=== PATIENT | male | born 1960 | race Caucasian/White ===

== ENCOUNTER 2020-03-15 17:22 | Outpatient (REF) | payer BC, SELFPAY | END 2020-03-15 17:23 | disposition home or self-care (01) | LOC: HO.LAB 17:22 | PROVIDERS: PCP Internal Medicine; Visit Provider Internal Medicine | DX: Z20.828 Contact with and (suspected) exposure to other viral communicable diseases (principal) | CPT/HCPCS: C9803; U0003 ==

== ENCOUNTER 2020-03-28 16:33 | Outpatient (REF) | payer BC, SELFPAY | END 2020-03-28 16:34 | disposition home or self-care (01) | LOC: HO.LAB 16:33 | PROVIDERS: Visit Provider Internal Medicine | DX: Z20.822 Contact with and (suspected) exposure to COVID-19 (principal) | CPT/HCPCS: 36415; C9803; U0003 ==

== ENCOUNTER → 2020-05-19 10:46 | Outpatient (BNVA) | payer BC, SELFPAY | PROVIDERS: PCP Internal Medicine; Visit Provider Internal Medicine Endocrinology, Diabetes & Metabolism | DX: E11.42 Type 2 diabetes mellitus with diabetic polyneuropathy (principal); Z79.4 Long term (current) use of insulin; E55.9 Vitamin D deficiency, unspecified; E78.5 Hyperlipidemia, unspecified; E66.01 Morbid (severe) obesity due to excess calories; I10 Essential (primary) hypertension | CPT/HCPCS: 82947 ==

== ENCOUNTER 2020-05-19 11:32 | Outpatient (REF) | payer BC, SELFPAY ==
[2020-05-19 14:29] LABS: Creatinine Urine 71.93 mg/dL; Microalbum/Creatinine Ratio Ur 31.9 ug/mg cr
[2020-05-19 14:42] LABS: Alanine Aminotransferase 24 U/L (0-40); Albumin Level 4.5 g/dL (3.5-5.0); Alkaline Phosphatase 89 U/L (39-117); Anion Gap 15 (12-20); Aspartate Amino Transferase 27 U/L (5-37); Bilirubin Total 0.8 mg/dL (0.0-1.0); Blood Urea Nitrogen 26 mg/dL (9-16); Calcium 9.4 mg/dL (8.4-10.2); Carbon Dioxide 26 mmol/L (22-29); Chloride 99 mmol/L (96-108); Cholesterol 126 mg/dL; Estimated Glomerular Filt Rate > 60; Glucose Fasting 91 mg/dL (60-99); HDL Cholesterol 32 mg/dL; LDL Cholesterol Calculated 70 mg/dl; Potassium 3.7 mmol/L (3.3-5.1); Sodium 136 mmol/L (135-145); Total Protein 7.9 g/dL (6.5-8.0); Triglycerides 124 mg/dL
[2020-05-19 14:51] LABS: Vitamin B12 400 pg/mL (200-900)
[2020-05-19 15:13] LABS: Free T4 (Free Thyroxine) 0.95 ng/dL (0.71-1.85); Thyroid Stimulating Hormone 2.92 uIU/mL (0.32-4.0)
[2020-05-20 06:12] LABS: LDL Cholesterol Direct 76 mg/dL (<100)
== END 2020-05-19 11:33 | disposition home or self-care (01) ==
LOC: HO.10HDL 11:32
PROVIDERS: Visit Provider Internal Medicine Endocrinology, Diabetes & Metabolism
DX: E11.42 Type 2 diabetes mellitus with diabetic polyneuropathy (principal); Z79.4 Long term (current) use of insulin
CPT/HCPCS: 36415; 80053; 80061; 82043; 82607; 83721; 84439; 84443

== ENCOUNTER → 2020-09-22 14:05 | Outpatient (BNVA) | payer BC, SELFPAY | PROVIDERS: PCP Hospitalist; Visit Provider Internal Medicine Endocrinology, Diabetes & Metabolism | DX: E11.42 Type 2 diabetes mellitus with diabetic polyneuropathy (principal); E55.9 Vitamin D deficiency, unspecified; E78.5 Hyperlipidemia, unspecified; E66.01 Morbid (severe) obesity due to excess calories; Z79.4 Long term (current) use of insulin; Z68.41 Body mass index [BMI] 40.0-44.9, adult | CPT/HCPCS: 82947 ==

== ENCOUNTER 2020-11-23 07:44 | Outpatient (REF) | payer BC, SELFPAY | END 2020-11-23 07:45 | disposition home or self-care (01) | LOC: HO.LAB 07:44 | PROVIDERS: Visit Provider Internal Medicine | DX: Z20.822 Contact with and (suspected) exposure to COVID-19 (principal) | CPT/HCPCS: C9803; U0003; U0005 ==

== ENCOUNTER → 2021-03-30 14:02 | Outpatient (BNVA) | payer BC, SELFPAY | PROVIDERS: Visit Provider Nurse Practitioner Gerontology | DX: E11.42 Type 2 diabetes mellitus with diabetic polyneuropathy (principal); I10 Essential (primary) hypertension; E55.9 Vitamin D deficiency, unspecified; E78.5 Hyperlipidemia, unspecified; E66.01 Morbid (severe) obesity due to excess calories; Z68.41 Body mass index [BMI] 40.0-44.9, adult; Z79.84 Long term (current) use of oral hypoglycemic drugs | CPT/HCPCS: 82947; 83036 ==

== ENCOUNTER 2021-04-05 09:28 | Outpatient (REF) | payer BC, SELFPAY ==
[2021-04-05 10:37] LABS: Alanine Aminotransferase 21 U/L (0-40); Albumin Level 4.1 g/dL (3.5-5.0); Alkaline Phosphatase 73 U/L (39-117); Anion Gap 11 (12-20); Aspartate Amino Transferase 20 U/L (5-37); Bilirubin Total 0.5 mg/dL (0.0-1.0); Blood Urea Nitrogen 18 mg/dL (9-16); Calcium 9.5 mg/dL (8.4-10.2); Carbon Dioxide 27 mmol/L (22-29); Chloride 108 mmol/L (96-108); Cholesterol 134 mg/dL; Estimated Glomerular Filt Rate > 60; Glucose Fasting 102 mg/dL (60-99); HDL Cholesterol 30 mg/dL; LDL Cholesterol Calculated 81 mg/dl; Potassium 4.4 mmol/L (3.3-5.1); Sodium 142 mmol/L (135-145); Total Protein 7.3 g/dL (6.5-8.0); Triglycerides 118 mg/dL
[2021-04-05 11:00] LABS: Vitamin D 25-OH Total 37.3 ng/mL (>30)
[2021-04-05 11:01] LABS: Creatinine Urine 145.17 mg/dL; Microalbum/Creatinine Ratio Ur 66.8 ug/mg cr
[2021-04-06 04:57] LABS: LDL Cholesterol Direct 86 mg/dL (<100)
== END 2021-04-05 09:29 | disposition home or self-care (01) ==
LOC: HO.LAB 09:28
PROVIDERS: PCP Hospitalist; Visit Provider Nurse Practitioner Gerontology
DX: E55.9 Vitamin D deficiency, unspecified (principal); E11.42 Type 2 diabetes mellitus with diabetic polyneuropathy; Z79.4 Long term (current) use of insulin
CPT/HCPCS: 36415; 80053; 80061; 82043; 82306; 83721

== ENCOUNTER 2021-07-10 11:54 | Outpatient (REF) | payer BC, SELFPAY ==
[2021-07-10 12:26] LABS: COVID-19 Test Negative (Negative)
== END 2021-07-10 11:55 | disposition home or self-care (01) ==
LOC: HO.LAB 11:54
PROVIDERS: Visit Provider Internal Medicine
DX: Z20.822 Contact with and (suspected) exposure to COVID-19 (principal)
CPT/HCPCS: 87635; C9803

== ENCOUNTER 2023-01-01 10:33 | Outpatient (AMB) | payer BC, SELFPAY ==
--- NOTE | 2023-01-01 10:39 | A.OFFPC_ITS ---
Vital Signs 01/01/23 10:40 Height 5 ft 2 in Weight 229 lb BMI 41.9 BP 120/60 Blood Pressure Location Lt brachial Position Sitting Pulse 73 Pulse Source Pulse Oximeter Temp 98.4 F Temp Source Oral Pulse Oximetry (%) 94 Oxygen Delivery Method Room Air Intake Visit Reasons: PE Intake Note: Patient is here today for his physical. Patient is concerned of heartburn feeling in his chest, states it may be hard to breathe at times. He states it happens 2-3 times a week. Accompanied by: Spouse Allergies penicillin V Allergy (Unknown, Verified 01/01/23 11:05) swelling Penicillins [PENICILLINS] Allergy (Unknown, Verified 01/01/23 11:05) RASH,SWELLING Medication List - Last Reconciled 01/01/23 by Crystal Rodgers CNP amlodipine 5 mg PO DAILY atorvastatin 20 mg PO DAILY empagliflozin 25 mg PO QAM 30 days hydrochlorothiazide 25 mg PO QAM losartan 100 mg PO DAILY metformin ER 2,000 mg (4 x 500 mg) PO BEDTIME jynzljtt-tut-laqoj-vit K-lycop 400-20-300 mcg (One-A-Day Men's Multivitamin) tabs PO naproxen 500 mg PO BID omega 8-msf-rkt-fish oil 1,200 (144-216) mg (Fish Oil) caps PO semaglutide (Ozempic) 1 mg (0.75 mL) subcut QWEEK 30 days trazodone 100 mg PO BEDTIME PRN 30 days trazodone 100 mg PO BEDTIME PRN Tobacco use date assessed: 01/01/23 Dental Screening Dental Screen Date: 01/01/23 Did you have a dental visit in the last 12 months?: Yes Did you have a dental problem in the last 6 months where you did not have access to dental care?: No Was dental information given to patient?: Patient has dentist HPI HPI Comments History of Present Illness Details 62-year-old male presents for transition of care. His former PCP was ARMANDO who is no longer with the practice. He was last evaluated his former PCP in May 2022. His last routine blood work was over a year ago. He has history of hypertension, diabetes, dyslipidemia, CASTELLON, obesity, vitamin- D deficiency, and anxiety. His last A1c in May was 6.0%. He reports heartburn 2-3 times a week with associated difficulty breathing at times. His symptoms have been ongoing for the past 2 months. His symptoms are not influence by food. He denies eating fried or greasy food. He has not taken any medications for his symptoms. [facility] Medical History Obesity due to excess calories Morbid obesity due to excess calories Dyslipidemia Vitamin D deficiency CASTELLON (nonalcoholic steatohepatitis) Hypertension, essential Diabetes type 2, controlled Surgical History Hx of keloid of skin History of ankle surgery Family History Father Hypertension Mother HX: breast cancer Diabetes Social History Household Members: Spouse and Children Housing: House Alcohol intake: current Alcohol intake frequency: a few times a month Patient Tobacco Use Status: Never used Tobacco e-Cigarette/Vaping Use: Never Used Substance Use Type: Marijuana service: Yes Current occupational status: employed and retired Current occupation: [employer] Cognitive needs: No Hearing needs: No Vision needs: No Questionnaire PHQ-9 Over the last 2 weeks, how often have you been bothered by any of the following problems? 1. Little interest or pleasure in doing things: not at all 2. Feeling down, depressed, or hopeless: several days 3. Trouble falling or staying asleep, or sleeping too much: not at all 4. Feeling tired or having little energy: several days 5. Poor appetite or overeating: not at all 6. Feeling bad about yourself - or that you are a failure or have let yourself or your family down: not at all 7. Trouble concentrating on things, such as reading the newspaper or watching television: not at all 8. Moving or speaking so slowly that other people could have noticed. Or the opposite - being so fidgety or restless that you have been moving around a lot more than usual: not at all 9. Thoughts that you would be better off or of hurting yourself in some way: not at all Total score: 2 Depression Screening Interpretation: Negative Depression Screening Done: Yes Source: Developed by Drs. Ruddy LSary Ayala Kurt Kroenke and colleagues, with an educational mariella from [employer] ([place]). Thrive Questionnaire Date Thrive assessed: 01/01/23 I am a: Patient What is your living situation today?: I have a steady place to live Within the past 12 months, did the food you bought not last and you didn't have the money to get more?: Never true Within the past 12 months, did you worry whether your food would run out before you got money to buy more?: Never true Do you have trouble paying for medicines?: No Do you have trouble getting transportation to medical appointments?: No Do you have trouble paying your heating and electricity bill?: No Do you have trouble taking care of your child, family member or friend?: No Do you have trouble with day-to-day activities such as bathing, preparing meals, shopping, managing finances, etc.?: No Are you currently unemployed and looking for a job?: No Are you interested in more education?: No AUDIT C Alcohol Use Questionnaire (AUDIT-C) 1. How often do you have a drink containing alcohol?: Never 3. How often do you have six or more drinks on one occasion?: Never Total Score: 0 CYDNEY-7 AMB Questionnaire CYDNEY-7 Date CYDNEY - 7 assessed: 01/01/23 Feeling nervous, anxious, or on edge: 1 = Several days Not being able to stop or control worryin = Not at all Worrying too much about different things: 1 = Several days Trouble relaxin = Not at all Being so restless that it is hard to sit still: 0 = Not at all Becoming easily annoyed or irritable: 0 = Not at all Feeling afraid as if something awful might happen: 0 = Not at all Total CYDNEY-7 score (0-4 normal; 5-9 mild; 10-14 moderate; 15-21 severe): 2 Source: Developed by Drs. Ruddy Yao, Tru Neely and colleagues, with an educational mariella from [employer] ([place]). Review of Systems Const Details: Const Denies chills, Denies fatigue, Denies fever(s), Denies headache(s) and Denies weakness ENT Denies dizziness and Denies headache(s) Card Denies chest pain, Denies lightheadedness, Denies dyspnea and Denies other (Palpitations) Resp Denies cough, Denies dyspnea, Denies wheezing and Denies other ( shortness of breath) GI Denies abdominal pain, Denies melena, Denies hematochezia, Denies change in bowel habits, Denies dyspepsia and Denies nausea Denies hematuria and Denies dysuria Musc Denies abnormal gait, Denies myalgias, Denies arthralgias, Denies numbness and Denies tingling Skin/Breast Denies rash, Denies unusual bruising and Denies wounds Neuro Denies abnormal gait, Denies dizziness, Denies headache(s), Denies memory loss, Denies numbness, Denies Sensory deficit (Neuro), Denies tingling and Denies weakness Psych Denies anxiety, Denies depression, Denies memory loss Endo Denies cold intolerance, Denies fatigue, Denies heat intolerance, Denies polydipsia and Denies polyuria Aller/Immun Denies wheezing Physical exam (Primary Care) Vital Signs: Last Vital Signs Temp 98.4 F 01/01/23 10:40 Pulse 73 01/01/23 10:40 BP 120/60 01/01/23 10:40 Pulse Ox 94 01/01/23 10:40 Oxygen Delivery Method Room Air 01/01/23 10:40 BMI result Body Mass Index 41.9 Tobacco/Smoking Status: Tobacco use Status Tobacco use date assessed 01/01/23 01/01/23 10:56 Patient Tobacco Use Status Never used Tobacco 01/01/23 10:42 e-Cigarette/Vaping Use Never Used 01/01/23 10:42 PHQ-9: PHQ-9 Score PHQ-9: Total score 2 01/01/23 11:01 Depression Screening Interpretation: Negative Thrive Assessment: Date of Thrive Assessment Date Thrive assessed 01/01/23 01/01/23 10:56 Const Other: General: no acute distress and well developed Nutritional Appearance: well nourished Orientation/consciousness: patient oriented x3 HENMT Head: Yes normocephalic and Yes atraumatic Eyes General: appearance normal, both eyes and all related structures Pupils: Equal, round and reactive pupils present EOM: EOMs intact bilaterally Resp Effort & Inspection: normal respiratory effort Auscultation: clear to auscultation bilaterally Cardio Rate: regular rate Rhythm: regular rhythm Heart sounds: S1 normal heart sound present, S2 normal heart sound present, no gallops, no murmurs and no rubs GI Palpation (GI): No Abdominal aortic bruit present, Soft to palpation, nontender, No hepatosplenomegaly present and No Rebound tenderness present Auscultation: normal bowel sounds General: Yes no CVA tenderness Back/Spine/Pelvis Back: no CVA tenderness Cervical Spine: cervical ROM normal and No Cervical spine tenderness Thoracic/Lumbar Spine: thoraco-lumbar ROM normal, No pain with thoraco-lumbar ROM, No thoracic spinal tenderness and No lumbar spinal tenderness Extrem General: Yes normal to inspection, No edema and No calf tenderness Skin General: warm and dry. Normal skin color. Normal skin turgor Lesions: no lesions Rashes: no rashes Trauma: no lacerations or abrasions Wounds: no wounds Nails: normal Neuro General: patient oriented x3, gait normal and no focal neuro deficit Cranial nerves: Yes Equal, round and reactive pupils present Cognition (Neuro): normal cognition Gait exam (Neuro): Normal gait present Sensory Exam: No Sensory deficit (Neuro) Psych Appearance: grossly normal Affect: normal affect Attitude: cooperative Thought process: Normal thought process present Results AMB Hemoglobin A1c AMB Hemoglobin A1c 6.5 % Last Edit by Sharita [place] CMA on 01/01/23 11:03 Results Reviewed Results Reviewed: Laboratory Last Values Hgb A1c (Clinic) 6.5 % (4.0-6.0) H 01/01/23 11:01 Assessment and Plan Assessment & Plan (1) Diabetes type 2, controlled: Code(s): E11.9 - Type 2 diabetes mellitus without complications Qualifiers: Diabetes mellitus terminal makeup operator insulin use: with terminal makeup operator use Diabetes mellitus complication status: with neurologic complications Diabetes mellitus complication detail: with polyneuropathy Qualified Code(s): E11.42 - Type 2 diabetes mellitus with diabetic polyneuropathy; Z79.4 - intermediate (current) use of insulin Plan: A1c 6.5% today, within goal of less than 7.0%. Previous A1c was 6.0% Continue with current treatment regimen ADA diet and routine exercise encouraged Will recheck A1c in 3 months Follow-up in 1 month for complete physical exam or return sooner with symptoms or concerns Verbalized understanding and agreed with treatment plan. (2) Hypertension, essential: Code(s): I10 - Essential (primary) hypertension Plan: Blood pressure is controlled, 120/60, within goal of less than 130/80 Continue with current treatment regimen Low-sodium diet encouraged Will continue to monitor. (3) Heartburn: Code(s): R12 - Heartburn Plan: Reports heartburn 2-3 times a week with associated difficulty breathing at times. His symptoms have been ongoing for the past 2 months. His symptoms are not influence by food. He denies eating fried or greasy food. He has not taken any medications for his symptoms. Omeprazole ordered. Take as prescribed Advised to keep a log of triggers of his symptoms Return with new or worsening symptoms Verbalized understanding and agreed with treatment plan. (4) Laboratory tests ordered as part of a complete physical exam (CPE): Code(s): Z00.00 - Encounter for general adult medical examination without abnormal findings Plan: Fasting labs ordered as part of a complete physical exam. Advised to fast for at least 10 hours before getting labs drawn. May drink water Verbalized understanding and agreed with treatment plan. Orders: Orders AMB Hemoglobin A1c Today Z13.9 - Encounter for screening, unspecified PSA, Ultra Sensitive Today Z00.00 - Encounter for general adult medical examination without abnormal findings Complete Blood Count Auto Diff Today Z00.00 - Encounter for general adult medical examination without abnormal findings Comprehensive [place]. Panel Fast Today Z00.00 - Encounter for general adult medical examination without abnormal findings Lipid Panel Today Z00.00 - Encounter for general adult medical examination without abnormal findings TSH reflex Free T4 Today Z00.00 - Encounter for general adult medical examination without abnormal findings UA CC w/rflx Micro + Cult Today Z00.00 - Encounter for general adult medical examination without abnormal findings Vitamin D 25-OH Total Today Z00.00 - Encounter for general adult medical examination without abnormal findings Microalbumin, Random (w Creat) Today E11.9 - Type 2 diabetes mellitus without complications Medications: New omeprazole 20 mg PO DAILY 30 days 30 caps 2RF Coding Level of Care Code Est Pt Level 4 (88003) Diagnoses Controlled type 2 diabetes mellitus with diabetic polyneuropathy, with long-term current use of insulin E11.42; Z79.4 Diabetes mellitus terminal makeup operator insulin use: with [facility] use Diabetes mellitus complication status: with neurologic complications Diabetes mellitus complication detail: with polyneuropathy Hypertension, essential I10 Heartburn R12 Laboratory tests ordered as part of a complete physical exam (CPE) Z00.00
[2023-01-01 10:40] VITALS: BP 120/60; PULSE 73; TEMP 36.9; O2SAT 94; BMI 41.9
== END 2023-01-01 11:34 | disposition home or self-care (01) ==
PROVIDERS: PCP Nurse Practitioner Family; Visit Provider Nurse Practitioner Family
DX: E11.42 Type 2 diabetes mellitus with diabetic polyneuropathy (principal); Z79.4 Long term (current) use of insulin; I10 Essential (primary) hypertension; R12 Heartburn
CPT/HCPCS: 83036; 99214

== ENCOUNTER 2023-02-05 07:52 | Outpatient (REF) | payer BC, SELFPAY ==
[2023-02-05 08:10] LABS: MANUAL DIFF FLAG NO
[2023-02-05 08:34] LABS: Basophils Percent Auto 0.4 % (0-2); Eosinophils Absolute Auto 0.1 X10*3/uL (0.0-0.4); Eosinophils Percent Auto 0.7 % (0-4); Hematocrit 42.3 % (42.0-52.0); Hemoglobin 14.6 g/dl (14.0-18.0); Imm Gran Abs Auto 0.03 X10*3/uL (0.00-0.03); Imm Gran Pct Auto 0.3 % (0.0-0.4); Lymphocytes Absolute Auto 2.2 X10*3/uL (1.2-4.9); Lymphocytes Percent Auto 22.4 % (20-40); Mean Corpuscular HGB Conc 34.5 g/dl (31.0-36.0); Mean Corpuscular Hemoglobin 30.5 pg (27.0-33.0); Mean Corpuscular Volume 88.3 fL (80.0-98.0); Mean Platelet Volume 10.9 fL (9.4-12.4); Monocytes Absolute Auto 0.7 X10*3/uL (0.1-1.2); Monocytes Percent Auto 6.6 % (2-11); Neutrophils Absolute Auto 6.8 x10*3/uL (2.0-8.3); Neutrophils Percent Auto 69.6 % (45-73); Platelet Count 181 X10*3/uL (160-400); Red Blood Count 4.79 X10*6/uL (4.60-5.80); Red Cell Distribution Width 12.9 % (11.0-16.0); White Blood Count 9.8 X10*3/uL (4.8-10.8)
[2023-02-05 08:56] LABS: Alanine Aminotransferase 31 U/L (0-40); Albumin Level 4.1 g/dL (3.5-5.0); Alkaline Phosphatase 73 U/L (39-117); Anion Gap 13 (12-20); Aspartate Amino Transferase 25 U/L (5-37); Bilirubin Total 0.5 mg/dL (0.0-1.0); Blood Urea Nitrogen 25 mg/dL (9-16); Calcium 9.6 mg/dL (8.4-10.2); Carbon Dioxide 25 mmol/L (22-29); Chloride 108 mmol/L (96-108); Cholesterol 139 mg/dL (<200); Estimated Glomerular Filt Rate > 60; Glucose Fasting 121 mg/dL (60-99); HDL Cholesterol 32 mg/dL (>40); LDL Cholesterol Calculated 61 mg/dL (<100); Potassium 3.8 mmol/L (3.3-5.1); Sodium 142 mmol/L (135-145); Total Protein 7.5 g/dL (6.5-8.0); Triglycerides 230 mg/dL (<150)
[2023-02-05 09:04] LABS: Appearance Urine Clear; Color Urine Yellow; Glucose Urine UA >=1000 mg/dL (Negative); Leukocyte Esterase Urine Negative (Negative); Nitrite Urine Negative (Negative); PH 5.5 (5.0-9.0); Specific Gravity - Urine >= 1.030 (1.005-1.025); UMIC TRIGGER UACC YES; Urine Blood Negative (Negative); Urine Ketones Negative (Negative); Urine Protein Negative (Neg-Trace)
[2023-02-05 09:14] LABS: TSH reflex Free T4 3.24 uIU/mL (0.32-4.0); Vitamin D 25-OH Total 44.9 ng/mL (>30)
[2023-02-05 09:23] LABS: Bacteria Urine None Seen (None Seen); Creatinine Urine 86.15 mg/dL; Hyaline Casts Urine 0-2 /LPF (0-2); Microalbum/Creatinine Ratio Ur 73.1 ug/mg cr (<30); RBC Urine 0-2 /HPF (0-2); Squamous Epithelial Cell Urine 0-2 /HPF (0-2); WBC Urine 0-5 /HPF (0-5)
[2023-02-10 23:48] LABS: PSA, Ultra Sensitive 0.28 ng/mL
== END 2023-02-05 07:53 | disposition home or self-care (01) ==
LOC: HO.LAB 07:52
PROVIDERS: PCP Nurse Practitioner Family; Visit Provider Nurse Practitioner Family
DX: Z00.00 Encounter for general adult medical examination without abnormal findings (principal); Z12.5 Encounter for screening for malignant neoplasm of prostate; E11.9 Type 2 diabetes mellitus without complications; E55.9 Vitamin D deficiency, unspecified
CPT/HCPCS: 36415; 80053; 80061; 81001; 81003; 82043; 82306; 82570; 84153; 84443; 85025

== ENCOUNTER 2023-02-10 08:38 | Outpatient (AMB) | payer BC, SELFPAY ==
[2023-02-10 08:47] VITALS: BP 126/74; PULSE 78; RESP 13; TEMP 36.4; O2SAT 95; BMI 42.3
--- NOTE | 2023-02-10 08:47 | MHC.PC.OV ---
Vital Signs 02/10/23 08:47 Height 5 ft 2 in Weight 231 lb 6 oz BMI 42.3 BP 126/74 Blood Pressure Location Lt brachial Position Sitting Respiration 13 Pulse 78 Pulse Source Pulse Oximeter Temp 97.6 F Temp Source Temporal Artery Scan Pulse Oximetry (%) 95 Oxygen Delivery Method Room Air Intake Visit Reasons: cpe Intake Note: Patient states that hes been experiencing random chest pain in the middle of the night. Patient states that after taking the omeprazole it will subside. Inspector Fuel Hose Required: No Accompanied by: Self / Same As Patient Allergies penicillin V Allergy (Unknown, Verified 02/10/23 08:55) swelling Penicillins [PENICILLINS] Allergy (Unknown, Verified 02/10/23 08:55) RASH,SWELLING Medication List - Last Reconciled 02/10/23 by Crystal Rodgers CNP amlodipine 5 mg PO DAILY atorvastatin 20 mg PO DAILY empagliflozin 25 mg PO QAM 30 days hydrochlorothiazide 25 mg PO QAM losartan 100 mg PO DAILY metformin ER 2,000 mg (4 x 500 mg) PO BEDTIME azdycvqa-ghx-gcich-vit K-lycop 400-20-300 mcg (One-A-Day Men's Multivitamin) tabs PO naproxen 500 mg PO BID omega 8-ojf-jzj-fish oil 1,200 (144-216) mg (Fish Oil) caps PO omeprazole 20 mg PO DAILY 30 days semaglutide (Ozempic) 1 mg (0.75 mL) subcut QWEEK 30 days trazodone 100 mg PO BEDTIME PRN 90 days Tobacco use date assessed: 01/01/23 Dental Screening Dental Screen Date: 02/10/23 Did you have a dental visit in the last 12 months?: No Did you have a dental problem in the last 6 months where you did not have access to dental care?: No Was dental information given to patient?: Patient has dentist HPI HPI Comments History of Present Illness Details 62-year-old male presents for an extended physical exam He has past medical history significant for diabetes, hypertension, dyslipidemia, obesity, difficulty sleeping, anxiety, and with the mid D deficiency He had routine labs done a few days ago; results were unremarkable except for elevated triglyceride and low HDL, 230 and 32 respectively. Recent microalbumin/creatinine ratio was elevated, 73.1. Recent urinalysis was unremarkable. He reports intermittent pain in his sternum with/without exertion. His symptoms occur 1-2 times weekly for the past 6 months, lasting approximately 10 minutes. He denies associated symptoms. He denies acute symptoms at this time. He notes he drinks 6-10 beers socially on weekends but not every weekend. He has been drinking for the past 20 years. He smokes cigar occasionally, denies smoking cigarette. He chew marijuana gummies occasionally, denies other recreational drug use [facility] Medical History Obesity due to excess calories Morbid obesity due to excess calories Dyslipidemia Vitamin D deficiency CASTELLON (nonalcoholic steatohepatitis) Hypertension, essential Diabetes type 2, controlled Surgical History Hx of keloid of skin History of ankle surgery Family History Father Hypertension Mother HX: breast cancer Diabetes Household Members: Spouse and Children Housing: House Alcohol intake: current Alcohol intake frequency: a few times a month Patient Tobacco Use Status: Never used Tobacco e-Cigarette/Vaping Use: Never Used Substance Use Type: Marijuana service: Yes Current occupational status: retired Current occupation: [employer] Cognitive needs: No Hearing needs: No Vision needs: No Questionnaire Thrive Questionnaire Date Thrive assessed: 01/01/23 AUDIT C Alcohol Use Questionnaire (AUDIT-C) 1. How often do you have a drink containing alcohol?: 2-3 times a week 2. How many drinks containing alcohol do you have on a typical day when you are drinking?: 3 or 4 3. How often do you have six or more drinks on one occasion?: Never Total Score: 4 CYDNEY-7 AMB Questionnaire CYDNEY-7 Date CYDNEY - 7 assessed: 01/01/23 Source: Developed by Drs. Ruddy Yao, Sary Blount, Tru Palma and colleagues, with an educational mariella from [employer]. Review of Systems Const Details: Denies chills, Denies fatigue, Denies fever(s), Denies headache(s) and Denies weakness HEENT Denies change in vision, Denies dizziness, Denies headache(s), Denies hearing loss, Denies nasal congestion, Denies sinus pain, Denies sinus pressure and Denies sore throat Card Denies chest pain, Denies lightheadedness, Denies dyspnea and Denies other (palpitations) Resp Denies cough, Denies dyspnea and Denies wheezing GI Denies abdominal pain, Denies melena, Denies hematochezia, Denies change in bowel habits, Denies dyspepsia and Denies nausea Denies hematuria and Denies dysuria Musc Denies abnormal gait, Denies myalgias, Denies arthralgias, Denies numbness and Denies tingling Skin/Breast Denies rash, Denies unusual bruising and Denies wounds Neuro Denies abnormal gait, Denies dizziness, Denies headache(s), Denies memory loss, Denies numbness, Denies Sensory deficit (Neuro), Denies tingling and Denies weakness Psych Denies anxiety, Denies depression and Denies memory loss Endo Denies cold intolerance, Denies fatigue, Denies heat intolerance, Denies polydipsia and Denies polyuria Sven/Lymph Denies easy bleeding and Denies easy bruising Aller/Immun Denies wheezing Physical exam (Primary Care) Vital Signs: Last Vital Signs Temp 97.6 F 02/10/23 08:47 Pulse 78 02/10/23 08:47 Resp 13 02/10/23 08:47 BP 126/74 02/10/23 08:47 Pulse Ox 95 02/10/23 08:47 Oxygen Delivery Method Room Air 02/10/23 08:47 BMI result Body Mass Index 42.3 Tobacco/Smoking Status: Tobacco use Status Tobacco use date assessed 01/01/23 01/01/23 10:56 Patient Tobacco Use Status Never used Tobacco 01/01/23 10:42 e-Cigarette/Vaping Use Never Used 01/01/23 10:42 Thrive Assessment: Date of Thrive Assessment Date Thrive assessed 01/01/23 01/01/23 10:56 Const Other: General: no acute distress, well developed, alert and awake Nutritional Appearance: well nourished Orientation/consciousness: patient oriented x3 HENMT Head: Yes normocephalic and Yes atraumatic Ears: hearing grossly normal bilaterally and TM's normal bilaterally General nose exam: Normal external nose present and Normal nares present Mouth: Normal oral and palatal mucosa present and moist mucous membranes Teeth and gingiva: dentition normal Throat: Yes oropharynx normal Eyes Pupils: Equal, round and reactive pupils present and Pupil accommodation reflex normal EOM: EOMs intact bilaterally Neck Neck: Yes normal visual inspection, Yes no lymphadenopathy and Yes trachea midline Thyroid: Thyroid normal Carotids: no bruits Lymphatic: no lymphadenopathy noted Chest Chest palpation & inspection: normal inspection of the chest Resp Effort & Inspection: normal respiratory effort Auscultation: clear to auscultation bilaterally Cardio Rate: regular rate Rhythm: regular rhythm Heart sounds: S1 normal heart sound present, S2 normal heart sound present, no gallops, no murmurs and no rubs Bruits: no abdominal aortic bruits and no carotid bruits GI Palpation (GI): No Abdominal aortic bruit present, Soft to palpation, nontender, No hepatosplenomegaly present and No Rebound tenderness present Auscultation: normal bowel sounds General: Yes no CVA tenderness Back/Spine/Pelvis Back: no CVA tenderness Cervical Spine: cervical ROM normal and No Cervical spine tenderness Thoracic/Lumbar Spine: thoraco-lumbar ROM normal, No pain with thoraco-lumbar ROM, No thoracic spinal tenderness and No lumbar spinal tenderness Skin General: warm and dry. Normal skin color. Normal skin turgor Lesions: no lesions Rashes: no rashes Trauma: no lacerations or abrasions Wounds: no wounds Nails: normal Neuro General: patient oriented x3, gait normal and CN's II-XI intact bilaterally Cranial nerves: Yes Equal, round and reactive pupils present Cognition (Neuro): normal cognition Gait exam (Neuro): Normal gait present Motor exam (neuro): 5/5 motor strength present throughout Sensory Exam: No Sensory deficit (Neuro) Deep tendon reflexes (DTR's): Right patellar reflex intensity grade: 2+ and Left patellar reflex intensity grade: 2+ Extrem General: Yes normal to inspection, No edema and No calf tenderness Psych Appearance: grossly normal Affect: normal affect Attitude: cooperative Thought process: Normal thought process present Office Procedures EKG [id number], Complete Assessment and Plan Assessment & Plan (1) Normal physical examination, routine: Code(s): Z00.00 - Encounter for general adult medical examination without abnormal findings Plan: No significant physical restrictions or limitations noted Follow-up in 2 months for diabetes, hypertension, and dyslipidemia Return sooner with symptoms or concerns Verbalized understanding and agreed with treatment plan (2) Hypertension, essential: Code(s): I10 - Essential (primary) hypertension Plan: Blood pressure is 126/74, within goal of less than 130/80 Continue with current treatment regimen Low-sodium diet encouraged Follow-up in 2 months Verbalized understanding and agreed with treatment plan (3) Diabetes type 2, controlled: Code(s): E11.9 - Type 2 diabetes mellitus without complications Qualifiers: Diabetes mellitus half-way insulin use: with supervisor production department use Diabetes mellitus complication status: with neurologic complications Diabetes mellitus complication detail: with polyneuropathy Qualified Code(s): E11.42 - Type 2 diabetes mellitus with diabetic polyneuropathy; Z79.4 - internet manager (current) use of insulin Plan: A1c was 6.5% last month Recent microalbumin/creatinine ratio 73.1 LDL is 61 Continue with current treatment regimen He notes that he does not drink adequate amount of water. Adequate hydration encouraged Will recheck microalbumin/creatinine ratio. Advised to get labs done before his next visit Follow-up in 2 months Verbalized understanding and agreed with treatment plan (4) Dyslipidemia: Code(s): E78.5 - Hyperlipidemia, unspecified Plan: Recent triglyceride is elevated, 230, HDL is low, 32, total cholesterol and LDL levels are normal Continue to take atorvastatin as prescribed Fenofibrate ordered. Take as prescribed Advised to limit foods high in saturated fat and avoid foods high in trans fat Routine exercise encouraged Will recheck lipid panel. Advised to fast for 10-12 hours, may drink water only, and get blood work done a few days before his next visit Follow-up in 2 months Verbalized understanding and agreed with treatment plan (5) Alcohol dependence: Code(s): F10.20 - Alcohol dependence, uncomplicated Plan: He notes he drinks 6-10 beers socially on weekends but not every weekend. He has been drinking for the past 20 years Instructed on the health risks and complications of excessive alcohol consumption Advised to limit or stop drinking alcohol May referred to addiction medicine if needed Verbalized understanding and agreed with the plan (6) Morbid obesity with BMI of 40.0-44.9, adult: Code(s): E66.01 - Morbid (severe) obesity due to excess calories; Z68.41 - Body mass index [BMI] 40.0-44.9, adult Plan: He currently weighs 231 lb, BMI is 42.3 He admits to making healthy dietary choices. However, has not been exercising Declines referral to information technology technician/dietitian or weight management He notes he will start expanding his activities by walking Healthy diet and routine exercise encouraged May referred to information technology technician/dietitian or weight management as needed Follow-up with symptoms or concerns Verbalized understanding and agreed with treatment plan (7) Intermittent chest pain: Code(s): R07.9 - Chest pain, unspecified Plan: Reports intermittent pain in his sternum with/without exertion. His symptoms occur 1-2 times weekly for the past 6 months, lasting approximately 10 minutes. He denies associated symptoms. No acute symptoms Normal physical exam. Heart regular rate and rhythm EKG performed in the office; revealed normal sinus rhythm, normal axis, normal interval, no hypertrophy, no S/T changes Likely musculoskeletal pain. Acid reflux is also possible Omeprazole as prescribed Tylenol/ibuprofen for pain or discomfort Warm/cold compresses encouraged Return or go to the walk-in or ED with worsening or new symptoms Verbalized understanding and agreed with treatment plan Orders: Orders Lipid Panel Today E78.5 - Hyperlipidemia, unspecified, I10 - Essential (primary) hypertension Microalbumin, Random (w Creat) Today E11.9 - Type 2 diabetes mellitus without complications Medications: New fenofibrate 54 mg PO DAILY 30 tabs 3RF 30 days Coding Level of Care Code Est Pt Prev Care 40-64y(30785) Diagnoses Normal physical examination, routine Z00.00 Hypertension, essential I10 Controlled type 2 diabetes mellitus with diabetic polyneuropathy, with long-term current use of insulin E11.42; Z79.4 Diabetes mellitus supervisor production department insulin use: with half-way use Diabetes mellitus complication status: with neurologic complications Diabetes mellitus complication detail: with polyneuropathy Dyslipidemia E78.5 Alcohol dependence F10.20 Morbid obesity with BMI of 40.0-44.9, adult E66.01; Z68.41 Intermittent chest pain R07.9 CPT Codes EKG - CPT: 43059-[id number], Complete ([id number])
== END 2023-02-10 09:39 | disposition home or self-care (01) ==
PROVIDERS: PCP Nurse Practitioner Family; Visit Provider Nurse Practitioner Family
DX: Z00.00 Encounter for general adult medical examination without abnormal findings (principal); E11.42 Type 2 diabetes mellitus with diabetic polyneuropathy; Z79.4 Long term (current) use of insulin; F10.20 Alcohol dependence, uncomplicated; E66.01 Morbid (severe) obesity due to excess calories; Z68.41 Body mass index [BMI] 40.0-44.9, adult; R07.9 Chest pain, unspecified
CPT/HCPCS: 93000; 99396

== ENCOUNTER 2023-07-16 08:46 | Outpatient (REF) | payer BC, SELFPAY ==
[2023-07-16 10:11] LABS: Appearance Urine Clear; Color Urine Yellow; Glucose Urine UA >=1000 mg/dL (Negative); Leukocyte Esterase Urine Negative (Negative); Nitrite Urine Negative (Negative); PH 5.5 (5.0-9.0); Specific Gravity - Urine >= 1.030 (1.005-1.025); UMIC TRIGGER UACC YES; Urine Blood Negative (Negative); Urine Ketones Negative (Negative); Urine Protein Negative (Neg-Trace)
[2023-07-16 10:14] LABS: Cholesterol 142 mg/dL (<200); HDL Cholesterol 31 mg/dL (>40); LDL Cholesterol Calculated 81 mg/dL (<100); Triglycerides 153 mg/dL (<150)
[2023-07-16 10:34] LABS: Bacteria Urine None Seen (None Seen); Hyaline Casts Urine 0-2 /LPF (0-2); RBC Urine 0-2 /HPF (0-2); Squamous Epithelial Cell Urine 0-2 /HPF (0-2); WBC Urine 0-5 /HPF (0-5)
[2023-07-16 10:48] LABS: Creatinine Urine 107.36 mg/dL; Microalbum/Creatinine Ratio Ur 31.6 ug/mg cr (<30)
== END 2023-07-16 08:47 | disposition home or self-care (01) ==
LOC: HO.LAB 08:46
PROVIDERS: PCP Nurse Practitioner Family; Visit Provider Nurse Practitioner Family
DX: Z00.00 Encounter for general adult medical examination without abnormal findings (principal); E78.5 Hyperlipidemia, unspecified; I10 Essential (primary) hypertension; E11.9 Type 2 diabetes mellitus without complications
CPT/HCPCS: 36415; 80061; 81001; 81003; 82043; 82570

== ENCOUNTER 2023-08-01 11:00 | Outpatient (AMB) | payer BC, SELFPAY ==
[2023-08-01 11:06] VITALS: BP 110/74; PULSE 93; RESP 13; TEMP 36.6; O2SAT 97; BMI 42.8
--- NOTE | 2023-08-01 11:06 | A.OFFPC_ITS ---
Vital Signs 08/01/23 11:06 Height 5 ft 2 in Weight 234 lb 4 oz BMI 42.8 BP 110/74 Blood Pressure Location Lt brachial Position Sitting Respiration 13 Pulse 93 Pulse Source Pulse Oximeter Temp 97.9 F Temp Source Temporal Artery Scan Pulse Oximetry (%) 97 Oxygen Delivery Method Room Air Intake Visit Reasons: DM, HTN, dyslipidemia Media Director Required: No Accompanied by: Self / Same As Patient Allergies penicillin V Allergy (Unknown, Verified 08/01/23 11:16) swelling Penicillins [PENICILLINS] Allergy (Unknown, Verified 08/01/23 11:16) RASH,SWELLING Medication List - Last Reconciled 08/01/23 by Crystal Rodgers CNP amlodipine 5 mg PO DAILY atorvastatin 20 mg PO DAILY empagliflozin 25 mg PO QAM 30 days fenofibrate 54 mg PO DAILY 30 days hydrochlorothiazide 25 mg PO QAM losartan 100 mg PO DAILY metformin ER 2,000 mg (4 x 500 mg) PO BEDTIME zolpxuls-sqx-qpvzg-vit K-lycop 400-20-300 mcg (One-A-Day Men's Multivitamin) tabs PO naproxen 500 mg PO BID omega 7-hgf-ura-fish oil 1,200 (144-216) mg (Fish Oil) caps PO semaglutide (Ozempic) 1 mg (0.75 mL) subcut QWEEK 30 days Tobacco use date assessed: 08/01/23 Dental Screening Dental Screen Date: 08/01/23 Did you have a dental visit in the last 12 months?: No Did you have a dental problem in the last 6 months where you did not have access to dental care?: No Was dental information given to patient?: Patient has dentist HPI HPI Comments History of Present Illness Details 62-year-old male presents for diabetes, hypertension, and dyslipidemia follow-up His last office visit was when he had an extended physical exam on 02/10/2023. He was advised to follow-up in 2 months. He admits to taking his medications as prescribed without adverse reactions. He has been out of Jardance about a week ago He admits to making healthy lifestyle changes, including limiting carbs/salt and playing pickle ball 2-3 times weekly. He notes that he reduced his alcohol intake to 4 beers on some weekends He offers no complaints and denies acute symptoms at this time [facility] Medical History Obesity due to excess calories Morbid obesity due to excess calories Dyslipidemia Vitamin D deficiency CASTELLON (nonalcoholic steatohepatitis) Hypertension, essential Diabetes type 2, controlled Surgical History Hx of keloid of skin History of ankle surgery Family History Father Hypertension Mother HX: breast cancer Diabetes Social History Household Members: Spouse and Children Housing: House Alcohol intake: current Alcohol intake frequency: a few times a month Patient Tobacco Use Status: Never used Tobacco e-Cigarette/Vaping Use: Never Used Substance Use Type: Marijuana service: Yes Current occupational status: retired Current occupation: [employer] Cognitive needs: No Hearing needs: No Vision needs: Yes Questionnaire Thrive Questionnaire Date Thrive assessed: 01/01/23 CYDNEY-7 AMB Questionnaire CYDNEY-7 Date CYDNEY - 7 assessed: 01/01/23 Source: Developed by Drs. Ruddy Yao, Sary Blount, Tru Palma and colleagues, with an educational mariella from [employer]. Review of Systems Const Details: Const Denies chills, Denies fatigue, Denies fever(s), Denies headache(s) and Denies weakness ENT Denies dizziness and Denies headache(s) Card Denies chest pain, Denies lightheadedness, Denies dyspnea and Denies other (Palpitations) Resp Denies cough, Denies dyspnea, Denies wheezing and Denies other ( shortness of breath) GI Denies abdominal pain, Denies melena, Denies hematochezia, Denies change in bowel habits, Denies dyspepsia and Denies nausea Denies hematuria and Denies dysuria Musc Denies abnormal gait, Denies myalgias, Denies arthralgias, Denies numbness and Denies tingling Skin/Breast Denies rash, Denies unusual bruising and Denies wounds Neuro Denies abnormal gait, Denies dizziness, Denies headache(s), Denies memory loss, Denies numbness, Denies Sensory deficit (Neuro), Denies tingling and Denies weakness Psych Denies anxiety, Denies depression, Denies memory loss Endo Denies cold intolerance, Denies fatigue, Denies heat intolerance, Denies polydipsia and Denies polyuria Aller/Immun Denies wheezing Physical exam (Primary Care) Vital Signs: Last Vital Signs Temp 97.9 F 08/01/23 11:06 Pulse 93 08/01/23 11:06 Resp 13 08/01/23 11:06 BP 110/74 08/01/23 11:06 Pulse Ox 97 08/01/23 11:06 Oxygen Delivery Method Room Air 08/01/23 11:06 BMI result Body Mass Index 42.8 Tobacco/Smoking Status: Tobacco use Status Tobacco use date assessed 01/01/23 08/01/23 11:14 Patient Tobacco Use Status Never used Tobacco 08/01/23 11:14 e-Cigarette/Vaping Use Never Used 08/01/23 11:14 Thrive Assessment: Date of Thrive Assessment Date Thrive assessed 01/01/23 08/01/23 11:14 Const Other: General: no acute distress and well developed Nutritional Appearance: well nourished Orientation/consciousness: patient oriented x3 HENMT Head: Yes normocephalic and Yes atraumatic Eyes General: appearance normal, both eyes and all related structures Pupils: Equal, round and reactive pupils present EOM: EOMs intact bilaterally Resp Effort & Inspection: normal respiratory effort Auscultation: clear to auscultation bilaterally Cardio Rate: regular rate Rhythm: regular rhythm Heart sounds: S1 normal heart sound present, S2 normal heart sound present, no gallops, aortic systolic murmurs and no rubs GI Palpation (GI): No Abdominal aortic bruit present, Soft to palpation, nontender, No hepatosplenomegaly present and No Rebound tenderness present Auscultation: normal bowel sounds General: Yes no CVA tenderness Back/Spine/Pelvis Back: no CVA tenderness Cervical Spine: cervical ROM normal and No Cervical spine tenderness Thoracic/Lumbar Spine: thoraco-lumbar ROM normal, No pain with thoraco-lumbar ROM, No thoracic spinal tenderness and No lumbar spinal tenderness Extrem General: Yes normal to inspection, No edema and No calf tenderness Skin General: warm and dry. Normal skin color. Normal skin turgor Neuro General: patient oriented x3, gait normal and no focal neuro deficit Cranial nerves: Yes Equal, round and reactive pupils present Cognition (Neuro): normal cognition Gait exam (Neuro): Normal gait present Sensory Exam: No Sensory deficit (Neuro) Psych Appearance: grossly normal Affect: normal affect Attitude: cooperative Thought process: Normal thought process present Results AMB Hemoglobin A1c AMB Hemoglobin A1c 6.7 % Last Edit by RUDY Sarkar on 08/01/23 11:3 1 Assessment and Plan Assessment & Plan (1) Hypertension, essential: Code(s): I10 - Essential (primary) hypertension Plan: Blood pressure is 110/74, within goal of less than 130/80 Continue current treatment regimen Low-sodium diet encouraged Follow-up in 3 months or return sooner with symptoms or concerns Verbalized understanding and agreed with treatment plan (2) Diabetes type 2, controlled: Code(s): E11.9 - Type 2 diabetes mellitus without complications Qualifiers: Diabetes mellitus complication detail: with polyneuropathy Diabetes mellitus complication status: with neurologic complications Diabetes mellitus intermodal customer service insulin use: with halfway use Qualified Code(s): E11.42 - Type 2 diabetes mellitus with diabetic polyneuropathy; Z79.4 - watermelon harvesting supervisor (current) use of insulin Plan: A1c today is 6.7%, within goal of less than 7.0%. Previous A1c was 6.5% on 01/01/2023 Recent microalbumin/creatinine ratio with significant improvement, 31.9 Continue current treatment regimen ADA diet, routine exercise, and adequate hydration encouraged Encouraged to get fasting lab work before his next visit Follow-up in 3 months Verbalized understanding and agreed with treatment plan (3) Dyslipidemia: Code(s): E78.5 - Hyperlipidemia, unspecified Plan: Recent triglyceride levels with significant improvement, 153; LDL is 81, within goal of less than 100; HDL is low, 31 Continue to take fenofibrate and atorvastatin prescribed Advised to limit foods high in saturated fat and avoid foods high in trans fat Routine exercise encouraged (4) Systolic murmur: Code(s): R01.1 - Cardiac murmur, unspecified Plan: Aortic systolic murmur No acute symptoms Echo ordered Referred to Cardiology Follow-up with symptoms or concerns Verbalized understanding and agreed with treatment plan Orders: Orders AMB Hemoglobin A1c Today E11.42 - Type 2 diabetes mellitus with diabetic polyneuropathy, Z79.4 - watermelon harvesting supervisor (current) use of insulin Lipid Panel 3 Months E78.5 - Hyperlipidemia, unspecified CA echo transthoracic complete Today R01.1 - Cardiac murmur, unspecified Microalbumin, Random (w Creat) 3 Months E11.42 - Type 2 diabetes mellitus with diabetic polyneuropathy, Z79.4 - watermelon harvesting supervisor (current) use of insulin Referrals Cardiology Referral R01.1 - Cardiac murmur, unspecified Medications: Refilled empagliflozin 25 mg PO QAM 30 tabs 3RF 30 days E11.42 - Type 2 diabetes mellitus with diabetic polyneuropathy, Z79.4 - watermelon harvesting supervisor (current) use of insulin Discontinued trazodone Discontinued Reason: Patient no longer taking 100 mg PO BEDTIME PRN 30 tabs 1RF for insomnia 30 days omeprazole Discontinued Reason: Patient no longer taking 20 mg PO DAILY 30 caps 2RF 30 days Coding Level of Care Code Est Pt Level 4 (32661) Complex EM visit Add On G2211 Diagnoses Hypertension, essential I10 Controlled type 2 diabetes mellitus with diabetic polyneuropathy, with long-term current use of insulin E11.42; Z79.4 Diabetes mellitus complication detail: with polyneuropathy Diabetes mellitus complication status: with neurologic complications Diabetes mellitus halfway insulin use: with halfway use Dyslipidemia E78.5 Systolic murmur R01.1
== END 2023-08-01 11:43 | disposition home or self-care (01) ==
PROVIDERS: PCP Nurse Practitioner Family; Visit Provider Nurse Practitioner Family
DX: I10 Essential (primary) hypertension (principal); E11.42 Type 2 diabetes mellitus with diabetic polyneuropathy; Z79.4 Long term (current) use of insulin; E78.5 Hyperlipidemia, unspecified; R01.1 Cardiac murmur, unspecified
CPT/HCPCS: 83036; 99214; G2211

== ENCOUNTER → 2023-10-09 08:04 | Outpatient (REF) | payer BC, SELFPAY ==
--- NOTE | 2023-10-09 08:07 | CA_ITS ---
Transthoracic Echocardiogram Patient (Last, First, Middle): Jesse Sandra R Gender: Male Date of : 1960 Age: 62 Procedure Date: 10/09/2023 Procedure Type: Transthoracic Echocardiogram Location: OP Height: 157.48 cm Weight: 102.06 kg BSA: 2.01 m2 Heart Rate: bpm BP: 132 / 84 mmHg Lining Presser: MARTY Referring MD: Crystal Rodgers CNP Symptoms: R01.1 - Cardiac murmur, unspecified Study Quality: Fair ECG Rhythm: Sinus Conclusions: - The left ventricular systolic function is normal. The calculated ejection fraction is 61% by biplane method. - There is a bicuspid aortic valve. There is moderate calcification of the aortic valve. There is mild to moderate aortic valve stenosis. Findings Left Ventricle Normal left ventricular cavity size. There is normal left ventricular wall thickness. The left ventricular systolic function is normal. The calculated ejection fraction is 61% by biplane method. There is no evidence of regional wall motion abnormalities. Evidence suggests grade I (mild) diastolic dysfunction. Right Ventricle Mildly increased right ventricular cavity size. There is normal right ventricular systolic function. Atria Both atria are normal in size. Aortic Valve There is a bicuspid aortic valve. There is moderate calcification of the aortic valve. There is mild to moderate aortic valve stenosis. The peak aortic velocity is 2.30 m/s with a calculated peak gradient of 21 mmHg. The mean gradient is 12 mmHg. The aortic valve area is 1.33 cm2. There is no aortic valve regurgitation. Mitral Valve The mitral valve appears normal. There is no mitral valve regurgitation. There is no mitral valve stenosis. Pulmonic Valve The pulmonic valve is likely normal. Tricuspid Valve Normal tricuspid valve structure. There is trace tricuspid valve regurgitation. There is no evidence of pulmonary hypertension. Great Vessels The asc aorta is normal in size. Venous The inferior vena cava is normal in size and collapses greater than 50% with inspiration. Pericardium/Pleural There is no evidence of pericardial effusion. Prior Study Comparison No prior study available for comparison. Measurements 2D Linear Measurements IVSd: 1.00 0.6-0.9/0.6-1.0 cm LVIDd: 4.45 3.9-5.3/4.2-5.9 cm LVIDd Index: 2.21 2.4-3.2/2.2-3.1 cm/m2 LVIDs: 2.65 2.0-3.6 cm LVPWd: 1.03 0.7-1.1 cm LA Diam: 3.20 2.7-3.8/3.0-4.0 cm LAIDs Index: 1.59 1.5-2.3 cm/m2 LV Mass: 191.34 67-162/88-224 g LV Mass Index: 95.19 43-95/49-115 g/m2 LVOT Diam: 1.90 3.0+(-)1.3 cm 2D Systolic Function EF 4C: 59.10 >55% EF 2C: 61.60 >55% EF BiP: 60.80 >55% Mitral Valve MV Pk E: 0.64 MV PK A: 0.75 MV Decel Time: 192.00 E/A: 0.80 E'Lateral: 7.29 E'Medial: 5.11 E/E' Med: 12.50 E/E' Lat: 8.80 PHT: 56.00 MVA PHT: 3.93 Decel [place]: 3.33 Aortic Valve AoV Pk Kyle: 2.30 AoV Mn Kyle: 1.68 AoV VTI: 0.47 AoV Pk Grad: 21.00 Aov Mn Grad: 12.00 DANIELLE Cont.VTI: 1.33 LVOT LVOT Pk Kyle: 0.99 LVOT Mn Kyle: 0.67 LVOT VTI: 0.22 LVOT Pk Grad: 4.00 LVOT Mn Grad: 2.00 LVOT Diam: 1.90 LVOT Area: 2.84 Diastolic Function MV Pk E: 0.64 MV Pk A: 0.75 E/A: 0.80 E'Medial: 5.11 E/E' Med: 12.50 E' Laterial: 7.29 E/E' Lat: 8.80 Right Ventricle TAPSE (mm): 29.00 TVS' Kyle: 14.10 Tricuspid Valve RA Press: 3.00 Great Vessels Aorta Ao Asc: 3.70 2.1-3.4 cm Updated in Other Vendor System with Status of Final Wong Hernandez MD electronically signed on 10/11/2023 9:39:47 AM with status of Final
== END ==
LOC: HO.CARD 08:04
PROVIDERS: PCP Nurse Practitioner Family; Visit Provider Nurse Practitioner Family
DX: R01.1 Cardiac murmur, unspecified (principal)
CPT/HCPCS: 93306

== ENCOUNTER → 2023-10-09 08:07 | Outpatient (BNV) | payer BC, SELFPAY | PROVIDERS: PCP Nurse Practitioner Family; Visit Provider Internal Medicine | DX: Q23.0 Congenital stenosis of aortic valve (principal); R01.1 Cardiac murmur, unspecified; R93.1 Abnormal findings on diagnostic imaging of heart and coronary circulation | CPT/HCPCS: 93303 ==

== ENCOUNTER 2023-11-03 08:25 | Outpatient (AMB) | payer BC, SELFPAY ==
[2023-11-03 08:46] VITALS: BP 128/60; PULSE 87; BMI 41.5
--- NOTE | 2023-11-03 08:46 | A.OFFVIS_ITS ---
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 Allergies penicillin V Allergy (Unknown, Verified 08/01/23 11:16) swelling Penicillins [PENICILLINS] Allergy (Unknown, Verified 08/01/23 11:16) RASH,SWELLING Medication List - Last Reconciled 11/03/23 by Wong Hernandez MD amlodipine 5 mg PO DAILY atorvastatin 20 mg PO DAILY empagliflozin 25 mg PO QAM 30 days fenofibrate 54 mg PO DAILY 30 days hydrochlorothiazide 25 mg PO QAM losartan 100 mg PO DAILY metformin ER 2,000 mg (4 x 500 mg) PO BEDTIME ianypsva-bcr-zutfq-vit K-lycop 400-20-300 mcg (One-A-Day Men's Multivitamin) tabs PO omega 7-yfp-kjr-fish oil 1,200 (144-216) mg (Fish Oil) caps PO semaglutide (Ozempic) 1 mg (0.75 mL) subcut QWEEK 30 days HPI Comments Details: Jesse is here for consultation regarding an abnormal echocardiogram. It was performed for a cardiac murmur and that shows bicuspid valve and kyhp-pl-fksoldmz stenosis. No significant regurgitation. Overall, he does not really have any known cardiac history. He has had some chest pains while playing sports but not always. Not clear if it is cardiac or otherwise. No known coronary disease. He seems to be on meds for blood pressure, diabetes and cholesterol. COUNT INCLUDES THE [facility] Medical History Obesity due to excess calories Morbid obesity due to excess calories Dyslipidemia Vitamin D deficiency CASTELLON (nonalcoholic steatohepatitis) Hypertension, essential Diabetes type 2, controlled Surgical History Hx of keloid of skin History of ankle surgery Family History Father Hypertension Mother HX: breast cancer Diabetes Social History (Updated 11/03/23 @ 08:52 by Sharon Olson) Household Members: Spouse and Children Housing: House Alcohol intake: current Alcohol intake frequency: a few times a month Patient Tobacco Use Status: Current someday Tobacco user Tobacco use type: Cigar e-Cigarette/Vaping Use: Never Used Substance Use Type: Marijuana service: Yes Current occupational status: retired 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 Cognitive needs: No Hearing needs: No Vision needs: Yes Review of Systems Const Denies weakness ENT Denies dizziness Card Denies chest pain, Denies chest pain with activity, Denies syncope, Denies rapid heart rate, Denies pedal edema, Denies edema, Denies leg edema, Denies lightheadedness, Denies palpitations, Denies dyspnea, Denies dyspnea on exertion and Denies orthopnea Resp Denies cough, Denies dyspnea and Denies dyspnea on exertion GI Denies hematochezia and Denies change in stool character Musc Denies abnormal gait, Denies muscle cramps, Denies muscle weakness, Denies numbness, Denies radiating pain into limb and Denies tingling Neuro Denies abnormal gait, Denies dizziness, Denies syncope, Denies numbness, Denies tingling and Denies weakness Endo Denies palpitations Physical Exam Vital Signs: Last Vital Signs Pulse 87 11/03/23 08:46 BP 128/60 11/03/23 08:46 BMI result Body Mass Index 41.5 Const General: comfortable and no acute distress Orientation/consciousness: patient oriented x3 HEENT Other: Unremarkable Head: Yes normal to inspection Neck Neck: Yes normal visual inspection Chest Chest palpation & inspection: normal inspection of the chest Resp Auscultation: clear to auscultation bilaterally Cardio Palpation: normal PMI Heart sounds: S1 normal heart sound present, S2 normal heart sound present, no gallops, Murmur heart sound present systolic II/ and at the right sternal border and no rubs GI Palpation (GI): Soft to palpation Back/Spine/Pelvis Other: unremarkable Skin General skin exam: no rashes or lesions noted Neuro General: patient oriented x3 Extrem General: Yes normal to inspection Psych Mental Status: mental status grossly normal Assessment & Plan Assessment & Plan (1) Bicuspid aortic valve: Code(s): Q23.1 - Congenital insufficiency of aortic valve Category: Medical (2) Non-rheumatic aortic stenosis: Code(s): I35.0 - Nonrheumatic aortic (valve) stenosis Category: Medical (3) Hypertension, essential: Code(s): I10 - Essential (primary) hypertension Category: Medical (4) Diabetes type 2, controlled: Code(s): E11.9 - Type 2 diabetes mellitus without complications Category: Medical Qualifiers: Diabetes mellitus termite helper insulin use: with alf use Diabetes mellitus complication status: with neurologic complications Diabetes mellitus complication detail: with polyneuropathy Qualified Code(s): E11.42 - Type 2 diabetes mellitus with diabetic polyneuropathy; Z79.4 - termite helper (current) use of insulin Plan EKG with underlying sinus rhythm at 65/Min; no significant ST-T changes and otherwise unremarkable. In the echocardiogram, preserved LVEF at 61%; bicuspid aortic valve; moderately calcified; fmtm-aw-ymfvhdbw stenosis but no significant regurgitation. Findings discussed with patient including with illustrations. We will also get a coronary CTA for further evaluation as he does get some chest pains. Will need to assess for aortic aneurysm as well. Nothing obvious on the echocardiogram. Otherwise, family screening also discussed. Follow-up after the above. Orders: Orders CT Cardiac Coronary Angio Today I25.10 - Atherosclerotic heart disease of [place] coronary artery without angina pectoris, I71.9 - Aortic aneurysm of unspecified site, without rupture, Q23.1 - Congenital insufficiency of aortic valve Basic Metabolic Panel Today I25.10 - Atherosclerotic heart disease of [place] coronary artery without angina pectoris Coding Level of Care Code New Pt Level 4 (66692) Diagnoses Bicuspid aortic valve Q23.1 Non-rheumatic aortic stenosis I35.0 Hypertension, essential I10 Controlled type 2 diabetes mellitus with diabetic polyneuropathy, with long-term current use of insulin E11.42; Z79.4 Diabetes mellitus alf insulin use: with termite helper use Diabetes mellitus complication status: with neurologic complications Diabetes mellitus complication detail: with polyneuropathy
== END 2023-11-03 09:29 | disposition home or self-care (01) ==
PROVIDERS: PCP Nurse Practitioner Family; Visit Provider Internal Medicine
DX: Q23.0 Congenital stenosis of aortic valve (principal); I10 Essential (primary) hypertension; E11.42 Type 2 diabetes mellitus with diabetic polyneuropathy; Z79.4 Long term (current) use of insulin
CPT/HCPCS: 99214

== ENCOUNTER → 2023-11-03 08:25 | Outpatient (BNVA) | payer BC, SELFPAY | PROVIDERS: PCP Nurse Practitioner Family; Visit Provider Internal Medicine ==

== ENCOUNTER 2024-02-11 11:21 | Outpatient (REF) | payer BC, OTHER, SELFPAY ==
[2024-02-11 12:12] LABS: Anion Gap 14 (12-20); Blood Urea Nitrogen 17 mg/dL (9-16); Calcium 9.5 mg/dL (8.4-10.2); Carbon Dioxide 27 mmol/L (22-29); Chloride 104 mmol/L (96-108); Estimated Glomerular Filt Rate > 60; Glucose Random 120 mg/dL (60-115); Potassium 3.7 mmol/L (3.3-5.1); Sodium 141 mmol/L (135-145)
== END 2024-02-11 11:22 | disposition home or self-care (01) ==
LOC: HO.LAB 11:21
PROVIDERS: PCP Nurse Practitioner Family; Visit Provider Internal Medicine
DX: I25.10 Atherosclerotic heart disease of native coronary artery without angina pectoris (principal)
CPT/HCPCS: 36415; 80048

== ENCOUNTER 2024-02-16 13:31 | Outpatient (AMB) | payer BC, OTHER, SELFPAY ==
[2024-02-16 13:34] VITALS: BP 118/76; PULSE 76; O2SAT 97; BMI 42.4
--- NOTE | 2024-02-16 13:34 | A.OFFPC_ITS ---
Vital Signs 3 02/16/24 13:34 Height 5 ft 2 in Weight 232 lb 0.2 oz BMI 42.4 BP 118/76 Blood Pressure Location Lt brachial Position Sitting Pulse 76 Pulse Source Pulse Oximeter Pulse Oximetry (%) 97 Oxygen Delivery Method Room Air Intake Visit Reasons: trixie appointment Tube Drawer Required: No Allergies penicillin V Allergy (Unknown, Verified 02/16/24 13:39) swelling Penicillins [PENICILLINS] Allergy (Unknown, Verified 02/16/24 13:39) RASH,SWELLING Medication List - Last Reconciled 02/16/24 by Betzy Walden PA-C amlodipine 5 mg PO DAILY atorvastatin 20 mg PO DAILY empagliflozin 25 mg PO QAM 30 days fenofibrate 54 mg PO DAILY 30 days hydrochlorothiazide 25 mg PO QAM losartan 100 mg PO DAILY metformin ER 2,000 mg (4 x 500 mg) PO BEDTIME lfyggvgr-dnl-bavzp-vit K-lycop 400-20-300 mcg (One-A-Day Men's Multivitamin) tabs PO omega 2-imc-jzt-fish oil 1,200 (144-216) mg (Fish Oil) caps PO semaglutide (Ozempic) 1 mg (0.75 mL) subcut QWEEK 30 days Tobacco use date assessed: 02/16/24 Dental Screening Dental Screen Date: 02/16/24 Did you have a dental visit in the last 12 months?: No Did you have a dental problem in the last 6 months where you did not have access to dental care?: No Was dental information given to patient?: Patient has dentist HPI trixie appointment 2 HPI0 Details 63-year-old male with past medical histo ry diabetes, hypertension, dyslipidemia last seen by nurse practitioner coming in for transfer of care.?In review of the notes patient follows with [facility] Cardiology last seen 11/03/2023 for abnormal echocardiogram advise CTA for further evaluation. Patient states he has mass on the left side of his scalp in the temporal region. States the mass has been growing and it will bleed when he scratches at it. He also mentions having right-sided hip pain primarily when sleeping in bed. Pain does not radiate down the leg and denies any numbness or tingling in the feet. [facility] Medical History Obesity due to excess calories Morbid obesity due to excess calories Dyslipidemia Vitamin D deficiency CASTELLON (nonalcoholic steatohepatitis) Hypertension, essential Diabetes type 2, controlled Surgical History Hx of keloid of skin History of ankle surgery Family History Father Hypertension Mother HX: breast cancer Diabetes Social History Household Members: Spouse and Children Housing: House Alcohol intake: current Alcohol intake frequency: a few times a month Patient Tobacco Use Status: Current someday Tobacco user Tobacco use type: Cigar e-Cigarette/Vaping Use: Never Used Substance Use Type: Marijuana service: Yes Current occupational status: retired Current occupation: [employer] Cognitive needs: No Hearing needs: No Vision needs: Yes Questionnaire Thrive Questionnaire Date Thrive assessed: 12/16/23 I am a: Patient What is your living situation today?: I have a steady place to live Within the past 12 months, did the food you bought not last and you didn't have the money to get more?: Never true Within the past 12 months, did you worry whether your food would run out before you got money to buy more?: Never true Do you have trouble getting transportation to medical appointments?: No Do you have trouble paying your heating and electricity bill?: No Do you have trouble taking care of your child, family member or friend?: No Do you have trouble with day-to-day activities such as bathing, preparing meals, shopping, managing finances, etc.?: No Are you currently unemployed and looking for a job?: No Are you interested in more education?: No Please select the resources that you would like help with: None Currently or been in a relationship where the following occur: No concerns reported THRIVE Score: 0 AUDIT C Alcohol Use Questionnaire (AUDIT-C) 1. How often do you have a drink containing alcohol?: 2-3 times a week 2. How many drinks containing alcohol do you have on a typical day when you are drinking?: 3 or 4 3. How often do you have six or more drinks on one occasion?: Never Total Score: 4 CYDNEY-7 AMB Questionnaire CYDNEY-7 Date CYDNEY - 7 assessed: 02/16/24 Feeling nervous, anxious, or on edge: 0 = Not at all Not being able to stop or control worryin = Not at all Worrying too much about different things: 0 = Not at all Trouble relaxin = Not at all Being so restless that it is hard to sit still: 0 = Not at all Becoming easily annoyed or irritable: 0 = Not at all Feeling afraid as if something awful might happen: 0 = Not at all Total CYDNEY-7 score (0-4 normal; 5-9 mild; 10-14 moderate; 15-21 severe): 0 Source: Developed by Drs. Ruddy Yao, Sary Blount, Tru Palma and colleagues, with an educational mariella from [employer]. CYDNEY-7 Assessment Billing CYDNEY-7 Assessment Tool: CYDNEY-7 Assessment 14643 Review of Systems Const Denies body aches, Denies chills, Denies fever(s), Denies headache(s) and Denies poor appetite Eyes Reports no additional complaints ENT Denies dysphagia, Denies dizziness, Denies headache(s) and Denies odynophagia Card Denies chest pain, Denies syncope, Denies edema, Denies irregular heart rhythm, Denies lightheadedness and Denies dyspnea Resp Denies cough and Denies dyspnea GI Denies abdominal pain, Denies constipation, Denies dysphagia, Denies diarrhea, Denies nausea, Denies odynophagia and Denies vomiting Reports no additional complaints Musc Reports no additional complaints and Denies abnormal gait Skin/Breast Reports system reviewed and no additional complaints, except as documented Neuro Denies abnormal gait, Denies dizziness, Denies syncope and Denies headache(s) Psych Reports no additional complaints Physical exam (Primary Care) Vital Signs: Last Vital Signs Pulse 76 02/16/24 13:34 BP 118/76 02/16/24 13:34 Pulse Ox 97 02/16/24 13:34 Oxygen Delivery Method Room Air 02/16/24 13:34 BMI result Body Mass Index 42.4 Tobacco/Smoking Status: Tobacco use Status Tobacco use date assessed 02/16/24 02/16/24 13:42 Patient Tobacco Use Status Current someday Tobacco 02/16/24 13:34 Tobacco use type Cigar 02/16/24 13:34 e-Cigarette/Vaping Use Never Used 02/16/24 13:34 Thrive Assessment: Date of Thrive Assessment Date Thrive assessed 12/16/23 02/16/24 13:34 Currently or been in a relationship where the following occur: No concerns reported Const General: cooperative, healthy appearing, comfortable and no acute distress Orientation/consciousness: patient oriented x3 HENMT Head: Yes normocephalic Ears: hearing grossly normal bilaterally General nose exam: Normal external nose present Eyes General: appearance normal, both eyes and all related structures Conjunctivae: conjunctivae normal Neck Neck: Yes full ROM and Yes no lymphadenopathy Resp Effort & Inspection: normal respiratory effort Auscultation: clear to auscultation bilaterally, no crackles, no rales, no rhonchi and no wheezes Cardio Rate: regular rate Rhythm: regular rhythm Skin Other: Raised, nonerythematous lesion over the left evangelical General skin exam: no rashes or lesions noted Full body images: 2 1. Scalp lesion Neuro General: patient oriented x3 Gait exam (Neuro): Normal gait present Extrem General: Yes normal to inspection, Yes full ROM and No edema Psych Affect: normal affect Attitude: cooperative Insight: Good insight present (Psych) Judgement: Good judgement present (Psych) Results AMB Hemoglobin A1c 2 AMB Hemoglobin A1c 6.9 % Last Edit by LASHAUN Gutiérrez on 02/16/24 13:46 Coding Level of Care Code Est Pt Level 4 (95281) Diagnoses Non-rheumatic aortic stenosis I35.0 Morbid obesity with BMI of 40.0-44.9, adult E66.01; Z68.41 Anxiety F41.9 Controlled type 2 diabetes mellitus with diabetic polyneuropathy, with long-term current use of insulin E11.42; Z79.4 Diabetes mellitus complication detail: with polyneuropathy Diabetes mellitus complication status: with neurologic complications Diabetes mellitus custodial insulin use: with computer terminal operator use CASTELLON (nonalcoholic steatohepatitis) K75.81 Hypertension, essential I10 Dyslipidemia E78.5 Scalp lesion L98.9 Right hip pain M25.551 Additional Codes CYDNEY-7 Assessment Billing - CYDNEY-7 Assessment Tool: CYDNEY-7 Assessment 26060 ([id number]) Assessment & Plan Assessment & Plan (1) Non-rheumatic aortic stenosis: Code(s): I35.0 - Nonrheumatic aortic (valve) stenosis Category: Medical Plan: Patient being followed by cardiology advised to undergo CTA which has not been completed at this time. (2) Morbid obesity with BMI of 40.0-44.9, adult: Code(s): E66.01 - Morbid (severe) obesity due to excess calories; Z68.41 - Body mass index [BMI] 40.0-44.9, adult Category: Medical Plan: Healthy diet and regular exercise is encouraged. (3) Anxiety: Code(s): F41.9 - Anxiety disorder, unspecified Category: Medical Plan: Patient denies any anxiety symptoms at this time declines counseling or medication. 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 Although fruits are generally healthy they should be eaten in moderation as they are still high in sugar. Hemoglobin A1c goal of less than 7%. A1c 6.9% today patient states he has been without his medications for several weeks believes this is contributed to his elevated A1c. Discussed we will not adjust the medications side but rather work on dietary and lifestyle modifications and follow up in 3 months (5) CASTELLON (nonalcoholic steatohepatitis): Code(s): K75.81 - Nonalcoholic steatohepatitis (CASTELLON) Category: Medical Plan: Healthy diet and regular exercise is encouraged. (6) Hypertension, essential: Code(s): I10 - Essential (primary) hypertension Category: Medical Plan: Continue on current blood pressure medication. Avoid salt intake and encourage healthy diet and regular exercise. (7) Dyslipidemia: Code(s): E78.5 - Hyperlipidemia, unspecified Category: Medical Plan: Avoid foods that are high in cholesterol such as red meat, fried foods, eggs and baked goods. Triglyceride goal of less than 150 and LDL goal of less than 100. Continue on atorvastatin 20 mg (8) Scalp lesion: Code(s): L98.9 - Disorder of the skin and subcutaneous tissue, unspecified Category: Medical Plan: Patient having left-sided scalp lesion in the temporal area that will occasionally bleed and has been growing. Referral placed to Dermatology for biopsy. (9) Right hip pain: Code(s): M25.551 - Pain in right hip Category: Medical Plan: Patient complaining of right-sided hip pain primarily while lying in bed declines pain medication at this time. We will order for right hip x-ray for further evaluation. Plan This note was constructed using voice recognition software. While every effort has been made to ensure accuracy and nurse care manager, still areas may have been included sometimes these areas may affect the content or meeting of the given symptoms. Total time spent caring for the patient today was 20 minutes. This includes time spent before the visit reviewing the chart, time spent during the visit, and time spent after the visit and documentation. Orders: Orders 2 AMB Hemoglobin A1c Today E11.42 - Type 2 diabetes mellitus with diabetic polyneuropathy, Z79.4 - watermelon harvesting supervisor (current) use of insulin XR hip RT min 2V Today M25.551 - Pain in right hip Referrals 2 Dermatology Referral L98.9 - Disorder of the skin and subcutaneous tissue, unspecified Medications: Refilled 2 metformin ER needs to go to next eva't 02/16/24 2,000 mg (4 x 500 mg) PO BEDTIME 120 tabs 0RF E11.42 - Type 2 diabetes mellitus with diabetic polyneuropathy, Z79.4 - watermelon harvesting supervisor (current) use of insulin fenofibrate 54 mg PO DAILY 30 days 30 tabs 0RF amlodipine 5 mg PO DAILY 90 tabs 1RF
== END 2024-02-16 14:12 | disposition home or self-care (01) ==
DX: E11.42 Type 2 diabetes mellitus with diabetic polyneuropathy (principal); E66.01 Morbid (severe) obesity due to excess calories; Z68.41 Body mass index [BMI] 40.0-44.9, adult; Z79.4 Long term (current) use of insulin; I35.0 Nonrheumatic aortic (valve) stenosis; F41.9 Anxiety disorder, unspecified; K75.81 Nonalcoholic steatohepatitis (NASH); I10 Essential (primary) hypertension; E78.5 Hyperlipidemia, unspecified; L98.9 Disorder of the skin and subcutaneous tissue, unspecified; M25.551 Pain in right hip

== ENCOUNTER → 2024-02-16 13:31 | Outpatient (BNVA) | payer BC, SELFPAY | DX: I35.0 Nonrheumatic aortic (valve) stenosis (principal); E66.01 Morbid (severe) obesity due to excess calories; Z68.41 Body mass index [BMI] 40.0-44.9, adult; F41.9 Anxiety disorder, unspecified; E11.42 Type 2 diabetes mellitus with diabetic polyneuropathy; K75.81 Nonalcoholic steatohepatitis (NASH); I10 Essential (primary) hypertension; E78.5 Hyperlipidemia, unspecified; L98.9 Disorder of the skin and subcutaneous tissue, unspecified; M25.551 Pain in right hip; Z79.4 Long term (current) use of insulin; Z79.899 Other long term (current) drug therapy | CPT/HCPCS: 83036; 96127 ==

== ENCOUNTER 2024-03-25 09:30 | Outpatient (REF) | payer BC, SELFPAY ==
--- OUTSIDE RECORDS SUMMARY | 2024-03-25 09:44 | XMS_ITS ---
Author Name [facility] [place] [facility] [facility] [place] Address [address] [place] [id number] Care Team Providers Care Lodge Attendant Name Role Phone ANIYAH JAUREGUI Primary Care Provider Unavailab mcgill Insurance Providers: All historical and current Section Date Range: From patient's date of to the date document was created. This section includes the names of all active insurance providers for the patient. Insurance Provider Type of Coverage Plan Name Start of Policy Coverage End of Policy Coverage Group Number Member ID Insurance Provider's Telephone Number Policy Hughes's Name Patient's Relationship to Policy Hughes ANTHEM BCBS [place] FEDERAL PREFERRED PROVIDER ORGANIZAT ION (PPO) BASIC FAMIL Y Mar 17, 2010 [id number] [phone] COLON,EDW IN PATIENT [place]BS [place] PREFERRED PROVIDER ORGANIZAT ION (PPO) BASIC INDIV IDUAL Nov 15, 2022 [id number] COLON,EDW IN PATIENT [place] PREFERRED PROVIDER ORGANIZAT ION (PPO) BASIC FAMIL Y May 15, 2010 [id number] COLON,EDW IN PATIENT [place] FEP BCBS PRESCRIPT ION CAREM ARK FEPRX PLAN Feb 13, 2011 [id number] COLON,EDW IN PATIENT [place] FEPRX PLAN PRESCRIPT ION BCBS FEP Mar 17, 2010 [id number] COLON,EDW IN PATIENT RAINA-F EP BCBS PRESCRIPT ION FEP CAREM ARK Nov 15, 2022 [id number] COLON,EDW IN PATIENT Selected Encounter This section includes the information on record at [place] for the Encounter. Date/Time Encounter Type Encounter Description Reason Pro vider Source August 07, 2023 12:43 PM Outpatient Encounter PRIMARY CARE/MEDICINE IHE Encounter Template Text not used by [place] Plan of Treatment: Future Appointments (+ 6 months) and Future Tests (+/- 45 days) The Plan of Treatment section includes future care activities for the patient from all [place] treatmentfacilities. This section includes future appointments and future orders which are active, pending or scheduled. Future Appointments This section includes appointments that were scheduled to occur 6 months from the date of the Encounter, up to a maximum of 20 appointments. The data comes from all [place] treatment facilities. Appointment Date/Time Appointment Type Appointme nt Facility Name Jan 28, 2024 11:30 AM AMBULATORY [place]ICINE [place] [facility] Encounter Notes: All associated encounter notes This section contains the clinical notes associated to the Encounter. Date/Time Encounter Note(s) Provider Source August 07, 2023 12:43 PM ADMINISTRATIVE NOT E: LOCAL TITLE: ADMINISTRATIVE NOTE STANDARD TITLE: ADMINISTRATIVE NOTE DATE OF NOTE: AUGUST 07, 2023@12:43 ENTRY DATE: AUGUST 07, 2023@12:43:39 AUTHOR: DULCE ZHOU EXP COSIGNER: URGENCY: STATUS: COMPLETED ADMINISTRATIVE NOTE Has ADDENDA Please request Colonoscopy/biopsy/lab results and medication list from DR CEFERINO PERLAES office /SHARLENE Posey,RN-BC REGISTERED NURSE (RN) Signed: 08/07/2023 12:44 Receipt Acknowledged By: 08/07/2023 13:55 /becky SKAGGS 08/07/2023 ADDENDUM STATUS: COMPLETED Recreational Assistant requested medical records from Non-VA provider. /becky SKAGGS Signed: 08/07/2023 13:55 DULCE ZHOU
--- OUTSIDE RECORDS SUMMARY | 2024-03-25 09:45 | XMS_ITS | Encounter Summary ---
Author Name [facility] [place] [facility] [place] [facility] [place] Address [address] [place] [id number] Care Team Providers Care Petroleum Refinery Laborer Name Role Phone JAUREGUIANIYAH Munoz Primary Care Provider Unavailab mcgill Insurance Providers: [...] BASIC FAMIL Y Mar 17, 2010 [id number] [phone] COLON,EDW IN PATIENT [place] PREFERRED PROVIDER ORGANIZAT ION (PPO) BASIC INDIV IDUAL Nov 15, 2022 [id number] COLON,EDW IN PATIENT [place] F[place] PREFERRED PROVIDER ORGANIZAT ION (PPO) BASIC FAMIL Y May 15, 2010 [id number] COLON,EDW IN PATIENT [place] FEP BCBS PRESCRIPT ION CAREM ARK FEPRX PLAN Feb 13, 2011 [id number] COLON,EDW IN PATIENT [place] FEPRX PLAN PRESCRIPT ION BCBS FEP Mar 17, 2010 [id number] COLON,EDW IN PATIENT RAINA-F EP BCBS PRESCRIPT ION FEP CAREM ARK Nov 15, 2022 [id number] COLON,EDW IN PATIENT Selected Encounter This section includes the information on record at [place] for the Encounter. Date/Time Encounter Type Encounter Description Reason Provider Source Jan 28, 2024 02:50 PM FIT SPECTACLES MULTIFOCAL OPTOMETRY ICD-10-CM Z46.0 Encounter for fit/adjst of spectacles and contact lenses MONIK RENDON IHTammy Encounter Template Text not used by [place] Assessments - Encounter Diagnoses This section includes the primary and secondary diagnoses documented for the Encounter. Date/Time Primary/Secondary Diagnosis Diagnosis Name Provider Source Jan 28, 2024 02:50 PM PRIMARY Encounter for fit/adjst of spectacles and contact lenses JAYNE HORTON [facility] Plan of Treatment: Future Appointments (+ 6 months) and Future Tests (+/- 45 days) The Plan of Treatment section includes future care activities for the patient from all [place] treatmentfacilities. This section includes future appointments and future orders which are active, pending or scheduled. Future Appointments This section includes appointments that were scheduled to occur 6 months from the date of the Encounter, up to a maximum of 20 appointments. The data comes from all [place] treatment facilities. Appointment Date/Time Appointment Type Appointme nt Facility Name Mar 29, 2024 10:30 AM AMBULATORY - MEDICINE [facility] Lab Results: +/- 30 days of the encounter This section includes the Chemistry and Hematology Lab Results on record with [place] for the patient. Radiology Reports and Pathology Reports are provided separately, in subsequent sections. Lab Results This section contains the Chemistry/Hematology Results that were resulted 30 days before or 30 daysafter the date of the Encounter. Date/Time Source Result Type Result - Unit Interpretation Reference Range Comment Feb 11, 2024 12:00 AM [facility] OCCULT BLOOD FIT X1 SCREEN (MFP ONLY) Specimen Type: FECES No comment entered. Ordering Provider: ANI YARBROUGH Report Released Date/Time: Jan 06, 2024 03:08 PM Reporting Lab: [place] [facility] [address] [facility] [address] Performing Lab: [place] [facility] [address] [facility] [address] OCCULT BLOOD (FIT)#1 OF 1 Negative NEG Encounter Notes: All associated encounter notes This section contains the clinical notes associated to the Encounter. Date/Time Encounter Note(s) Provider Source Jan 28, 2024 02:50 PM OPTOMETRY NOTE: LOCAL TITLE: OPTOMETRY NOTE STANDARD TITLE: OPTOMETRY NOTE DATE OF NOTE: JAN 28, 2024@14:50 ENTRY DATE: JAN 28, 2024@14:50:04 AUTHOR: LEONID ABRAMS EXP COSIGNER: URGENCY: STATUS: COMPLETED OPTOMETRY NOTE Has ADDENDA The quote provided below is for informational purposes only. Please verify prior to the creation of a purchase order. ROJELIO LOCKHART 0168 RX INFORMATION OD +1.00 -0.75 X110 Add:+2.25 Pzm:0.00 Dir: Prz2:0.00 Dir2: OS +1.50 -1.25 X55 Add:+2.25 Pzm:0.00 Dir: Prz2:0.00 Dir2: FITTING INFORMATION FPD: NPD: [place]:R:34 L:31 SEG HT:R:23 L:23 Tint:None Shade:None VA Billable Items FRAME: SLICK BLACK [id number] Right Lens: POLY VA PROGRESSIVE PHOTOCHROMIC BONILLA 1.586 POLY Left Lens: POLY VA PROGRESSIVE PHOTOCHROMIC BONILLA 1.586 POLY CLIN items 0004 - Progressive - Glass Plastic Poly 0005 - Transition /ruchi/ LEONID ABRAMS [employer] 9 THRU 12 TEACHER Signed: 01/28/2024 14:50 Receipt Acknowledged By: 01/29/2024 08:12 /ruchi/ Jayne Horton LPN Licensed Practical Nurse 01/29/2024 ADDENDUM STATUS: COMPLETED PDS robotics technician fit 1 PAL eyeglasses on 01/28/2024. OPT HT entered consult(s) as requested for provider signature. /becky Horton LPN Licensed Practical Nurse Signed: 01/29/2024 08:14 LEONID ABRAMS [facility]
--- OUTSIDE RECORDS SUMMARY | 2024-03-25 09:45 | XMS_ITS | Encounter Summary ---
Author Name [facility] [place] Address [address] [place] [id number] Care Team Providers Care Bone Char Operator Name Role Phone ANIYAH JAUREGUI Primary Care [...] Hughes's Name Patient's Relationship to Policy Hughes [facility] PREFERRED PROVIDER ORGANIZAT ION (PPO) BASIC FAMIL Y Mar 17, 2010 [id number] [phone] COLON,EDW IN PATIENT BCBS [place] FEP PREFERRED PROVIDER ORGANIZAT ION (PPO) BASIC INDIV IDUAL Nov 15, 2022 [id number] COLON,EDW IN PATIENT [place] FEP PREFERRED PROVIDER ORGANIZAT ION (PPO) BASIC FAMIL Y May 15, 2010 [id number] [phone] COLON,EDW IN PATIENT [place] FEP BCBS PRESCRIPT ION CAREM ARK FEPRX PLAN Feb 13, 2011 [id number] COLON,EDW IN PATIENT [place] FEPRX PLAN PRESCRIPT ION BCBS FEP Mar 17, 2010 [id number] COLON,EDW IN PATIENT RAINA-F EP BCBS PRESCRIPT ION FEP CAREGamaliel ARK Nov 15, 2022 [id number] COLON,EDW IN PATIENT Selected Encounter This section includes the information on record at [place] for the Encounter. Date/Time Encounter Type Encounter Description Reason Provider Source Apr 01, 2023 11:30 AM OFFICE O/P EST MOD 30 MIN PRIMARY CARE/MEDICINE ICD-10-CM Z00.01 Encounter for general adult medical exam w abnormal findings ZENON,APOLI VIJAYAIO [facility] Encounter Template Text not used by [place] Assessments - Encounter Diagnoses This section includes the primary and secondary diagnoses documented for the Encounter. Date/Time Primary/Secondary Diagnosis Diagnosis Name Provider Source Apr 23, 2023 02:34 PM PRIMARY Encounter for general adult medical exam w abnormal findings ANI YARBROUGH [facility] Apr 23, 2023 02:34 PM SECONDARY Encounter for immunization CHACHA VILLALBA [facility] Apr 23, 2023 02:34 PM SECONDARY Hypertension secondary to endocrine disorders ZENONANI SANDOVAL [facility] Apr 23, 2023 02:34 PM SECONDARY Other lipoprotein metabolism disorders ZENONANI SANDOVAL [facility] Apr 23, 2023 02:34 PM SECONDARY Type 2 diabetes mellitus with hyperglycemia ZENON,[facility] Immunizations: All administered on the encounter date This section contains immunizations associated to the Encounter. Immunization Series Date Issued Reaction Comments INFLUENZA, INJECTABLE, QUADR IVALENT, PRESERVATIVE FREE Apr 01, 2023 ZOSTER RECOMBINANT 2 Apr 01, 2023 Social History: Smoking Status (Most current) and Tobacco Use (All prior to encounter date) This section includes the most current, and the historical, smoking and tobacco- related health factors from the [place] facility where the Encounter took place. Current Smoking Status This section includes the most current smoking, or tobacco-related health factor, from the [place] facility where the Encounter took place. Date/Time Current Smoking Status Comment Niyah santillan Apr 01, 2023 11:30 AM [place]-TOBACCO NEVER USED [facility] Tobacco Use History This section includes a history of the smoking, or tobacco-related health factors, that were collected on or before the date of the Encounter. The data comes from the [place] facility where the Encounter took place. Date/Time Smoking Status/Tobacco Use Comment F acility Oct 09, 2021 10:30 AM VA-TOBACCO NEVER USED [facility] Sep 07, 2020 03:00 PM VA-TOBACCO NEVER USED [facility] Jun 23, 2018 02:03 PM VA-TOBACCO NEVER USED [facility] May 03, 2015 12:58 PM CURRENT SMOKER occasional cigar smoker [facility] May 03, 2015 12:58 PM QUIT TOBACCO USE > 7 YEARS AGO Pt does not smoke- last time smoked May 2014 [facility] Jan 30, 2005 09:29 AM LIFETIME NON-SMOKER [facility] Jan 16, 2004 01:51 PM LIFETIME NON-SMOKER [facility] Apr 30, 2002 01:52 PM LIFETIME NON-SMOKER [facility] Apr 30, 2002 01:52 PM LIFETIME NON-TOBACCO USER [facility] Encounter Notes: All associated encounter notes This section contains the clinical notes associated to the Encounter. Date/Time Encounter Note(s) Provider Source Apr 01, 2023 12:18 PM PREVENTIVE MEDICIN E NURSING NOTE: LOCAL TITLE: CLINICAL REMINDERS/NURSING STANDARD TITLE: PREVENTIVE MEDICINE NURSING NOTE DATE OF NOTE: APR 01, 2023@12:18 ENTRY DATE: APR 01, 2023@12:18:49 AUTHOR: LIV VILLALBA COSIGNER: URGENCY: STATUS: COMPLETED Advance Directive Screen MH AD: Patient does not have a completed advance directive on file at any facility, [place] or outside. S/he is not interested in completing one at this time. The patient received education about Advance Directives and written notification of his/her rights. Suicide Screen: C-SSRS Screening [place] Suicide Severity Rating Scale (C-SSRS) screener 1. Over the past month, have you wished you were or wished you could go to sleep and not wake up? No 2. Over the past month, have you had any actual thoughts of killing yourself? No 3. Over the past month, have you been thinking about how you might do this? Response not required due to responses to other questions. 4. Over the past month, have you had these thoughts and had some intention of acting on them? Response not required due to responses to other questions. 5. Over the past month, have you started to work out or worked out the details of how to kill yourself? Response not required due to responses to other questions. 6. If yes, at any time in the past month did you intend to carry out this plan? Response not required due to responses to other questions. 7. In your lifetime, have you ever done anything, started to do anything, or prepared to do anything to end your life (for example, collected pills, obtained a gun, gave away valuables, went to the roof but didn't jump)? No 8. If YES, was this within the past 3 months? Response not required due to responses to other questions. Toxic Exposure Screening: The [place]/caregiver was asked if they believe the experienced any toxic exposure(s), such as Airborne Hazards and Open [place], [place] War related exposures, Agent [place], Radiation, contaminated water at [place] or other such exposures, while serving in the [employer]. [place] has no concerns about toxic exposure(s) while serving in the [employer]. The /caregiver was informed that we will continue to ask this screening question every 5 years. They can contact their provider/healthcare team if they have concerns about exposures and would like to be screened sooner. Printed information was offered and provided if desired. BMI>30/>24.99 High Risk: Patient declines to discuss weight management. Patient declined weight discussion. Discussed revisiting at a future visit. Homelessness/Food Insecurity Screen: In the past 2 months, have you been living in stable housing that you own, rent, or stay in as part of a household? Yes - Living in stable housing. Are you worried or concerned that in the next 2 months you may NOT have stable housing that you own, rent, or stay in as part of a household? No - Not worried about housing near future The [place] reports the following: Within the past 12 months, you worried whether your food would run out before you got money to buy more. Never true Within the past 12 months, the food you bought just didn't last and you didn't have money to get more. Never true Depression Screening: Perform PHQ-2 A PHQ-2 screen was performed. The score was 0 which is a negative screen for depression. Over the past two weeks, how often have you been bothered by the following problems? 1. Little interest or pleasure in doing things Not at all 2. Feeling down, depressed, or hopeless Not at all PTSD Screening: PC-PTSD-5 A PTSD screening test (PC-PTSD-5) was negative (score=0). IN THE PAST MONTH, have you ever had any experience that was so frightening, horrible or traumatic. For example: A serious accident or fire a physical or sexual assault or abuse An earthquake or flood A war Seeing someone be killed or seriously injured Having a loved one through homicide or suicide 1. Have you ever experienced this kind of event? NO 2. Had nightmares about the event(s) or thought about the event(s) when you did not want to? Response not required due to responses to other questions. 3. Tried hard not to think about the event(s) or went out of your way to avoid situations that reminded you of the event(s)? Response not required due to responses to other questions. 4. Been constantly on guard, watchful, or easily startled? Response not required due to responses to other questions. 5. [place] numb or detached from people, activities, or your surroundings? Response not required due to responses to other questions. 6. [place] guilty or unable to stop blaming yourself or others for the event(s) or any problems the event(s) may have caused? Response not required due to responses to other questions. Tobacco Use Screening: The patient has never used tobacco. Influenza Immunization: The patient was given the influenza VIS which lists the benefits and side effects of the vaccine and which reviews the risks of not receiving the flu vaccine. The VIS was reviewed with the patient and they were given an opportunity to ask questions. The patient was provided education on how to decrease the risk of influenza infection including social distancing and use of good hand hygiene. The patient denied any prior severe reaction to the flu vaccine or its components. The patient gave verbal consent to receive the vaccine. Influenza, Quadrivalent preservative free (Fluzone - syringe) Administered: INFLUENZA, INJECTABLE, QUADRIVALENT, PRESERVATIVE FREE Date Administered: Apr 01, 2023 11:30 Supervisor Coin Machine: SANOFI PASTEUR Lot: [id number] Exp Date: Sep 14, 2023 [facility]: [id number] Admin Route/Site: INTRAMUSCULAR/LEFT DELTOID Dosage: 0.5mL Vaccine Information Statement(s): INFLUENZA(FLU) VACC(INACTIVATED OR RECOMBINANT)VIS Oct 20, 2020 ([place]) Order By: Policy Administered By: Liv Villalba Herpes Zoster (Shingles) Vaccine: Administered: ZOSTER RECOMBINANT Date Administered: Apr 01, 2023 11:30 Series: Series 2 Supervisor Coin Machine: [employer] Lot: [id number] Exp Date: Dec 14, 2024 [facility]: [id number] Admin Route/Site: INTRAMUSCULAR/LEFT DELTOID Dosage: 0.5mL Vaccine Information Statement(s): RECOMBINANT ZOSTER VACCINE VIS Apr 20, 2021 ([place]) Order By: Policy Administered By: Liv Villalba Vaccine Information Sheet (VIS) was given to the patient/caregiver, education regarding adverse reactions was discussed, as well as barriers to learning, if any, were acknowledged. Sexual Orientation: The patient thinks of their sexual orientation as: Straight or Heterosexual PAVE Foot Check: Patient refused limb care exam. : ref The patient was advised the [facility] mandates all patients with diabetes mellitus, end stage renal disease, peripheral vascular disease, or sensory neuropathy should have a complete foot check completed annually. This includes a visual exam of the skin, pedal pulses and a sensory exam. Patients with any abnormality noted during the foot check should be referred to a specialist. Td / Tdap Immunization: Defer due to a PRECAUTION Reason: receieved 2 vaccines this visit, will get next f2f Alcohol Use Screen (AUDIT-C): Alcohol Screen: SCREEN FOR ALCOHOL (AUDIT-C) An alcohol screening test (AUDIT-C) was negative (score=0). 1. How often did you have a drink containing alcohol in the past year? Consider a drink to be a 12 ounce can or bottle of regular beer, 8 ounces of malt liquor, a 5 ounce glass of table wine, or a 1.5 ounce shot of liquor (like scotch, gin, or vodka). Never 2. How many drinks containing alcohol did you have on a typical day when you were drinking in the past year? Response not required due to responses to other questions. 3. How often did you have six or more drinks on one occasion in the past year? Response not required due to responses to other questions. COVID-19 Immunization: Defer vaccine, reassess in 3 months Reason: will get next f2f visit MED REC WILL BE COMPLETE BY PROVIDER DURING VISIT /ruchi/ LIV VILALLBA LPN LPN Signed: 04/01/2023 12:24 LIV VILLALBA [facility] Apr 01, 2023 08:31 AM PHYSICIAN NOTE: LOCAL TITLE: MD NOTE STANDARD TITLE: PHYSICIAN NOTE DATE OF NOTE: APR 01, 2023@08:31 ENTRY DATE: APR 01, 2023@08:31:39 AUTHOR: NICHOLAS YARBROUGH EXP COSIGNER: URGENCY: STATUS: COMPLETED CC: 62 year old WHITE MALE SERVICE CONNECTED % - 20 HPI: Followed by Dr. Gamaliel Dela Cruz, [facility], started on fenofibrate Right shoulder pain not as bothersome Reports no backpain. Reports pickle ball class. Otherwise reports a benign interval history. He is retired from the [employer] service. He is taking pickleball classes as well. Patient did report an interim visit to the emergency room for chest pain during the late evening hours. Likely GERD but he does not seem to be taking any GERD medications at this time. Also likely exacerbated by weight gain. Problem list and medications reviewed. Last Labs: January 2023. Labs then demonstrate acceptable values other than for slightly elevated WBC, LDL greater than 70 (72). Active problems - Computerized Problem List is the source for the followin. Erectile dysfunction 2. Contact dermatitis due to poison cyndee 3. Nonproliferative diabetic retinopathy OU per eye exam Jan 2014; 4. Disorder of lipid and lipoprotein metabolism (SNOMED CT 22886586) 5. opiate use chronic mass SOFTWARE DESIGN ANALYST no controlled rx@03.09.13 6. Other dyspnea and respiratory abnormality 7. Positive Microalbuminuria Test Result Documented and Reviewed (DM) 8. Type II diabetes mellitus uncontrolled (SNOMED CT 642312554) Applied Computer Science Professor- Dr.Shayhira Maureen Lawton 9. Knee: arthralgia 10. Heel: arthralgia 11. Obesity 1987: SC: Rt Ankle: 2 surgergies 07-13-10: EKG:NSR 64bpm WY:178 QRS:86 QT: 392 NSTW 14. Depressive Disorder NOS * 15. Adjustment Disorder with Mixed Anxiety and Depressed Mood 16. Pain in joint involving shoulder region 17. 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 (SNOMED CT 482421735) PCP-Radha Zamora MD PHYSICAL EXAMINATION/DIRECTED EXAM: BP:128/83 (04/01/2023 12:17) Resp:22 (04/01/2023 12:17) Temp:96.9 F [36.1 C] (04/01/2023 12:17) Pulse:74 (04/01/2023 12:17) WEIGHT 04/01/2023 12:17 236(107.05)[43*] 10/09/2021 10:47 229(103.87)[42*] 06/22/2021 12:43 227(102.97)[42*] Comfortable S1S2 RRR lungs CTA Benign abdomen No edema ASSESSMENT & PLAN: 62 year old MALE SERVICE CONNECTED % - 20 [place] presents for annual [facility] follow- up. The patient is comanaged and his interim is relevant for initiation of fibric acid treatment. Comanagement - prefers to have most aspects of health maintenance, chronic condition(s) and medication management to non-VA PCP. Diabetes HEMOGLOBIN A1C TREND Collection DT Spec HGBA1c 01/22/2023 08:09 BLOOD 6.3 H 10/02/2021 07:43 BLOOD 6.3 H Collection DT Spec TSH 01/22/2023 08:09 SERUM 3.25 Hypertension at goal Hyperlipidemia - LDL rise but nearly at goal Collection DT Spec CHOL HDL CHO/HDL LDL-c TRIG 01/22/2023 08:09 SERUM 139 32 L 4.3 72 177 H 10/02/2021 07:43 SERUM 124 31 L 4.0 49 219 H 08/04/2020 08:47 SERUM 132 34 L 3.9 82 79 08/19/2018 07:50 SERUM 137 39 L 3.5 77 105 05/05/2015 07:49 SERUM 128 32 L 4.0 74 112 Chronic issues reviewed briefly; no changes to management unless specified above. RTC annually and as needed TIME ATTESTATION: Time spent directly with the patient was ( x ) 30 minutes More than 50% of the time spent with the patient included counselling regarding the admission Medical Review, History and Physical Examination, discussion of the findings, both remote and local data in the medical record, management, and patient education for the annotated medical conditions above. Discussed with patient and agrees to plan. VA and Non VA meds were reconciled. Today's documentation was made using voice recognition software. This note may contain spelling/grammatical errors secondary to this software. Patient provided copies of labs/studies and medication list. Upcoming Appointments: 01/28/2024 11:30 CWM/NO/OPTOMETRY/MERHAR Med Reconciliation: Active Outpatient Medications (including Supplies): Active Non-VA Medications Status 1) Non-VA AMLODIPINE BESYLATE 5MG TAB 5MG BY MOUTH ONCE ACTIVE DAILY 2) Non-VA ASPIRIN 81MG EC TAB 81MG BY MOUTH DAILY ACTIVE 3) Non-VA ATORVASTATIN CALCIUM 40MG TAB 20MG BY MOUTH ACTIVE ONCE DAILY 4) Non-VA EMPAGLIFLOZIN 25MG TAB 25MG BY MOUTH ONCE ACTIVE DAILY 5) Non-VA FISH OIL 1000MG (500MG DHA/EPA) CAP 2000MG BY ACTIVE MOUTH AT BEDTIME 6) Non-VA HYDROCHLOROTHIAZIDE 25MG TAB 25MG BY MOUTH ACTIVE ONCE DAILY 7) Non-VA LOSARTAN 100MG TAB 100MG BY MOUTH ONCE DAILY ACTIVE 8) Non-VA METFORMIN HCL 500MG TAB 500MG BY MOUTH ONCE ACTIVE DAILY 9) Non-VA MULTIVITAMIN/MINERALS CAP/TAB 1 TABLET BY ACTIVE MOUTH 10) Non-VA SEMAGLUTIDE 1MG/0.75ML INJ PEN 1.5ML 1MG ACTIVE SUBCUTANEOUSLY ONCE A WEEK Medication (Local) Status No local medications found. Medication (Remote) Status No remote medications found. /ruchi/ NICHOLAS YARBROUGH MD PHYSICIAN Signed: 04/20/2023 08:47 NICHOLAS YARBROUGH [facility]
--- OUTSIDE RECORDS SUMMARY | 2024-03-25 09:45 | XMS_ITS | Encounter Summary ---
Author Name [facility] [facility] [place] Address [address] [place] [address] Care Team Providers Care House Carpenter Name Role Phone ANIYAH JAUREGUI Primary Care Provider Unavailab le Insurance Providers: All historical and current Section Date Range: From patient's date of to the date document was created. This section includes the names of all active insurance providers for the patient. Insurance Provider Type of Coverage Plan Name Start of Policy Coverage End of Policy Coverage Group Number Member ID Insurance Provider's Telephone Number Policy Hughes's Name Patient's Relationship to Policy Hughes ANTH BCBS [place] FEDERAL PREFERRED PROVIDER ORGANIZAT ION (PPO) BASIC FAMIL Y Mar 17, 2010 [id number] [phone] COLON,EDW IN PATIENT BCBS [place] F[place] PREFERRED PROVIDER ORGANIZAT ION (PPO) BASIC INDIV IDUAL Nov 15, 2022 [id number] COLON,EDW IN PATIENT [place] PREFERRED PROVIDER ORGANIZAT ION (PPO) BASIC FAMIL Y May 15, 2010 [id number] COLON,EDW IN PATIENT [place] FEP BCBS PRESCRIPT ION CAREM ARK FEPRX PLAN Feb 13, 2011 [id number] COLON,EDW IN PATIENT RAINA FEPRX PLAN PRESCRIPT ION BCBS FEP Mar 17, 2010 [id number] COLON,EDW IN PATIENT RAINA-F EP BCBS PRESCRIPT ION FEP CAREM ARK Nov 15, 2022 [id number] COLON,EDW IN PATIENT Selected Encounter This section includes the information on record at [facility] for the Encounter. Date/Time Encounter Type Encounter Description Reason Provider Source Jan 28, 2024 11:30 AM COMPRE OPH EXAM EST PT 1/> OPTOMETRY ICD-10-CM E11.9 Type 2 diabetes mellitus without complications MERHAR,MONIK B IHE Encounter Template Text not used by [facility] Assessments - Encounter Diagnoses This section includes the primary and secondary diagnoses documented for the Encounter. Date/Time Primary/Secondary Diagnosis Diagnosis Name Provider Source Feb 07, 2024 06:32 AM PRIMARY Type 2 diabetes mellitus without complications MERJOSE G,MONIK B [place] [facility] Feb 07, 2024 06:32 AM SECONDARY Combined forms of age-related cataract, bilateral MERHAR,MONIK B [place] [facility] [facility] Feb 07, 2024 06:32 AM SECONDARY Hypermetropia, bilateral [facility] [place] [facility] [place] Plan of Treatment: Future Appointments (+ 6 months) and Future Tests (+/- 45 days) The Plan of Treatment section includes future care activities for the patient from all [place] treatmentfacilities. This section includes future appointments and future orders which are active, pending or scheduled. Future Appointments This section includes appointments that were scheduled to occur 6 months from the date of the Encounter, up to a maximum of 20 appointments. The data comes from all [place] treatment facilities. Appointment Date/Time Appointment Type Appointme nt Facility Name Mar 29, 2024 10:30 AM AMBULATORY - MEDICINE [facility] [place] [facility] Lab Results: +/- 30 days of the encounter This section includes the Chemistry and Hematology Lab Results on record with [place] for the patient. Radiology Reports and Pathology Reports are provided separately, in subsequent sections. Lab Results This section contains the Chemistry/Hematology Results that were resulted 30 days before or 30 daysafter the date of the Encounter. Date/Time Source Result Type Result - Unit Interpretation Reference Range Comment Feb 11, 2024 12:00 AM [facility] OCCULT BLOOD FIT X1 SCREEN (MFP ONLY) Specimen Type: FECES No comment entered. Ordering Provider: ANI YARBROUGH Report Released Date/Time: Jan 06, 2024 03:08 PM Reporting Lab: [facility] [address] [id number] Performing Lab: [facility] [address] [id number] OCCULT BLOOD (FIT)#1 OF 1 Negative NEG Encounter Notes: All associated encounter notes This section contains the clinical notes associated to the Encounter. Date/Time Encounter Note(s) Provider Source Jan 28, 2024 11:30 AM OPTOMETRY NOTE: LOCAL TITLE: OPTOMETRY NOTE STANDARD TITLE: OPTOMETRY NOTE DATE OF NOTE: JAN 28, 2024@11:30 ENTRY DATE: JAN 28, 2024@11:30:49 AUTHOR: MONIK RENDON EXP COSIGNER: URGENCY: STATUS: COMPLETED 63 WHITE MALE OR Last eye exam: 01/22/23 Reason for Visit/CC: patient here for a comprehensive eye exam. He reports vision is stable, no double vision. 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 ([facility] [id number]) Other: SYSTEMIC MEDICATIONS/OCULAR MEDICATIONS: Active and Recently Outpatient Medications (excluding Supplies): Active Outpatient Medications Status 1) SILDENAFIL CITRATE 100MG TAB TAKE ONE TABLET BY MOUTH ACTIVE ONCE DAILY NEEDED FOR ERECTILE DYSFUNCTION TAKE 1 HOUR PRIOR TO SEXUAL ACTIVITY Active Non-VA Medications Status 1) Non-VA AMLODIPINE BESYLATE 5MG TAB 5MG BY MOUTH ONCE ACTIVE DAILY 2) Non-VA ASPIRIN 81MG EC TAB 81MG BY MOUTH DAILY ACTIVE 3) Non-VA ATORVASTATIN CALCIUM 40MG TAB 20MG BY MOUTH ACTIVE ONCE DAILY 4) Non-VA EMPAGLIFLOZIN 25MG TAB 25MG BY MOUTH ONCE ACTIVE DAILY 5) Non-VA FENOFIBRATE 54MG TAB 54MG BY MOUTH ONCE DAILY ACTIVE 6) Non-VA FISH OIL 1000MG (500MG DHA/EPA) CAP 2000MG BY ACTIVE MOUTH AT BEDTIME 7) Non-VA HYDROCHLOROTHIAZIDE 25MG TAB 25MG BY MOUTH ACTIVE ONCE DAILY 8) Non-VA LOSARTAN 100MG TAB 100MG BY MOUTH ONCE DAILY ACTIVE 9) Non-VA METFORMIN HCL 500MG TAB 500MG BY MOUTH ONCE ACTIVE DAILY 10) Non-VA MULTIVITAMIN/MINERALS CAP/TAB 1 TABLET BY ACTIVE MOUTH 11) Non-VA SEMAGLUTIDE 1MG/0.75ML INJ PEN 1.5ML 1MG ACTIVE SUBCUTANEOUSLY ONCE A WEEK 12 Total Medications ALLERGIES: PENICILLIN LAST BP: 128/83 (04/01/2023 12:17) PERTINENT LABS: HEMOGLOBIN A1C; BLOOD Marry. Date: 01/22/23 08:09 Test Name Result Units Range HEMOGLOBIN A1C 6.3 H % 4.0 - 5.6 +++++++++++++++++++++++++++++ +++++++++++++++++++++++++++++ +++++++++++++++++++++ Patient history, visual acuity, entrance testing, refraction and tonometry all performed now by environmental technician and reviewed by attending provider. Dilation drops instilled by environmental technician after angle assessment and dilation warning given with verbal consent obtained. +++++++++++++++++++++++++++++ +++++++++++++++++++++++++++++ +++++++++++++++++++++ Final Rx: no change from last order (note this is different than last refraction) OD +1.00 -0.75 X 110 OS +1.50 -1.25 X 055 Add: +2.25 SLE: Lids/Lashes: clear OS, pigmented papilloma RLL centrally Conjunctiva: white and quiet OU Corneas: clear OU Iris: flat and clear OU (-)NVI OU Anterior Chamber: deep and quiet OU Angles: open OU Lens: 1+ NS OU, 1+ ACC OU DFE: note very poor dilation OU Vitreous: Syneresis OU C/D (Size and Rim Description) OD 0.30 pink & healthy OS 0.30 pink & healthy (-)NVD OU Macula OD flat and clear OS flat and clear (-)CSME OU A/V: normal caliber OU Posterior Pole: clear OU Periphery: Flat and intact (-)NVE, holes, tears, detachments 360 OU to extent seen - very limited peripheral view OU Assessment/Plan: 1. Type II diabetes without retinopathy or macular edema OU. Pt ed on findings and importance of good blood glucose control. Monitor annually 2. Combined cataracts OU, not visually significant. Monitor 2. hyperopia OU, regular astigmatism OU, presbyopia OU - order new PALs with transitions, also gave written Rx RTC 1 year or earlier PRN Patient Education: Diabetes: Patient was educated regarding diabetes and related ocular complications including retinopathy and cataract formation as well as other related systemic complications. The importance of good blood sugar control, blood sugar testing as recommended by their PCP and the importance of timely follow up were all emphasized. patient offered and declined printed medication list Medication Reconciliation: Outpatient: Has the patient been taking medications as documented in the EMLR? YES: The patient has been taking medications as documented in the EMLR. Essential Medication List for Review used to complete this medication reconciliation. INCLUDED IN THIS LIST: Alphabetical list of active outpatient prescriptions dispensed from this [facility] (local) and dispensed from another VA or DoD facility (remote) as well as inpatient orders (local, pending and active), local clinic medications, locally documented non-VA medications, and local prescriptions that have or been discontinued in the past 90 days. - All changes in medications, including all non-VA/Herbal/OTC medications were entered into CPRS. - If there were any medications the patient should no longer take, they were discontinued. - The patient/caregiver was instructed to update this list, discard old lists, and take this list to the next appointment, whether with a VA or non-VA provider. JLV Link Data on this list may not be complete. Please check JLV. Allergies/ADRs (Tool #5) FACILITY ALLERGY/ADR -------- No Remote Allergy/ADR Data available for this patient [facility] PENICILLIN Med Recon NoGlossary (Tool #1) INCLUDED IN THIS LIST: Alphabetical list of active outpatient prescriptions dispensed from this [place] (local) and dispensed from another [place] or [facility] facility (remote) as well as inpatient orders (local pending and active), local clinic medications, locally documented non-VA medications, and local prescriptions that have or been discontinued in the past 90 days. Non-VA Meds Last Documented On: Apr 01, 2023 NOTE The display of VA prescriptions dispensed from another VA or DoD facility (remote) is limited to active outpatient prescription entries matched to National Drug File at the originating site and may not include some items such as investigational drugs, compounds, etc. NOT INCLUDED IN THIS LIST: Medications self-entered by the patient into personal health records (i.e. [place] [employer]) are NOT included in this list. Non-VA medications documented outside this [place], remote inpatient orders (regardless of status) and remote clinic medications are NOT included in this list. The patient and provider must always discuss medications the patient is taking, regardless of where the medication was dispensed or obtained. Non-VA AMLODIPINE BESYLATE 5MG TAB TAKE ONE TABLET BY MOUTH ONCE DAILY Medication prescribed by Non-VA provider. Non-VA ASPIRIN 81MG EC TAB TAKE ONE TABLET BY MOUTH DAILY Patient wants to buy from Non-VA pharmacy. Non-VA ATORVASTATIN CALCIUM 40MG TAB TAKE ONE-HALF TABLET BY MOUTH ONCE DAILY Medication prescribed by Non-VA provider. Indication: FOR HIGH CHOLESTEROL Non-VA EMPAGLIFLOZIN 25MG TAB TAKE ONE TABLET BY MOUTH ONCE DAILY Medication prescribed by Non-VA provider. Non-VA FENOFIBRATE 54MG TAB TAKE ONE TABLET BY MOUTH ONCE DAILY Medication prescribed by Non-VA provider. Indication: FOR HIGH CHOLESTEROL Non-VA FISH OIL 1000MG (500MG DHA/EPA) CAP TAKE 2 CAPSULES BY MOUTH AT BEDTIME Medication prescribed by Non-VA provider. Non-VA HYDROCHLOROTHIAZIDE 25MG TAB TAKE ONE TABLET BY MOUTH ONCE DAILY Medication prescribed by Non-VA provider. Non-VA LOSARTAN 100MG TAB TAKE ONE TABLET BY MOUTH ONCE DAILY Medication prescribed by Non-VA provider. Non-VA METFORMIN HCL 500MG TAB TAKE ONE TABLET BY MOUTH ONCE DAILY Medication prescribed by Non-VA provider. Non-VA MULTIVITAMIN/MINERALS CAP/TAB CAP/TAB TAKE ONE TABLET BY MOUTH qdaily Non-VA SEMAGLUTIDE 1MG/0.75ML INJ PEN 1.5ML INJECT 1MG SUBCUTANEOUSLY ONCE A WEEK Medication prescribed by Non-VA provider. OUTPT SILDENAFIL CITRATE 100MG TAB (Status = Active) TAKE ONE TABLET BY MOUTH ONCE DAILY NEEDED FOR ERECTILE DYSFUNCTION TAKE 1 HOUR PRIOR TO SEXUAL ACTIVITY Rx# [id number] Last Released: 04/03/23 Qty/Days Supply: 09/13 Rx Expiration Date: 04/01/24 Refills Remainin Indication: FOR ERECTILE DYSFUNCTION SUPPLIES /becky RENDON OD Control Technician Signed: 01/28/2024 13:52 MONIK RENDON [facility] Jan 28, 2024 09:50 AM OPTOMETRY OFFICE SECRETARY NOTE: LOCAL TITLE: OPTOMETRY OFFICE SECRETARY NOTE STANDARD TITLE: OPTOMETRY OFFICE SECRETARY NOTE DATE OF NOTE: JAN 28, 2024@09:50 ENTRY DATE: JAN 28, 2024@09:50:27 AUTHOR: ANAI,PATSY SNADY EXP COSIGNER: URGENCY: STATUS: COMPLETED Active problems - Computerized Problem List is the source for the followin. Erectile dysfunction 2. Contact dermatitis due to poison cyndee 3. Nonproliferative diabetic retinopathy 4. Disorder of lipid and lipoprotein metabolism ([facility] CT 11941921) 5. opiate use chronic 6. Other dyspnea and respiratory abnormality 7. Positive Microalbuminuria Test Result Documented and Reviewed (DM) 8. Type II diabetes mellitus uncontrolled ([facility] 340087659) 9. Knee: arthralgia 10. Heel: arthralgia 11. Obesity 12. 1988: SC: Rt Ankle: 2 surgergies 13. 07-13-10: EKG:NSR 64bpm AR:178 QRS:86 QT: 392 NSTW 14. Depressive Disorder NOS * 15. Adjustment Disorder with Mixed Anxiety and Depressed Mood 16. Pain in joint involving shoulder region 17. 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 ([facility] CT 668356663) Active Outpatient Medications (including Supplies): Active Outpatient Medications Status 1) SILDENAFIL CITRATE 100MG TAB TAKE ONE TABLET BY MOUTH ACTIVE ONCE DAILY NEEDED FOR ERECTILE DYSFUNCTION TAKE 1 HOUR PRIOR TO SEXUAL ACTIVITY Active Non-VA Medications Status 1) Non-VA AMLODIPINE BESYLATE 5MG TAB 5MG BY MOUTH ONCE ACTIVE DAILY 2) Non-VA ASPIRIN 81MG EC TAB 81MG BY MOUTH DAILY ACTIVE 3) Non-VA ATORVASTATIN CALCIUM 40MG TAB 20MG BY MOUTH ACTIVE ONCE DAILY 4) Non-VA EMPAGLIFLOZIN 25MG TAB 25MG BY MOUTH ONCE ACTIVE DAILY 5) Non-VA FENOFIBRATE 54MG TAB 54MG BY MOUTH ONCE DAILY ACTIVE 6) Non-VA FISH OIL 1000MG (500MG DHA/EPA) CAP 2000MG BY ACTIVE MOUTH AT BEDTIME 7) Non-VA HYDROCHLOROTHIAZIDE 25MG TAB 25MG BY MOUTH ACTIVE ONCE DAILY 8) Non-VA LOSARTAN 100MG TAB 100MG BY MOUTH ONCE DAILY ACTIVE 9) Non-VA METFORMIN HCL 500MG TAB 500MG BY MOUTH ONCE ACTIVE DAILY 10) Non-VA MULTIVITAMIN/MINERALS CAP/TAB 1 TABLET BY ACTIVE MOUTH 11) Non-VA SEMAGLUTIDE 1MG/0.75ML INJ PEN 1.5ML 1MG ACTIVE SUBCUTANEOUSLY ONCE A WEEK 12 Total Medications Allergies: PENICILLIN All medications including those prescribed by outside VA's, community providers, and all OTC meds were reviewed and reconciled with patient to the best of their abilities. This 63 year old MALE is seen today for Complete eye exam Medical, eye, personal, and social history are all reviewed and is contributory or is not contributory to today's visit. Date of last eye exam:Jan 22 2023 Location: [facility] Chief Complaint:Patient here today for a complete eye exam NO vision complaints. last year seeing Diplopia but it got better not bothering him anymore. NO change in medication or allergies HISTORY AND REVIEW OF SYSTEMS: 1. Combined cataracts OU 2. Refractive Error/Presbyopia OU 3. DM2 without retinopathy 4. Intermittent vertical diplopia (-) Pain: (-) YEH: (-) Diplopia: (-) Flashes: (-) Floaters: (-) Amaurosis Fugax/Tia's: (-) Eye Injury: (-) Eye Surgery: (-) TBI FOHx: (-) Glaucoma/ARMD/Blindness: (-) Smoker/Length of Time/PPD: DIABETIC: YES Last A1C: HEMOGLOBIN A1C PANEL BLOOD (LAV-BLOOD) JORGE #[id number] Collection time: Jan 22, 2023@08:09 HEMOGLOBIN A1C 6.3 H % 4.0 - 5.6 EYE MEDICATION(S): NOne VISION AND REFRACTION: Current Rx with last BCVA: OD: +1.00 -0.75 x110 20/20 OS: +1.25 -1.25 x055 20/20 Add: +2.25 20/20 PD:65 DVA ( )sc ( XX )cc OD:20/20 OS:20/20-- NV OU:20/20 Manifest Refraction (MRx):No change OD: +1.00 -0.75 x110 20/20 OS: +1.25 -1.25 x055 20/20 Add: +2.25 20/20 PD:65 Intraocular Pressure (IOP) Method: Icare Time:11:35am OD:13 OS:12 Pupils: PERRL (-)APD EOMs: SAFE OU,(-)Pain/Diplopia CVF(facial, peripheral): FTFC OU ANTERIOR CHAMBER (AC) Penlight or slit lamp (if available) exam appears unremarkable. Pupils are dilated. Dilation and driving precautions reviewed with patient and patient expresses understanding. Medication:2.5% Phenylephrine OU Time:11:39am Visual Imaging Performed Today:None Additional Comments:PAL clear and Sun patient would like photochromic and would like a pair of sunglasses with a darker tint then he has does alot of outside work. will duplicate frames. /ruchi/ PATSY DELGADO [facility] TECHINICIAN Signed: 01/28/2024 11:41 PATSY OSPINA [place] [facility]
[2024-03-25 10:35] LABS: Prothrombin Time 11.1 SEC (10.9-12.4)
[2024-03-25 11:05] LABS: Anion Gap 12 (12-20); Blood Urea Nitrogen 24 mg/dL (9-16); Calcium 9.5 mg/dL (8.4-10.2); Carbon Dioxide 26 mmol/L (22-29); Chloride 106 mmol/L (96-108); Cholesterol 156 mg/dL (<200); Estimated Glomerular Filt Rate > 60; Glucose Random 145 mg/dL (60-115); HDL Cholesterol 34 mg/dL (>40); LDL Cholesterol Calculated 86 mg/dL (<100); Potassium 3.8 mmol/L (3.3-5.1); Sodium 140 mmol/L (135-145); Triglycerides 181 mg/dL (<150)
[2024-03-25 16:23] LABS: Hemoglobin 15.3 g/dl (14.0-18.0); Mean Corpuscular HGB Conc 35.6 g/dl (31.0-36.0); Mean Corpuscular Hemoglobin 31.4 pg (27.0-33.0); Mean Corpuscular Volume 88.3 fL (80.0-98.0); Platelet Count 210 X10*3/uL (160-400); Red Blood Count 4.87 X10*6/uL (4.60-5.80); Red Cell Distribution Width 13.1 % (11.0-16.0); White Blood Count 8.5 X10*3/uL (4.8-10.8)
== END 2024-03-25 09:31 | disposition home or self-care (01) ==
LOC: HO.LAB 09:30
DX: I25.10 Atherosclerotic heart disease of native coronary artery without angina pectoris (principal)
CPT/HCPCS: 36415; 80048; 80061; 85027; 85610

== ENCOUNTER → 2024-04-06 23:59 | Outpatient (BNV) | payer BC, SELFPAY | PROVIDERS: Visit Provider Internal Medicine Cardiovascular Disease | DX: I20.89 Other forms of angina pectoris (principal) | CPT/HCPCS: 92928; 92978; 93458; 99152 ==

== ENCOUNTER → 2024-04-21 09:36 | Outpatient (BNVA) | payer BC, OTHER, SELFPAY | PROVIDERS: Visit Provider Internal Medicine ==

== ENCOUNTER 2024-05-25 11:04 | Outpatient (AMB) | payer BC, OTHER, SELFPAY ==
--- NOTE | 2024-05-25 11:10 | MHC.PC.OV ---
Vital Signs 05/25/24 11:11 05/25/24 11:37 Height 5 ft 2 in Weight 235 lb BMI 43.0 BP 140/64 H 110/68 Blood Pressure Location Lt brachial Lt brachial Position Sitting Sitting Pulse 91 Pulse Source Pulse Oximeter Temp 97.5 F Temp Source Temporal Artery Scan Pulse Oximetry (%) 94 Oxygen Delivery Method Room Air Intake Visit Reasons: f/u DM Intake Note: Patient is here to follow up on DM. Senior Materials Scientist Required: No Steam And Power Supervisor: Not Required per policy Accompanied by: Self / Same As Patient Allergies penicillin V Allergy (Unknown, Verified 05/25/24 11:17) swelling Penicillins [PENICILLINS] Allergy (Unknown, Verified 05/25/24 11:17) RASH,SWELLING Medication List - Last Reconciled 05/25/24 by Betzy Walden PA-C amlodipine 5 mg PO DAILY aspirin (Adult Aspirin Regimen) 81 mg PO DAILY atorvastatin 80 mg PO QPM empagliflozin 25 mg PO QAM 30 days fenofibrate 54 mg PO DAILY 30 days hydrochlorothiazide 25 mg PO QAM levothyroxine 25 mcg PO DAILY losartan 25 mg PO DAILY metformin ER 2,000 mg (4 x 500 mg) PO BEDTIME metoprolol succinate ER 25 mg PO DAILY yapilvat-fdj-bmdrm-vit K-lycop 400-20-300 mcg (One-A-Day Men's Multivitamin) tabs PO nitroglycerin 0.4 mg sublingual Q5M PRN omega 9-lga-eam-fish oil 1,200 (144-216) mg (Fish Oil) caps PO semaglutide (Ozempic) 1 mg (0.75 mL) subcut QWEEK 30 days ticagrelor (Brilinta) 90 mg PO BID Tobacco use date assessed: 05/25/24 Dental Screening Dental Screen Date: 05/25/24 Did you have a dental visit in the last 12 months?: Yes Did you have a dental problem in the last 6 months where you did not have access to dental care?: No Was dental information given to patient?: Patient has dentist HPI f/u DM HPI Details 63-year-old male with past medical history diabetes, hypertension, dyslipidemia last seen 02/2024 coming in for follow up.? In review of the notes, patient was seen by Cardiology 04/21/2024 after undergoing cardiac catheterization which revealed severe mid LAD stenosis status post PCI and severe PL stenosis but small size vessel, diffuse PDA stenosis. Advised to continue on long-term aspirin and Brilinta for 1 year, increase atorvastatin to 80 mg and advised cardiac rehabilitation. Presenting with management concerns for Coronary Artery Disease treated via cardiac catheterization. Active management includes continued use of nitroglycerin for angina, with symptoms chiefly occurring during exertion and life currently symptomatically stable. Current medication regimen and dosage adjustments are being closely monitored following procedural interventions. A lapse in Ozempic therapy occurred due to payer coverage difficulties, now resumed, with ongoing diabetes mellitus management as A1c is above goal. Initiated thyroid management under [facility] supervision, with oversight on dose confirmation underway. Hyperlipidemia treats with atorvastatin dosage optimization as per recent prescription updates. [facility] Medical History (Updated 05/25/24 @ 11:27 by Betzy Wadlen PA-C) Obesity due to excess calories Dyslipidemia Vitamin D deficiency CASTELLON (nonalcoholic steatohepatitis) Hypertension, essential Diabetes type 2, controlled Surgical History History of cardiac cath Hx of keloid of skin History of ankle surgery Family History (Updated 05/25/24 @ 11:10 by LASHAUN Nevarez) Father Hypertension Mother HX: breast cancer Diabetes Social History Household Members: Spouse and Children Housing: House Alcohol intake: current Alcohol intake frequency: a few times a month Patient Tobacco Use Status: Current someday Tobacco user Tobacco use type: Cigar e-Cigarette/Vaping Use: Never Used Second Hand Smoke Exposure: Yes Substance Use Type: Marijuana service: Yes Current occupational status: retired Current occupation: [employer] Cognitive needs: No Hearing needs: No Vision needs: Yes Questionnaire PHQ-9 Over the last 2 weeks, how often have you been bothered by any of the following problems? 1. Little interest or pleasure in doing things: not at all 2. Feeling down, depressed, or hopeless: not at all 3. Trouble falling or staying asleep, or sleeping too much: not at all 4. Feeling tired or having little energy: not at all 5. Poor appetite or overeating: not at all 6. Feeling bad about yourself - or that you are a failure or have let yourself or your family down: not at all 7. Trouble concentrating on things, such as reading the newspaper or watching television: not at all 8. Moving or speaking so slowly that other people could have noticed. Or the opposite - being so fidgety or restless that you have been moving around a lot more than usual: not at all 9. Thoughts that you would be better off or of hurting yourself in some way: not at all Total score: 0 Depression Screening Interpretation: Negative Depression Screening Done: Yes Source: Developed by Drs. Ruddy Yao, Sary Blount, Tru Palma and colleagues, with an educational mariella from [employer]. Thrive Questionnaire Date Thrive assessed: 05/25/24 I am a: Patient What is your living situation today?: I have a steady place to live Within the past 12 months, did the food you bought not last and you didn't have the money to get more?: Never true Within the past 12 months, did you worry whether your food would run out before you got money to buy more?: Never true Do you have trouble getting transportation to medical appointments?: No Do you have trouble paying your heating and electricity bill?: No Do you have trouble taking care of your child, family member or friend?: No Do you have trouble with day-to-day activities such as bathing, preparing meals, shopping, managing finances, etc.?: No Are you currently unemployed and looking for a job?: No Are you interested in more education?: No Please select the resources that you would like help with: None Currently or been in a relationship where the following occur: No concerns reported THRIVE Score: 0 AUDIT C Alcohol Use Questionnaire (AUDIT-C) 1. How often do you have a drink containing alcohol?: Monthly or less 2. How many drinks containing alcohol do you have on a typical day when you are drinking?: 1 or 2 3. How often do you have six or more drinks on one occasion?: Never Total Score: 1 CYDNEY-7 AMB Questionnaire CYDNEY-7 Date CYDNEY - 7 assessed: 05/25/24 Feeling nervous, anxious, or on edge: 0 = Not at all Not being able to stop or control worryin = Not at all Worrying too much about different things: 0 = Not at all Trouble relaxin = Not at all Being so restless that it is hard to sit still: 0 = Not at all Becoming easily annoyed or irritable: 0 = Not at all Feeling afraid as if something awful might happen: 0 = Not at all Total CYDNEY-7 score (0-4 normal; 5-9 mild; 10-14 moderate; 15-21 severe): 0 Source: Developed by Drs. Ruddy Yao, Sary Blount, Tru Palma and colleagues, with an educational mariella from [employer]. Review of Systems Const Denies body aches, Denies chills, Denies fever(s), Denies headache(s) and Denies poor appetite Eyes Reports no additional complaints ENT Denies dysphagia, Denies dizziness, Denies headache(s) and Denies odynophagia Card Denies chest pain, Denies syncope, Denies edema, Denies irregular heart rhythm, Denies lightheadedness and Denies dyspnea Resp Denies cough and Denies dyspnea GI Denies abdominal pain, Denies constipation, Denies dysphagia, Denies diarrhea, Denies nausea, Denies odynophagia and Denies vomiting Reports no additional complaints Musc Reports no additional complaints and Denies abnormal gait Skin/Breast Reports system reviewed and no additional complaints, except as documented Neuro Denies abnormal gait, Denies dizziness, Denies syncope and Denies headache(s) Psych Reports no additional complaints Physical exam (Primary Care) Vital Signs: Last Vital Signs Temp 97.5 F 05/25/24 11:11 Oxygen Delivery Method Room Air 05/25/24 11:11 BMI result Body Mass Index 43.0 Tobacco/Smoking Status: Tobacco use Status Tobacco use date assessed 02/16/24 05/25/24 11:10 Patient Tobacco Use Status Current someday Tobacco 05/25/24 11:10 Tobacco use type Cigar 05/25/24 11:10 e-Cigarette/Vaping Use Never Used 05/25/24 11:10 Depression Screening Interpretation: Negative Thrive Assessment: Date of Thrive Assessment Date Thrive assessed 05/25/24 05/25/24 11:10 Currently or been in a relationship where the following occur: No concerns reported Const General: cooperative, healthy appearing, comfortable and no acute distress Orientation/consciousness: patient oriented x3 HENMT Head: Yes normocephalic Ears: hearing grossly normal bilaterally General nose exam: Normal external nose present Eyes General: appearance normal, both eyes and all related structures Conjunctivae: conjunctivae normal Neck Neck: Yes full ROM and Yes no lymphadenopathy Resp Effort & Inspection: normal respiratory effort Auscultation: clear to auscultation bilaterally, no crackles, no rales, no rhonchi and no wheezes Cardio Rate: regular rate Rhythm: regular rhythm Skin General skin exam: no rashes or lesions noted Neuro General: patient oriented x3 Gait exam (Neuro): Normal gait present Extrem General: Yes normal to inspection, Yes full ROM and No edema Psych Affect: normal affect Attitude: cooperative Insight: Good insight present (Psych) Judgement: Good judgement present (Psych) Results AMB Hemoglobin A1c AMB Hemoglobin A1c 7.5 % Last Edit by LASHAUN Nevarez on 05/25/24 11:23 Coding Level of Care Code Est Pt Level 3 (15585) Diagnoses CAD (coronary artery disease) I25.10 Morbid obesity with BMI of 40.0-44.9, adult E66.01; Z68.41 Hypertension, essential I10 Controlled type 2 diabetes mellitus with diabetic polyneuropathy, with long-term current use of insulin E11.42; Z79.4 Diabetes mellitus complication detail: with polyneuropathy Diabetes mellitus complication status: with neurologic complications Diabetes mellitus termite control servicer insulin use: with termite control servicer use Assessment & Plan Assessment & Plan (1) CAD (coronary artery disease): Code(s): I25.10 - Atherosclerotic heart disease of [place] coronary artery without angina pectoris Category: Medical Plan: The patient?s current management involves comprehensive monitoring of cardiovascular and diabetic health. Nitroglycerin is to be used as needed for angina, and hypertension is being overseen with adjusted losartan. The next steps include performing a fasting cholesterol panel and attending a scheduled beam dyer operator visit to enhance diabetes management strategies. The reinforcement of lifestyle modifications continues as a fundamental aspect of treatment, supporting the patient?s holistic health plan. (2) Morbid obesity with BMI of 40.0-44.9, adult: Code(s): E66.01 - Morbid (severe) obesity due to excess calories; Z68.41 - Body mass index [BMI] 40.0-44.9, adult Category: Medical Plan: Healthy diet and regular exercise is encouraged. (3) Hypertension, essential: Code(s): I10 - Essential (primary) hypertension Category: Medical Plan: Continue on current blood pressure medication. Avoid salt intake and encourage healthy diet and regular exercise. (4) Diabetes type 2, controlled: Code(s): E11.9 - Type 2 diabetes mellitus without complications Category: Medical Qualifiers: Diabetes mellitus complication detail: with polyneuropathy Diabetes mellitus complication status: with neurologic complications Diabetes mellitus termite control servicer insulin use: with custodial use Qualified Code(s): E11.42 - Type 2 diabetes mellitus with diabetic polyneuropathy; Z79.4 - manager intermediate (current) use of insulin Plan: Decrease the amount of carbohydrates such as pasta, bread, rice, and potatoes and limit the amount of sweets. Although fruits are generally healthy they should be eaten in moderation as they are still high in sugar. Hemoglobin A1c goal of less than 7%. A1c elevated in the clinic today. Patient states it is likely due to lapse in his Ozempic plan to restart on Ozempic and discussed dietary modification as well. Repeat A1c in 3 months Plan Patient to report the thyroid medication that was given including the dose and the indication. This note was constructed using voice recognition software. While every effort has been made to ensure accuracy and strategic planning manager, still areas may have been included sometimes these areas may affect the content or meeting of the given symptoms. Total time spent caring for the patient today was 20 minutes. This includes time spent before the visit reviewing the chart, time spent during the visit, and time spent after the visit and documentation. Patient was informed and verbally consented to the use of an ambient scribe for clinic note documentation during this visit. Orders: Orders AMB Hemoglobin A1c Today E11.42 - Type 2 diabetes mellitus with diabetic polyneuropathy, Z79.4 - manager intermediate (current) use of insulin Lipid Panel Today E78.00 - Pure hypercholesterolemia, unspecified Medications: Refilled hydrochlorothiazide 25 mg PO QAM 30 tabs 0RF amlodipine 5 mg PO DAILY 90 tabs 1RF fenofibrate 54 mg PO DAILY 30 days 30 tabs 0RF
[2024-05-25 11:11] VITALS: BP 140/64; PULSE 91; TEMP 36.4; O2SAT 94; BMI 43.0
[2024-05-25 11:37] VITALS: BP 110/68
--- OUTSIDE RECORDS SUMMARY | 2024-05-25 13:40 | XMS_ITS | Encounter Summary ---
Author Name [facility] [place] [facility] [place] Address [address] [place] [address] Care Team Providers Care Deputy Court Name Role Phone ANIYAH JAUREGUI Primary Care [...] BASIC FAMIL Y Mar 17, [phone] [id number] [phone] COLON,EDW IN PATIENT BCBS MA FEP PREFERRED PROVIDER ORGANIZAT ION (PPO) BASIC INDIV IDUAL Nov 15, 2022 [id number] COLON,EDW IN PATIENT [place] FEP PREFERRED PROVIDER ORGANIZAT ION (PPO) BASIC FAMIL Y May 15, 2010 112 [id number] COLON,EDW IN PATIENT [place] FEP BCBS PRESCRIPT ION CAREM ARK FEPRX PLAN Feb 13, 2011 [id number] COLON,EDW IN PATIENT RAINA FEPRX PLAN PRESCRIPT ION CAREGamaliel ARK FEPRX Mar 17, 2010 [id number] COLON,EDW IN PATIENT RAINA-F EP BCBS PRESCRIPT ION FEP RAFAEL ARK Nov 15, 2022 [id number] COLON,EDW IN PATIENT Selected Encounter This section includes the information on record at [place] for the Encounter. Date/Time Encounter Type Encounter Description Reason Pro vider Source Apr 29, 2024 12:25 PM Outpatient Encounter ADMIN PAT ACTIVTIES (MASNONCT) IHE Encounter Template Text not used by [place] Plan of Treatment: Future Appointments (+ 6 months) and Future Tests (+/- 45 days) The Plan of Treatment section includes future care activities for the patient from all [place] treatmentfacilities. This section includes future appointments and future orders which are active, pending or scheduled. Future Appointments This section includes appointments that were scheduled to occur 6 months from the date of the Encounter, up to a maximum of 20 appointments. The data comes from all [place] treatment facilities. Appointment Date/Time Appointment Type Appointme nt Facility Name July 26, 2024 01:30 PM AMBULATORY - MEDICINE [facility] [place] Active, Pending, and Scheduled Orders This section includes a listing of several types of active, pending, and scheduled orders, including clinic medications orders, diagnostic test orders, procedure orders and consult orders; where the start date of the order is 45 days before the date of the Encounter or 45 days after the date of theEncounter. The data comes from all [place] treatment facilities. Test Date/Time Test Type Test Details Facility Name Apr 22, 2024 10:41 AM Consult Order COMMUNITY [facility]ARE-CARDIAC REHAB [facility] [place] [facility] Encounter Notes: All associated encounter notes This section contains the clinical notes associated to the Encounter. Date/Time Encounter Note(s) Provider Source Apr 29, 2024 12:25 PM ADMINISTRATIVE NOT E: LOCAL TITLE: CCC: SCHEDULING ADMINISTRATION STANDARD TITLE: ADMINISTRATIVE NOTE DATE OF NOTE: APR 29, 2024@12:25 ENTRY DATE: APR 29, 2024@12:25:37 AUTHOR: CAMILLA MURCIA EXP COSIGNER: URGENCY: STATUS: COMPLETED CCC: SCHEDULING ADMINISTRATION Has ADDENDA Freida RN from [facility] is relaying to Pact Team. She states pt was seen today, performed 36min of exercise w/out any SOB/indigestion but after recent snowblowing and at night he has experienced these symptoms twice. She can be reached back at [phone] ext [phone]. /becky MURCIA Signed: 04/29/2024 12:26 Receipt Acknowledged By: 05/05/2024 10:42 /ruchi/ GAVINO PETERS LPN LPN 05/05/2024 09:48 /ruchi/ SHARLENE GREEN,RN-BC REGISTERED NURSE (RN) 05/04/2024 ADDENDUM STATUS: COMPLETED Called without success. Left a secure vm message requesting him to call the clinic back to discuss care. /SHARLENE Posey,RN-BC REGISTERED NURSE (RN) Signed: 05/04/2024 08:49 05/05/2024 ADDENDUM STATUS: COMPLETED Called 3x without success. Left HIPAA compliant voicemail with callback # to call back to discuss symptoms he is experiencing. /SHARLENE Posey,RN-BC REGISTERED NURSE (RN) Signed: 05/05/2024 09:55 05/05/2024 ADDENDUM STATUS: COMPLETED Patient called the clinic back and stated he feels better. Polysomnograph Tech informed if symptoms developed again he should go to the ER for eval. Patient verbalized understanding and agreed to plan. /SHARLENE Posey,RN-BC REGISTERED NURSE (RN) Signed: 05/05/2024 11:11 CAMILLA MURCIA [facility]
--- OUTSIDE RECORDS SUMMARY | 2024-05-25 13:40 | XMS_ITS | Continuity of Care Document ---
Author Name [facility] Organization [facility] Care Team Providers Care Customs Entry Writer Name Role Phone [facility] Unavailable Unavailable Problems Combined list of problems from Department of Defense and Veterans Affairs facilities. It does not include entries that were removed or entered in error. Problem Status Onset Date Problem Type Date of Resolution Comments Source 1988: [place]: Rt Ankle: 2 surgergies Active Condition [place] 07-13-10: EKG:NSR 64bpm [place]:178 QRS:86 QT: 392 NSTW Active Condition [place] Acute Anxiety disorder Active Condition [facility] Adjustment Disorder with Mixed Anxiety and Depressed Mood (ICD-9-CM 309.28) Active Condition [facility] ASTHMA Active Condition [facility] Contact dermatitis due to poison cyndee Active Condition [facility] Depressive Disorder NOS * (ICD-9-CM 311./300.4) Active Condition [facility] Disorder of lipid and lipoprotein metabolism (SNOMED CT 60730474) Active Condition [place] Erectile dysfunction Active Condition [facility] Heel: arthralgia Active Condition [place] Hypertension secondary to endocrine disorder (SNOMED CT 743180362) Active Condition Dec 21, 2018 Entered By: MIRZA VILLARREAL Comment: PCP-Radha Zamora MD [facility] Knee: arthralgia Active Condition [place] Nonproliferative diabetic retinopathy Active Condition Jan 28, 2014 Entered By: SONNY OG Comment: 2013 Entered By: SONNY OG Comment: per eye exam Jan 2014; [place] Obesity Active Condition [place] opiate use chronic Active Condition D 2012 Entered By: ROSE MARY TAMAYO Comment: mass [employer] no controlled rx@1224.13 [facility] Other dyspnea and respiratory abnormality (ICD-9-CM 786.09) Active Condition [facility] Pain in joint involving shoulder region (ICD-9-CM 719.41) Active Condition [facility] Positive Microalbuminuria Test Result Documented and Reviewed (DM) Active Condition [place] Type II diabetes mellitus uncontrolled (SNOMED CT 242941505) Active Condition Dec 21, 2018 Entered By: MIRZA VILLARREAL Comment: Endocrinologi - Dr.Shayhira Maureen Caalrera [place] Diagnosis: ICD-10-CM Z76.0 Encounter for issue of repeat prescription Active Diagnosis [facility] [place] [facility] Diagnosis: ICD-10-CM I70.90 Unspecified atherosclerosis Active Diagnosis [facility] ([id number]) Diagnosis: ICD-10-CM Z46.0 Encounter for fit/adjst of spectacles and contact lenses Active Diagnosis [facility] [place] [facility] Diagnosis: ICD-10-CM E11.9 Type 2 diabetes mellitus without complications [facility] [place] [facility] Diagnosis: ICD-10-CM Z00.01 Encounter for general adult medical exam w abnormal findings Active Diagnosis [facility] IE Medications Combined list of outpatient medications from Department of Defense and Veterans Affairs facilities.Medications provided include 1) outpatient medications from the last 15 months, and 2) patient-reported medications. Medication Details Route Status Patient Instructions Prescription Expires Prescription Number Last Dispense Date Ordering Provider Order Date Order Qty Source AMLODIPINE BESYLATE 5MG TAB TAKE ONE TABLET BY MOUTH ONCE DAILY ORAL ACTIVE Barry RICKS 2018 [facility] ASPIRIN 81MG TAB,EC TAKE ONE TABLET BY MOUTH DAILY ORAL ACTIVE RHODA GARCIA 2014 [facility] EMPAGLIFLOZ IN 25MG TAB TAKE ONE TABLET BY MOUTH ONCE DAILY ORAL ACTIVE Barry RICKS 2018 [facility] FENOFIBRATE 54MG TAB TAKE ONE TABLET BY MOUTH ONCE DAILY ORAL ACTIVE CHIKA YARBROUGH 2023 [facility] FISH OIL 1000MG (500MG DHA/EPA) CAP,ORAL TAKE 2 CAPSULES BY MOUTH AT BEDTIME ORAL ACTIVE SEBASTIAN HERNANDEZ 2010 [facility] HYDROCHLORO THIAZIDE 25MG TAB TAKE ONE TABLET BY MOUTH ONCE DAILY ORAL ACTIVE Barry RICKS 2018 [facility] LEVOTHYROXI NE NA 25MCG TAB (SYNTHROID) TAKE ONE TABLET BY MOUTH EVERY MORNING 30 MINUTES BEFORE BREAKFAS T FOR THYROID TAKE ON AN EMPTY STOMACH WITH A FULL GLASS OF WATER ORAL ACTIVE 03/30/2025 [id number] JULY,WANDY RLY P 2024 90 [facility] [place] POTASSIUM 100MG TAB TAKE ONE TABLET BY MOUTH ONCE DAILY ORAL ACTIVE Barry RICKS 2018 [facility] METFORMIN HCL 500MG TAB TAKE ONE TABLET BY MOUTH ONCE DAILY ORAL ACTIVE Barry RICKS 2018 [facility] METOPROLOL SUCCINATE 25MG TAB,SA TAKE ONE TABLET BY MOUTH ONCE DAILY ORAL ACTIVE RA GREGORY JAUREGUI 2024 [facility] MULTIVITAMI NS W/MINERALS TAB TAKE ONE TABLET BY MOUTH qd ORAL ACTIVE LAKISHA MORA 2004 [facility] SEMAGLUTIDE 1MG/0.75ML INJ,SOLN,PE N,1.5ML INJECT 1MG SUBCUTAN EOUSLY ONCE A WEEK SUBCUT ANEOUS ACTIVE Barry RICKS 2018 [facility] SILDENAFIL CITRATE 100MG TAB TAKE ONE TABLET BY MOUTH ONCE DAILY NEEDED FOR ERECTILE DYSFUNCT ION TAKE 1 HOUR PRIOR TO SEXUAL ACTIVITY ORAL 04/01/2024 [id number] CHIKA YARBROUGH O 2023 6 [facility] TICAGRELOR 90MG TAB TAKE ONE TABLET BY MOUTH TWICE DAILY ORAL ACTIVE 04/12/2025 [id number] RA GREGORY JAUREGUI 2024 180 [facility] Allergies, Adverse Reactions, Alerts Combined list of allergies from Department of Defense and Veterans Affairs facilities. It does not include entries that were removed or entered in error. Substance Category Reaction Severity Reaction type Status Date Reported Comments Source PENICILLIN Propensity to adverse reactions to drug (finding) SWELLING- THROAT active 0 [facility] Immunizations Combined list of available immunizations from the Department of Defense and Veterans Affairs facilities. Immunization Series Date Given Administered By Site Reaction Lot Number CVX Code Drug Religion Instructor Status Comments Source INFLUENZA, INJECTABLE, QUADRIVALENT, PRESERVATIVE FREE 2023 AVANI PETERS LEFT DELTO ID [id number] A 150 complet ed [place] ZOSTER RECOMBINANT 2 2023 AVANI PETERS LEFT DELTO ID [id number] 187 complet ed [place] INFLUENZA, UNSPECIFIED FORMULATION 2023 88 complet ed [facility] PNEUMOCOCCAL CONJUGATE PCV20, POLYSACCHARID E [id number] CONJUGATE, ADJUVANT, PF 2021 216 complet ed [place] ZOSTER RECOMBINANT 1 2021 187 complet ed [place] COVID-19 (Therma Flite), MRNA, LNP-S, PF, 30 MCG/0.3 ML DOSE 2 2020 208 complet ed [facility] COVID-19 (BView), VECTOR-NR, [id number], PF, 0.5 ML 1 2020 212 complet ed J[place]; [id number]; 1 [facility] INFLUENZA, UNSPECIFIED FORMULATION 2019 88 complet ed [facility] INFLUENZA, SEASONAL, INJECTABLE 2017 141 complet ed [facility] FLU,3 YRS (HISTORICAL) 2014 [address] complet ed [address] office [facility] FLU,3 YRS (HISTORICAL) 2013 88 complet ed at work [facility] FLU,3 YRS (HISTORICAL) 2012 88 complet ed Site: Right Deltoid [place] DTAP, UNSPECIFIED FORMULATION 2012 107 complet ed [place] PNEUMOCOCCAL, UNSPECIFIED FORMULATION 2012 109 complet ed [place] FLU,3 YRS (HISTORICAL) 2011 88 complet ed [facility] FLU,3 YRS (HISTORICAL) 2010 88 complet ed [facility] FLU,3 YRS (HISTORICAL) 2009 88 complet ed [facility] [place] [facility] Results Combined list of recent chemistry, hematology and other laboratory results from Department of Defense and Veterans Affairs, ranging from 15 months to all on record, depending upon the facility. Order Name Results Value Reference Range Date Interpretation Specimen Comments Source HEMOGLOB IN A1C PANEL HEMOGLOBIN A1C/HEMOGL OBIN.TOTAL IN BLOOD BY HPLC 6.9 4.0 - 5.6 03/23 H Specimen Type: BLOOD Comment: Values obtained from A1C measurement s can vary. For atypical A1C assays, a reported value of 7.0 could actually be between 6.72 and 7.28 if measured by a reference method. A reported value of 9.0 could actually be between 8.73 and 9.27. Ref: http://[email or web address] ngsp.org/[place] Pdata.asp Ordering Provider: ROBERTO YARBROUGH Report Released Date/Time: Mar 16, 2024 09:18 AM Reporting Lab: [facility] [place] [facility] [address] [facility] [address] Performing Lab: [facility]ITALRL [facility]N [place] [facility] [address] [facility] [address] [facility] TSH THYROTROPI N [UNITS/VOL UME] IN SERUM OR PLASMA 5.38 u[IU]/mL 0.35 - 5.00 03/23 H Specimen Type: SERUM No comment entered. Ordering Provider: ROBERTO YARBROUGH Report Released Date/Time: Mar 16, 2024 09:18 AM Reporting Lab: [facility]ITALRCARRAW[facility]ENTERTRN [place] [facility] [address] [facility] [address] Performing Lab: [facility]ITALR [facility]N [place] [facility] [address] [facility] [address] [facility] LIPID PANEL FASTING CHOLESTERO L [MASS/VOLU ME] IN SERUM OR PLASMA 176 mg/dL 03/23 Specimen Type: SERUM No comment entered. Ordering Provider: ROBERTO YARBROUGH Report Released Date/Time: Mar 16, 2024 09:18 AM Reporting Lab: [facility] [place] [address] [address] Performing Lab: [facility] [place] [facility] [address] [facility] [place] [address] [facility] [place] [facility] LIPID PANEL FASTING TRIGLYCERI DE [MASS/VOLU ME] IN SERUM OR PLASMA 196 mg/dL 0 - 150 03/23 H Specimen Type: SERUM No comment entered. Ordering Provider: ROBERTO YARBROUGH Report Released Date/Time: Mar 16, 2024 09:18 AM Reporting Lab: [facility] [place] [facility] [address] [facility] [address] Performing Lab: [facility]ENTER[facility]ETS [facility] [address] [facility] [address] [facility]PITALRL WSTRN [facility]ENTERUSE [facility] LIPID PANEL FASTING CHOLESTERO L IN LDL [MASS/VOLU ME] IN SERUM OR PLASMA BY CALCULAKRISTINA N 102 mg/dL 0 - 129 03/23 Specimen Type: SERUM No comment entered. Ordering Provider: ROBERTO YARBROUGH Report Released Date/Time: Mar 16, 2024 09:18 AM Reporting Lab: [facility] [place] [facility] [address] [facility] [address] Performing Lab: [facility]ENTERUSETS [facility] [address] [facility] [address] [facility]ITALRL WSTRN [facility]ENTERUSE [facility] LIPID PANEL FASTING CHOLESTERO L.TOTAL/CH OLESTEROL IN HDL [MASS RATIO] IN SERUM OR PLASMA 5.0 03/23 Specimen Type: SERUM No comment entered. Ordering Provider: ROBERTO YARBROUGH Report Released Date/Time: Mar 16, 2024 09:18 AM Reporting Lab: [facility] [place] [facility] [address] [facility] [address] Performing Lab: [facility] [address] [facility] [address] [facility]ITALRL WSTRN [facility]ENTERUSE [facility] LIPID PANEL FASTING CHOLESTERO L IN HDL [MASS/VOLU ME] IN SERUM OR PLASMA 35 mg/dL 40 - 60 03/23 L Specimen Type: SERUM No comment entered. Ordering Provider: ROBERTO YARBROUGH Report Released Date/Time: Mar 16, 2024 09:18 AM Reporting Lab: [facility] [place] [facility] [address] [facility] [address] Performing Lab: [facility] [place] [facility] [address] [facility] [address] [facility] [place] [facility] LIVER FUNCTION PROTEIN [MASS/VOLU ME] IN SERUM OR PLASMA 8.4 g/dL 6.0 - 8.3 03/23 H Specimen Type: SERUM No comment entered. Ordering Provider: ROBERTO YARBROUGH Report Released Date/Time: Mar 16, 2024 09:18 AM Reporting Lab: [facility] [place] [facility] [address] [facility] [address] Performing Lab: [facility] [place] [facility] [address] [facility] [address] [facility] [place] [facility] LIVER FUNCTION ALBUMIN [MASS/VOLU ME] IN SERUM OR PLASMA 4.5 g/dL 3.5 - 5.0 03/23 Specimen Type: SERUM No comment entered. Ordering Provider: ROBERTO YARBROUGH Report Released Date/Time: Mar 16, 2024 09:18 AM Reporting Lab: [facility] [place] [facility] [address] [facility] [address] Performing Lab: [facility] [place] [facility] [address] [facility] [address] [facility] [place] [facility] LIVER FUNCTION ALKALINE PHOSPHATAS E [ENZYMATIC ACTIVITY/V OLUME] IN SERUM OR PLASMA 76 U/L 40 - 150 03/23 Specimen Type: SERUM No comment entered. Ordering Provider: ROBERTO YARBROUGH Report Released Date/Time: Mar 16, 2024 09:18 AM Reporting Lab: [facility] [place] [facility] [address] [facility] [address] Performing Lab: [facility] [place] [facility] [address] [facility] [address] [facility] [place] [facility] LIVER FUNCTION ASPARTATE AMINOTRANS FERASE [ENZYMATIC ACTIVITY/V OLUME] IN SERUM OR PLASMA 32 U/L 5 - 34 03/23 Specimen Type: SERUM No comment entered. Ordering Provider: ROBERTO YARBROUGH Report Released Date/Time: Mar 16, 2024 09:18 AM Reporting Lab: [facility]ITALRL [facility]N [place] [facility] [address] [facility] [address] Performing Lab: [facility] HOSPITALRL WSTRN [facility]ENTERUSE[facility] [address] [facility] [address] [facility] HOSPITALRL WSTRN [facility]ITALCHUSE [facility] LIVER FUNCTION ALANINE AMINOTRANS FERASE [ENZYMATIC ACTIVITY/V OLUME] IN SERUM OR PLASMA 37 U/L 03/23 Specimen Type: SERUM No comment entered. Ordering Provider: ROBERTO YARBROUGH Report Released Date/Time: Mar 16, 2024 09:18 AM Reporting Lab: [facility] HOSPITALRCARRAWAY [facility] CENTERTRN [facility]ENTERUSECAP[facility] [address] [facility] [address] Performing Lab: [facility] HOSPITALRL TRN [facility] CENTERUSE[address] [address] [facility] HOSPITALRGADSDEN REGIONAL MEDICAL CENTERN [facility]ENTERUSE [facility] LIVER FUNCTION BILIRUBIN. TOTAL [MASS/VOLU ME] IN SERUM OR PLASMA 0.7 mg/dL 0.2 - 1.2 03/23 Specimen Type: SERUM No comment entered. Ordering Provider: ROBERTO YARBROUGH Report Released Date/Time: Mar 16, 2024 09:18 AM Reporting Lab: [facility] HOSPITALRCARRAWAY [facility] MEDICAL CENTERTRN [facility] CENTERUSE[address] [address] Performing Lab: [facility] HOSPITALRL TRN [facility]ENTERUSECAP[facility] [address] [facility] [address] [facility] HOSPITALRL TRN [facility] CENTERUSE [facility] BASIC METABOLI C PANEL (fasting ) UREA NITROGEN [MASS/VOLU ME] IN SERUM OR PLASMA 22 mg/dL 7 - 25 03/23 Specimen Type: SERUM No comment entered. Ordering Provider: ROBERTO YARBROUGH Report Released Date/Time: Mar 16, 2024 09:18 AM Reporting Lab: [facility] HOSPITALRCARRAWAY [facility] CENTERTRN [facility]ENTERUSECAP[facility] [address] [facility] [address] Performing Lab: [facility] HOSPITALRL TRN [facility] CENTERUSE[address] [address] [facility] BASIC METABOLI C PANEL (fasting ) GLUCOSE [MASS/VOLU ME] IN SERUM OR PLASMA 173 mg/dL 65 - 100 03/23 H Specimen Type: SERUM No comment entered. Ordering Provider: ROBERTO YARBROUGH Report Released Date/Time: Mar 16, 2024 09:18 AM Reporting Lab: [facility] [address] [facility] [address] Performing Lab: [facility]ERN [facility]ENTERUSECAP[facility] [address] [facility] [address] [facility] BASIC METABOLI C PANEL (fasting ) SODIUM [MOLES/VOL UME] IN SERUM OR PLASMA 139 mmol/L 135 - 145 03/23 Specimen Type: SERUM No comment entered. Ordering Provider: ROBERTO YARBROUGH Report Released Date/Time: Mar 16, 2024 09:18 AM Reporting Lab: [facility] [address] [facility] [address] Performing Lab: [facility]ERN [facility]ENTERUSECAPITAL [facility] [address] [facility] [address] [facility] BASIC METABOLI C PANEL (fasting ) POTASSIUM [MOLES/VOL UME] IN SERUM OR PLASMA 5.3 mmol/L 3.5 - 5.0 03/23 H Specimen Type: SERUM No comment entered. Ordering Provider: ROBERTO YARBROUGH Report Released Date/Time: Mar 16, 2024 09:18 AM Reporting Lab: [facility] HOSPITALRCARRAWAY [facility] CENTERTRN [facility]ENTERUSECAP[facility] [address] [facility] [address] Performing Lab: [facility] HOSPITALRCARRAWAY [facility] CENTERTRN [facility]ENTERUSECAP[facility] [address] [facility] [address] [facility]ERN [facility]ENTERUSE [facility] BASIC METABOLI C PANEL (fasting ) CHLORIDE [MOLES/VOL UME] IN SERUM OR PLASMA 102 mmol/L 100 - 110 03/23 Specimen Type: SERUM No comment entered. Ordering Provider: ROBERTO YARBROUGH Report Released Date/Time: Mar 16, 2024 09:18 AM Reporting Lab: [facility]ENIXTRN [facility] CENTERUSECAP[facility] [address] [facility] [address] Performing Lab: [facility] [place] [facility] [address] [facility] [address] [facility] [place] [facility] BASIC METABOLI C PANEL (fasting ) CARBON DIOXIDE, TOTAL [MOLES/VOL UME] IN SERUM OR PLASMA 29 meq/L 20 - 30 03/23 Specimen Type: SERUM No comment entered. Ordering Provider: ROBERTO YARBROUGH Report Released Date/Time: Mar 16, 2024 09:18 AM Reporting Lab: [facility] [place] [facility] [address] [facility] [address] Performing Lab: [facility]ENTERUSECAP[facility] [address] [facility] [address] [facility] HOSPITALRL WSTRN [facility] CENTERUSE [facility] BASIC METABOLI C PANEL (fasting ) CREATININE [MASS/VOLU ME] IN SERUM OR PLASMA 1.30 mg/dL 0.50 - 1.40 03/23 Specimen Type: SERUM No comment entered. Ordering Provider: ROBERTO YARBROUGH Report Released Date/Time: Mar 16, 2024 09:18 AM Reporting Lab: [facility] HOSPITALRL WSTRN [facility] CENTERUSE[address] [address] Performing Lab: [facility] W[facility]N [facility] CENTERUSETS [address] [address] [facility] HOSPITALRL TRN [facility] CENTERUSE [facility] BASIC METABOLI C PANEL (fasting ) GLOMERULAR FILTRATION RATE/1.73 SQ M.PREDICTE D [VOLUME RATE/AREA] IN SERUM, PLASMA OR BLOOD BY CREATININE -BASED FORMULA (CKD-EPI 2020) 62 mL/min 60 03/23 Specimen Type: SERUM No comment entered. Ordering Provider: ROBERTO YARBROUGH Report Released Date/Time: Mar 16, 2024 09:18 AM Reporting Lab: [facility] [place] [facility] [address] [facility] [address] Performing Lab: [facility] HOSPITALRL WSTRN [facility] CENTERUSETS [address] [address] [facility] HOSPITALRL WSTRN [place] [facility] MICROALB UMIN CREATINI NE RATIO PANEL MICROALBUM IN/CREATIN INE [MASS RATIO] IN URINE 60.2 mg/g 0 - 29.9 03/23 H Specimen Type: URINE No comment entered. Ordering Provider: ROBERTO YARBROUGH Report Released Date/Time: Mar 16, 2024 09:18 AM Reporting Lab: [facility] [place] [facility] [address] [facility] [address] Performing Lab: [facility] [place] [facility] [address] [facility] [address] [facility] [place] [facility] MICROALB UMIN CREATINI NE RATIO PANEL MICROALBUM IN [MASS/VOLU ME] IN URINE 6.9 mg/dL 03/23 Specimen Type: URINE No comment entered. Ordering Provider: ROBERTO YARBROUGH Report Released Date/Time: Mar 16, 2024 09:18 AM Reporting Lab: [facility] [place] [place] [address] [address] Performing Lab: [facility] [place] [facility] [address] [facility] [address] [facility] [place] [facility] MICROALB UMIN CREATINI NE RATIO PANEL CREATININE [MASS/VOLU ME] IN URINE 114.63 mg/dL 03/23 Specimen Type: URINE No comment entered. Ordering Provider: ROBERTO YARBROUGH Report Released Date/Time: Mar 16, 2024 09:18 AM Reporting Lab: [facility] [place] [address] [address] Performing Lab: [facility] [place] [facility] [address] [facility] [address] [facility] [place] [facility] CBC AND DIFF (AUTO) LEUKOCYTES [#/VOLUME] IN BLOOD BY AUTOMATED COUNT 6.73 10*3/uL 4.50 - 11.00 03/23 Specimen Type: BLOOD No comment entered. Ordering Provider: ROBERTO YARBROUGH Report Released Date/Time: Mar 16, 2024 09:18 AM Reporting Lab: [facility] [place] [address] [address] Performing Lab: [facility] [place] [facility] [address] [facility] [address] [facility] HOSPITALRGADSDEN REGIONAL MEDICAL CENTERN [facility] HOSPITALCHUSE TS [facility] CBC AND DIFF (AUTO) ERYTHROCYT ES [#/VOLUME] IN BLOOD BY AUTOMATED COUNT 5.01 10*6/uL 4.23 - 5.66 03/23 Specimen Type: BLOOD No comment entered. Ordering Provider: ROBERTO YARBROUGH Report Released Date/Time: Mar 16, 2024 09:18 AM Reporting Lab: [facility] HOSPITALRL [facility] [place] [facility] [address] [facility] [id number] Performing Lab: [facility]ILLAC HOSPITALRCARRAWAY METHOD[facility] MED[facility] CENTERTRN [facility] HOSPITALCHUSETS [facility] [address] [facility] [facility] [phone] [facility] HOSPITALCHUSE [facility] CBC AND DIFF (AUTO) HEMOGLOBIN [MASS/VOLU ME] IN BLOOD 15.6 g/dL 12.8 - 17 03/23 Specimen Type: BLOOD No comment entered. Ordering Provider: ROBERTO YARBROUGH Report Released Date/Time: Mar 16, 2024 09:18 AM Reporting Lab: [facility]ITALRC[facility]RAW[facility]TRN [place] [facility] [address] [facility] [address] Performing Lab: [facility]ITALRL TRN [facility] [address] [facility] [address] [facility]USE [facility] CBC AND DIFF (AUTO) HEMATOCRIT [VOLUME FRACTION] OF BLOOD BY AUTOMATED COUNT 44.3 39.2 - 50.4 03/23 Specimen Type: BLOOD No comment entered. Ordering Provider: ROBERTO YARBROUGH Report Released Date/Time: Mar 16, 2024 09:18 AM Reporting Lab: [facility]ITALRCARRAW[facility]ENTERTRN [place] [facility] [address] [facility] [address] Performing Lab: [facility]ITALRCARRAWAY [facility] CENTERTRN [facility]ITAL[facility] [address] [facility] [address] [facility]ENTERN [facility]ITALCHUSE [facility] CBC AND DIFF (AUTO) MCV [ENTITIC VOLUME] BY AUTOMATED COUNT 88.4 fL 82 - 99 03/23 Specimen Type: BLOOD No comment entered. Ordering Provider: ROBERTO YARBROUGH Report Released Date/Time: Mar 16, 2024 09:18 AM Reporting Lab: [facility] [place] [facility] [address] [facility] [address] Performing Lab: [facility] [place] [facility] [address] [facility] [address] [facility] [place] [facility] CBC AND DIFF (AUTO) MCHC [MASS/VOLU ME] BY AUTOMATED COUNT 35.2 g/dL 30.8 - 35.1 03/23 H Specimen Type: BLOOD No comment entered. Ordering Provider: ROBERTO YARBROUGH Report Released Date/Time: Mar 16, 2024 09:18 AM Reporting Lab: [facility] [place] [facility] [address] [facility] [address] Performing Lab: [facility] [place] [facility] [address] [facility] [address] [facility]ITALRL [facility] [place] [facility] CBC AND DIFF (AUTO) PLATELETS [#/VOLUME] IN BLOOD BY AUTOMATED COUNT 211 10*3/uL 140 - 360 03/23 Specimen Type: BLOOD No comment entered. Ordering Provider: ROBERTO YARBROUGH Report Released Date/Time: Mar 16, 2024 09:18 AM Reporting Lab: [facility] [place] [facility] [address] [facility] [address] Performing Lab: [facility] [place] [facility] [address] [facility] [address] [facility]ITALRL [facility] [place] [facility] CBC AND DIFF (AUTO) ERYTHROCYT E DISTRIBUTI ON WIDTH [RATIO] BY AUTOMATED COUNT 12.9 12.0 - 16.0 03/23 Specimen Type: BLOOD No comment entered. Ordering Provider: ROBERTO YARBROUGH Report Released Date/Time: Mar 16, 2024 09:18 AM Reporting Lab: [facility] [place] [facility] [address] [facility] [address] Performing Lab: [facility] [place] [facility] [address] [facility] [address] [facility] [place] [facility] CBC AND DIFF (AUTO) MONOCYTES [#/VOLUME] IN BLOOD BY AUTOMATED COUNT 0.64 10*3/uL 0.30 - 1.10 03/23 Specimen Type: BLOOD No comment entered. Ordering Provider: ROBERTO YARBROUGH Report Released Date/Time: Mar 16, 2024 09:18 AM Reporting Lab: [facility] [place] [facility] [address] [facility] [address] Performing Lab: [facility] [place] [facility] [address] [facility] [address] [facility] [place] [facility] CBC AND DIFF (AUTO) MCH [ENTITIC MASS] BY AUTOMATED COUNT 31.1 pg 26.2 - 32.6 03/23 Specimen Type: BLOOD No comment entered. Ordering Provider: ROBERTO YARBROUGH Report Released Date/Time: Mar 16, 2024 09:18 AM Reporting Lab: [facility] [place] [facility] [address] [facility] [address] Performing Lab: [facility] [place] [facility] [address] [facility] [address] [facility] [place] [facility] CBC AND DIFF (AUTO) NEUTROPHIL S/100 LEUKOCYTES IN BLOOD BY AUTOMATED COUNT 56.7 43.7 - 75.8 03/23 Specimen Type: BLOOD No comment entered. Ordering Provider: ROBERTO YARBROUGH Report Released Date/Time: Mar 16, 2024 09:18 AM Reporting Lab: [facility] [place] [facility] [address] [facility] [address] Performing Lab: [facility] [place] [facility] [address] [facility] [address] [facility] [place] [facility] CBC AND DIFF (AUTO) LYMPHOCYTE S/100 LEUKOCYTES IN BLOOD BY AUTOMATED COUNT 31.6 14.0 - 42.3 03/23 Specimen Type: BLOOD No comment entered. Ordering Provider: ROBERTO YARBROUGH Report Released Date/Time: Mar 16, 2024 09:18 AM Reporting Lab: [facility] [place] [facility] [address] [facility] [address] Performing Lab: [facility] [place] [facility] [address] [facility] [address] [facility] [place] [facility] CBC AND DIFF (AUTO) MONOCYTES/ 100 LEUKOCYTES IN BLOOD BY AUTOMATED COUNT 9.5 5.1 - 13.7 03/23 Specimen Type: BLOOD No comment entered. Ordering Provider: ROBERTO YARBROUGH Report Released Date/Time: Mar 16, 2024 09:18 AM Reporting Lab: [facility] [place] [address] [address] Performing Lab: [facility] [place] [facility] [address] [facility] [address] [facility] [place] [facility] CBC AND DIFF (AUTO) EOSINOPHIL S/100 LEUKOCYTES IN BLOOD BY AUTOMATED COUNT 1.5 0.4 - 6.8 03/23 Specimen Type: BLOOD No comment entered. Ordering Provider: ROBERTO YARBROUGH Report Released Date/Time: Mar 16, 2024 09:18 AM Reporting Lab: [facility] [place] [address] [address] Performing Lab: [facility] [place] [address] [address] [facility]ITAL[facility] [place] [facility] CBC AND DIFF (AUTO) BASOPHILS/ 100 LEUKOCYTES IN BLOOD BY AUTOMATED COUNT 0.4 0.1 - 2.0 03/23 Specimen Type: BLOOD No comment entered. Ordering Provider: ROBERTO YARBROUGH Report Released Date/Time: Mar 16, 2024 09:18 AM Reporting Lab: [facility] [place] [address] [address] Performing Lab: [facility] [place] [place] [address] [address] [facility]ITALRL [facility] [place] [facility] CBC AND DIFF (AUTO) NEUTROPHIL S [#/VOLUME] IN BLOOD BY AUTOMATED COUNT 3.81 10*3/uL 2.20 - 7.60 03/23 Specimen Type: BLOOD No comment entered. Ordering Provider: ROBERTO YARBROUGH Report Released Date/Time: Mar 16, 2024 09:18 AM Reporting Lab: [facility] [place] [address] [address] Performing Lab: [facility] [place] [facility] [address] [facility] [address] [facility] [place] [facility] CBC AND DIFF (AUTO) LYMPHOCYTE S [#/VOLUME] IN BLOOD BY AUTOMATED COUNT 2.13 10*3/uL 1.00 - 3.20 03/23 Specimen Type: BLOOD No comment entered. Ordering Provider: ROBERTO YARBROUGH Report Released Date/Time: Mar 16, 2024 09:18 AM Reporting Lab: [facility] [place] [facility] [address] [facility] [address] Performing Lab: [facility] [place] [place] [facility] [address] [facility] [address] [facility] [place] [facility] CBC AND DIFF (AUTO) EOSINOPHIL S [#/VOLUME] IN BLOOD BY AUTOMATED COUNT 0.10 10*3/uL 0.03 - 0.44 03/23 Specimen Type: BLOOD No comment entered. Ordering Provider: ROBERTO YARBROUGH Report Released Date/Time: Mar 16, 2024 09:18 AM Reporting Lab: [facility] [place] [facility] [address] [facility] [address] Performing Lab: [facility] [place] [place] [facility] [address] [facility] [address] [facility]ITAL[facility] [place] [facility] CBC AND DIFF (AUTO) BASOPHILS [#/VOLUME] IN BLOOD BY AUTOMATED COUNT 0.03 10*3/uL 0.01 - 0.13 03/23 Specimen Type: BLOOD No comment entered. Ordering Provider: ROBERTO YARBROUGH Report Released Date/Time: Mar 16, 2024 09:18 AM Reporting Lab: [facility] [place] [facility] [address] [facility] [address] Performing Lab: [facility] [facility] [address] [facility] [address] [facility] [place] [facility] CBC AND DIFF (AUTO) IMMATURE GRANULOCYT ES/100 LEUKOCYTES IN BLOOD BY AUTOMATED COUNT 0.3 0.0 - 0.7 03/23 Specimen Type: BLOOD No comment entered. Ordering Provider: ROBERTO YARBROUGH Report Released Date/Time: Mar 16, 2024 09:18 AM Reporting Lab: [facility] [place] [facility] [address] [facility] [address] Performing Lab: [facility] [place] [facility] [address] [facility] [address] [facility] [place] [facility] CBC AND DIFF (AUTO) IMMATURE GRANULOCYT ES [#/VOLUME] IN BLOOD 0.02 10*3/uL 0.00 - 0.06 03/23 Specimen Type: BLOOD No comment entered. Ordering Provider: ROBERTO YARBROUGH Report Released Date/Time: Mar 16, 2024 09:18 AM Reporting Lab: [facility] [place] [place] [address] [address] Performing Lab: [facility] [address] [address] [facility]ITALRL WSTRN [facility] CBC AND DIFF (AUTO) NRBC % 0.0 0.0 - 0.0 03/23 Specimen Type: BLOOD No comment entered. Ordering Provider: ROBERTO YARBROUGH Report Released Date/Time: Mar 16, 2024 09:18 AM Reporting Lab: [facility] [place] [address] [address] Performing Lab: [facility] [address] [address] [facility]ITALRL WSTRN [facility] CBC AND DIFF (AUTO) NRBC, ABS 0.00 10*3/uL 0.00 - 0.00 03/23 Specimen Type: BLOOD No comment entered. Ordering Provider: ROBERTO YARBROUGH Report Released Date/Time: Mar 16, 2024 09:18 AM Reporting Lab: [facility] [place] [address] [address] Performing Lab: [facility] [place] [address] [address] [facility]ITALRL [facility] [place] [facility] OCCULT BLOOD FIT X1 SCREEN (MFP ONLY) HEMOGLOBIN .GASTROINT ESTINAL.LO WER [PRESENCE] IN STOOL BY IMMUNOASSA Y Negative 02/10 Specimen Type: FECES No comment entered. Ordering Provider: ROBERTO YARBROUGH Report Released Date/Time: Jan 06, 2024 03:08 PM Reporting Lab: [facility] [place] [facility] [address] [facility] [address] Performing Lab: [facility] [place] [facility] [address] [facility] [address] [facility]ITAL[facility] [place] [facility] PSA PROSTATE SPECIFIC AG [MASS/VOLU ME] IN SERUM OR PLASMA 0.30 ng/mL 0.00 - 4.00 01/22 Specimen Type: SERUM No comment entered. Ordering Provider: ROBERTO YARBROUGH Report Released Date/Time: Oct 09, 2021 11:15 AM Reporting Lab: [facility] [place] [address] [address] Performing Lab: [facility] [address] [facility] [address] [facility] TRN [facility] LIPID PANEL FASTING CHOLESTERO L [MASS/VOLU ME] IN SERUM OR PLASMA 139 mg/dL 01/22 Specimen Type: SERUM No comment entered. Ordering Provider: ROBERTO YARBROUGH Report Released Date/Time: Oct 09, 2021 11:15 AM Reporting Lab: [facility]ITALRL TRN [facility]ENTERUSETS [address] [address] Performing Lab: [facility] [address] [facility] [address] [facility] TRN [facility] LIPID PANEL FASTING TRIGLYCERI DE [MASS/VOLU ME] IN SERUM OR PLASMA 177 mg/dL 0 - 150 01/22 H Specimen Type: SERUM No comment entered. Ordering Provider: ROBERTO YARBROUGH Report Released Date/Time: Oct 09, 2021 11:15 AM Reporting Lab: [facility] [place] [facility] [address] [facility] [address] Performing Lab: [facility] [address] [address] [facility] [place] [facility] LIPID PANEL FASTING CHOLESTERO L IN LDL [MASS/VOLU ME] IN SERUM OR PLASMA BY SHERIF Tomlinson 72 mg/dL 0 - 129 01/22 Specimen Type: SERUM No comment entered. Ordering Provider: ROBERTO YARBROUGH Report Released Date/Time: Oct 09, 2021 11:15 AM Reporting Lab: [facility] [place] [facility] [address] [facility] [address] Performing Lab: [facility] [place] [facility] [address] [facility] [address] [facility] [place] [facility] LIPID PANEL FASTING CHOLESTERO L.TOTAL/CH OLESTEROL IN HDL [MASS RATIO] IN SERUM OR PLASMA 4.3 01/22 Specimen Type: SERUM No comment entered. Ordering Provider: ROBERTO YARBROUGH Report Released Date/Time: Oct 09, 2021 11:15 AM Reporting Lab: [facility] [place] [facility] [address] [facility] [address] Performing Lab: [facility] [place] [facility] [address] [facility] [address] [facility] [place] [facility] LIPID PANEL FASTING CHOLESTERO L IN HDL [MASS/VOLU ME] IN SERUM OR PLASMA 32 mg/dL 40 - 60 01/22 L Specimen Type: SERUM No comment entered. Ordering Provider: ROBERTO YARBROUGH Report Released Date/Time: Oct 09, 2021 11:15 AM Reporting Lab: [facility] [place] [facility] [address] [facility] [address] Performing Lab: [facility] [place] [facility] [address] [facility] [address] [facility] [place] [facility] Vital Signs Combined list of inpatient and outpatient Vital Signs from Department of Defense and Veterans Affairs, ranging from 12 months to all on record, depending upon the facility. Vital Sign Value Date Comments Source SYSTOLIC BLOOD PRESSURE 122 03/29/19 25 10:36:03 [facility] [place] [place] [facility] DIASTOLIC BLOOD PRESSURE 78 025 10:36:03 [facility] [place] [facility] PULSE OXIMETRY 95 03/29/2024 10:36:03 [facility] [place] [facility] WEIGHT 235.4 03/29/2024 10:36:03 [facility] [place] [facility] BMI 43 kg/m2 03/29/2024 10:36:03 [facility] [place] [facility] PAIN 0 03/29/2024 10:36:03 [facility] [place] [facility] HEIGHT 62 03/29/2024 10:36:03 [facility] [place] [facility] TEMPERATURE 98.4 03/29/2024 10:36:03 [facility] [place] [facility] PULSE 73 03/29/2024 10:36:03 [facility] [place] [facility] RESPIRATION 20 03/29/2024 10:36:03 [facility] [place] [facility] Encounters Combined list of: 1) Encounters from Department of Veterans Affairs facilities going backup to the last 18 months, not all VA inpatient encounters are included; 2) Encounters from the Department of flo.do facilities going backup to 280 months. Location Location Details Encounter Type Encounter Number Reason For Visit Attending Provider ADM Date DC Date Status Disposition Source [facility] [place] [facility] EYE EXAM&TX ESTAB PT 1/>VST [id number] Diagnos is: ICD-10- CM E11.9 Type 2 diabete s mellitu s without complic ations ACE RENDON 01/22 [facility] [place] [facility] [place] [facility] FIT SPECTACLES MULTIFOCAL [id number] Diagnos is: ICD-10- CM Z46.0 Encount er for fit/adj st of spectac les and contact lenses ACE RENDON H B 01/22 [facility] [place] [facility] [place] [facility] Outpatient Encounter [id number] 01/31 [facility] [place] [facility] En[facility] [id number] 01/31 [facility] [place] En[facility] [id number] 01/31 [facility] [place] En[facility] [id number] 02/10 [facility] [place] FIT SPECTACLES MULTIFOCAL [id number] Diagnos is: ICD-10- CM Z46.0 Encount er for fit/adj st of spectac les and contact lenses HANS OSPINA 02/12 [facility] En[facility] [id number] 02/13 [facility] [place] En[facility] [id number] 02/13 [facility] [place] En[facility] [id number] 02/25 [facility] [place] En[facility] [id number] 03/17 [facility] [place] En[facility] [id number] 03/24 [facility] En[facility] [id number] 03/24 [facility] [place] OFFICE O/P EST MOD 30 MIN [id number] Diagnos is: ICD-10- CM Z00.01 Encount er for general adult medical exam w abnorma l finding s Fay YARBROUGH 04/01 [facility] [place] [facility] En[facility] [id number] 08/06 [facility] [place] En[facility] [id number] 11/02 [facility] COMPRE OPH EXAM EST PT 1/> [id number] 1. Diagnos is: ICD-10- CM E11.9 Type 2 diabete s mellitu s without complic ations ACE RENDON 01/27 [facility] FIT SPECTACLES MULTIFOCAL [id number] 1. Diagnos is: ICD-10- CM Z46.0 Encount er for fit/adj st of spectac les and contact lenses ACE RENDON 01/27 [facility] Outpatient Encounter [id number],MIRYAM LY P 03/29 [facility] [place] [facility] En[facility] [id number] 04/06 [facility] En[facility] [id number] 04/08 [facility] En[facility] [id number] 04/08 [facility] En[facility] [id number] 04/08 [facility] [place] [facility] (631[facility]) NQHP OL DIG ASSMT&MGMT 11-20 [id number] Diagnos is: ICD-10- CM I70.90 Unspeci fied atheros clerosi MATA Page 04/12 [facility] (831[facility]) [facility] PH1 ASSMT&MGMT NQHP 5-10 [id number] Diagnos is: ICD-10- CM Z76.0 [facility] er for issue of repeat prescri felice FELICIANOAYE PRICE 04/13 [facility] [place] [facility] [place] [facility] Outpatient Encounter [id number] 04/21 [facility] [place] [facility] [place] [facility] Outpatient Encounter [id number] 04/21 [facility] [place] [facility] [place] [facility] Outpatient Encounter [id number] 04/29 [facility] [place] [facility] Social History Combined list of available smoking, tobacco, and other social history from Department of Defense and Veterans Affairs facilities. Social History Type Response Date Comment Sourc e Tobacco smoking status VAIS PA-TOBACCO NEVER USED 04/01/2023 [place] History of tobacco use PA-TOBACCO NEVER USED 10/09/2021 [place] History of tobacco use PA-TOBACCO NEVER USED 09/07/2020 [place] History of tobacco use PA-TOBACCO NEVER USED 06/23/2018 [place] History of tobacco use CURRENT SMOKER 05/03/2015 occasional cigar smoker [place] History of tobacco use LIFETIME NON-SMOKER 01/30/2005 [place] History of tobacco use LIFETIME NON-SMOKER 01/16/2004 [place] History of tobacco use LIFETIME NON-SMOKER 04/30/2002 [place] Plan of Care List of future care activities from Department of Veterans Affairs facilities. Additional future care activities may be listed in the Assessment and Plan section. Date/Time Care Activity Care Activity Detail Facili ty 07/26/2024 AMBULATORY - MEDICINE AMBULATORY - MEDICI NE [facility] [place] [facility] 04/22/2024 Consult Order [facility] Cons Adjunct Trainer's Choice [facility] [place] [facility] 06/15/2024 Laboratory - Motion Picture Camera Lens Technician ry Order TSH BLOOD (SST-SERUM) SP [facility] [place] [facility] 06/15/2024 Laboratory - Motion Picture Camera Lens Technician ry Order LIVER FUNCTION BLOOD (SST-SERUM) SP [facility] [place] [facility] 06/15/2024 Laboratory - Motion Picture Camera Lens Technician ry Order PSA BLOOD (SST-SERUM) SP [facility] [place] [facility] 06/15/2024 Laboratory - Motion Picture Camera Lens Technician ry Order BASIC METABOLIC PANEL (non-fasting) BLOOD (SST-SERUM) [facility] [place] [facility]
--- OUTSIDE RECORDS SUMMARY | 2024-05-25 13:40 | XMS_ITS | Clinical Summary ---
Author Organization [employer] Address [address] [place] [address] [address] [place] [address] Care Team Providers Care Feeder Operator Name Role Phone Unavailable Primary Care Provider Unavailabl e Immunizations Name Administration Dates Next Due Influenza, seasonal, injectable, preservative fr ee 12/03/2023 Pfizer Covid-19 Vaccine 12+ 12/03/2023 Social History Tobacco Use Types Packs/Day Years Used Date Smoking Tobacco: Never Assessed Sex and Gender Information Value Date Recorded Sex Assigned at Male 01/14/2022 10:39 AM EDT Legal Sex Male 10:39 AM EDT Gender Identity Male 01/14/2022 10:39 AM EDT Sexual Orientation Straight 01/14/2022 10 :39 AM EDT Plan of Treatment Health Maintenance Due Date Last Done Comments CT Colonography 1962 Colonoscopy 1962 Colorectal Cancer Screening 1962 Depression Screening 1962 FIT DNA/Cologuard 1962 FIT 1962 FOBT 1962 HIV Screening 1962 Lipid Panel 1962 SDOH Screening 1962 Sigmoidoscopy 1962 Alcohol/Substance Use Screening 1974 Tobacco Screening 1974 Hepatitis C Screening 1980 DTaP/Tdap/Td Vaccines (2 - Tdap) 08/14/2022 08/14/2012 RSV Patients and Patients Aged 60 years or older (1 - Risk 60-74 years 1-dose series) 2022 Pneumococcal Vaccine: 50+ Years Completed 10/09/2021, 12/05/2015, 08/14/2012 Pneumococcal Vaccine: Pediatrics (0 to 5 Years) and At-Risk Patients (6 to 49) Years) Completed 10/09/2021, 12/05/2015, 08/14/2012 Zoster Vaccines Completed 04/01/2023, 10/09/2021 COVID-19 Vaccine Completed 12/03/2023, 12/2020, 05/30/2020 Influenza Vaccine Completed 12/03/2023, , 01/16/2020, Additional history exists HIB Vaccines Aged Out No longer eligi ble based on patient's age to complete this topic HPV Vaccines Aged Out No longer eligi ble based on patient's age to complete this topic Hepatitis A Vaccines Aged Out No long er eligible based on patient's age to complete this topic Hepatitis B Vaccines Aged Out No long er eligible based on patient's age to complete this topic IPV Vaccines Aged Out No longer eligi ble based on patient's age to complete this topic Meningococcal Vaccine Aged Out No deborah sonu eligible based on patient's age to complete this topic RSV under 20 months Aged Out No longe r eligible based on patient's age to complete this topic Rotavirus Vaccines Aged Out No longer eligible based on patient's age to complete this topic Insurance [facility]
--- OUTSIDE RECORDS SUMMARY | 2024-05-25 13:40 | XMS_ITS | Encounter Summary ---
Author Name [facility] [place] [facility] [place] Address [address] [place] [address] Care Team Providers Care Production Mechanic Name Role Phone ANIYAH JAUREGUI Primary Care [...] BASIC FAMIL Y Mar 17, 2010 112 [id number] [phone] COLON,EDW IN PATIENT BCBS [place] FEP PREFERRED PROVIDER ORGANIZAT ION (PPO) BASIC INDIV IDUAL Nov 15, 2022 [id number] COLON,EDW IN PATIENT BCBS OF [place] FEP PREFERRED PROVIDER ORGANIZAT ION (PPO) BASIC FAMIL Y May 15, 2010 112 [id number] COLON,EDW IN PATIENT CAREMARK FEP BCBS PRESCRIPT ION CAREM ARK FEPRX PLAN Feb 13, 2011 [id number] COLON,EDW IN PATIENT RAINA FEPRX PLAN PRESCRIPT ION CAREGamaliel ARK FEPRX Mar 17, 2010 [id number] COLON,EDW IN PATIENT RAINA-F EP BCBS PRESCRIPT ION FEP RAFAEL ARK Nov 15, 2022 [id number] COLON,EDW IN PATIENT Selected Encounter This section includes the information on record at [place] for the Encounter. Date/Time Encounter Type Encounter Description Reason Provider Source Apr 12, 2024 09:55 AM NQHP OL DIG ASSMT&MGMT 11 CLINICAL PHARMACY ICD-10-CM I70.90 Unspecified atherosclerosis TREVOR JAIMES [facility] Encounter Template Text not used by [place] Assessments - Encounter Diagnoses This section includes the primary and secondary diagnoses documented for the Encounter. Date/Time Primary/Secondary Diagnosis Diagnosis Name Provider Source Apr 27, 2024 01:26 PM PRIMARY Unspecified atherosclerosis TREVOR JAIMES [facility] ([id number]) Plan of Treatment: Future Appointments (+ 6 months) and Future Tests (+/- 45 days) The Plan of Treatment section includes future care activities for the patient from all [place] [facility]. This section includes future appointments and future orders which are active, pending or scheduled. Future Appointments This section includes appointments that were scheduled to occur 6 months from the date of the Encounter, up to a maximum of 20 appointments. The data comes from all [place] treatment facilities. Appointment Date/Time Appointment Type Appointme nt Facility Name Apr 29, 2024 09:30 AM [facility] July 26, 2024 01:30 PM AMBULATORY MEDICINE [facility] Active, Pending, and Scheduled Orders This section includes a listing of several types of active, pending, and scheduled orders, including clinic medications orders, diagnostic test orders, procedure orders and consult orders; where the start date of the order is 45 days before the date of the Encounter or 45 days after the date of theEncounter. The data comes from all [place] treatment facilities. Test Date/Time Test Type Test Details Facility Name Apr 22, 2024 10:41 AM Consult Order [facility] Cons Polisher Apprentice's Choice [facility] Lab Results: +/- 30 days of the encounter This section includes the Chemistry and Hematology Lab Results on record with [place] for the patient. Radiology Reports and Pathology Reports are provided separately, in subsequent sections. Lab Results This section contains the Chemistry/Hematology Results that were resulted 30 days before or 30 daysafter the date of the Encounter. Date/Time Source Result Type Result - Unit Interpretation Reference Range Comment Mar 23, 2024 07:31 AM [facility] HEMOGLOBIN A1C PANEL Specimen Type: BLOOD Comment: Values obtained from A1C measurements can vary. For atypical A1C assays, a reported value of 7.0 could actually be between 6.72 and 7.28 if measured by a reference method. A reported value of 9.0 could actually be between 8.73 and 9.27. Ref: http://www.ngs p.org/CAPdata. asp Ordering Provider: ANI YARBROUGH Report Released Date/Time: Mar 16, 2024 09:18 AM Reporting Lab: [address] [address] Performing Lab: [address] [address] HEMOGLOBIN A1C 6.9 H 4.0-5.6 Mar 23, 2024 07:31 AM [facility] TSH Specimen Type: SERUM No comment entered. Ordering Provider: ANI YARBROUGH Report Released Date/Time: Mar 16, 2024 09:18 AM Reporting Lab: [address] [address] Performing Lab: [address] [address] TSH 5.38 u[IU]/mL H 0.35-5.00 Mar 23, 2024 07:31 AM [facility] LIPID PANEL FASTING Specimen Type: SERUM No comment entered. Ordering Provider: ANI YARBROUGH Report Released Date/Time: Mar 16, 2024 09:18 AM Reporting Lab: [address] [address] Performing Lab: [facility] [address] [facility] [address] CHOLESTEROL 176 mg/dL TRIGLYCERIDE 196 mg/dL H 0-150 LDL calculated 102 mg/dL 0-129 CHOL/HDL 5.0 HDL CHOLESTEROL 35 mg/dL L 40-60 Mar 23, 2024 07:31 AM [facility] LIVER FUNCTION Specimen Type: SERUM No comment entered. Ordering Provider: ANI YARBROUGH Report Released Date/Time: Mar 16, 2024 09:18 AM Reporting Lab: [address] [address] Performing Lab: [address] [address] PROTEIN,TOTAL 8.4 g/dL H 6.0-8.3 ALBUMIN 4.5 g/dL 3.5-5.0 ALKALINE PHOSPHATASE 76 U/L 40-150 AST 32 U/L 5-34 ALT 37 U/L BILIRUBIN, TOTAL 0.7 mg/dL 0.2-1.2 Mar 23, 2024 07:31 AM [facility] BASIC METABOLIC PANEL (fasting) Specimen Type: SERUM No comment entered. Ordering Provider: ANI YARBROUGH Report Released Date/Time: Mar 16, 2024 09:18 AM Reporting Lab: [address] [address] Performing Lab: [address] [address] UREA NITROGEN 22 mg/dL 7-25 GLUCOSE 173 mg/dL H 65-100 SODIUM 139 mmol/L 135-145 POTASSIUM 5.3 mmol/L H 3.5-5.0 CHLORIDE 102 mmol/L 100-110 CO2 29 meq/L 20-30 CREATININE, Serum 1.30 mg/dL 0.50-1.40 eGFR(CKD-EPI 2020) 62 mL/min >60 Mar 23, 2024 07:31 AM [facility] MICROALBUMIN CREATININE RATIO PANEL Specimen Type: URINE No comment entered. Ordering Provider: ANI YARBROUGH Report Released Date/Time: Mar 16, 2024 09:18 AM Reporting Lab: [facility] [address] [facility] [address] Performing Lab: [facility] [address] [facility] [address] MICROALBUMIN/C REATININE RATIO 60.2 mg/g H 0-29.9 MICROALBUMIN,Q UANTITATIVE 6.9 mg/dL RR UNAVAIL CREATININE URINE 114.63 mg/dL Mar 23, 2024 07:31 AM [facility] CBC AND DIFF (AUTO) Specimen Type: BLOOD No comment entered. Ordering Provider: ANI YARBROUGH Report Released Date/Time: Mar 16, 2024 09:18 AM Reporting Lab: [facility] [address] [facility] [address] Performing Lab: [facility] [address] [facility] [address] WBC 6.73 10*3/uL 4.50-11.00 RBC 5.01 10*6/uL 4.23-5.66 HGB 15.6 g/dL 12.8-17 HCT 44.3 39.2-50.4 MCV 88.4 fL 82-99 MCHC 35.2 g/dL H 30.8-35.1 PLT 211 10*3/uL 140-360 RDW-CV 12.9 12.0-16.0 MONO, ABS 0.64 10*3/uL 0.30-1.10 MCH 31.1 pg 26.2-32.6 NEUT % 56.7 43.7-75.8 LYMPH % 31.6 14.0-42.3 MONO % 9.5 5.1-13.7 EOS % 1.5 0.4-6.8 BASO % 0.4 0.1-2.0 NEUT, ABS 3.81 10*3/uL 2.20-7.60 LYMPH, ABS 2.13 10*3/uL 1.00-3.20 EOS, ABS 0.10 10*3/uL 0.03-0.44 BASO, ABS 0.03 10*3/uL 0.01-0.13 IMMATURE GRAN % 0.3 0.0-0.7 IMMATURE GRAN, ABS 0.02 10*3/uL 0.00-0.06 NRBC % 0.0 0.0-0.0 NRBC, ABS 0.00 10*3/uL 0.00-0.00 Encounter Notes: All associated encounter notes This section contains the clinical notes associated to the Encounter. Date/Time Encounter Note(s) Provider Source Apr 12, 2024 09:55 AM PHARMACY CONSULT: LOCAL TITLE: CONSULT REPORT/PRIOR AUTH FACILITY PADR STANDARD TITLE: PHARMACY CONSULT DATE OF NOTE: APR 12, 2024@09:55 ENTRY DATE: APR 12, 2024@09:55:57 AUTHOR: TREVOR JAIMES EXP COSIGNER: URGENCY: STATUS: COMPLETED The medical record has been reviewed with regard to this restricted drug request. Medication requested: TICAGRELOR 90MG TAB Medication indication: ASCVD - s/p catheterization Medical history relevant to this request: Medical history relevant to this request: Exclusion Criteria If the answer to ANY item below is met, then the patient should NOT receive ticagrelor. [ ] Active pathological bleeding [ ] Clinically important anemia or thrombocytopenia [ ] History of intracranial hemorrhage (ICH) [ ] Severe hepatic impairment [ ] Increased risk for symptomatic bradycardia events (e.g., sick sinus syndrome, 2nd or 3rd degree atrioventricular block, bradycardia-related syncope not protected by a pacemaker) [ ] Concomitant simvastatin or lovastatin in doses greater than 40 mg daily [ ] Concomitant use of strong CY inhibitors (e.g., atazanavir, clarithromycin, indinavir, itraconazole, ketoconazole, nefazodone, nelfinavir, ritonavir, saquinavir, telithromycin and voriconazole) [ ] Concomitant use of strong CY inducers (e.g., rifampin, phenytoin, carbamazepine, and phenobarbital) [ ] Concomitant oral anticoagulant therapy (clopidogrel is preferred P2Y12 inhibitor for use in combination with an oral anticoagulant) [ ] Anticipated urgent coronary artery bypass graft (CABG) surgery (i.e., within 5 days) [ ] Receiving concomitant aspirin at a dose of greater than 100 mg daily Inclusion Criteria The answer to one of the following must be fulfilled in order to meet criteria. [ ] ST-elevation myocardial infarction acute coronary syndrome (STEMI-ACS) undergoing percutaneous coronary intervention (PCI) or receiving no reperfusion [ ] Non-ST elevation acute coronary syndrome (NSTE-ACS) with at least 2 of the following: ST-segment changes on electrocardiogram indicating ischemia, positive cardiac biomarkers, and/or other high risk feature2,3 [ ] Definite or probable acute stent thrombosis ([employer] Consortium definition) in patients compliant with aspirin and clopidogrel [ ] Extended duration dual antiplatelet therapy (DAPT=aspirin plus P2Y12 inhibitor) beyond 12 months following an ACS event as per Cardiology re- evaluation; reduce dose to 60 mg twice daily [ ] Reduced clopidogrel response(e.g., any documented [id number] intermediate or poor metabolizer phenotypes or high on?treatment platelet reactivity by P2Y12 reaction units [PRU] testing) and continued indication for P2Y12 inhibitor therapy [x] Confirmed coronary artery disease (CAD) and type 2 diabetes without prior myocardial infarction (MS), at particularly high ischemic risk AND low bleed risk given neutral net clinical benefit - restricted to Cardiology [ ] Non-cardioembolic acute ischemic stroke (NIH Stroke Scalescore =5) or high-risk transient ischemic attack when no other recommended antiplatelet agents are appropriate for use - restricted to Neurology [ ] Undergoing percutaneous coronary intervention (PCI) with or without ACS in patients with clopidogrel or true aspirin allergy Coronary angiography with [facility] for chest pain, abnormal coronary CTA and abnormal echo on 04/06/24 at [facility]. was discharged on aspirin 81mg daily and ticagrelor 90mg BID. Of note, also has hx of diabetes. Request approved. Meets continuity of care and dual indication. The request is approved x 12 mo - No formulary-preferred alternative - Continuity of care Time spent: 15 min /ruchi/ Trevor Jaimes, Tom Clinical Platinumsmith Signed: 04/12/2024 10:19 TREVOR JAIMES [facility] ([id number])
== END 2024-05-25 11:53 | disposition home or self-care (01) ==
LOC: HO.HMCH 11:05
DX: I25.10 Atherosclerotic heart disease of native coronary artery without angina pectoris (principal); E66.01 Morbid (severe) obesity due to excess calories; Z68.41 Body mass index [BMI] 40.0-44.9, adult; E11.42 Type 2 diabetes mellitus with diabetic polyneuropathy; Z79.4 Long term (current) use of insulin; I10 Essential (primary) hypertension

== ENCOUNTER → 2024-05-25 11:04 | Outpatient (BNVA) | payer BC, OTHER, SELFPAY | DX: I25.10 Atherosclerotic heart disease of native coronary artery without angina pectoris (principal); E66.01 Morbid (severe) obesity due to excess calories; Z68.41 Body mass index [BMI] 40.0-44.9, adult; I10 Essential (primary) hypertension; E11.42 Type 2 diabetes mellitus with diabetic polyneuropathy; Z79.4 Long term (current) use of insulin | CPT/HCPCS: 83036; 96127 ==

== ENCOUNTER → 2024-05-31 10:01 | Outpatient (REF) | payer BC, OTHER, SELFPAY ==
--- NOTE | ~2024-05-31 | NM_ITS ---
EXERCISE MYOCARDIAL PERFUSION STUDY INDICATION: Chest pain to evaluate for myocardial ischemia TECHNIQUE: The patient was brought in for an exercise perfusion study on May 31, 2024. Patient performed exercise as per Willie protocol and was injected 33 mCi of sestamibi once target heart rate was achieved. Images were obtained using the SPECT gamma camera interlaced with the gating device. Images were obtained in supine position. Resting perfusion study was performed on June 01, 2024. Patient was administered 33 mCi of sestamibi intravenously at rest. Images were then obtained in supine position. Images obtained without without CT attenuation. Total DLP 159 mGy-cm. Images were processed with the software and compared side to side in short axis, horizontal long axis and vertical long axis views. FINDINGS: Raw images were reviewed The stress perfusion study showed nonattenuated images show moderately to severely reduced uptake in the basal inferior, mid inferior as well as moderately reduced uptake in the inferolateral wall of the LV myocardium. Remainder of the LV myocardium is normally perfused. Attenuated corrected images. The overall corrected. The gated study shows normal LV systolic function with calculated LVEF of 64%. LV cavity is normal in size. The gated study shows normal systolic wall thickening and contraction of segments. Resting study shows nonattenuated images show improved uptake in the basal inferior pulmonary inferior and inferolateral wall of the myocardium. Gating at rest reveals normal systolic wall motion with ejection fraction at greater than 60%. The findings are consistent with moderate size mild to moderate ischemia of the basal and mid inferior and inferolateral wall of the LV myocardium in RCA/circumflex distribution. NM/NM cardiolite stress test IMPRESSION: 1. Myocardial perfusion imaging study shows moderate size mild to moderate ischemia of the inferior and inferolateral wall. 2. Gated LVEF is 64%. 3. Transient ischemic dilatation not present. EKG revealed borderline ischemia. Electronically signed by: Mike Shields MD 06/01/2024 06:10 PM EDT
--- NOTE | 2024-05-31 10:07 | CA_ITS ---
Acquisition Time: 2024-05-31 10:11:36 Total Exercise Time: 00:05:15 Test Indications: CHEST PAIN Medications: AMLODIPINE ASA HCTZ ATROVASTATIN Protocol: BONG Max HR: 142 BPM 89% of Pred: 159 BPM Max BP: 170/68 mmHG Max Work Load: 7.0 METS Exercise stress test with exercise 5 mins 15 secs of Bong Protocol, achieving 88% MPHR, with reports of 9/10 mid chest pressure and SOB, with isolated PVC, atrial runs- 3 beats, with normotensive response to exercise. With borderline changes in leads II, aVF, V5 and V6; nonspecific ST- T waves at baseline. In recovery, chest pressure improved and breathing returned to baseline. Nuclear images pending. Test reviewed with Dr. Terry. Referred By: Dennis Veliz Electronically Signed By: Dennis Veliz
--- OUTSIDE RECORDS SUMMARY | 2024-05-31 11:09 | XMS_ITS | Encounter Summary ---
Author Name [facility] [place] [facility] [place] Organization [facility] [place] Address [address] [place] [address] Care Team Providers Care Security Police Officer Name Role Phone ANIYAH JAUREGUI Primary Care [...] BASIC FAMIL Y Mar 17, 2010 112 [id number] [phone] COLON,EDW IN PATIENT BCBS [place] FEP PREFERRED PROVIDER ORGANIZAT ION (PPO) PSHB BASIC SELF Mar 17, 2024 [id number] COLON,EDW IN PATIENT BCBS OF [place] FEP PREFERRED PROVIDER ORGANIZAT ION (PPO) BASIC FAMIL Y May 15, 2010 112 [id number] [id number] COLON,EDW IN PATIENT [place] FEP BCBS PRESCRIPT ION CAREM ARK FEPRX PLAN Feb 13, 2011 [id number] COLON,EDW IN PATIENT RAINA FEPRX PLAN PRESCRIPT ION CAREGamaliel ARK FEPRX Mar 17, 2010 [id number] COLON,EDW IN PATIENT RAINA-F EP BCBS PRESCRIPT ION FEP RAFAEL ARK Nov 15, 2022 [id number] COLON,EDW IN PATIENT Selected Encounter This section includes the information on record at [place] for the Encounter. Date/Time Encounter Type Encounter Description Reason Provider Source Apr 12, 2024 09:55 AM NQHP OL DIG ASSMT&MGMT 11 CLINICAL PHARMACY ICD-10-CM I70.90 Unspecified atherosclerosis TREVOR JAIMES [facility] Encounter Template Text not used by [place] Assessments - Encounter Diagnoses This section includes the primary and secondary diagnoses documented for the Encounter. Date/Time Primary/Secondary Diagnosis Diagnosis Name Provider Source Apr 27, 2024 01:26 PM PRIMARY Unspecified atherosclerosis TREVOR JAIMES [facility] ([id number]) Plan of Treatment: Future Appointments (+ 6 months) and Future Tests (+/- 45 days) The Plan of Treatment section includes future care activities for the patient [facility] [place] [facility] This section includes future appointments and [...] 29, 2024 09:30 AM [facility] July 26, 2024 01:30 PM AMBULATORY MEDICINE [facility] Active, Pending, and Scheduled Orders This section includes a listing of several types of active, pending, and scheduled orders, including clinic medications orders, diagnostic test orders, procedure orders and consult orders; where the start date of the order is 45 days before the date of the Encounter or 45 days after the date of theEncounter. The data comes from all [place] treatment facilities. Test Date/Time Test Type Test Details Facility Name Apr 22, 2024 10:41 AM Consult Order [facility] Cons Accounts Receivable Bookkeeper's Choice [facility] Lab Results: +/- 30 days of the encounter This section includes the Chemistry and Hematology Lab Results on record with [place] for the patient. Radiology Reports and Pathology Reports are provided separately, in subsequent sections. Lab Results This section contains the Chemistry/Hematology Results that were resulted 30 days before or 30 daysafter the date of the Encounter. Date/Time Source Result Type Result - Unit Interpretation Reference Range Comment Mar 23, 2024 07:31 AM [facility] HEMOGLOBIN A1C PANEL Specimen Type: BLOOD [...] Mar 16, 2024 09:18 AM Reporting Lab: [address] [address] Performing Lab: [address] [address] HEMOGLOBIN A1C 6.9 H 4.0-5.6 Mar 23, 2024 07:31 AM [facility] TSH Specimen Type: SERUM No comment entered. Ordering Provider: ANI YARBROUGH Report Released Date/Time: Mar 16, 2024 09:18 AM Reporting Lab: [address] [address] Performing Lab: [address] [address] TSH 5.38 u[IU]/mL H 0.35-5.00 Mar 23, 2024 07:31 AM [facility] LIPID PANEL FASTING Specimen Type: SERUM No comment entered. Ordering Provider: ANI YARBROUGH Report Released Date/Time: Mar 16, 2024 09:18 AM Reporting Lab: [address] [address] Performing Lab: [facility] [address] [facility] [address] CHOLESTEROL 176 mg/dL TRIGLYCERIDE 196 mg/dL H 0-150 LDL calculated 102 mg/dL 0-129 CHOL/HDL 5.0 HDL CHOLESTEROL 35 mg/dL L 40-60 Mar 23, 2024 07:31 AM [facility] LIVER FUNCTION Specimen Type: SERUM No comment entered. Ordering Provider: ANI YARBROUGH Report Released Date/Time: Mar 16, 2024 09:18 AM Reporting Lab: [address] [address] Performing Lab: [address] [address] PROTEIN,TOTAL 8.4 g/dL H 6.0-8.3 ALBUMIN 4.5 g/dL 3.5-5.0 ALKALINE PHOSPHATASE 76 U/L 40-150 AST 32 U/L 5-34 ALT 37 U/L BILIRUBIN, TOTAL 0.7 mg/dL 0.2-1.2 Mar 23, 2024 07:31 AM [facility] BASIC METABOLIC PANEL (fasting) Specimen Type: SERUM No comment entered. Ordering Provider: ANI YARBROUGH Report Released Date/Time: Mar 16, 2024 09:18 AM Reporting Lab: [address] [address] Performing Lab: [address] [address] UREA NITROGEN 22 mg/dL 7-25 GLUCOSE 173 mg/dL H 65-100 SODIUM 139 mmol/L 135-145 POTASSIUM 5.3 mmol/L H 3.5-5.0 CHLORIDE 102 mmol/L 100-110 CO2 29 meq/L 20-30 CREATININE, Serum 1.30 mg/dL 0.50-1.40 eGFR(CKD-EPI 2020) 62 mL/min >60 Mar 23, 2024 07:31 AM [facility] MICROALBUMIN CREATININE RATIO PANEL Specimen Type: URINE No comment entered. Ordering Provider: ANI YARBROUGH Report Released Date/Time: Mar 16, 2024 09:18 AM Reporting Lab: [facility] [address] [facility] [address] Performing Lab: [facility] [address] [facility] [address] MICROALBUMIN/C REATININE RATIO 60.2 mg/g H 0-29.9 MICROALBUMIN,Q UANTITATIVE 6.9 mg/dL RR UNAVAIL CREATININE URINE 114.63 mg/dL Mar 23, 2024 07:31 AM [facility] CBC AND DIFF (AUTO) Specimen Type: BLOOD No comment entered. Ordering Provider: ANI YARBROUGH Report Released Date/Time: Mar 16, 2024 09:18 AM Reporting Lab: [facility] [address] [facility] [address] Performing Lab: [facility] [address] [facility] [address] WBC 6.73 10*3/uL 4.50-11.00 RBC 5.01 10*6/uL [...] [ ] Reduced clopidogrel response(e.g., any documented [id number] intermediate or poor metabolizer phenotypes or high on?treatment platelet reactivity by P2Y12 reaction units [PRU] testing) and continued indication for P2Y12 inhibitor therapy [x] Confirmed coronary artery disease (CAD) and type 2 diabetes without prior myocardial infarction (PR), at particularly high ischemic risk AND low [...] or true aspirin allergy Coronary angiography with [facility] for chest pain, abnormal coronary CTA and abnormal echo on 04/06/24 at [facility]. [place] was discharged on aspirin 81mg daily and ticagrelor 90mg BID. Of note, [place] also has hx of diabetes. Request approved. Meets continuity of care and dual indication. The request is approved x 12 mo - No formulary-preferred alternative - Continuity of care Time spent: 15 min /ruchi/ Trevor Jaimes, Tom Clinical Multiple Pressure Riveter Operator Signed: 04/12/2024 10:19 TREVOR JAIMES [facility] ([id number])
--- OUTSIDE RECORDS SUMMARY | 2024-05-31 11:09 | XMS_ITS | Encounter Summary ---
Author Name [facility] [facility] [place] [facility] [place] Address [address] [place] [address] Care Team Providers Care Life Skills Trainer Name Role Phone ANIYAH JAUREGUI Primary Care Provider Unavail le Insurance Providers: All historical and current [...] Hughes's Name Patient's Relationship to Policy Hughes LYNNE [employer] [place] FEDERAL PREFERRED PROVIDER ORGANIZAT ION (PPO) BASIC FAMIL Y Mar 17, 2010 [id number] [phone] COLON,EDW IN PATIENT [place]BS [place] PREFERRED PROVIDER ORGANIZAT ION (PPO) PSHB BASIC SELF Mar 17, 2024 [id number] COLON,EDW IN PATIENT [place] PREFERRED PROVIDER ORGANIZAT ION (PPO) BASIC FAMIL Y May 15, 2010 [id number] COLON,EDW IN PATIENT CAR[place] FEP BCBS PRESCRIPT ION CAREM ARK FEPRX PLAN Feb 13, 2011 [id number] COLON,EDW IN PATIENT RAINA FEPRX PLAN PRESCRIPT ION RAFAEL ARK FEPRX Mar 17, 2010 [id number] COLON,EDW IN PATIENT RAINA-F EP BCBS PRESCRIPT ION FEP RAFAEL ARK Nov 15, 2022 [id number] COLON,EDW IN PATIENT Selected Encounter This section includes the information on record at [place] for the Encounter. Date/Time Encounter Type Encounter Description Reason Provider Source Jan 28, 2024 11:30 AM COMPRE OPH EXAM EST PT 1/> OPTOMETRY ICD-10-CM E11.9 Type 2 diabetes mellitus without complications MONIK RENDON B [facility] Encounter Template Text not used by [place] Assessments - Encounter Diagnoses This section includes the primary and secondary diagnoses documented for the Encounter. Date/Time Primary/Secondary Diagnosis Diagnosis Name Provider Source Feb 07, 2024 06:32 AM PRIMARY Type 2 diabetes mellitus without complications MONIK RENDON B [facility] Feb 07, 2024 06:32 AM SECONDARY Combined forms of age-related cataract, bilateral MERHAR,MONIK B [facility] [place] [facility] Feb 07, 2024 06:32 AM SECONDARY Hypermetropia, bilateral [facility]AR[facility] Plan of Treatment: Future Appointments (+ 6 [...] 29, 2024 10:30 AM AMBULATORY - [facility]IC[facility] [place] [facility] Apr 29, 2024 09:30 AM [facility] - [facility] [place] [facility] July 26, 2024 01:30 PM [facility] Lab Results: +/- 30 days of the encounter This section includes the Chemistry and Hematology Lab Results on record with [facility] for the patient. Radiology Reports and Pathology Reports are provided separately, in subsequent sections. Lab Results This section contains the Chemistry/Hematology Results that were resulted 30 days before or 30 daysafter the date of the Encounter. Date/Time Source Result Type Result - Unit Interpretation Reference Range Comment Feb 11, 2024 12:00 AM [facility] OCCULT BLOOD FIT X1 SCREEN (MFP ONLY) Specimen Type: FECES No comment entered. 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 Dilation drops instilled by cleaning technician after angle assessment and dilation warning [...] this [facility] (local) and dispensed from another [place] or [facility] facility (remote) as well as inpatient orders [...] Remote Allergy/ADR Data available for this patient [place] [facility] PENICILLIN Med Recon NoGexcela healthary (Tool #1) INCLUDED IN THIS LIST: Alphabetical list of active outpatient prescriptions dispensed from this [place] (local) and dispensed from another [place] or [facility] facility (remote) as well as [...] the patient into personal health records (i.e. [employer]) are NOT included in this list. Non-VA medications documented outside this [place], remote inpatient orders (regardless of status) and [...] 1 HOUR PRIOR TO SEXUAL ACTIVITY Rx# [id number] Last Released: 04/03/23 Qty/Days Supply: 09/13 Rx Expiration Date: 04/01/24 Refills Remainin Indication: FOR ERECTILE DYSFUNCTION SUPPLIES /ruchi/ MONIK RENDON OD Budder Signed: 01/28/2024 13:52 MONIK RENDON [facility] [place] [facility] Jan 28, 2024 09:50 AM OPTOMETRY GENERATOR REPAIRER NOTE: LOCAL TITLE: OPTOMETRY GENERATOR REPAIRER NOTE STANDARD TITLE: OPTOMETRY GENERATOR REPAIRER NOTE DATE OF NOTE: JAN 28, 2024@09:50 ENTRY DATE: JAN 28, 2024@09:50:27 AUTHOR: PATSY OSPINA COSIGNER: URGENCY: STATUS: COMPLETED Active problems - Computerized Problem List is the source for the followin. Erectile dysfunction 2. Contact dermatitis due to poison cyndee 3. Nonproliferative diabetic retinopathy 4. Disorder of lipid and lipoprotein metabolism ([facility]OM[facility] CT 40927561) 5. opiate use chronic 6. Other dyspnea and respiratory abnormality 7. Positive Microalbuminuria Test Result Documented and Reviewed (DM) 8. Type II diabetes mellitus uncontrolled ([facility] 808579702) 9. Knee: arthralgia 10. Heel: arthralgia 11. Obesity 12. 1988: SC: Rt Ankle: 2 surgergies 13. 07-13-10: EKG:NSR 64bpm PA:178 QRS:86 QT: 392 NSTW 14. Depressive Disorder NOS * 15. Adjustment Disorder with Mixed Anxiety and Depressed Mood 16. Pain in joint involving shoulder region 17. 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 ([facility]OM[facility] CT 263072219) Active Outpatient Medications (including Supplies): Active Outpatient [...] of last eye exam:Jan 22 2023 Location: [facility] Chief Complaint:Patient here today for a complete [...] A1C: HEMOGLOBIN A1C PANEL BLOOD (LAV-BLOOD) JORGE MAYNARD #[id number] Collection time: Jan 22, 2023@08:09 HEMOGLOBIN A1C [...] will duplicate frames. /ruchi/ PATSY DELGADO ANAI [facility] TECHINICIAN Signed: 01/28/2024 11:41 PATSY OSPINA [facility]
--- OUTSIDE RECORDS SUMMARY | 2024-05-31 11:09 | XMS_ITS | Clinical Summary ---
Author Organization [employer] Address [address] [place] [address] [address] [place] [address] Care Team Providers Care Leasing Consultant Name Role Phone Unavailable Primary Care Provider [...] patient's age to complete this topic Insurance [facility] FEDERAL
--- OUTSIDE RECORDS SUMMARY | 2024-05-31 11:10 | XMS_ITS | Continuity of Care Document ---
Author Name [facility] Organization [facility] Care Team Providers Care Knife Edger Name Role Phone [facility] Unavailable Unavailable Problems Combined list of problems from Department of Defense and Veterans Affairs facilities. It does not include entries that were removed or entered in error. Problem Status Onset Date Problem Type Date of Resolution Comments Source 1988: [place]: Rt Ankle: 2 surgergies Active Condition [place] 07-13-10: EKG:NSR 64bpm TN:178 QRS:86 QT: 392 NSTW Active Condition [place] Acute Anxiety disorder Active Condition [facility] Adjustment Disorder with Mixed Anxiety and Depressed Mood (ICD-9-CM 309.28) Active Condition [facility] ASTHMA Active Condition [facility] Contact dermatitis due to poison cyndee Active Condition [facility] Depressive Disorder NOS * (ICD-9-CM 311./300.4) Active Condition [facility] Disorder of lipid and lipoprotein metabolism (SNOMED CT 04366379) Active Condition [place] Erectile dysfunction Active Condition [facility] Heel: arthralgia Active Condition [place] Hypertension secondary to endocrine disorder (SNOMED CT 775345910) Active Condition Dec 21, 2018 Entered By: MIRZA VILLARREAL Comment: PCP-Radha Zamora MD [facility] Knee: arthralgia Active Condition [place] Nonproliferative diabetic retinopathy Active Condition Jan 28, 2014 Entered By: SONNY OG Comment: 2013 Entered By: SONNY OG Comment: per eye exam Jan 2014; [place] Obesity Active Condition [place] opiate use chronic Active Condition D 2012 Entered By: ROSE MARY TAMAYO Comment: mass NURSES AIDE no controlled rx@1224.13 [facility] Other dyspnea and respiratory abnormality (ICD-9-CM 786.09) Active Condition [facility]ELD Pain in joint involving shoulder region (ICD-9-CM 719.41) Active Condition [facility] Positive Microalbuminuria Test Result Documented and Reviewed (DM) Active Condition [place] Type II diabetes mellitus uncontrolled (SNOMED CT 361575245) Active Condition Dec 21, 2018 Entered By: MIRZA VILLARREAL Comment: Endocrinologi - Dr.Shayhira Maureen Caalrera [place] Diagnosis: ICD-10-CM Z76.0 Encounter for issue of repeat prescription Active Diagnosis [facility] [place] [facility] Diagnosis: ICD-10-CM I70.90 Unspecified atherosclerosis Active Diagnosis [facility] (6[facility]) Diagnosis: ICD-10-CM Z46.0 Encounter for fit/adjst of spectacles and contact lenses Active Diagnosis [facility] [place] [facility] Diagnosis: ICD-10-CM E11.9 Type 2 diabetes mellitus without complications [facility] [place] [facility] Diagnosis: ICD-10-CM Z00.01 Encounter for general adult medical exam w abnormal findings Active Diagnosis [facility] IE Medications Combined list of outpatient medications [...] ONCE DAILY ORAL ACTIVE Barry RICKS 2018 [facility] ASPIRIN 81MG TAB,EC TAKE ONE TABLET BY MOUTH DAILY ORAL ACTIVE RHODA GARCIA 2014 [facility] EMPAGLIFLOZ IN 25MG TAB TAKE ONE TABLET BY MOUTH ONCE DAILY ORAL ACTIVE Barry RICKS 2018 [facility] FENOFIBRATE 54MG TAB TAKE ONE TABLET BY MOUTH ONCE DAILY ORAL ACTIVE CHIKA YARBROUGH 2023 [facility] FISH OIL 1000MG (500MG DHA/EPA) CAP,ORAL TAKE 2 CAPSULES BY MOUTH AT BEDTIME ORAL ACTIVE SEBASTIAN HERNANDEZ 2010 [facility]ELD HYDROCHLORO THIAZIDE 25MG TAB TAKE ONE TABLET BY MOUTH ONCE DAILY ORAL ACTIVE Barry RICKS 2018 [facility]ELD LEVOTHYROXI NE NA 25MCG TAB (SYNTHROID) TAKE ONE TABLET BY MOUTH EVERY MORNING 30 MINUTES BEFORE BREAKFAS T FOR THYROID TAKE ON AN EMPTY STOMACH WITH A FULL GLASS OF WATER ORAL ACTIVE 03/30/2025 [id number] JULY,WANDY RLY P 2024 90 [facility]ELD LOSARTAN POTASSIUM 100MG TAB TAKE ONE TABLET BY MOUTH ONCE DAILY ORAL ACTIVE Barry RICKS 2018 [facility]ELD METFORMIN HCL 500MG TAB TAKE ONE TABLET BY MOUTH ONCE DAILY ORAL ACTIVE Barry RICKS 2018 [facility]ELD METOPROLOL SUCCINATE 25MG TAB,SA TAKE ONE TABLET BY MOUTH ONCE DAILY ORAL ACTIVE RA GREGORY JAUREGUI 2024 [facility]ELD MULTIVITAMI NS W/MINERALS TAB TAKE ONE TABLET BY MOUTH qd ORAL ACTIVE LAKISHA MORA 2004 [facility] SEMAGLUTIDE 1MG/0.75ML INJ,SOLN,PE N,1.5ML INJECT 1MG SUBCUTAN EOUSLY ONCE A WEEK SUBCUT ANEOUS ACTIVE Barry RICKS 2018 [facility]ELD SILDENAFIL CITRATE 100MG TAB TAKE ONE TABLET BY MOUTH ONCE DAILY NEEDED FOR ERECTILE DYSFUNCT ION TAKE 1 HOUR PRIOR TO SEXUAL ACTIVITY ORAL 04/01/2024 [id number] CHIKA YARBROUGH O 2023 6 [facility]ELD TICAGRELOR 90MG TAB TAKE ONE TABLET BY MOUTH TWICE DAILY ORAL ACTIVE 04/12/2025 [id number] RA GREGORY JAUREGUI 2024 180 [facility] Allergies, Adverse Reactions, Alerts Combined list [...] Site Reaction Lot Number CVX Code Drug Community Relations Manager Status Comments Source INFLUENZA, INJECTABLE, QUADRIVALENT, PRESERVATIVE FREE 2023 AVANI PETERS LEFT DELTO ID [id number] A 150 complet ed [place] ZOSTER RECOMBINANT 2 2023 AVANI PETERS LEFT DELTO ID [id number] 187 complet ed [place] INFLUENZA, UNSPECIFIED FORMULATION 2023 88 complet ed [facility] PNEUMOCOCCAL CONJUGATE PCV20, POLYSACCHARID E [id number] CONJUGATE, ADJUVANT, PF 2021 216 complet ed [place] ZOSTER RECOMBINANT 1 2021 187 complet ed [place] COVID-19 ([employer]), MRNA, LNP-S, PF, 30 MCG/0.3 ML DOSE 2 2020 208 complet ed [facility] COVID-19 ([employer]), VECTOR-NR, [id number], PF, 0.5 ML 1 2020 212 complet ed JSN; [id number]; 1 [facility] INFLUENZA, UNSPECIFIED FORMULATION 2019 88 complet ed [facility] INFLUENZA, SEASONAL, INJECTABLE 2017 141 complet ed [facility] FLU,3 YRS (HISTORICAL) 2014 [address] complet ed [address] office [facility] FLU,3 YRS (HISTORICAL) 2013 88 complet ed [facility] work [facility] FLU,3 YRS [...] FLU,3 YRS (HISTORICAL) 2009 88 complet ed [facility] [place] [facility] Results Combined list of recent chemistry, [...] Mar 16, 2024 09:18 AM Reporting Lab: [facility] [place] [facility] [address] [facility] [facility] [address] Performing Lab: [facility] [place] [facility] [address] [facility] [facility] [address] [facility] [facility] TSH THYROTROPI N [UNITS/VOL UME] IN SERUM OR PLASMA 5.38 u[IU]/mL 0.35 - 5.00 03/23 H Specimen Type: SERUM No comment entered. Ordering Provider: ROBERTO YARBROUGH Report Released Date/Time: Mar 16, 2024 09:18 AM Reporting Lab: [facility]TRN [place] [facility] [address] [facility] [facility] [address] Performing Lab: [facility] [place] [facility] [address] [facility] [facility] [address] [facility] [place] [facility] LIPID PANEL FASTING CHOLESTERO L [MASS/VOLU ME] IN SERUM OR PLASMA 176 mg/dL 03/23 Specimen Type: SERUM No comment entered. Ordering Provider: ROBERTO YARBROUGH Report Released Date/Time: Mar 16, 2024 09:18 AM Reporting Lab: [facility] [place] [address] [address] Performing Lab: [facility] [place] [facility] [address] [place] [address] [facility] [facility] LIPID PANEL FASTING TRIGLYCERI DE [MASS/VOLU ME] IN SERUM OR PLASMA 196 mg/dL 0 - 150 03/23 H Specimen Type: SERUM No comment entered. Ordering Provider: ROBERTO YARBROUGH Report Released Date/Time: Mar 16, 2024 09:18 AM Reporting Lab: [facility] [place] [facility] [address] [facility] [address] Performing Lab: [facility] [address] [facility] [facility] [address] [facility]RL W[facility]N [facility]USE [facility] LIPID PANEL FASTING CHOLESTERO L IN LDL [MASS/VOLU ME] IN SERUM OR PLASMA BY CALCULAKRISTINA N 102 mg/dL 0 - 129 03/23 Specimen Type: SERUM No comment entered. Ordering Provider: ROBERTO YARBROUGH Report Released Date/Time: Mar 16, 2024 09:18 AM Reporting Lab: [facility] [place] [facility] [address] [facility] [address] Performing Lab: [facility] [facility]ITAL[facility] [address] [facility] [facility] [address] [facility]RL W[facility]N [facility]ITALUSE [facility] LIPID PANEL FASTING CHOLESTERO L.TOTAL/CH OLESTEROL IN HDL [MASS RATIO] IN SERUM OR PLASMA 5.0 03/23 Specimen Type: SERUM No comment entered. Ordering Provider: ROBERTO YARBROUGH Report Released Date/Time: Mar 16, 2024 09:18 AM Reporting Lab: [facility] [place] [facility] [address] [facility] [address] Performing Lab: [place] [facility]CH[facility] [address] [facility] [facility] [address] [facility]RL W[facility]N [facility]USE [facility] LIPID PANEL FASTING CHOLESTERO L IN HDL [MASS/VOLU ME] IN SERUM OR PLASMA 35 mg/dL 40 - 60 03/23 L Specimen Type: SERUM No comment entered. Ordering Provider: ROBERTO YARBROUGH Report Released Date/Time: Mar 16, 2024 09:18 AM Reporting Lab: [facility] [place] [facility] [address] [facility] [address] Performing Lab: [facility] [place] [facility] [address] [facility] [facility] [address] [facility] [place] [facility] LIVER FUNCTION PROTEIN [MASS/VOLU ME] IN SERUM OR PLASMA 8.4 g/dL 6.0 - 8.3 03/23 H Specimen Type: SERUM No comment entered. Ordering Provider: ROBERTO YARBROUGH Report Released Date/Time: Mar 16, 2024 09:18 AM Reporting Lab: [facility] [place] [facility] [address] [facility] [facility] [address] Performing Lab: [facility] [place] [facility] [address] [facility] [facility] [address] [facility] [place] [facility] LIVER FUNCTION ALBUMIN [MASS/VOLU ME] IN SERUM OR PLASMA 4.5 g/dL 3.5 - 5.0 03/23 Specimen Type: SERUM No comment entered. Ordering Provider: ROBERTO YARBROUGH Report Released Date/Time: Mar 16, 2024 09:18 AM Reporting Lab: [facility] [place] [facility] [address] [facility] [address] Performing Lab: [facility] [place] [facility] [address] [facility] [address] [facility] [place] [facility] LIVER FUNCTION ALKALINE PHOSPHATAS E [ENZYMATIC ACTIVITY/V OLUME] IN SERUM OR PLASMA 76 U/L 40 - 150 03/23 Specimen Type: SERUM No comment entered. Ordering Provider: ROBERTO YARBROUGH Report Released Date/Time: Mar 16, 2024 09:18 AM Reporting Lab: [facility] [place] [facility] [address] [facility] [facility] [address] Performing Lab: [facility] [place] [facility] [address] [facility] [facility] [address] [facility] [place] [facility] LIVER FUNCTION ASPARTATE AMINOTRANS FERASE [ENZYMATIC ACTIVITY/V OLUME] IN SERUM OR PLASMA 32 U/L 5 - 34 03/23 Specimen Type: SERUM No comment entered. Ordering Provider: ROBERTO YARBROUGH Report Released Date/Time: Mar 16, 2024 09:18 AM Reporting Lab: [facility]ITALRL W[facility]N [place] [facility] [address] [facility] [facility] [address] Performing Lab: [facility]ITALRL WSTRN [facility]PITALUSENY[facility] [address] [facility] [facility] [address] [facility]RL WSTRN [facility]ENTERCHUSE [facility] LIVER FUNCTION ALANINE AMINOTRANS FERASE [ENZYMATIC ACTIVITY/V OLUME] IN SERUM OR PLASMA 37 U/L 03/23 Specimen Type: SERUM No comment entered. Ordering Provider: ROBERTO YARBROUGH Report Released Date/Time: Mar 16, 2024 09:18 AM Reporting Lab: [facility]PITALRPICKENS COUNTY MEDICAL CENTERTRN [facility]OSPITALUSENY[facility] [address] [facility] [facility] [address] Performing Lab: [facility]OSPITALRL TRN [facility]OSPITALUSE[address] [address] [facility]OSPITALRCROSSBRIDGE BEHAVIORAL HEALTHN [facility]USE [facility] LIVER FUNCTION BILIRUBIN. TOTAL [MASS/VOLU ME] IN SERUM OR PLASMA 0.7 mg/dL 0.2 - 1.2 03/23 Specimen Type: SERUM No comment entered. Ordering Provider: ROBERTO YARBROUGH Report Released Date/Time: Mar 16, 2024 09:18 AM Reporting Lab: [facility]PITALRPICKENS COUNTY MEDICAL CENTERTRN [facility]PITALUSE[address] [address] Performing Lab: [facility]OSPITALRL TRN [facility]OSPITALUSENY[facility] [address] [facility] [facility] [address] [facility]PITALRL TRN [facility]ITALUSE [facility] BASIC METABOLI C PANEL (fasting ) UREA NITROGEN [MASS/VOLU ME] IN SERUM OR PLASMA 22 mg/dL 7 - 25 03/23 Specimen Type: SERUM No comment entered. Ordering Provider: ROBERTO YARBROUGH Report Released Date/Time: Mar 16, 2024 09:18 AM Reporting Lab: [facility]PITALRPICKENS COUNTY MEDICAL CENTERTRN [facility]OSPITALUSENY[facility] [address] [facility] [facility] [address] Performing Lab: [facility]OSPITALRL TRN [facility]OSPITALUSE[address] [address] [facility] BASIC METABOLI C PANEL (fasting ) GLUCOSE [MASS/VOLU ME] IN SERUM OR PLASMA 173 mg/dL 65 - 100 03/23 H Specimen Type: SERUM No comment entered. Ordering Provider: ROBERTO YARBROUGH Report Released Date/Time: Mar 16, 2024 09:18 AM Reporting Lab: [facility]N [facility] [address] [facility] [address] Performing Lab: [facility]N [facility]PITALUSENY[facility] [address] [facility] [facility] [address] [facility] BASIC METABOLI C PANEL (fasting ) SODIUM [MOLES/VOL UME] IN SERUM OR PLASMA 139 mmol/L 135 - 145 03/23 Specimen Type: SERUM No comment entered. Ordering Provider: ROBERTO YARBROUGH Report Released Date/Time: Mar 16, 2024 09:18 AM Reporting Lab: [facility] [address] [facility] [address] Performing Lab: [facility]N [facility]PITALUSENY[facility] [address] [facility] [facility] [address] [facility] BASIC METABOLI C PANEL (fasting ) POTASSIUM [MOLES/VOL UME] IN SERUM OR PLASMA 5.3 mmol/L 3.5 - 5.0 03/23 H Specimen Type: SERUM No comment entered. Ordering Provider: ROBERTO YARBROUGH Report Released Date/Time: Mar 16, 2024 09:18 AM Reporting Lab: [facility]PITALRPICKENS COUNTY MEDICAL CENTERTRN [facility]OSPITALUSENY[facility] [address] [facility] [facility] [address] Performing Lab: [facility]ITALRPICKENS [facility] MED[facility] CENTERTRN [facility]OSPITALUSENY[facility] [address] [facility] [facility] [address] [facility]N [facility]OSPITALUSE [facility] BASIC METABOLI C PANEL (fasting ) CHLORIDE [MOLES/VOL UME] IN SERUM OR PLASMA 102 mmol/L 100 - 110 03/23 Specimen Type: SERUM No comment entered. Ordering Provider: ROBERTO YARBROUGH Report Released Date/Time: Mar 16, 2024 09:18 AM Reporting Lab: [facility]TRN [facility]OSPITALUSENY[facility] [address] [facility] [address] Performing Lab: [place] [facility] [facility] [address] [facility] [address] [facility] [place] [facility] BASIC METABOLI C PANEL (fasting ) CARBON DIOXIDE, TOTAL [MOLES/VOL UME] IN SERUM OR PLASMA 29 meq/L 20 - 30 03/23 Specimen Type: SERUM No comment entered. Ordering Provider: ROBERTO YARBROUGH Report Released Date/Time: Mar 16, 2024 09:18 AM Reporting Lab: [facility] [facility] [place] [facility] [address] [facility] [address] Performing Lab: [place] [facility] [place] [facility]PITALUSENY[facility] [address] [facility] [facility] [address] [facility]ITALRL WSTRN [facility]ITALUSE [facility] BASIC METABOLI C PANEL (fasting ) CREATININE [MASS/VOLU ME] IN SERUM OR PLASMA 1.30 mg/dL 0.50 - 1.40 03/23 Specimen Type: SERUM No comment entered. Ordering Provider: ROBERTO YARBROUGH Report Released Date/Time: Mar 16, 2024 09:18 AM Reporting Lab: [facility]OSPITALRL WSTRN [facility]PITALUSE[address] [address] Performing Lab: [place] [facility] [place] [facility]OSPITALUSETS [address] [address] [facility]OSPITALRL TRN [facility]OSPITALUSE [facility] BASIC METABOLI C PANEL (fasting ) GLOMERULAR FILTRATION RATE/1.73 SQ M.PREDICTE D [VOLUME RATE/AREA] IN SERUM, PLASMA OR BLOOD BY CREATININE -BASED FORMULA (CKD-EPI 2020) 62 mL/min 60 03/23 Specimen Type: SERUM No comment entered. Ordering Provider: ROBERTO YARBROUGH Report Released Date/Time: Mar 16, 2024 09:18 AM Reporting Lab: [facility] [facility] [facility] [address] [facility] [address] Performing Lab: [facility]OSPITALRL WSTRN [facility]OSPITALUSETS [address] [address] [facility]ITALRL WSTRN [place] [facility] MICROALB UMIN CREATINI NE RATIO PANEL MICROALBUM IN/CREATIN INE [MASS RATIO] IN URINE 60.2 mg/g 0 - 29.9 03/23 H Specimen Type: URINE No comment entered. Ordering Provider: ROBERTO YARBROUGH Report Released Date/Time: Mar 16, 2024 09:18 AM Reporting Lab: [facility] [place] [facility] [address] [facility] [address] Performing Lab: [facility] [place] [facility] [address] [facility] [address] [facility] [place] [facility] MICROALB UMIN CREATINI NE RATIO PANEL MICROALBUM IN [MASS/VOLU ME] IN URINE 6.9 mg/dL 03/23 Specimen Type: URINE No comment entered. Ordering Provider: ROBERTO YARBROUGH Report Released Date/Time: Mar 16, 2024 09:18 AM Reporting Lab: [place] [facility] [address] [address] Performing Lab: [place] [facility] [facility] [address] [facility] [address] [place] [facility] [place] [facility] MICROALB UMIN CREATINI NE RATIO PANEL CREATININE [MASS/VOLU ME] IN URINE 114.63 mg/dL 03/23 Specimen Type: URINE No comment entered. Ordering Provider: ROBERTO YARBROUGH Report Released Date/Time: Mar 16, 2024 09:18 AM Reporting Lab: [facility] [place] [address] [address] Performing Lab: [facility] [place] [facility] [address] [facility] [address] [facility] [place] [facility] CBC AND DIFF (AUTO) LEUKOCYTES [#/VOLUME] IN BLOOD BY AUTOMATED COUNT 6.73 10*3/uL 4.50 - 11.00 03/23 Specimen Type: BLOOD No comment entered. Ordering Provider: ROBERTO YARBROUGH Report Released Date/Time: Mar 16, 2024 09:18 AM Reporting Lab: [facility] [place] [address] [address] Performing Lab: [facility] [place] [facility] [address] [facility] [address] [facility] HOSPITALRCROSSBRIDGE BEHAVIORAL HEALTHN CAR[facility] CENTERCHUSE TS [facility] CBC AND DIFF (AUTO) ERYTHROCYT ES [#/VOLUME] IN BLOOD BY AUTOMATED COUNT 5.01 10*6/uL 4.23 - 5.66 03/23 Specimen Type: BLOOD No comment entered. Ordering Provider: ROBERTO YARBROUGH Report Released Date/Time: Mar 16, 2024 09:18 AM Reporting Lab: [facility]OSPITALRL TRN [place] [facility] [address] [facility] [address] Performing Lab: [facility]PITALRPICKENS COUNTY MEDICAL CENTERTRN [facility]RAW[facility] CENTERCHUSETS [facility] [address] [facility] [address] [facility]N [facility] CENTERCHUSE [facility] CBC AND DIFF (AUTO) HEMOGLOBIN [MASS/VOLU ME] IN BLOOD 15.6 g/dL 12.8 - 17 03/23 Specimen Type: BLOOD No comment entered. Ordering Provider: ROBERTO YARBROUGH Report Released Date/Time: Mar 16, 2024 09:18 AM Reporting Lab: [facility]PITALRPICKENS COUNTY MEDICAL CENTERTRN [place] [facility] [address] [facility] [address] Performing Lab: [facility]OSPITALRL TRN [facility] CENTERCHUSETS [facility] [address] [facility] [facility] [address] [facility]N [facility]ITALUSE [facility] CBC AND DIFF (AUTO) HEMATOCRIT [VOLUME FRACTION] OF BLOOD BY AUTOMATED COUNT 44.3 39.2 - 50.4 03/23 Specimen Type: BLOOD No comment entered. Ordering Provider: ROBERTO YARBROUGH Report Released Date/Time: Mar 16, 2024 09:18 AM Reporting Lab: [facility]PITALRPICKENS COUNTY MEDICAL CENTERTRN [place] [facility] [address] [facility] [address] Performing Lab: [facility]ITALRPICKENS COUNTY MEDICAL CENTERTRN [facility] CENTERCHUSETS [facility] [address] [facility] [address] [facility]N [facility]ENTERCHUSE [facility] CBC AND DIFF (AUTO) MCV [ENTITIC VOLUME] BY AUTOMATED COUNT 88.4 fL 82 - 99 03/23 Specimen Type: BLOOD No comment entered. Ordering Provider: ROBERTO YARBROUGH Report Released Date/Time: Mar 16, 2024 09:18 AM Reporting Lab: [facility] [place] [facility] [address] [facility] [address] Performing Lab: [facility] [place] [facility] [address] [facility] [address] [facility] [place] [facility] CBC AND DIFF (AUTO) MCHC [MASS/VOLU ME] BY AUTOMATED COUNT 35.2 g/dL 30.8 - 35.1 03/23 H Specimen Type: BLOOD No comment entered. Ordering Provider: ROBERTO YARBROUGH Report Released Date/Time: Mar 16, 2024 09:18 AM Reporting Lab: [facility] [facility] [facility] [address] [facility] [address] Performing Lab: [place] [facility] [place] [facility] [address] [facility] [address] [facility]ITALRL WSTRN [place] [facility] CBC AND DIFF (AUTO) PLATELETS [#/VOLUME] IN BLOOD BY AUTOMATED COUNT 211 10*3/uL 140 - 360 03/23 Specimen Type: BLOOD No comment entered. Ordering Provider: ROBERTO YARBROUGH Report Released Date/Time: Mar 16, 2024 09:18 AM Reporting Lab: [place] [facility] [place] [facility] [address] [id number] Performing Lab: [facility] [place] [facility] [address] [phone] [facility] [place] [facility] CBC AND DIFF (AUTO) ERYTHROCYT E DISTRIBUTI ON WIDTH [RATIO] BY AUTOMATED COUNT 12.9 12.0 - 16.0 03/23 Specimen Type: BLOOD No comment entered. Ordering Provider: ROBERTO YARBROUGH Report Released Date/Time: Mar 16, 2024 09:18 AM Reporting Lab: [facility] [place] [facility] [address] [facility] [address] Performing Lab: [facility] [place] [facility] [address] [phone] [facility] [place] [facility] CBC AND DIFF (AUTO) MONOCYTES [#/VOLUME] IN BLOOD BY AUTOMATED COUNT 0.64 10*3/uL 0.30 - 1.10 03/23 Specimen Type: BLOOD No comment entered. Ordering Provider: ROBERTO YARBROUGH Report Released Date/Time: Mar 16, 2024 09:18 AM Reporting Lab: [facility] [place] [facility] [address] [facility] [phone] Performing Lab: [facility] [facility] [address] [facility] [address] [facility] CBC AND DIFF (AUTO) MCH [ENTITIC MASS] BY AUTOMATED COUNT 31.1 pg 26.2 - 32.6 03/23 Specimen Type: BLOOD No comment entered. Ordering Provider: ROBERTO YARBROUGH Report Released Date/Time: Mar 16, 2024 09:18 AM Reporting Lab: [facility] [address] [facility] [address] Performing Lab: [facility] [address] [facility] [address] [facility] CBC AND DIFF (AUTO) NEUTROPHIL S/100 LEUKOCYTES IN BLOOD BY AUTOMATED COUNT 56.7 43.7 - 75.8 03/23 Specimen Type: BLOOD No comment entered. Ordering Provider: ROBERTO YARBROUGH Report Released Date/Time: Mar 16, 2024 09:18 AM Reporting Lab: [facility] [address] [facility] [address] Performing Lab: [facility] [address] [facility] [address] [facility] CBC AND DIFF (AUTO) LYMPHOCYTE S/100 LEUKOCYTES IN BLOOD BY AUTOMATED COUNT 31.6 14.0 - 42.3 03/23 Specimen Type: BLOOD No comment entered. Ordering Provider: ROBERTO YARBROUGH Report Released Date/Time: Mar 16, 2024 09:18 AM Reporting Lab: [facility] [address] [facility] [address] Performing Lab: [facility] [address] [facility] [address] [facility] CBC AND DIFF (AUTO) MONOCYTES/ 100 LEUKOCYTES IN BLOOD BY AUTOMATED COUNT 9.5 5.1 - 13.7 03/23 Specimen Type: BLOOD No comment entered. Ordering Provider: ROBERTO YARBROUGH Report Released Date/Time: Mar 16, 2024 09:18 AM Reporting Lab: [facility] [place] [address] [address] Performing Lab: [facility] [place] [facility] [address] [facility] [address] [facility] CBC AND DIFF (AUTO) EOSINOPHIL S/100 LEUKOCYTES IN BLOOD BY AUTOMATED COUNT 1.5 0.4 - 6.8 03/23 Specimen Type: BLOOD No comment entered. Ordering Provider: ROBERTO YARBROUGH Report Released Date/Time: Mar 16, 2024 09:18 AM Reporting Lab: [facility] [place] [address] [address] Performing Lab: [facility] [place] [address] [address] [facility] [place] [facility] CBC AND DIFF (AUTO) BASOPHILS/ 100 LEUKOCYTES IN BLOOD BY AUTOMATED COUNT 0.4 0.1 - 2.0 03/23 Specimen Type: BLOOD No comment entered. Ordering Provider: ROBERTO YARBROUGH Report Released Date/Time: Mar 16, 2024 09:18 AM Reporting Lab: [facility] [place] [address] [address] Performing Lab[facility] [place] [address] [address] [facility] [place] [facility] CBC AND DIFF (AUTO) NEUTROPHIL S [#/VOLUME] IN BLOOD BY AUTOMATED COUNT 3.81 10*3/uL 2.20 - 7.60 03/23 Specimen Type: BLOOD No comment entered. Ordering Provider: ROBERTO YARBROUGH Report Released Date/Time: Mar 16, 2024 09:18 AM Reporting Lab: [facility] [place] [address] [address] Performing Lab: [facility] [place] [facility] [address] [facility] [address] [facility] CBC AND DIFF (AUTO) LYMPHOCYTE S [#/VOLUME] IN BLOOD BY AUTOMATED COUNT 2.13 10*3/uL 1.00 - 3.20 03/23 Specimen Type: BLOOD No comment entered. Ordering Provider: ROBERTO YARBROUGH Report Released Date/Time: Mar 16, 2024 09:18 AM Reporting Lab: [facility] [place] [facility] [address] [facility] [address] Performing Lab: [facility] [place] [facility] [address] [facility] [address] [facility] CBC AND DIFF (AUTO) EOSINOPHIL S [#/VOLUME] IN BLOOD BY AUTOMATED COUNT 0.10 10*3/uL 0.03 - 0.44 03/23 Specimen Type: BLOOD No comment entered. Ordering Provider: ROBERTO YARBROUGH Report Released Date/Time: Mar 16, 2024 09:18 AM Reporting Lab: [facility] [place] [facility] [address] [facility] [address] Performing Lab: [facility] [place] [facility] [address] [facility] [address] [facility] [place] [facility] CBC AND DIFF (AUTO) BASOPHILS [#/VOLUME] IN BLOOD BY AUTOMATED COUNT 0.03 10*3/uL 0.01 - 0.13 03/23 Specimen Type: BLOOD No comment entered. Ordering Provider: ROBERTO YARBROUGH Report Released Date/Time: Mar 16, 2024 09:18 AM Reporting Lab: [facility] [place] [facility] [address] [facility] [address] Performing Lab: [facility] [place] [facility] [address] [facility] [address] [facility] [place] [facility] CBC AND DIFF (AUTO) IMMATURE GRANULOCYT ES/100 LEUKOCYTES IN BLOOD BY AUTOMATED COUNT 0.3 0.0 - 0.7 03/23 Specimen Type: BLOOD No comment entered. Ordering Provider: ROBERTO YARBROUGH Report Released Date/Time: Mar 16, 2024 09:18 AM Reporting Lab: [facility] [place] [facility] [address] [facility] [address] Performing Lab: [facility] [place] [facility] [address] [facility] [address] [facility] [place] [facility] CBC AND DIFF (AUTO) IMMATURE GRANULOCYT ES [#/VOLUME] IN BLOOD 0.02 10*3/uL 0.00 - 0.06 03/23 Specimen Type: BLOOD No comment entered. Ordering Provider: ROBERTO YARBROUGH Report Released Date/Time: Mar 16, 2024 09:18 AM Reporting Lab: [facility] [place] [address] [address] Per[facility] Lab: [facility] [address] [address] [facility] CBC AND DIFF (AUTO) NRBC % 0.0 0.0 - 0.0 03/23 Specimen Type: BLOOD No comment entered. Ordering Provider: ROBERTO YARBROUGH Report Released Date/Time: Mar 16, 2024 09:18 AM Reporting Lab: [facility] [place] [address] [address] Performing Lab: [facility] [address] [address] [facility] CBC AND DIFF (AUTO) NRBC, ABS 0.00 10*3/uL 0.00 - 0.00 03/23 Specimen Type: BLOOD No comment entered. Ordering Provider: ROBERTO YARBROUGH Report Released Date/Time: Mar 16, 2024 09:18 AM Reporting Lab: [facility] [place] [address] [address] Performing Lab: [facility] [place] [address] [address] [facility] [place] [facility] OCCULT BLOOD FIT X1 SCREEN (MFP ONLY) HEMOGLOBIN .GASTROINT ESTINAL.LO WER [PRESENCE] IN STOOL BY IMMUNOASSA Y Negative 02/10 Specimen Type: FECES No comment entered. Ordering Provider: ROBERTO YARBROUGH Report Released Date/Time: Jan 06, 2024 03:08 PM Reporting Lab: [facility] [place] [facility] [address] [facility] [address] Performing Lab: [facility] [place] [facility] [address] [facility] [address] [facility] [place] [facility] PSA PROSTATE SPECIFIC AG [MASS/VOLU ME] IN SERUM OR PLASMA 0.30 ng/mL 0.00 - 4.00 01/22 Specimen Type: SERUM No comment entered. Ordering Provider: ROBERTO YARBROUGH Report Released Date/Time: Oct 09, 2021 11:15 AM Reporting Lab: [facility] [place] [address] [address] [facility]: [facility] [address] [facility] [address] [facility] LIPID PANEL FASTING CHOLESTERO L [MASS/VOLU ME] IN SERUM OR PLASMA 139 mg/dL 01/22 Specimen Type: SERUM No comment entered. Ordering Provider: ROBERTO YARBROUGH Report Released Date/Time: Oct 09, 2021 11:15 AM Reporting Lab: [facility] [address] [address] Per[facility] Lab: [facility] [address] [facility] [address] [facility] LIPID PANEL FASTING TRIGLYCERI DE [MASS/VOLU ME] IN SERUM OR PLASMA 177 mg/dL 0 - 150 01/22 H Specimen Type: SERUM No comment entered. Ordering Provider: ROBERTO YARBROUGH Report Released Date/Time: Oct 09, 2021 11:15 AM Reporting Lab: [facility] [place] [facility] [address] [facility] [address] Per[facility] Lab: [facility] [address] [address] [facility] LIPID PANEL FASTING CHOLESTERO L IN LDL [MASS/VOLU ME] IN SERUM OR PLASMA BY SHERIF Tomlinson 72 mg/dL 0 - 129 01/22 Specimen Type: SERUM No comment entered. Ordering Provider: ROBERTO YARBROUGH Report Released Date/Time: Oct 09, 2021 11:15 AM Reporting Lab: [facility] [place] [facility] [address] [facility] [address] Performing Lab: [facility] [place] [facility] [address] [facility] [address] [facility] [place] [facility] LIPID PANEL FASTING CHOLESTERO L.TOTAL/CH OLESTEROL IN HDL [MASS RATIO] IN SERUM OR PLASMA 4.3 01/22 Specimen Type: SERUM No comment entered. Ordering Provider: ROBERTO YARBROUGH Report Released Date/Time: Oct 09, 2021 11:15 AM Reporting Lab: [facility] [place] [facility] [address] [facility] [address] Performing Lab: [facility] [place] [facility] [address] [facility] [address] [facility] [place] [facility] LIPID PANEL FASTING CHOLESTERO L IN HDL [MASS/VOLU ME] IN SERUM OR PLASMA 32 mg/dL 40 - 60 01/22 L Specimen Type: SERUM No comment entered. Ordering Provider: ROBERTO YARBROUGH Report Released Date/Time: Oct 09, 2021 11:15 AM Reporting Lab: [facility] [place] [facility] [address] [facility] [address] Performing Lab: [facility] [place] [facility] [address] [facility] [address] [facility] [place] [facility] Vital Signs Combined list of inpatient and outpatient Vital Signs from Department of Defense and Veterans Affairs, ranging from 12 months to all on record, depending upon the facility. Vital Sign Value Date Comments Source SYSTOLIC BLOOD PRESSURE 122 03/29/19 25 10:36:03 [facility] [place] [facility] DIASTOLIC BLOOD PRESSURE 78 025 10:36:03 [...] included; 2) Encounters from the Department of [employer] facilities going backup to 280 months. Location Location Details Encounter Type Encounter Number Reason For Visit Attending Provider ADM Date DC Date Status Disposition Source [facility] [place] [facility] EYE EXAM&TX ESTAB PT 1/>VST [id number] Diagnos is: ICD-10- CM E11.9 Type 2 diabete s mellitu s without complic ations ACE RENDON 01/22 [facility] [place] [facility] [place] FIT SPECTACLES MULTIFOCAL [id number] Diagnos is: ICD-10- CM Z46.0 Encount er for fit/adj st of spectac les and contact lenses ACE RENDON H B 01/22 [facility] [place] [facility] [place] Outpatient Encounter [id number] 01/31 [facility] [place] [facility] En[facility] [id number] 01/31 [facility] En[facility] [id number] 01/31 [facility] En[facility] [id number] 02/10 [facility] FIT SPECTACLES MULTIFOCAL [id number] Diagnos is: ICD-10- CM Z46.0 Encount er for fit/adj st of spectac les and contact lenses HANS OSPINA 02/12 [facility] En[facility] [id number] 02/13 [facility] En[facility] [id number] 02/13 [facility] En[facility] [id number] 02/25 [facility] En[facility] [id number] 03/17 [facility] En[facility] [id number] 03/24 [facility] En[facility] [id number] 03/24 [facility] [place] OFFICE O/P EST MOD 30 MIN [id number] Diagnos is: ICD-10- CM Z00.01 Encount er for general adult medical exam w abnorma l finding s Fay YARBROUGH 04/01 [facility] En[facility] [id number] 08/06 [facility] En[facility] [id number] 11/02 [facility] COMPRE OPH EXAM EST PT 1/> [id number] 1. Diagnos is: ICD-10- CM E11.9 Type 2 diabete s mellitu s without complic ations ACE RENDON 01/27 [facility] FIT SPECTACLES MULTIFOCAL [id number] 1. Diagnos is: ICD-10- CM Z46.0 Encount er for fit/adj st of spectac les and contact lenses ACE RENDON 01/27 [facility] Outpatient Encounter [id number],MIRYAM LY P 03/29 [facility] En[facility] [id number] 04/06 [facility] En[facility] [id number] 04/08 [facility] En[facility] [id number] 04/08 [facility] En[facility] [id number] 04/08 [facility] [place] [facility] (6[facility]GE) NQHP OL DIG ASSMT&MGMT 11-20 [id number] Diagnos is: ICD-10- CM I70.90 Unspeci fied atheros clerosi MATA Page 04/12 [facility] (6[facility]GE) [facility] PH1 ASSMT&MGMT NQHP 5-10 [id number] Diagnos is: ICD-10- CM Z76.0 [facility] er for issue of repeat prescri felice FELICIANOAYE PRICE 04/13 [facility] [place] [facility] [place] Outpatient Encounter [id number] 04/21 [facility] [place] [facility] [place] Outpatient Encounter [id number] 04/21 [facility] [place] [facility] [place] Outpatient Encounter [id number] 04/29 [facility] [place] [facility] Social History Combined list of available smoking, tobacco, and other social history from Department of Defense and Veterans Affairs facilities. Social History Type Response Date Comment Sourc e Tobacco smoking status VTIS [facility]-TOBACCO NEVER USED 04/01/2023 [place] History of tobacco use [facility]-TOBACCO NEVER USED 10/09/2021 [place] History of tobacco use [facility]-TOBACCO NEVER USED 09/07/2020 [place] History of tobacco use [facility]-TO[facility] NEVER USED 06/23/2018 [place] History of tobacco use CURRENT SMOKER 05/03/2015 occasional cigar smoker [place] History of tobacco use LIFETIME NON-SMOKER 01/30/2005 [place] History of tobacco use LIFETIME NON-SMOKER 01/16/2004 [place] History of tobacco use LIFETIME NON-SMOKER 04/30/2002 [place] Plan of Care List of future care activities from Department of Veterans Affairs facilities. Additional future care activities may be listed in the Assessment and Plan section. Date/Time Care Activity Care Activity Detail Facili ty 07/26/2024 AMBULATORY - MEDICINE AMBULATORY - MEDICI NE [facility] [place] [facility] 04/22/2024 Consult Order COMMUNITY CARE-C [facility] Cons Industrial Roof Pl[facility] Choice [facility] [place] [facility] 06/15/2024 Laboratory - Political Scientist ry Order PSA BLOOD (SST-SERUM) SP [facility] [place] [facility] 06/15/2024 Laboratory - Political Scientist ry Order LIVER FUNCTION BLOOD (SST-SERUM) SP [facility] [place] [facility] 06/15/2024 Laboratory - Political Scientist ry Order TSH BLOOD (SST-SERUM) SP [facility] [place] [facility] 06/15/2024 Laboratory - Political Scientist ry Order BASIC METABOLIC PANEL (non-fasting) BLOOD (SST-SERUM) SP [facility] [place] [facility]
--- OUTSIDE RECORDS SUMMARY | 2024-05-31 11:10 | XMS_ITS | Encounter Summary ---
Author Name [facility] Organization [facility] [place] Address [address] [place] [address] Care Team Providers Care Director [place] Name Role Phone JAUREGUIMIMI MunozCAROLFay Primary Care Provider Unavail le Insurance Providers: [...] Hughes's Name Patient's Relationship to Policy [facility] PREFERRED PROVIDER ORGANIZAT ION (PPO) BASIC FAMIL Y Mar 17, 2010 [id number] [phone] COLON,EDW IN PATIENT BCBS [place] FEP PREFERRED PROVIDER ORGANIZAT ION (PPO) PSHB BASIC SELF Mar 17, 2024 [id number] COLON,EDW IN PATIENT BCBS OF [facility] FEP PREFERRED PROVIDER ORGANIZAT ION (PPO) BASIC FAMIL Y May 15, 2010 [id number] [phone] COLON,EDW IN PATIENT [place] FEP BCBS PRESCRIPT ION [place] FEPRX PLAN Feb 13, 2011 [id number] COLON,EDW IN PATIENT [place] FEPRX PLAN PRESCRIPT ION CAREM ARK FEPRX Mar 17, 2010 [id number] COLON,EDW IN PATIENT DORI PURI BCBS PRESCRIPT ION EDDIE HALL ARFlora Nov 15, 2022 [id number] COLON,EDW IN PATIENT Selected Encounter This section includes the information on record at [place] for the Encounter. Date/Time Encounter Type Encounter Description Reason Provider Source Mar 29, 2024 10:30 AM Outpatient Encounter PRIMARY CARE/MEDICINE PAOLA LANG Tammy Encounter Template Text not used by [place] Plan of Treatment: Future Appointments (+ 6 months) and Future Tests (+/- 45 days) The Plan of Treatment section includes future care activities for the [facility] This section includes future appointments and future orders which are active, pending or scheduled. Future Appointments This section includes appointments that were scheduled to occur 6 months from the date of the Encounter, up to a maximum of 20 appointments. The data comes from all [facility] facilities. Appointment Date/Time Appointment Type Appointme nt Facility Name Apr 29, 2024 09:30 AM AMBULATORY - MEDICINE [facility] [place] [facility] July 26, 2024 01:30 PM [facility] Active, Pending, and Scheduled Orders This section includes a listing of several types of active, pending, and scheduled orders, including clinic medications orders, diagnostic test orders, procedure orders and consult orders; where the start date of the order is 45 days before the date of the Encounter or 45 days after the date of theEncounter. The data comes from all [facility]. Test Date/Time Test Type Test Details Facility Name Apr 22, 2024 10:41 AM Consult Order COMMUNITY CARE-CARDIAC REHAB Cons Wood Furniture Assembler's Choice [facility] [place] [place] [facility] Lab Results: +/- 30 days of the encounter This section includes the Chemistry and Hematology Lab Results on record with [place] for the patient. Radiology Reports and Pathology Reports are provided separately, in subsequent sections. Lab Results This section contains the Chemistry/Hematology Results that were resulted 30 days before or 30 daysafter the date of the Encounter. Date/Time Source Result Type Result - Unit Interpretation Reference Range Comment Mar 23, 2024 07:31 AM [facility] HEMOGLOBIN A1C PANEL Specimen Type: BLOOD Comment: [...] Mar 16, 2024 09:18 AM Reporting Lab: [facility] [address] [facility] [address] Performing Lab: [address] [address] HEMOGLOBIN A1C 6.9 H 4.0-5.6 Mar 23, 2024 07:31 AM [facility] TSH Specimen Type: SERUM No comment entered. Ordering Provider: ANI YARBROUGH Report Released Date/Time: Mar 16, 2024 09:18 AM Reporting Lab: [facility] [address] [facility] [address] Performing Lab: [facility] [address] [facility] [address] TSH 5.38 u[IU]/mL H 0.35-5.00 Mar 23, 2024 07:31 AM [facility] LIPID PANEL FASTING Specimen Type: SERUM No comment entered. Ordering Provider: ANI YARBROUGH Report Released Date/Time: Mar 16, 2024 09:18 AM Reporting Lab: [facility] [address] [facility] [address] Performing Lab: [address] [address] CHOLESTEROL 176 mg/dL TRIGLYCERIDE 196 mg/dL H 0-150 LDL calculated 102 mg/dL 0-129 CHOL/HDL 5.0 HDL CHOLESTEROL 35 mg/dL L 40-60 Mar 23, 2024 07:31 AM [facility] LIVER FUNCTION Specimen Type: SERUM No comment entered. Ordering Provider: ANI YARBROUGH Report Released Date/Time: Mar 16, 2024 09:18 AM Reporting Lab: [facility] [address] [facility] [address] Performing Lab: [facility] [address] [facility] [address] PROTEIN,TOTAL 8.4 g/dL H 6.0-8.3 ALBUMIN 4.5 g/dL 3.5-5.0 ALKALINE PHOSPHATASE 76 U/L 40-150 AST 32 U/L 5-34 ALT 37 U/L BILIRUBIN, TOTAL 0.7 mg/dL 0.2-1.2 Mar 23, 2024 07:31 AM [facility] BASIC METABOLIC PANEL (fasting) Specimen Type: SERUM No comment entered. Ordering Provider: ANI YARBROUGH Report Released Date/Time: Mar 16, 2024 09:18 AM Reporting Lab: [address] [address] Performing Lab: [address] [address] UREA NITROGEN 22 mg/dL 7-25 GLUCOSE 173 mg/dL H 65-100 SODIUM 139 mmol/L 135-145 POTASSIUM 5.3 mmol/L H 3.5-5.0 CHLORIDE 102 mmol/L 100-110 CO2 29 meq/L 20-30 CREATININE, Serum 1.30 mg/dL 0.50-1.40 eGFR(CKD-EPI 2020) 62 mL/min >60 Mar 23, 2024 07:31 AM [facility] MICROALBUMIN CREATININE RATIO PANEL Specimen Type: URINE No comment entered. Ordering Provider: ANI YARBROUGH Report Released Date/Time: Mar 16, 2024 09:18 AM Reporting Lab: [address] [address] Performing Lab: [address] [address] MICROALBUMIN/C REATININE RATIO 60.2 mg/g H 0-29.9 MICROALBUMIN,Q UANTITATIVE 6.9 mg/dL RR UNAVAIL CREATININE URINE 114.63 mg/dL Mar 23, 2024 07:31 AM [facility] CBC AND DIFF (AUTO) Specimen Type: BLOOD No comment entered. Ordering Provider: ANI YARBROUGH Report Released Date/Time: Mar 16, 2024 09:18 AM Reporting Lab: [facility] [address] [facility] [address] Performing Lab: [facility] [address] [facility] [address] WBC 6.73 10*3/uL 4.50-11.00 RBC 5.01 10*6/uL [...] 0.0 0.0-0.0 NRBC, ABS 0.00 10*3/uL 0.00-0.00 Social History: Smoking Status (Most current) and Tobacco Use (All prior to encounter date) This section includes the most current, and the historical, smoking and tobacco- related health factors from the [place] facility where the Encounter took place. Current Smoking Status This section includes the most current smoking, or tobacco-related health factor, from the [place] facility where the Encounter took place. Date/Time Current Smoking Status Comment Niyah ity Apr 01, 2023 11:30 AM VA-TOBACCO NEVER USED [place] Tobacco Use History This section includes a history of the smoking, or tobacco-related health factors, that were collected on or before the date of the Encounter. The data comes from the [facility] where the Encounter took place. Date/Time Smoking Status/Tobacco Use Comment F acility Oct 09, 2021 10:30 AM VA-TOBACCO NEVER USED [place] Sep 07, 2020 03:00 PM VA-TOBACCO NEVER USED [place] Jun 23, 2018 02:03 PM VA-TOBACCO NEVER USED [place] May 03, 2015 12:58 PM CURRENT SMOKER occasional cigar smoker [place] May 03, 2015 12:58 PM QUIT TOBACCO USE > 7 YEARS AGO Pt does not smoke- last time smoked May 2014 [place] Jan 30, 2005 09:29 AM LIFETIME NON-SMOKER [place] Jan 16, 2004 01:51 PM LIFETIME NON-SMOKER [place] Apr 30, 2002 01:52 PM LIFETIME NON-SMOKER [place] Apr 30, 2002 01:52 PM LIFETIME NON-TOBACCO USER [place] Encounter Notes: All associated encounter notes This section contains the clinical notes associated to the Encounter. Date/Time Encounter Note(s) Provider Source Mar 29, 2024 10:41 AM ADDENDUM: LOCAL TITLE: Addendum STANDARD TITLE: ADDENDUM DATE OF NOTE: MAR 29, 2024@10:41:26 ENTRY DATE: MAR 29, 2024@10:41:26 AUTHOR: GAVINO PETERS EXP COSIGNER: URGENCY: STATUS: COMPLETED Please request last Cardilogy notes from: [facility] Thanks! /ruchi/ GAVINO PETERS LPN LPN Signed: 03/29/2024 10:42 Receipt Acknowledged By: 03/29/2024 13:25 /ruchi/ NEETU SKAGGS ======== --- Original Document --- 03/29/24 CLINICAL REMINDERS/NURSING: Advance Directive Screen MH AD: Patient does not have a completed advance directive on file at any facility, [facility] or outside. S/he is not interested in completing one at this time. The patient received education about Advance Directives and written notification of his/her rights. Suicide Screen: C-SSRS Screening [place] Suicide Severity Rating Scale (C-SSRS) screener 1. [...] required due to responses to other questions. BMI>30/>24.99 High Risk: Patient declines to discuss weight management. Patient declined weight discussion. Discussed revisiting at a future visit. Depression Screening: Perform PHQ-2 A PHQ-2 screen was performed. The score was 0 which is a negative screen for depression. Over the past two weeks, how often have you been bothered by the following problems? 1. Little interest or pleasure in doing things Not at all 2. Feeling down, depressed, or hopeless Not at all Influenza Immunization: The patient has received the seasonal influenza vaccine for the current season at another location. Documented: INFLUENZA, UNSPECIFIED FORMULATION Historical Date Administered: 2023 Exact date unknown Outside Location: Outside Healthcare Provider Information Source: FROM OTHER PROVIDER Td / Tdap Immunization: Defer due to a PRECAUTION Alcohol Use Screen (AUDIT-C): Alcohol Screen: SCREEN FOR ALCOHOL (AUDIT-C) An alcohol screening test (AUDIT-C) was negative (score=2). 1. How often did you have a drink containing alcohol in the past year? Consider a drink to be a 12 ounce can or bottle of regular beer, 8 ounces of malt liquor, a 5 ounce glass of table wine, or a 1.5 ounce shot of liquor (like scotch, gin, or vodka). Monthly or less 2. How many drinks containing alcohol did you have on a typical day when you were drinking in the past year? Three or four drinks 3. How often did you have six or more drinks on one occasion in the past year? Never COVID-19 Immunization: Vaccine given previously - no written/electronic documentation available The patient was instructed to bring a copy of their COVID-19 vaccine information to their next appointment so that this can be accurately recorded in their [facility] medical record. RSV Immunization: Defer due to a PRECAUTION Reason: NOT AVAILABLE Sexual Orientation: The patient thinks of their sexual orientation as: Straight or Heterosexual RHS Screen: RHS Screen Session Format: Face to Face Environmental Check Upon inquiry, the individual reports that the environment is safe to proceed. Informed Consent to Screen and Document The individual consents to proceed with screening. The individual consents to documentation of responses. PRIMARY SCREEN: In the past 12 months, how often did a current or former intimate partner (e.g., boyfriend, girlfriend, , , sexual partner): 1. Scream or curse at you Never 2. Insult or talk down to you Never 3. Threaten you with harm Never 4. Physically hurt you Never 5. Force or pressure you to have sexual contact against your will, or when you were unable to say no Never ?? The HITS tool (items 1-4 above) is [place] copyright protected by Jose A Gilliam MD, and the user has full rights to use it throughout the [place] system. PRIMARY SCREEN RESULT: The Primary Screen is NEGATIVE. The individual answered never to all forms of IPV above (i.e., answered never to all 5 items) The individual accepts education and/or resources: No EDUCATION: The individual indicated readiness to learn. Education offered during this session as noted above. The individual indicated understanding by asking relevant questions and making appropriate comments. No barriers to learning were observed or identified. PAVE Foot Check: Patient declined limb care exam. The patient was advised the [facility] mandates all patients with diabetes mellitus, end stage renal disease, peripheral vascular disease, or sensory neuropathy should have a complete foot check completed annually. This includes a visual exam of the skin, pedal pulses and a sensory exam. Patients with any abnormality noted during the foot check should be referred to a specialist. /ruchi/ GAVINO PETERS LPN LPN Signed: 03/29/2024 10:39 03/29/2024 ADDENDUM STATUS: COMPLETED Vibration Analyst requested records. /ruchi/ NEETU HOWARD AMSA Signed: 03/29/2024 13:25 GAVINO PETERS [place] Mar 29, 2024 10:36 AM PREVENTIVE MEDICIN E NURSING NOTE: LOCAL TITLE: CLINICAL REMINDERS/NURSING STANDARD TITLE: PREVENTIVE MEDICINE NURSING NOTE DATE OF NOTE: MAR 29, 2024@10:36 ENTRY DATE: MAR 29, 2024@10:36:52 AUTHOR: GAVINO PETERS EXP COSIGNER: URGENCY: STATUS: COMPLETED CLINICAL REMINDERS/NURSING Has ADDENDA Advance Directive Screen MH AD: Patient does not have a completed advance directive on file at any facility, [place] or outside. S/he is not interested in completing one at this time. The patient received education about Advance Directives and written notification of his/her rights. Suicide Screen: C-SSRS Screening [place] Suicide Severity Rating Scale (C-SSRS) screener 1. [...] required due to responses to other questions. BMI>30/>24.99 High Risk: Patient declines to discuss weight management. Patient declined weight discussion. Discussed revisiting at a future visit. Depression Screening: Perform PHQ-2 A PHQ-2 screen was performed. The score was 0 which is a negative screen for depression. Over the past two weeks, how often have you been bothered by the following problems? 1. Little interest or pleasure in doing things Not at all 2. Feeling down, depressed, or hopeless Not at all Influenza Immunization: The patient has received the seasonal influenza vaccine for the current season at another location. Documented: INFLUENZA, UNSPECIFIED FORMULATION Historical Date Administered: 2023 Exact date unknown Outside Location: Outside Healthcare Provider Information Source: FROM OTHER PROVIDER Td / Tdap Immunization: Defer due to a PRECAUTION Alcohol Use Screen (AUDIT-C): Alcohol Screen: SCREEN FOR ALCOHOL (AUDIT-C) An alcohol screening test (AUDIT-C) was negative (score=2). 1. How often did you have a drink containing alcohol in the past year? Consider a drink to be a 12 ounce can or bottle of regular beer, 8 ounces of malt liquor, a 5 ounce glass of table wine, or a 1.5 ounce shot of liquor (like scotch, gin, or vodka). Monthly or less 2. How many drinks containing alcohol did you have on a typical day when you were drinking in the past year? Three or four drinks 3. How often did you have six or more drinks on one occasion in the past year? Never COVID-19 Immunization: Vaccine given previously - no written/electronic documentation available The patient was instructed to bring a copy of their COVID-19 vaccine information to their next appointment so that this can be accurately recorded in their [facility] medical record. RSV Immunization: Defer due to a PRECAUTION Reason: NOT AVAILABLE Sexual Orientation: The patient thinks of their sexual orientation as: Straight or Heterosexual RHS Screen: RHS Screen Session Format: Face to Face Environmental Check Upon inquiry, the individual reports that the environment is safe to proceed. Informed Consent to Screen and Document The individual consents to proceed with screening. The individual consents to documentation of responses. PRIMARY SCREEN: In the past 12 months, how often did a current or former intimate partner (e.g., boyfriend, girlfriend, , , sexual partner): 1. Scream or curse at you Never 2. Insult or talk down to you Never 3. Threaten you with harm Never 4. Physically hurt you Never 5. Force or pressure you to have sexual contact against your will, or when you were unable to say no Never ?? The HITS tool (items 1-4 above) is [place] copyright protected by Jose A Gilliam MD, and the user has full rights to use it throughout the [place] system. PRIMARY SCREEN RESULT: The Primary Screen is NEGATIVE. The individual answered never to all forms of IPV above (i.e., answered never to all 5 items) The individual accepts education and/or resources: No EDUCATION: The individual indicated readiness to learn. Education offered during this session as noted above. The individual indicated understanding by asking relevant questions and making appropriate comments. No barriers to learning were observed or identified. PAVE Foot Check: Patient declined limb care exam. The patient was advised the [place] mandates all patients with diabetes mellitus, end stage renal disease, peripheral vascular disease, or sensory neuropathy should have a complete foot check completed annually. This includes a visual exam of the skin, pedal pulses and a sensory exam. Patients with any abnormality noted during the foot check should be referred to a specialist. /becky PETERS LPN LPN Signed: 03/29/2024 10:39 03/29/2024 ADDENDUM STATUS: COMPLETED Please request last Cardilogy notes from: [facility] Thanks! /becky PETERS LPN LPN Signed: 03/29/2024 10:42 Receipt Acknowledged By: 03/29/2024 13:25 /becky SKAGGS 03/29/2024 ADDENDUM STATUS: COMPLETED Vibration Analyst requested records. /becky SKAGGS Signed: 03/29/2024 13:25 GAVINO PETERS [place]
== END ==
LOC: HO.CARD 10:01
DX: R07.9 Chest pain, unspecified (principal); I25.10 Atherosclerotic heart disease of native coronary artery without angina pectoris
CPT/HCPCS: 78452; 93017; A9500

== ENCOUNTER → 2024-05-31 10:07 | Outpatient (BNV) | payer BC, SELFPAY | DX: R07.9 Chest pain, unspecified (principal); R06.02 Shortness of breath; I49.3 Ventricular premature depolarization | CPT/HCPCS: 78452; 93016; 93018 ==

== ENCOUNTER 2024-06-15 10:33 | Outpatient (AMB) | payer OTHER, SELFPAY ==
--- NOTE | 2024-06-15 10:37 | MHC.AMNUTRGE ---
VS Expanded 06/15/24 10:39 06/15/24 10:51 Height 5 ft 2 in 5 ft 2 in Weight 233 lb 7.512 oz 233 lb BMI 42.7 42.6 Intake Visit Reasons: obesity Allergies penicillin V Allergy (Unknown, Verified 05/25/24 11:17) swelling Penicillins [PENICILLINS] Allergy (Unknown, Verified 05/25/24 11:17) RASH,SWELLING Nutrition Presentation Details: Pt presents for MNT for T2DM Pt reports participating in cardiac rehab , working on increasing water intake plays pickleball in the mornings a couple of times in the week coffee with diet sugar 10:30 chicken noodle soup 12: mashed potato/chicken green beans a 6pm : root vegetables with porkchop, milk 2% 8-9 pm: cheerios with 1% milk pt reports gradually working on diet modifications, and monitoring weight, this AM wt at 225 lbs at home BS Monitoring Most Recent Diabetes Results: Cholesterol 156 mg/dL (<200) 03/25/24 HDL Cholesterol 34 mg/dL (>40) L 03/25/24 Triglycerides 181 mg/dL (<150) H 03/25/24 Creatinine 0.86 mg/dL (0.5-1.4) 03/25/24 Blood Urea Nitrogen 24 mg/dL (9-16) H 03/25/24 Sodium 140 mmol/L (135-145) 03/25/24 Potassium 3.8 mmol/L (3.3-5.1) 03/25/24 Chloride 106 mmol/L (96-108) 03/25/24 Carbon Dioxide 26 mmol/L (22-29) 03/25/24 Calcium 9.5 mg/dL (8.4-10.2) 03/25/24 FIQ-[id number]-Ju.Jeor Equation Height: 5 ft 2 in Weight: 233 lb Resting Metabolic Rate: 1744.94 Calculated Activity Level: Sedentary Calories Needed to Maintain Weight: 2093.93 Diagnosis Nutrition problem #1: altered nutrition labs As related to (etiology) #1: excess energy intake and diagnosis As evidenced by (sign/symptom) #1: food recall [facility] Medical History (Updated 05/25/24 @ 11:27 by Betzy Walden PA-C) Obesity due to excess calories Dyslipidemia Vitamin D deficiency CASTELLON (nonalcoholic steatohepatitis) Hypertension, essential Diabetes type 2, controlled Surgical History History of cardiac cath Hx of keloid of skin History of ankle surgery Family History (Updated 05/25/24 @ 11:10 by LASHAUN Nevarez) Father Hypertension Mother HX: breast cancer Diabetes Social History Household Members: Spouse and Children Housing: House Alcohol intake: current Alcohol intake frequency: a few times a month Patient Tobacco Use Status: Current someday Tobacco user Tobacco use type: Cigar e-Cigarette/Vaping Use: Never Used Second Hand Smoke Exposure: Yes Substance Use Type: Marijuana service: Yes Current occupational status: retired Current occupation: [employer] Cognitive needs: No Hearing needs: No Vision needs: Yes Assessment & Plan Assessment & Plan (1) Diabetes type 2, controlled: Code(s): E11.9 - Type 2 diabetes mellitus without complications Category: Medical Qualifiers: Diabetes mellitus penitentiary insulin use: with penitentiary use Diabetes mellitus complication status: with neurologic complications Diabetes mellitus complication detail: with polyneuropathy Qualified Code(s): E11.42 - Type 2 diabetes mellitus with diabetic polyneuropathy; Z79.4 - [facility] (current) use of insulin Plan: Wt: 106 Kg ( 07/09 ) Est kcal needs as per MSJ: 2100 (40% carb, 30% protein/fat) Est fluid needs as per 25-30 ml/d: 3200 Est prot per day as per 1 g/kg bw: 100 Recommend fiber intake : 8-10 g per day and gradually increase to 25-28 g per day for women and 35-38 g for men or as tolerated Recommend sodium intake per day : less than 2000 mg Educated patient on: ( R = reviewed V = verbalizes understanding N/R = needs review N/A = not applicable Food sources of carbohydrate, adequate serving sizes and its role in various health conditions: R V N/R Differences between complex carbohydrates a simple carbohydrates, role of fiber in diet: R Lean protein sources of foods: R V NR Differences between types of fats and role in diet (mono on saturated fat fatty acids, saturated fatty acids, trans fats): R V N/R Food sources of sodium in salt and healthy modifications for heart health in kidney health: R V R/V Vitamins and minerals: R V N/R Healthy plate method concept: R Physical activity: Benefits a precaution: R Hypoglycemia protocol (rule of 15): R V N/R Dietary prevention of Hyperglycemia: R Patient Instructions: Keep hydrated by having water/diluted juices with water, milk , low sodium soups, decaf tea, herb/fruit infused water with meals/snacks Modify portion sizes, reducing total carb to 60 g at meal (3 meals/day) and 0-20 g as snack , 2 snacks/day choose fiber rich foods see list of meal ideas as reference Coding Level of Care Code Nutr Indiv Intake (89230) Diagnoses Controlled type 2 diabetes mellitus with diabetic polyneuropathy, with long-term current use of insulin E11.42; Z79.4 Diabetes mellitus superintendent container terminal insulin use: with superintendent container terminal use Diabetes mellitus complication status: with neurologic complications Diabetes mellitus complication detail: with polyneuropathy Time Spent (min) 30
[2024-06-15 10:39] VITALS: BMI 42.7
[2024-06-15 10:51] VITALS: BMI 42.6
--- OUTSIDE RECORDS SUMMARY | 2024-06-15 12:34 | XMS_ITS | Continuity of Care Document ---
Author Name [facility] Organization [facility] Care Team Providers Care Lifestyle Block Farmer Name Role Phone [facility] Unavailable Unavailable Problems Combined list of problems from Department of Defense and Veterans Affairs facilities. It does not include entries that were removed or entered in error. Problem Status Onset Date Problem Type Date of Resolution Comments Source 1988: [place]: Rt Ankle: 2 surgergies Active Condition [place] 07-13-10: EKG:NSR 64bpm NC:178 QRS:86 QT: 392 NSTW Active Condition [place] Acute Anxiety disorder Active Condition [facility] Adjustment Disorder with Mixed Anxiety and Depressed Mood (ICD-9-CM 309.28) Active Condition [facility] ASTHMA Active Condition [facility] Contact dermatitis due to poison cyndee Active Condition [facility] Depressive Disorder NOS * (ICD-9-CM 311./300.4) Active Condition [facility] Disorder of lipid and lipoprotein metabolism (SNOMED CT 75597306) Active Condition [place] Erectile dysfunction Active Condition [facility] Heel: arthralgia Active Condition [place] Hypertension secondary to endocrine disorder (SNOMED CT 397726087) Active Condition Dec 21, 2018 Entered By: MIRZA VILLARREAL Comment: PCP-Radha Zamora MD [facility] Knee: arthralgia Active Condition [place] Nonproliferative diabetic retinopathy Active Condition Jan 28, 2014 Entered By: SONNY OG Comment: 2013 Entered By: SONNY OG Comment: per eye exam Jan 2014; [place] Obesity Active Condition [place] opiate use chronic Active Condition D 2012 Entered By: ROSE MARY TAMAYO Comment: 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 [facility] Other dyspnea and respiratory abnormality (ICD-9-CM 786.09) Active Condition [facility] Pain in joint involving shoulder region (ICD-9-CM 719.41) Active Condition [facility] Positive Microalbuminuria Test Result Documented and Reviewed (DM) Active Condition [place] Type II diabetes mellitus uncontrolled (SNOMED CT 214537523) Active Condition Dec 21, 2018 Entered By: MIRZA VILLARREAL Comment: Endocrinologi - Dr.Shayhira Maureen Caalrera [place] Diagnosis: ICD-10-CM Z76.0 Encounter for issue of repeat prescription Active Diagnosis [facility] [place] [facility] Diagnosis: ICD-10-CM I70.90 Unspecified atherosclerosis Active Diagnosis [facility] ([id number]) Diagnosis: ICD-10-CM Z46.0 Encounter for fit/adjst of spectacles and contact lenses Active Diagnosis [facility] [place] [facility] Diagnosis: ICD-10-CM E11.9 Type 2 diabetes mellitus without complications Active [facility] [place] [facility] Diagnosis: ICD-10-CM Z00.01 Encounter for general adult medical exam w abnormal findings Active Diagnosis [facility] IE Medications Combined list of outpatient [...] ONCE DAILY ORAL ACTIVE Barry RICKS 2018 [facility] ASPIRIN 81MG TAB,EC TAKE ONE TABLET BY MOUTH DAILY ORAL ACTIVE RHODA GARCIA 2014 [facility] EMPAGLIFLOZ IN 25MG TAB TAKE ONE TABLET BY MOUTH ONCE DAILY ORAL ACTIVE Barry RICKS 2018 [facility] FENOFIBRATE 54MG TAB TAKE ONE TABLET BY MOUTH ONCE DAILY ORAL ACTIVE CHIKA YARBROUGH 2023 [facility] FISH OIL 1000MG (500MG DHA/EPA) CAP,ORAL TAKE 2 CAPSULES BY MOUTH AT BEDTIME ORAL ACTIVE SEBASTIAN HERNANDEZ 2010 [facility] HYDROCHLORO THIAZIDE 25MG TAB TAKE ONE TABLET BY MOUTH ONCE DAILY ORAL ACTIVE Barry RICKS 2018 [facility] LEVOTHYROXI NE NA 25MCG TAB (SYNTHROID) TAKE ONE TABLET BY MOUTH EVERY MORNING 30 MINUTES BEFORE BREAKFAS T FOR THYROID TAKE ON AN EMPTY STOMACH WITH A FULL GLASS OF WATER ORAL ACTIVE 03/30/2025 [id number] JULY,WANDY RLY P 2024 90 [facility] LOSARTAN POTASSIUM 100MG TAB TAKE ONE TABLET BY MOUTH ONCE DAILY ORAL ACTIVE Barry RICKS 2018 [facility] METFORMIN HCL 500MG TAB TAKE ONE TABLET BY MOUTH ONCE DAILY ORAL ACTIVE Barry RICKS 2018 [facility] METOPROLOL SUCCINATE 25MG TAB,SA TAKE ONE TABLET BY MOUTH ONCE DAILY ORAL ACTIVE RA GREGORY JAUREGUI 2024 [facility] MULTIVITAMI NS W/MINERALS TAB TAKE ONE TABLET BY MOUTH qd ORAL ACTIVE LAKISHA MORA 2004 [facility] SEMAGLUTIDE 1MG/0.75ML INJ,SOLN,PE N,1.5ML INJECT 1MG SUBCUTAN EOUSLY ONCE A WEEK SUBCUT ANEOUS ACTIVE Barry RICKS 2018 [facility] SILDENAFIL CITRATE 100MG TAB TAKE ONE TABLET BY MOUTH ONCE DAILY NEEDED FOR ERECTILE DYSFUNCT ION TAKE 1 HOUR PRIOR TO SEXUAL ACTIVITY ORAL 04/01/2024 [id number] CHIKA YARBROUGH O 2023 6 [facility] TICAGRELOR 90MG TAB TAKE ONE TABLET BY MOUTH TWICE DAILY ORAL ACTIVE 04/12/2025 [id number] RA GREGORY JAUREGUI 2024 180 [facility] Allergies, Adverse Reactions, Alerts Combined [...] Site Reaction Lot Number CVX Code Drug Care Advocate Status Comments Source INFLUENZA, INJECTABLE, QUADRIVALENT, PRESERVATIVE FREE 2023 AVANI PETERS LEFT DELTO ID [id number] A 150 complet ed [place] ZOSTER RECOMBINANT 2 2023 AVANI PETERS LEFT DELTO ID [id number] 187 complet ed [place] INFLUENZA, UNSPECIFIED FORMULATION 2023 88 complet ed [facility] PNEUMOCOCCAL CONJUGATE PCV20, POLYSACCHARID E [id number] CONJUGATE, ADJUVANT, PF 2021 216 complet ed [place] ZOSTER RECOMBINANT 1 2021 187 complet ed [place] COVID-19 ([employer]), MRNA, LNP-S, PF, 30 MCG/0.3 ML DOSE 2 2020 208 complet ed [facility] COVID-19 ([employer]), VECTOR-NR, RS-AD26, PF, 0.5 ML 1 2020 212 complet ed [facility]; [id number]; 1 [facility] INFLUENZA, UNSPECIFIED FORMULATION 2019 88 complet ed [facility] INFLUENZA, SEASONAL, INJECTABLE 2017 141 complet ed [facility] FLU,3 YRS (HISTORICAL) 2014 [address] complet ed [address] office [facility] FLU,3 YRS (HISTORICAL) 2013 88 complet ed at work [facility] FLU,3 YRS [...] FLU,3 YRS (HISTORICAL) 2009 88 complet ed [facility] [place] [facility] Results Combined list of recent chemistry, hematology and other laboratory results from Department of Defense and Veterans Affairs, ranging from 15 months to all on record, depending upon the facility. Order Name Results Value Reference Range Date Interpretation Specimen Comments Source PSA PROSTATE SPECIFIC AG [MASS/VOLUM E] IN SERUM OR PLASMA BY IMMUNOASSAY 0.23 ng/mL 0.00 - 4.00 06/10 Specimen Type: SERUM No comment entered. Ordering Provider: ROSANGELA LANG Report Released Date/Time: Mar 29, 2024 10:49 AM Reporting Lab: [facility]RFA[facility]TR[facility] [place] [address] [address] Performing Lab: [place] [facility] [place] [address] [address] [facility] [place] [facility] TSH THYROTROPIN [UNITS/VOLU ME] IN SERUM OR PLASMA BY DETECTION LIMIT <= 0.005 MIU/L 3.28 u[IU]/ mL 0.35 - 5.00 06/10 Specimen Type: SERUM No comment entered. Ordering Provider: ROSANGELA LANG Report Released Date/Time: Mar 29, 2024 10:49 AM Reporting Lab: [facility] [place] [address] [address] Performing Lab: [place] [facility] [place] [address] [address] [facility]ITALRGREENE COUNTY HOSPITALN MASSUSE [facility] LIVER FUNCTION PROTEIN [MASS/VOLUM E] IN SERUM OR PLASMA 7.9 g/dL 6.0 - 8.3 06/10 Specimen Type: SERUM No comment entered. Ordering Provider: ROSANGELA LANG Report Released Date/Time: Mar 29, 2024 10:49 AM Reporting Lab: [facility] [place] [address] [address] Performing Lab: [facility] [place] [address] [address] [facility] [place] [facility] LIVER FUNCTION ALBUMIN [MASS/VOLUM E] IN SERUM OR PLASMA BY BROMOCRESOL PURPLE (BCP) DYE BINDING METHOD 4.2 g/dL 3.5 - 5.0 06/10 Specimen Type: SERUM No comment entered. Ordering Provider: ROSANGELA LANG Report Released Date/Time: Mar 29, 2024 10:49 AM Reporting Lab: [facility] [place] [facility] [address] [facility] [address] Performing Lab: [facility] [place] [facility] [address] [facility] [address] [facility] [place] [facility] LIVER FUNCTION ALKALINE PHOSPHATASE [ENZYMATIC ACTIVITY/VO LUME] IN SERUM OR PLASMA 76 U/L 40 - 150 06/10 Specimen Type: SERUM No comment entered. Ordering Provider: ROSANGELA LANG Report Released Date/Time: Mar 29, 2024 10:49 AM Reporting Lab: [facility] [place] [address] [address] Performing Lab: [facility] [place] [address] [address] [facility] [place] [facility] LIVER FUNCTION ASPARTATE AMINOTRANSF ERASE [ENZYMATIC ACTIVITY/VO LUME] IN SERUM OR PLASMA BY WITH P-5'-P 32 U/L 5 - 34 06/10 Specimen Type: SERUM No comment entered. Ordering Provider: ROSANGELA LANG Report Released Date/Time: Mar 29, 2024 10:49 AM Reporting Lab: [facility] [place] [address] [address] Performing Lab: [facility] [place] [facility] [address] [facility] [address] [facility] [place] [facility] LIVER FUNCTION ALANINE AMINOTRANSF ERASE [ENZYMATIC ACTIVITY/VO LUME] IN SERUM OR PLASMA BY WITH P-5'-P 32 U/L 06/10 Specimen Type: SERUM No comment entered. Ordering Provider: ROSANGELA LANG Report Released Date/Time: Mar 29, 2024 10:49 AM Reporting Lab: [facility] [place] [address] [address] Performing Lab: [facility] [address] [facility] [address] [facility]RL [facility]ERN [facility]USE [facility] LIVER FUNCTION BILIRUBIN.T OTAL [MASS/VOLUM E] IN SERUM OR PLASMA 0.7 mg/dL 0.2 - 1.2 06/10 Specimen Type: SERUM No comment entered. Ordering Provider: ROSANGELA LANG Report Released Date/Time: Mar 29, 2024 10:49 AM Reporting Lab: [facility]ITALRL TRN [facility] [address] [facility] [address] Performing Lab: [facility]OSPITALRL TRN [facility]PITALUSESTON[facility] [address] [facility] [address] [facility]ITALRGREENE COUNTY HOSPITALN [facility] BASIC METABOLIC PANEL (non-fast ing) UREA NITROGEN [MASS/VOLUM E] IN SERUM OR PLASMA 21 mg/dL 7 - 25 06/10 Specimen Type: SERUM No comment entered. Ordering Provider: ROSANGELA LANG Report Released Date/Time: Mar 29, 2024 10:49 AM Reporting Lab: [facility]OSPITALRL TRN [facility]OSPITALUSESTON[facility] [address] [facility] [address] Performing Lab: [place] [facility] [facility]PITALUSESTON[facility] [address] [facility] [address] [facility]PITALRGREENE COUNTY HOSPITALN [facility]OSPITALUSE [facility] BASIC METABOLIC PANEL (non-fast ing) GLUCOSE [MASS/VOLUM E] IN SERUM OR PLASMA 114 mg/dL 65 - 100 06/10 H Specimen Type: SERUM No comment entered. Ordering Provider: ROSANGELA LANG Report Released Date/Time: Mar 29, 2024 10:49 AM Reporting Lab: [facility]PITALUSESTON[facility] [address] [facility] [address] Performing Lab: [facility]OSPITALRL TRN [facility]OSPITALUSE[address] [address] [facility]ITALRL [facility]ERN [facility] BASIC METABOLIC PANEL (non-fast ing) SODIUM [MOLES/VOLU ME] IN SERUM OR PLASMA 139 mmol/L 135 - 145 06/10 Specimen Type: SERUM No comment entered. Ordering Provider: ROSANGELA LANG Report Released Date/Time: Mar 29, 2024 10:49 AM Reporting Lab: [facility]ITALRL [facility]N [place] [facility] [address] [facility] [address] Performing Lab: [facility]OSPITALRL WSTRN [facility]CHUSETS [facility] [address] [facility] [address] [facility]ITALRL WSTRN [place] [facility] BASIC METABOLIC PANEL (non-fast ing) POTASSIUM [MOLES/VOLU ME] IN SERUM OR PLASMA 3.7 mmol/L 3.5 - 5.0 06/10 Specimen Type: SERUM No comment entered. Ordering Provider: ROSANGELA LANG Report Released Date/Time: Mar 29, 2024 10:49 AM Reporting Lab: [facility] HOSPITALRFAYETTE MEDICAL CENTERTRN [facility] HOSPITALUSETS [facility] [address] [facility] [address] Performing Lab: [facility]OSPITALR WSTRN [facility]OSPITALUSETS [facility] [address] [facility] [address] [facility]N [facility] HOSPITALUSE [facility] BASIC METABOLIC PANEL (non-fast ing) CHLORIDE [MOLES/VOLU ME] IN SERUM OR PLASMA 107 mmol/L 100 - 110 06/10 Specimen Type: SERUM No comment entered. Ordering Provider: ROSANGELA LANG Report Released Date/Time: Mar 29, 2024 10:49 AM Reporting Lab: [facility]PITALRFAYETTE MEDICAL CENTERTRN [place] [facility] [address] [facility] [address] Performing Lab: [facility]OSPITALRL WSTRN [facility]OSPITALUSETS [facility] [address] [facility] [address] [facility]PITALRGREENE COUNTY HOSPITALN [facility]OSPITALUSE [facility] BASIC METABOLIC PANEL (non-fast ing) CARBON DIOXIDE, TOTAL [MOLES/VOLU ME] IN SERUM OR PLASMA 22 meq/L 20 - 30 06/10 Specimen Type: SERUM No comment entered. Ordering Provider: ROSANGELA LANG Report Released Date/Time: Mar 29, 2024 10:49 AM Reporting Lab: [facility]OSPITALRL [facility]STRN [place] [facility] [address] [facility] [address] Performing Lab: [facility]OSPITALRL WSTRN [facility]ENTERCHUSETS [address] [address] [facility]ITALR WSTRN [place] [facility] BASIC METABOLIC PANEL (non-fast ing) CALCIUM [MASS/VOLUM E] IN SERUM OR PLASMA 8.9 mg/dL 8.5 - 10.2 06/10 Specimen Type: SERUM No comment entered. Ordering Provider: ROSANGELA LANG Report Released Date/Time: Mar 29, 2024 10:49 AM Reporting Lab: [facility]ITALRL WSTRN [place] [facility] [address] [facility] [address] Performing Lab: [facility]ITALRL WSTRN [facility]PITALUSE[address] [address] [facility]PITALRGREENE COUNTY HOSPITALN [facility]OSPITALUSE [facility] BASIC METABOLIC PANEL (non-fast ing) CREATININE [MASS/VOLUM E] IN SERUM OR PLASMA 1.01 mg/dL 0.50 - 1.40 06/10 Specimen Type: SERUM No comment entered. Ordering Provider: ROSANGELA LANG Report Released Date/Time: Mar 29, 2024 10:49 AM Reporting Lab: [facility]OSPITALRL TRN [facility]PITALUSE[address] [address] Performing Lab: [facility]ITALRL TRN [facility]OSPITALUSETS [address] [address] [facility]ITALRGREENE COUNTY HOSPITALN [facility]OSPITALUSE [facility] BASIC METABOLIC PANEL (non-fast ing) GLOMERULAR FILTRATION RATE/1.73 SQ M.PREDICTED [VOLUME RATE/AREA] IN SERUM, PLASMA OR BLOOD BY CREATININE- BASED FORMULA (CKD-EPI 2020) 84 mL/min 60 06/10 Specimen Type: SERUM No comment entered. Ordering Provider: ROSANGELA LANG Report Released Date/Time: Mar 29, 2024 10:49 AM Reporting Lab: [facility]OSPITALRL TRN [place] [address] [address] Performing Lab: [facility]ITALRL TRN [facility]ITALUSE[address] [address] [facility]PITALRGREENE COUNTY HOSPITALN [facility]ITALUSE [facility] LIPID PANEL FASTING CHOLESTEROL [MASS/VOLUM E] IN SERUM OR PLASMA 176 mg/dL 03/23 Specimen Type: SERUM No comment entered. Ordering Provider: ROBERTO YARBROUGH Report Released Date/Time: Mar 16, 2024 09:18 AM Reporting Lab: [facility]OSPITALRFAYETTE MEDICAL CENTERTRN [place] [address] [address] Performing Lab: [facility]PITALRL WSTRN [place] [facility] [address] [facility] [address] [facility]ITALRL WSTRN [place] [facility] LIPID PANEL FASTING TRIGLYCERID E [MASS/VOLUM E] IN SERUM OR PLASMA 196 mg/dL 0 - 150 03/23 H Specimen Type: SERUM No comment entered. Ordering Provider: ROBERTO YARBROUGH Report Released Date/Time: Mar 16, 2024 09:18 AM Reporting Lab: [facility]ITALRL TRN [place] [facility] [address] [facility] [address] Performing Lab: [facility]PITALRL WSTRN [facility]OSPITALUSETS [facility] [address] [facility] [address] [facility]ITALRGREENE COUNTY HOSPITALN [facility]ITALUSE [facility] LIPID PANEL FASTING CHOLESTEROL IN LDL [MASS/VOLUM E] IN SERUM OR PLASMA BY CALCULATION 102 mg/dL 0 - 129 03/23 Specimen Type: SERUM No comment entered. Ordering Provider: ROBERTO YARBROUGH Report Released Date/Time: Mar 16, 2024 09:18 AM Reporting Lab: [facility]ITALRL TRN [place] [facility] [address] [facility] [address] Performing Lab: [facility]ITALRL WSTRN [facility]OSPITALUSETS [facility] [address] [facility] [address] [facility]RL TRN [facility]USE [facility] LIPID PANEL FASTING CHOLESTEROL .TOTAL/CHOL ESTEROL IN HDL [MASS RATIO] IN SERUM OR PLASMA 5.0 03/23 Specimen Type: SERUM No comment entered. Ordering Provider: ROBERTO YARBROUGH Report Released Date/Time: Mar 16, 2024 09:18 AM Reporting Lab: [facility]ITALRL [facility]STRN [place] [facility] [address] [facility] [address] Performing Lab: [facility]ITALRL WSTRN [facility]OSPITALUSETS [facility] [address] [facility] [address] [facility]RL TRN MASSU[facility] LIPID PANEL FASTING CHOLESTEROL IN HDL [MASS/VOLUM E] IN SERUM OR PLASMA 35 mg/dL 40 - 60 03/23 L Specimen Type: SERUM No comment entered. Ordering Provider: ROBERTO YARBROUGH Report Released Date/Time: Mar 16, 2024 09:18 AM Reporting Lab: [facility]ITALRL WSTRN [place] [facility] [address] [facility] [address] Performing Lab: [facility]ITALRL WSTRN [place] [facility] [address] [facility] [address] [facility]ITALRL WSTRN [place] [facility] BASIC METABOLIC PANEL (fasting) UREA NITROGEN [MASS/VOLUM E] IN SERUM OR PLASMA 22 mg/dL 7 - 25 03/23 Specimen Type: SERUM No comment entered. Ordering Provider: ROBERTO YARBROUGH Report Released Date/Time: Mar 16, 2024 09:18 AM Reporting Lab: [facility]ITALRL WSTRN [place] [facility] [address] [facility] [address] Performing Lab: [facility]ITALRL WSTRN [facility]ITALUSESTON[facility] [address] [facility] [address] [facility]N [facility] BASIC METABOLIC PANEL (fasting) GLUCOSE [MASS/VOLUM E] IN SERUM OR PLASMA 173 mg/dL 65 - 100 03/23 H Specimen Type: SERUM No comment entered. Ordering Provider: ROBERTO YARBROUGH Report Released Date/Time: Mar 16, 2024 09:18 AM Reporting Lab: [facility]ITALRL TRN [facility]ITALUSEST[facility] [address] [facility] [address] Performing Lab: [facility]ITALRL WSTRN [facility]ITALUSESTON[facility] [address] [facility] [address] [facility]ITALRGREENE COUNTY HOSPITALN [facility] BASIC METABOLIC PANEL (fasting) SODIUM [MOLES/VOLU ME] IN SERUM OR PLASMA 139 mmol/L 135 - 145 03/23 Specimen Type: SERUM No comment entered. Ordering Provider: ROBERTO YARBROUGH Report Released Date/Time: Mar 16, 2024 09:18 AM Reporting Lab: [facility]ITALRL WSTRN [place] [facility] [address] [facility] [address] Performing Lab: [facility]ITALRL WSTRN [facility]ITALUSESTON[facility] [address] [facility] [address] [facility]PITALRFAYETTE MEDICAL CENTERTRN [facility]PITALUSE [facility] BASIC METABOLIC PANEL (fasting) POTASSIUM [MOLES/VOLU ME] IN SERUM OR PLASMA 5.3 mmol/L 3.5 - 5.0 03/23 H Specimen Type: SERUM No comment entered. Ordering Provider: ROBERTO YARBROUGH Report Released Date/Time: Mar 16, 2024 09:18 AM Reporting Lab: [facility] [facility] [address] [facility] [address] Performing Lab: [facility] [place] [facility] [address] [facility] [address] [facility] [place] [facility] BASIC METABOLIC PANEL (fasting) CHLORIDE [MOLES/VOLU ME] IN SERUM OR PLASMA 102 mmol/L 100 - 110 03/23 Specimen Type: SERUM No comment entered. Ordering Provider: ROBERTO YARBROUGH Report Released Date/Time: Mar 16, 2024 09:18 AM Reporting Lab: [facility] [place] [facility] [address] [facility] [address] Performing Lab: [place] [facility] [place] [facility] [address] [facility] [address] [facility]ITALRL WSTRN [place] [facility] BASIC METABOLIC PANEL (fasting) CARBON DIOXIDE, TOTAL [MOLES/VOLU ME] IN SERUM OR PLASMA 29 meq/L 20 - 30 03/23 Specimen Type: SERUM No comment entered. Ordering Provider: ROBERTO YARBROUGH Report Released Date/Time: Mar 16, 2024 09:18 AM Reporting Lab: [facility] [facility] [address] [facility] [phone] Performing Lab: [facility] [place] [facility] [address] [facility] [address] [place] [facility] [place] [facility] BASIC METABOLIC PANEL (fasting) CREATININE [MASS/VOLUM E] IN SERUM OR PLASMA 1.30 mg/dL 0.50 - 1.40 03/23 Specimen Type: SERUM No comment entered. Ordering Provider: ROBERTO YARBROUGH Report Released Date/Time: Mar 16, 2024 09:18 AM Reporting Lab: [facility] [place] [facility] [address] [facility] [phone] Performing Lab: [facility] [place] [facility] [address] [facility] [address] [facility] [place] [facility] BASIC METABOLIC PANEL (fasting) GLOMERULAR FILTRATION RATE/1.73 SQ M.PREDICTED [VOLUME RATE/AREA] IN SERUM, PLASMA OR BLOOD BY CREATININE- BASED FORMULA (CKD-EPI 2020) 62 mL/min 60 03/23 Specimen Type: SERUM No comment entered. Ordering Provider: ROBERTO YARBROUGH Report Released Date/Time: Mar 16, 2024 09:18 AM Reporting Lab: [facility] [place] [facility] [address] [facility] [phone] Performing Lab: [place] [facility] [address] [facility] [phone] [facility] LIVER FUNCTION PROTEIN [MASS/VOLUM E] IN SERUM OR PLASMA 8.4 g/dL 6.0 - 8.3 03/23 H Specimen Type: SERUM No comment entered. Ordering Provider: ROBERTO YARBROUGH Report Released Date/Time: Mar 16, 2024 09:18 AM Reporting Lab: [facility] [address] [address] Performing Lab: [facility] [place] [address] [address] [facility] LIVER FUNCTION ALBUMIN [MASS/VOLUM E] IN SERUM OR PLASMA 4.5 g/dL 3.5 - 5.0 03/23 Specimen Type: SERUM No comment entered. Ordering Provider: ROBERTO YARBROUGH Report Released Date/Time: Mar 16, 2024 09:18 AM Reporting Lab: [facility] [address] [address] Performing Lab: [place] [facility] [address] [facility] [address] [facility] LIVER FUNCTION ALKALINE PHOSPHATASE [ENZYMATIC ACTIVITY/VO LUME] IN SERUM OR PLASMA 76 U/L 40 - 150 03/23 Specimen Type: SERUM No comment entered. Ordering Provider: ROBERTO YARBROUGH Report Released Date/Time: Mar 16, 2024 09:18 AM Reporting Lab: [facility] [place] [place] [address] [address] Performing Lab: [place] [facility] [place] [facility] [address] [facility] [address] [facility] [place] [facility] LIVER FUNCTION ASPARTATE AMINOTRANSF ERASE [ENZYMATIC ACTIVITY/VO LUME] IN SERUM OR PLASMA 32 U/L 5 - 34 03/23 Specimen Type: SERUM No comment entered. Ordering Provider: ROBERTO YARBROUGH Report Released Date/Time: Mar 16, 2024 09:18 AM Reporting Lab: [facility] [address] [facility] [address] Performing Lab: [place] [facility] [address] [facility] [address] [facility] [place] [facility] LIVER FUNCTION ALANINE AMINOTRANSF ERASE [ENZYMATIC ACTIVITY/VO LUME] IN SERUM OR PLASMA 37 U/L 03/23 Specimen Type: SERUM No comment entered. Ordering Provider: ROBERTO YARBROUGH Report Released Date/Time: Mar 16, 2024 09:18 AM Reporting Lab: [facility] [place] [place] [facility] [address] [facility] [address] Performing Lab: [facility] [address] [facility] [address] [facility] LIVER FUNCTION BILIRUBIN.T OTAL [MASS/VOLUM E] IN SERUM OR PLASMA 0.7 mg/dL 0.2 - 1.2 03/23 Specimen Type: SERUM No comment entered. Ordering Provider: ROBERTO YARBROUGH Report Released Date/Time: Mar 16, 2024 09:18 AM Reporting Lab: [place] [facility] [address] [address] Performing Lab: [place] [facility] [address] [facility] HEMOGLOBI N A1C PANEL HEMOGLOBIN A1C/HEMOGLO BIN.TOTAL IN BLOOD BY HPLC 6.9 4.0 - 5.6 03/23 H Specimen Type: BLOOD Comment: Values obtained from A1C measurement s can vary. For atypical A1C assays, a reported value of 7.0 could actually be between 6.72 and 7.28 if measured by a reference method. A reported value of 9.0 could actually be between 8.73 and 9.27. Ref: [email or web address] Pdata.asp Ordering Provider: ROBERTO YARBROUGH Report Released Date/Time: Mar 16, 2024 09:18 AM Reporting Lab: [facility] [place] [facility] [address] [facility] [address] Performing Lab: [facility] [place] [facility] [address] [facility] [address] [facility] [place] [facility] TSH THYROTROPIN [UNITS/VOLU ME] IN SERUM OR PLASMA 5.38 u[IU]/ mL 0.35 - 5.00 03/23 H Specimen Type: SERUM No comment entered. Ordering Provider: ROBERTO YARBROUGH Report Released Date/Time: Mar 16, 2024 09:18 AM Reporting Lab: [facility] [place] [facility] [address] [facility] [address] Performing Lab: [facility] [place] [facility] [address] [facility] [address] [facility] [place] [facility] MICROALBU MIN CREATININ E RATIO PANEL MICROALBUMI N/CREATININ E [MASS RATIO] IN URINE 60.2 mg/g 0 - 29.9 03/23 H Specimen Type: URINE No comment entered. Ordering Provider: ROBERTO YARBROUGH Report Released Date/Time: Mar 16, 2024 09:18 AM Reporting Lab: [facility] [place] [facility] [address] [facility] [address] Performing Lab: [facility] [place] [facility] [address] [facility] [address] [facility] [place] [facility] MICROALBU MIN CREATININ E RATIO PANEL MICROALBUMI N [MASS/VOLUM E] IN URINE 6.9 mg/dL 03/23 Specimen Type: URINE No comment entered. Ordering Provider: ROBERTO YARBROUGH Report Released Date/Time: Mar 16, 2024 09:18 AM Reporting Lab: [facility] [place] [facility] [address] [facility] [address] Performing Lab: [facility] [place] [facility] [address] [facility] [address] [facility] MICROALBU MIN CREATININ E RATIO PANEL CREATININE [MASS/VOLUM E] IN URINE 114.63 mg/dL 03/23 Specimen Type: URINE No comment entered. Ordering Provider: ROBERTO YARBROUGH Report Released Date/Time: Mar 16, 2024 09:18 AM Reporting Lab: [facility] [place] [facility] [address] [facility] [address] Performing Lab: [facility] [place] [facility] [address] [facility] [address] [facility] Vital Signs Combined list of inpatient and outpatient Vital Signs from Department of Defense and Veterans Affairs, ranging from 12 months to all on record, depending upon the facility. 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 Location Location Details Encounter Type Encounter Number Reason For Visit Attending Provider ADM Date DC Date Status Disposition Source [facility] E[facility] EXAM&TX ESTAB PT 1/>VST [id number] Diagnos is: ICD-10- CM E11.9 Type 2 diabete s mellitu s without complic ations ACE RENDON [facility] [place] 01/22 [facility] FIT SPECTACLES MULTIFOCAL [id number] Diagnos is: ICD-10- CM Z46.0 Encount er for fit/adj st of spectac les and contact lenses ACE RENDON [place] 01/22 [facility] En[facility] [id number] 01/31 [facility] En[facility] [id number] 01/31 [facility] [id number] 01/31 [facility] En[facility] [id number] 02/10 [facility] FIT SPECTACLES MULTIFOCAL [id number] Diagnos is: ICD-10- CM Z46.0 Encount er for fit/adj st of spectac les and contact lenses HANS OSPINA 02/12 [facility] En[facility] [id number] 02/13 [facility] En[facility] [id number] 02/13 [facility] En[facility] [id number] 02/25 [facility] En[facility] [id number] 03/17 [facility] En[facility] [id number] 03/24 [facility] En[facility] [id number] 03/24 [facility] [place] [facility] LD OFFICE O/P EST MOD 30 MIN [id number] Diagnos is: ICD-10- CM Z00.01 Encount er for general adult medical exam w abnorma l funmilayo s Fay YARBROUGH 04/01 [facility] [place] [facility] En[facility] [id number] 08/06 [facility] En[facility] [id number] 11/02 [facility] COMPRE OPH EXAM EST PT 1/> [id number] Diagnos is: ICD-10- CM E11.9 Type 2 diabete s mellitu s without complic ations ACE RENDON 01/27 [facility] FIT SPECTACLES MULTIFOCAL [id number] 1. Diagnos is: ICD-10- CM Z46.0 Encount er for fit/adj st of spectac les and contact lenses JUSTICEACE Tapia 01/27 [facility] [place] Outpatient Encounter [id number] JULY,MIRYAM LY P 03/29 [place] [facility] En[facility] [id number] [facility] En[facility] [id number] [facility] En[facility] [id number] 04/08 [facility] En[facility] [id number] 04/08 [facility] [place] [facility] [facility] (89GE) NQHP OL DIG ASSMT&MGMT 11-20 [id number] 3GE. 28 Diagnos is: ICD-10- CM I70.90 Unspeci fied atheros clerosi s MATA JAIMES 04/12 [facility]89[facility] PH1 ASSMT&MGMT NQHP 5-10 [id number] Diagnos is: ICD-10- CM Z76.0 Encount er for issue of repeat prescri ption AYE FELICIANO 04/13 [facility] En[facility] [id number] [facility] En[facility] [id number] 04/21 [facility] [place] [place] [facility] Outpatient Encounter [id number] 04/29 [facility] [place] [facility] [facility] Outpatient Encounter [id number] 06/15 [place] [facility] [place] [facility] Social History Combined list of available smoking, tobacco, and other social history from Department of Defense and Veterans Affairs facilities. Social History Type Response Date Comment Sour e Tobacco [facility] status [facility] [place] [facility]/09/2021 [place] [facility] 09/07/2020 [place] [facility] 06/23/2018 [place] History of tobacco use CURRENT SMOKER 05/03/2015 occasional cigar smoker [place] History of tobacco use LIFETIME NON-SMOKER 01/30/2005 [place] History of tobacco use LIFETIME NON-SMOKER 01/16/2004 [place] History of tobacco use LIFETIME NON-SMOKER 04/30/2002 [place] Plan of Care List of future care activities from Department of Veterans Affairs facilities. Additional future care activities may be listed in the Assessment and Plan section. Date/Time Care Activity Care Activity Detail Facili ty 07/26/2024 AMBULATORY - MEDICINE [facility]
== END 2024-06-15 11:12 | disposition home or self-care (01) ==
LOC: HO.ENCR 10:34
PROVIDERS: Visit Provider Dietitian, Registered
DX: E11.42 Type 2 diabetes mellitus with diabetic polyneuropathy (principal); Z79.4 Long term (current) use of insulin

== ENCOUNTER → 2024-06-15 10:33 | Outpatient (BNVA) | payer OTHER, SELFPAY | PROVIDERS: Visit Provider Dietitian, Registered | DX: E66.9 Obesity, unspecified (principal); E11.42 Type 2 diabetes mellitus with diabetic polyneuropathy; Z68.41 Body mass index [BMI] 40.0-44.9, adult; Z79.4 Long term (current) use of insulin | CPT/HCPCS: 97802 ==

== ENCOUNTER 2024-06-22 07:35 | Outpatient (REF) | payer BC, SELFPAY ==
--- OUTSIDE RECORDS SUMMARY | 2024-06-22 07:40 | XMS_ITS | Encounter Summary ---
Author Name [facility] [facility] [place] [facility] [place] [facility] [place] Address [address] [place] [id number] Care Team Providers Care Waiter/Waitress Club Name Role Phone ANIYAH JAUREGUI Primary Care Provider Kat mcgill Insurance Providers: All historical and current [...] Name Patient's Relationship to Policy [facility] FEDERAL PREFERRED PROVIDER ORGANIZAT ION (PPO) BASIC FAMIL Y Mar 17, 2010 [id number] [phone] COLON,EDW IN PATIENT BCBS [place] FEP PREFERRED PROVIDER ORGANIZAT ION (PPO) PSHB BASIC SELF Mar 17, 2024 33A [id number] COLON,EDW IN PATIENT [place] FEP PREFERRED PROVIDER ORGANIZAT ION (PPO) BASIC FAMIL Y May 15, 2010 [id number] [phone] COLON,EDW IN PATIENT [place] FEP BCBS PRESCRIPT ION CAREM ARK FEPRX PLAN Feb 13, 2011 [id number] COLON,EDW IN PATIENT CAR[place]ARK FEPRX PLAN PRESCRIPT ION CAREM ARK FEPRX Mar 17, 2010 [id number] COLON,EDW IN PATIENT CAREMARK-F EP BCBS PRESCRIPT ION TRAM AL RX Mar 17, 2024 [id number] COLON,EDW IN PATIENT [place]ARK-F EP BCBS PRESCRIPT ION TRAM AL RX Mar 17, 2024 [id number] COLON,EDW IN PATIENT [place]ARK-F EP BCBS PRESCRIPT ION TRAM AL EMPLO YEES Mar 17, 2024 [id number] COLON,EDW IN PATIENT CAREMARK-F EP BCBS PRESCRIPT ION FEP CAREM ARK Nov 15, 2022 [id number] COLON,EDW IN PATIENT EXCELLUS BCBS FEDERAL PREFERRED PROVIDER ORGANIZAT ION (PPO) PSHB BASIC SELF Mar 17, 2024 33A [id number] COLON,EDW IN PATIENT HORIZON FEDERAL PREFERRED PROVIDER ORGANIZAT ION (PPO) PSHB BASIC SELF Mar 17, 2024 33A [id number] COLON,EDW IN PATIENT Selected Encounter This section includes the information on record at [place] for the Encounter. Date/Time Encounter Type Encounter Description Reason Provider Source Mar 29, 2024 10:30 AM OFFICE O/P EST MOD 30 MIN PRIMARY CARE/MEDICINE ICD-10-CM E11.9 Type 2 diabetes mellitus without complications PAOLA LANG Tammy Encounter Template Text not used by [place] Assessments - Encounter Diagnoses This section includes the primary and secondary diagnoses documented for the Encounter. 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 This section includes future appointments and future orders which are active, pending or scheduled. Future Appointments This section includes appointments that were scheduled to occur 6 months from the date of the Encounter, up to a maximum of 20 appointments. The data comes from all [facility] facilities. Appointment Date/Time Appointment Type Appointme nt Facility Name Apr 29, 2024 09:30 AM AMBULATORY - MEDICINE [facility] July 26, 2024 01:30 PM AMBULATORY MEDICINE [facility] Active, Pending, and Scheduled Orders This section includes a listing of several types of active, pending, and scheduled orders, including clinic medications orders, diagnostic test orders, procedure orders and consult orders; where the start date of the order is 45 days before the date of the Encounter or 45 days after the date of theEncounter. The data comes from all [facility]. Test Date/Time Test Type Test Details Facility Name Apr 22, 2024 10:41 AM Consult Order [facility] Cons Butadiene Converter Operator's Choice [facility] Lab Results: +/- 30 days of the encounter This section includes the Chemistry and Hematology Lab Results on record with [place] for the patient. Radiology Reports and Pathology Reports are provided separately, in subsequent sections. Lab Results This section contains the Chemistry/Hematology Results that were resulted 30 days before or 30 daysafter the date of the Encounter. Date/Time Source Result Type Result - Unit Interpretation Reference Range Comment Mar 23, 2024 07:31 AM [facility] LIPID PANEL FASTING Specimen Type: SERUM No comment entered. Ordering Provider: ANI YARBROUGH Report Released Date/Time: Mar 16, 2024 09:18 AM Reporting Lab: [address] [address] Performing Lab: [address] [address] CHOLESTEROL 176 mg/dL TRIGLYCERIDE 196 mg/dL H 0-150 LDL calculated 102 mg/dL 0-129 CHOL/HDL 5.0 HDL CHOLESTEROL 35 mg/dL L 40-60 Mar 23, 2024 07:31 AM [facility] BASIC METABOLIC PANEL (fasting) Specimen Type: SERUM No comment entered. Ordering Provider: ANI YARBROUGH Report Released Date/Time: Mar 16, 2024 09:18 AM Reporting Lab: [facility] [address] [facility] [address] Performing Lab: [facility] [address] [facility] [address] UREA NITROGEN 22 mg/dL 7-25 GLUCOSE 173 mg/dL H 65-100 SODIUM 139 mmol/L 135-145 POTASSIUM 5.3 mmol/L H 3.5-5.0 CHLORIDE 102 mmol/L 100-110 CO2 29 meq/L 20-30 CREATININE, Serum 1.30 mg/dL 0.50-1.40 eGFR(CKD-EPI 2020) 62 mL/min >60 Mar 23, 2024 07:31 AM [facility] LIVER FUNCTION Specimen Type: SERUM No comment entered. Ordering Provider: ANI YARBROUGH Report Released Date/Time: Mar 16, 2024 09:18 AM Reporting Lab: [facility] [address] [facility] [address] Performing Lab: [address] [address] PROTEIN,TOTAL 8.4 g/dL H 6.0-8.3 ALBUMIN 4.5 g/dL 3.5-5.0 ALKALINE PHOSPHATASE 76 U/L 40-150 AST 32 U/L 5-34 ALT 37 U/L BILIRUBIN, TOTAL 0.7 mg/dL 0.2-1.2 Mar 23, 2024 07:31 AM [facility] HEMOGLOBIN A1C PANEL Specimen Type: BLOOD Comment: [...] Mar 16, 2024 09:18 AM Reporting Lab: [place] [facility] [place] [facility] [address] [facility] [address] Performing Lab: [facility] [place] [facility] [address] [facility] [address] HEMOGLOBIN A1C 6.9 H 4.0-5.6 Mar 23, 2024 07:31 AM [facility] [place] [facility] TSH Specimen Type: SERUM No comment entered. Ordering Provider: ANI YARBROUGH Report Released Date/Time: Mar 16, 2024 09:18 AM Reporting Lab: [facility] [place] [facility] [address] [facility] [address] Performing Lab: [place] [facility] [facility] [address] [facility] [address] TSH 5.38 u[IU]/mL H 0.35-5.00 Mar 23, 2024 07:31 AM [facility] MICROALBUMIN CREATININE RATIO PANEL Specimen Type: URINE No comment entered. Ordering Provider: ANI YARBROUGH Report Released Date/Time: Mar 16, 2024 09:18 AM Reporting Lab: [facility] [place] [facility] [address] [facility] [address] Performing Lab: [facility] [place] [facility] [address] [facility] [address] MICROALBUMIN/C REATININE RATIO 60.2 mg/g H 0-29.9 MICROALBUMIN,Q UANTITATIVE 6.9 mg/dL RR UNAVAIL CREATININE URINE 114.63 mg/dL Mar 23, 2024 07:31 AM [facility] CBC AND DIFF (AUTO) Specimen Type: BLOOD No comment entered. Ordering Provider: ANI YARBROUGH Report Released Date/Time: Mar 16, 2024 09:18 AM Reporting Lab: [place] [facility] [place] [facility] [address] [facility] [address] Performing Lab: [facility] [place] [place] [address] [address] WBC 6.73 10*3/uL 4.50-11.00 RBC 5.01 10*6/uL [...] and tobacco- related health factors from the [place] facility where the Encounter took place. Current Smoking Status This section includes the most current smoking, or tobacco-related health factor, from the [place] facility where the Encounter took place. Date/Time Current Smoking Status Comment Niyah ity Apr 01, 2023 11:30 AM [place]-TOBAC[place] NEVER USED [facility] Tobacco Use History This section includes a history of the smoking, or tobacco-related health factors, that were collected on or before the date of the Encounter. The data comes from the [place] facility where the Encounter took place. Date/Time Smoking Status/Tobacco Use Comment F acility Oct 09, 2021 10:30 AM [place]-TOBAC[place] NEVER USED [facility] Sep 07, 2020 03:00 PM [facility]-TO[facility]ACCO NEVER USED [facility] Jun 23, 2018 02:03 PM [place]-TOBACCO NEVER US[facility] May 03, 2015 12:58 PM CURRENT SMOKER occasional cigar smoker [facility] May 03, 2015 12:58 PM QUIT TOBACCO USE > 7 YEARS AGO Pt does not smoke- last time smoked May 2014 [facility] Jan 30, 2005 09:29 AM LIFETIME NON-SMOKER [facility] Jan 16, 2004 01:51 PM LIFETIME NON-SMOKER [facility] Apr 30, 2002 01:52 PM LIFETIME NON-SMOKER [facility] Apr 30, 2002 01:52 PM LIFETIME NON-TOBACCO USER [facility] Encounter Notes: All associated encounter notes This section contains the clinical notes associated to the Encounter. Date/Time Encounter Note(s) Provider Source Mar 29, 2024 10:41 AM ADDENDUM: LOCAL TITLE: Addendum STANDARD TITLE: ADDENDUM DATE OF NOTE: MAR 29, 2024@10:41:26 ENTRY DATE: MAR 29, 2024@10:41:26 AUTHOR: GAVINO PETERS EXP COSIGNER: URGENCY: STATUS: COMPLETED Please request last Cardilogy notes from: [facility] Thanks! /ruchi/ GAVINO PETERS LPN LPN Signed: 03/29/2024 10:42 Receipt Acknowledged By: 03/29/2024 13:25 /es/ NEETU SKAGGS ======== --- Original Document --- 03/29/24 CLINICAL REMINDERS/NURSING: Advance Directive Screen MH AD: Patient does not have a completed advance directive on file at any facility, [facility] or outside. S/he is not interested in completing one at this time. The patient received education about Advance Directives and written notification of his/her rights. Suicide Screen: C-SSRS Screening [place] Suicide Severity Rating Scale (C-SSRS) screener 1. [...] this can be accurately recorded in their [place] medical record. RSV Immunization: Defer due to [...] full rights to use it throughout the [place] system. PRIMARY SCREEN RESULT: The Primary Screen [...] care exam. The patient was advised the [place] mandates all patients with diabetes mellitus, end [...] Signed: 03/29/2024 10:39 03/29/2024 ADDENDUM STATUS: COMPLETED Director Of Content Marketing requested records. /ruchi/ NEETU HOWARD RUBENA Signed: 03/29/2024 13:25 GAVINO PETERS [facility] Mar 29, 2024 10:36 AM PREVENTIVE MEDICIN [...] of his/her rights. Suicide Screen: C-SSRS Screening [place] Suicide Severity Rating Scale (C-SSRS) screener 1. [...] this can be accurately recorded in their [place] medical record. RSV Immunization: Defer due to [...] full rights to use it throughout the [place] system. PRIMARY SCREEN RESULT: The Primary Screen [...] care exam. The patient was advised the [place] mandates all patients with diabetes mellitus, end [...] COMPLETED Please request last Cardilogy notes from: [facility] Thanks! /becky PETERS LPN LPN Signed: 03/29/2024 10:42 Receipt Acknowledged By: 03/29/2024 13:25 /becky SKAGGS 03/29/2024 ADDENDUM STATUS: COMPLETED Director Of Content Marketing requested records. /becky SKAGGS Signed: 03/29/2024 13:25 GAVINO PETERS Mar 29, 2024 07:30 AM PHYSICIAN NOTE: LOCAL TITLE: NOTE STANDARD TITLE: PHYSICIAN NOTE DATE OF NOTE: MAR 29, 2024@07:30 ENTRY DATE: MAR 29, 2024@07:30:36 AUTHOR: PAOLA LANG COSIGNER: URGENCY: STATUS: COMPLETED Primary Care Progress Note CC: is here to follow up the problems listed below HPI: He sees cardiology in [place], and is in discussion with them about a possible stent, after he had a heart CT scan. 04/06/24 he is having a cardiac cath to check the anatomy. metoprolol succinate 25 mg daily started. He is also on fenofibrate 54 mg once daily, amlodipine, jardiance, ozempic, metformin, losartan 50 mg daily He has a lesion on the left side of the forehead, and would like to have it removed, but the wait time is too long in dermatolgy--this is a raised, pruritic lesion, scaly, for 1-2 years. 1 cm x 0.5 cm ROS:weight is stable; vision is stable; hearing is stable; no fevers or adenopathy; no CP/SOB/AC; gi--no diarrhea, hematochezia, melena; --no stones, hematuria, dysuria; skin--lesion on the forehead as above, no rash; neuro--no YEH, szs, stroke-like sx; MSK--no new problems FHx: father age 81, he had a colostomy bag; mother is alive at 81, she has DMII and RAD, she is in [place]; 1 son alive and well SHx: tob--an occasional cigar (once a month); etoh--socially only, about once a week, 1-2 beers. [place]--7 years and 10 months; retired [employer] x 33 years Active Medical Problems: Active problems - Computerized Problem List is the source for the followin. Erectile dysfunction 2. Contact dermatitis due to poison cyndee 3. Nonproliferative diabetic retinopathy OU per eye exam Jan 2014; 4. Disorder of lipid and lipoprotein metabolism (SNOMED CT 95282527) 5. 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 Other dyspnea and respiratory abnormality 7. Positive Microalbuminuria Test Result Documented and Reviewed (DM) 8. Type II diabetes mellitus 9. Knee: arthralgia 10. Heel: arthralgia 11. Obesity 1987: SC: Rt Ankle: 2 surgergies 07-13-10: EKG:NSR 64bpm SD:178 QRS:86 QT: 392 NSTW 14. Depressive Disorder NOS * 15. Adjustment Disorder with Mixed Anxiety and Depressed Mood 16. Pain in joint involving shoulder region 17. 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 (SNOMED CT 907090974) PCP- Radha Zamora MD Meds:Active Outpatient Medications (including Supplies): SILDENAFIL CITRATE 100MG TAB TAKE ONE TABLET BY MOUTH ONCE ACTIVE DAILY NEEDED TAKE 1 HOUR PRIOR TO SEXUAL ACTIVITY Indication: FOR ERECTILE DYSFUNCTION Non-VA AMLODIPINE BESYLATE 5MG TAB 5MG BY MOUTH ONCE DAILY ACTIVE Non-VA ASPIRIN 81MG EC TAB 81MG BY MOUTH DAILY ACTIVE Non-VA ATORVASTATIN CALCIUM 40MG TAB 20MG BY MOUTH ONCE ACTIVE DAILY Indication: FOR HIGH CHOLESTEROL Non-VA EMPAGLIFLOZIN 25MG TAB 25MG BY MOUTH ONCE DAILY ACTIVE Non-VA FENOFIBRATE 54MG TAB 54MG BY MOUTH ONCE DAILY ACTIVE Indication: FOR HIGH CHOLESTEROL Non-VA FISH OIL 1000MG (500MG DHA/EPA) CAP 2000MG BY MOUTH ACTIVE AT BEDTIME Non-VA HYDROCHLOROTHIAZIDE 25MG TAB 25MG BY MOUTH ONCE ACTIVE DAILY Non-VA LOSARTAN 100MG TAB 100MG BY MOUTH ONCE DAILY ACTIVE Non-VA METFORMIN HCL 500MG TAB 500MG BY MOUTH ONCE DAILY ACTIVE Non-VA MULTIVITAMIN/MINERALS CAP/TAB 1 TABLET BY MOUTH ACTIVE Non-VA SEMAGLUTIDE 1MG/0.75ML INJ PEN 1.5ML 1MG ACTIVE SUBCUTANEOUSLY ONCE A WEEK 12 Total Medications No Active Remote Medications for this patient All:PENICILLIN PEx: Wt: 236 lb [107.05 kg] (04/01/2023 12:17); Ht: 62 in [157.5 cm] (04/01/2023 12:18) Blood Pressure: 122/78 (03/29/2024 10:36) Pain: 0 (03/29/2024 10:36) Patient Height: 62 in [157.5 cm] (03/29/2024 10:36) Patient Weight: 235.4 lb [106.78 kg] (03/29/2024 10:36) Pulse: 73 (03/29/2024 10:36) Respiration: 20 (03/29/2024 10:36) Temperature: 98.4 F [36.9 C] (03/29/2024 10:36) is pleasant and appropriate; gait is normal; HEENT: PERRL, EOMI, mucous membranes are moist; neck is without nodes, bruits or JVD; lungs are CTA bilaterally, no wheezes, rales or rhonchi; heart is with rrr, no m,r,g. abd- soft and nontender, no h/s megaly or mass; extrems are without cce; neuro--a&ox3 and coop, nonfocal; skin--1x0.5 cm scaly lesion left forehead Data: All available test results were reviewed with the [facility] Mar 23 Reference 2024 07:31 Units Ranges -------- - GLUCOSE 173 H mg/dL 65 - 100 BUN 22 mg/dL 7 - 25 CREATININE 1.30 mg/dL .5 - 1.4 eGFR(IDMS) Ref: >=60 CREAT mg/dL .5 - 1.5 eGFR See Eval Ref: See Eval Sodium 139 mmol/L 135 - 145 K+/Pot 5.3 H mmol/L 3.5 - 5 CL 102 mmol/L 100 - 110 CO2 29 mEq/L 20 - 30 CA mg/dL 8.5 - 10.2 UricAci mg/dL 3.5 - 7.2 NH3/Amm PO4 mg/dL 2.5 - 5 T. PROT 8.4 H g/dL 6 - 8.3 ALBUMIN 4.5 g/dL 3.5 - 5 T BILI 0.7 mg/dL .2 - 1.2 D. BILI mg/dL 0 - .5 AST 32 U/L 5 - 34 ALT 37 U/L <6 - 55 GGT U/L 10 - 65 ALK NINI 76 U/L 40 - 150 SERUM Mar 23 Reference 2024 07:31 Units Ranges -------- - CHOL 176 mg/dL <7 - 199 TRIG 196 H mg/dL 0 - 150 HDL 35 L mg/dL 40 - 60 LDL-d mg/dL <10 - 120 LDL 102 mg/dL 0 - 129 CHO/HDL 5.0 BLOOD Mar 23 Reference 2024 07:31 Units Ranges -------- HGB-A1c 6.9 H % 4 - 5.6 SERUM Horacio Reference 2024 07:31 Units Ranges -------- - T-U % 32 - 48 T4 ug/dL 4.5 - 12 TSH 5.38 H uIU/mL .35 - 5 BLOOD Horacio Reference 2024 07:31 Units Ranges -------- - WBC 6.73 K/cmm 4.5 - 11 RBC 5.01 M/cmm 4.23 - 5.66 HGB 15.6 g/dL 12.8 - 17 HCT 44.3 % 39.2 - 50.4 MCV 88.4 fl 82 - 99 MCH 31.1 pg 26.2 - 32.6 MCHC 35.2 H g/dL 30.8 - 35.1 RDW 12.9 % 12 - 16 PLT 211 K/cmm 140 - 360 Neut% 56.7 % 43.7 - 75.8 Lymph% 31.6 % 14 - 42.3 Waldo% 9.5 % 5.1 - 13.7 Eos% 1.5 % .4 - 6.8 Baso% 0.4 % .1 - 2 IG% 0.3 % 0 - .7 NeutAbs 3.81 K/cmm 2.2 - 7.6 LymAbs 2.13 K/cmm 1 - 3.2 MonoAbs 0.64 K/cmm .3 - 1.1 EosAbs 0.10 K/cmm .03 - .44 BasoAbs 0.03 K/cmm .01 - .13 IG,Abs 0.02 K/cmm 0 - .06 NRBC% 0.0 % 0 - 0 NRBC# 0.00 K/cmm 0 - 0 DATE TIME SPECIMEN TEST VALUE Ref ranges -------- - Mar 23, 2024@07:31 URINE mALB/Cr: 60.2 H mg/G 0 - 29.9 Mar 23, 2024@07:31 URINE MICROALBUMIN,QUANTITATIVE:6.9 mg/dL Ref: RR UNAVAIL Mar 23, 2024@07:31 URINE CREATININE URINE: 114.63 mg/dL Mar 23, 2024@07:31 SERUM eGFR(CKD-EPI 2020): 62 mL/min Ref: >=60 Feb 11, 2024 FECES OCCULT BLOOD (FIT)#1 OF 1:Negative Ref: NEG A/P: All instructions were explained for the , who expressed understanding and agreement. 1. DMII--with microalbuminuria; will continue losartan and current medication with acceptable hgb a1c 2. Hyperlipidemia--continue cardiology care 3. Hypothryoidism--low dose levothyroxine added 0.25 mg po daily. WIll repeat the TSH at follow up 4. HCM--colon screen--negative FIT test, will consider repeat in a year Prostate screen--will get a PSA with next routine labs COVID-19 ([employer]), VECTOR-NR, R* 1 05/30/2020 [place] [facility] * <C> COVID-19 ([employer]), MRNA, LNP-S, * 2 02/23/2021 Outside H* DTAP, UNSPECIFIED FORMULATION 08/14/2012 [place]* FLU,3 YRS (HISTORICAL) No Site <C> FLU,3 YRS (HISTORICAL) No Site <C> FLU,3 YRS (HISTORICAL) 01/07/2013 [place]* <C> FLU,3 YRS (HISTORICAL) 01/20/2012 [facility] FLU,3 YRS (HISTORICAL) 12/15/2010 Outside H* FLU,3 YRS (HISTORICAL) 11/15/2009 Outside H* INFLUENZA, SPLIT VIRUS, QUADRIVA* 04/01/2023 [place]* INFLUENZA, SPLIT VIRUS, TRIVALEN* No Site INFLUENZA, UNSPECIFIED FORMULATI* Outside H* PNEUMOCOCCAL CONJUGATE PCV20, PO* 10/09/2021 [place]* PNEUMOCOCCAL, UNSPECIFIED FORMUL* 08/14/2012 [place]* ZOSTER RECOMBINANT 2 04/01/2023 [place]* ZOSTER RECOMBINANT 1 10/09/2021 [place]* 5. Follow up in 07/09: repeat the TSH, PSA for prostate screening, hgb a1c, eGFR, potassium and the CrCl Medication Reconciliation: Outpatient: Has the patient been taking medications as documented in the EMLR? YES: The patient has been taking medications as documented in the EMLR. Essential Medication List for Review used to complete this medication reconciliation. INCLUDED IN THIS LIST: Alphabetical list of active outpatient prescriptions dispensed from this [facility] ([facility]) and dispensed from another [place] or [facility] facility (remote) as well as inpatient orders [...] whether with a VA or non-VA provider. /ruchi/ Paola Lang MD INTERNAL MEDICINE and RHEUMATOLOGY Signed: 06/19/2024 13:57 PAOLA LANG
--- OUTSIDE RECORDS SUMMARY | 2024-06-22 07:40 | XMS_ITS | Continuity of Care Document ---
Author Name [facility] Organization [facility] Care Team Providers Care Business Line Controller Name Role Phone [facility] Unavailable Unavailable Problems Combined list of problems from Department of Defense and Veterans Affairs facilities. It does not include entries that were removed or entered in error. Problem Status Onset Date Problem Type Date of Resolution Comments Source 1988: [place]: Rt Ankle: 2 surgergies Active Condition [place] Acute Anxiety disorder Active Condition [facility] Adjustment Disorder with Mixed Anxiety and Depressed Mood (ICD-9-CM 309.28) Active Condition [facility] ASTHMA Active Condition [facility] Contact dermatitis due to poison cyndee Active Condition [facility] Coronary arteriosclerosis Active Condition [facility] Depressive Disorder NOS * (ICD-9-CM 311./300.4) Active Condition [facility] [place] Disorder of lipid and lipoprotein metabolism (SNOMED CT [id number]) Active Condition [place] Erectile dysfunction Active Condition [facility] [place] [facility] Essential hypertension Active [facility] [place] [facility] Heel: arthralgia Active Condition [place] Hyperlipidemia Active Condition [facility] Knee: arthralgia Active Condition [place] Nonproliferative diabetic retinopathy Active Condition Jan 28, 2014 Entered By: SONNY OG Comment: 2013 Entered By: SONNY OG Comment: per eye exam Jan 2014; [place] Obesity Active Condition [place] Other dyspnea and respiratory abnormality (ICD-9-CM 786.09) Active Condition [facility] [place] Pain in joint involving shoulder region (ICD-9-CM 719.41) Active Condition [facility] Positive Microalbuminuria Test Result Documented and Reviewed (DM) Active Condition [place] Type 2 diabetes mellitus Active Condition [facility] Diagnosis: ICD-10-CM Z76.0 Encounter for issue of repeat prescription Active Diagnosis [facility] Diagnosis: ICD-10-CM I70.90 Unspecified atherosclerosis Active Diagnosis [facility] (6[facility]) Diagnosis: ICD-10-CM E11.9 Type 2 diabetes mellitus without complications Active Diagnosis [place] Diagnosis: ICD-10-CM Z46.0 Encounter for fit/adjst of spectacles and contact lenses Active Diagnosis [facility] A[facility] Diagnosis: ICD-10-CM Z00.01 Encounter for general adult medical exam w abnormal findings Active Diagnosis [facility] [place] Medications Combined list of outpatient medications from [...] ONCE DAILY ORAL ACTIVE Barry RICKS 2018 [facility] [place] ASPIRIN 81MG TAB,EC TAKE ONE TABLET BY MOUTH DAILY ORAL ACTIVE RHODA GARCIA 2014 [facility] IELD EMPAGLIFLOZ IN 25MG TAB TAKE ONE TABLET BY MOUTH ONCE DAILY ORAL ACTIVE Barry RICKS 2018 [facility] [place] FENOFIBRATE 54MG TAB TAKE ONE TABLET BY MOUTH ONCE DAILY ORAL ACTIVE CHIKA YARBROUGH O 2023 [facility] [place] FISH OIL 1000MG (500MG DHA/EPA) CAP,ORAL TAKE 2 CAPSULES BY MOUTH AT BEDTIME ORAL ACTIVE SEBASTIAN HERNANDEZ 2010 [facility] IELD HYDROCHLORO THIAZIDE 25MG TAB TAKE ONE TABLET BY MOUTH ONCE DAILY ORAL ACTIVE Barry RICKS 2018 [facility] IELD LEVOTHYROXI NE NA 25MCG TAB (SYNTHROID) TAKE ONE TABLET BY MOUTH EVERY MORNING 30 MINUTES BEFORE BREAKFAS T FOR THYROID TAKE ON AN EMPTY STOMACH WITH A FULL GLASS OF WATER ORAL ACTIVE 03/30/2025 [id number] 19 July,WANDY Hoyt 2024 90 [facility] IELD [place] POTASSIUM 100MG TAB TAKE ONE TABLET BY MOUTH ONCE DAILY ORAL ACTIVE Barry RICKS 2018 [place] METFORMIN HCL 500MG TAB TAKE ONE TABLET BY MOUTH ONCE DAILY ORAL ACTIVE Barry RICKS 2018 [place] METOPROLOL SUCCINATE 25MG TAB,SA TAKE ONE TABLET BY MOUTH ONCE DAILY ORAL ACTIVE RA GREGORY JAUREGUI spring IELD MULTIVITAMI NS W/MINERALS TAB TAKE ONE TABLET BY MOUTH qd ORAL ACTIVE LAKISHA MORA 2004 IELD SEMAGLUTIDE 1MG/0.75ML INJ,SOLN,PE N,1.5ML INJECT 1MG SUBCUTAN EOUSLY ONCE A WEEK SUBCUT ANEOUS ACTIVE Barry RICKS 2018 I[place] SILDENAFIL CITRATE 100MG TAB TAKE ONE TABLET BY MOUTH ONCE DAILY NEEDED FOR ERECTILE DYSFUNCT ION TAKE 1 HOUR PRIOR TO SEXUAL ACTIVITY ORAL 04/01/2024 [id number] 4 CHIKA YARBROUGH O 2023 6 IELD TICAGRELOR 90MG TAB TAKE ONE TABLET BY MOUTH TWICE DAILY ORAL ACTIVE 04/12/2025 [id number] 5 RA GREGORY JAUREGUI 2024 180 [place] Allergies, Adverse Reactions, Alerts Combined list of allergies from Department of Defense and Veterans Affairs facilities. It does not include entries that were removed or entered in error. Substance Category Reaction Severity Reaction type Status Date Reported Comments Source PENICILLIN Propensity to adverse reactions to drug (finding) SWELLING- THROAT [facility] [place] [facility] Immunizations Combined list of available immunizations from the Department of Defense and Veterans Affairs facilities. Immunization Series Date Given Administered By Site Reaction Lot Number CVX Code Drug Senior Producer Status Comments Source INFLUENZA, INJECTABLE, QUADRIVALENT, PRESERVATIVE FREE 2023 AVANI PETERS LEFT DELTO ID [id number] A 150 complet ed [facility] IELD ZOSTER RECOMBINANT 2 2023 AVAIN PETERS LEFT DELTO ID [id number] 187 complet ed [facility] [place] INFLUENZA, UNSPECIFIED FORMULATION 2023 88 complet ed [facility] [place] [facility] [facility] PNEUMOCOCCAL CONJUGATE PCV20, POLYSACCHARID E [id number] CONJUGATE, ADJUVANT, PF 2021 216 complet ed [place] ZOSTER RECOMBINANT 1 2021 187 complet ed [place] COVID-19 ([employer]), MRNA, LNP-S, PF, 30 MCG/0.3 ML DOSE 2 2020 208 complet ed [facility] COVID-19 ([employer]), VECTOR-NR, [id number], PF, 0.5 ML 1 2020 212 complet ed N; [id number]; 1 [facility] [place] INFLUENZA, UNSPECIFIED FORMULATION 2019 88 complet ed [facility] INFLUENZA, SEASONAL, INJECTABLE 2017 141 complet ed [facility] FLU,3 YRS (HISTORICAL) 2014 [address] complet ed post office [facility] FLU,3 YRS (HISTORICAL) 2013 88 complet ed at work [facility] [place] FLU,3 YRS [...] FLU,3 YRS (HISTORICAL) 2009 88 complet ed [facility] Results Combined list of recent chemistry, hematology [...] Type: SERUM No comment entered. Ordering Provider: MAY,KIMBERL Y P Report Released Date/Time: Mar 29, 2024 10:49 AM Reporting Lab: [facility] [place] [facility] [address] [facility] [address] Performing Lab: [facility] [place] [facility] [address] [facility] [address] [facility] [place] [facility] TSH THYROTROPIN [UNITS/VOLU ME] IN SERUM OR PLASMA BY DETECTION LIMIT <= 0.005 MIU/L 3.28 u[IU]/ mL 0.35 - 5.00 06/10 Specimen Type: SERUM No comment entered. Ordering Provider: ROSANGELA LANG Report Released Date/Time: Mar 29, 2024 10:49 AM Reporting Lab: [facility] [place] [facility] [address] [facility] [address] Performing Lab: [facility] [place] [facility] [address] [facility] [address] [facility] [place] [facility] LIVER FUNCTION PROTEIN [MASS/VOLUM E] IN SERUM OR PLASMA 7.9 g/dL 6.0 - 8.3 06/10 Specimen Type: SERUM No comment entered. Ordering Provider: ROSANGELA LANG Report Released Date/Time: Mar 29, 2024 10:49 AM Reporting Lab: [facility] [place] [facility] [address] [facility] [address] Performing Lab: [facility] [place] [facility] [address] [facility] [address] [facility] [place] [facility] LIVER FUNCTION ALBUMIN [MASS/VOLUM E] IN SERUM OR PLASMA BY BROMOCRESOL PURPLE (BCP) DYE BINDING METHOD 4.2 g/dL 3.5 - 5.0 06/10 Specimen Type: SERUM No comment entered. Ordering Provider: ROSANGELA LANG Report Released Date/Time: Mar 29, 2024 10:49 AM Reporting Lab: [facility] [place] [facility] [address] [facility] [address] Performing Lab: [facility] [place] [facility] [address] [facility] [address] [facility] [place] [facility] LIVER FUNCTION ALKALINE PHOSPHATASE [ENZYMATIC ACTIVITY/VO LUME] IN SERUM OR PLASMA 76 U/L 40 - 150 06/10 Specimen Type: SERUM No comment entered. Ordering Provider: ROSANGELA LANG Report Released Date/Time: Mar 29, 2024 10:49 AM Reporting Lab: [facility] [place] [facility] [address] [facility] [address] Performing Lab: [facility] [place] [facility] [address] [facility] [address] [facility] [place] [facility] LIVER FUNCTION ASPARTATE AMINOTRANSF ERASE [ENZYMATIC ACTIVITY/VO LUME] IN SERUM OR PLASMA BY WITH P-5'-P 32 U/L 5 - 34 06/10 Specimen Type: SERUM No comment entered. Ordering Provider: ROSANGELA LANG Report Released Date/Time: Mar 29, 2024 10:49 AM Reporting Lab: [facility] [place] [address] [address] Performing Lab: [facility] [place] [address] [address] [facility] LIVER FUNCTION ALANINE AMINOTRANSF ERASE [ENZYMATIC ACTIVITY/VO LUME] IN SERUM OR PLASMA BY WITH P-5'-P 32 U/L 06/10 Specimen Type: SERUM No comment entered. Ordering Provider: ROSANGELA LANG Report Released Date/Time: Mar 29, 2024 10:49 AM Reporting Lab: [facility] [place] [address] [address] Performing Lab: [facility] [place] [address] [address] [facility] LIVER FUNCTION BILIRUBIN.T OTAL [MASS/VOLUM E] IN SERUM OR PLASMA 0.7 mg/dL 0.2 - 1.2 06/10 Specimen Type: SERUM No comment entered. Ordering Provider: ROSANGELA LANG Report Released Date/Time: Mar 29, 2024 10:49 AM Reporting Lab: [facility]N [address] [address] Performing Lab: [facility] [address] [facility] [address] [facility] BASIC METABOLIC PANEL (non-fast ing) UREA NITROGEN [MASS/VOLUM E] IN SERUM OR PLASMA 21 mg/dL 7 - 25 06/10 Specimen Type: SERUM No comment entered. Ordering Provider: ROSANGELA LANG Report Released Date/Time: Mar 29, 2024 10:49 AM Reporting Lab: [facility] [address] [facility] [address] Performing Lab: [facility] [address] [facility] [address] [facility] BASIC METABOLIC PANEL (non-fast ing) GLUCOSE [MASS/VOLUM E] IN SERUM OR PLASMA 114 mg/dL 65 - 100 06/10 H Specimen Type: SERUM No comment entered. Ordering Provider: ROSANGELA LANG Report Released Date/Time: Mar 29, 2024 10:49 AM Reporting Lab: [facility] [address] [facility] [address] Performing Lab: [facility] [address] [facility] [address] [facility] BASIC METABOLIC PANEL (non-fast ing) SODIUM [MOLES/VOLU ME] IN SERUM OR PLASMA 139 mmol/L 135 - 145 06/10 Specimen Type: SERUM No comment entered. Ordering Provider: ROSANGELA LANG Report Released Date/Time: Mar 29, 2024 10:49 AM Reporting Lab: [facility] [address] [facility] [address] Performing Lab: [facility] [address] [facility] [address] [facility] BASIC METABOLIC PANEL (non-fast ing) POTASSIUM [MOLES/VOLU ME] IN SERUM OR PLASMA 3.7 mmol/L 3.5 - 5.0 06/10 Specimen Type: SERUM No comment entered. Ordering Provider: ROSANGELA LANG Report Released Date/Time: Mar 29, 2024 10:49 AM Reporting Lab: [facility] [place] [facility] [address] [facility] [address] Performing Lab: [facility] [place] [facility] [address] [facility] [address] [facility] [place] [facility] BASIC METABOLIC PANEL (non-fast ing) CHLORIDE [MOLES/VOLU ME] IN SERUM OR PLASMA 107 mmol/L 100 - 110 06/10 Specimen Type: SERUM No comment entered. Ordering Provider: ROSANGELA LANG Report Released Date/Time: Mar 29, 2024 10:49 AM Reporting Lab: [facility] [place] [facility] [address] [facility] [address] Performing Lab: [facility] [place] [facility] [address] [facility] [address] [facility] [place] [facility] BASIC METABOLIC PANEL (non-fast ing) CARBON DIOXIDE, TOTAL [MOLES/VOLU ME] IN SERUM OR PLASMA 22 meq/L 20 - 30 06/10 Specimen Type: SERUM No comment entered. Ordering Provider: ROSANGELA LANG Report Released Date/Time: Mar 29, 2024 10:49 AM Reporting Lab: [facility] [place] [facility] [address] [facility] [address] Performing Lab: [facility] [place] [address] [address] [facility] [place] [facility] BASIC METABOLIC PANEL (non-fast ing) CALCIUM [MASS/VOLUM E] IN SERUM OR PLASMA 8.9 mg/dL 8.5 - 10.2 06/10 Specimen Type: SERUM No comment entered. Ordering Provider: ROSANGELA LNAG Report Released Date/Time: Mar 29, 2024 10:49 AM Reporting Lab: [facility] [place] [facility] [address] [facility] [address] Performing Lab: [facility] [place] [address] [address] [facility] [place] [facility] BASIC METABOLIC PANEL (non-fast ing) CREATININE [MASS/VOLUM E] IN SERUM OR PLASMA 1.01 mg/dL 0.50 - 1.40 06/10 Specimen Type: SERUM No comment entered. Ordering Provider: ROSANGELA LANG Report Released Date/Time: Mar 29, 2024 10:49 AM Reporting Lab: [facility] [address] [facility] [address] Performing Lab: [facility] TRN [facility]ENTER[facility] [address] [facility]ENTERUSE [facility] BASIC METABOLIC PANEL (non-fast ing) GLOMERULAR FILTRATION RATE/1.73 SQ M.PREDICTED [VOLUME RATE/AREA] IN SERUM, PLASMA OR BLOOD BY CREATININE- BASED FORMULA (CKD-EPI 2020) 84 mL/min 60 06/10 Specimen Type: SERUM No comment entered. Ordering Provider: ROSANGELA LANG Report Released Date/Time: Mar 29, 2024 10:49 AM Reporting Lab: [facility] [address] [address] Performing Lab: [facility] [address] [address] [facility] LIPID PANEL FASTING CHOLESTEROL [MASS/VOLUM E] IN SERUM OR PLASMA 176 mg/dL 03/23 Specimen Type: SERUM No comment entered. Ordering Provider: ROBERTO YARBROUGH Report Released Date/Time: Mar 16, 2024 09:18 AM Reporting Lab: [facility]TRN MASSUSE[address] [address] Performing Lab: [facility]ENTERUSE[address] [address] [facility] LIPID PANEL FASTING TRIGLYCERID E [MASS/VOLUM E] IN SERUM OR PLASMA 196 mg/dL 0 - 150 03/23 H Specimen Type: SERUM No comment entered. Ordering Provider: ROBERTO YARBROUGH Report Released Date/Time: Mar 16, 2024 09:18 AM Reporting Lab: [facility]ENTERUSE[address] [address] Performing Lab: [facility] [place] [facility] [address] [facility] [address] [facility] W[facility]N [facility]ENTERUSE [facility] LIPID PANEL FASTING CHOLESTEROL IN LDL [MASS/VOLUM E] IN SERUM OR PLASMA BY CALCULATION 102 mg/dL 0 - 129 03/23 Specimen Type: SERUM No comment entered. Ordering Provider: ROBERTO YARBROUGH Report Released Date/Time: Mar 16, 2024 09:18 AM Reporting Lab: [facility] [place] [facility] [address] [facility] [address] Performing Lab: [facility] [address] [facility] [address] [facility] LIPID PANEL FASTING CHOLESTEROL .TOTAL/CHOL ESTEROL IN HDL [MASS RATIO] IN SERUM OR PLASMA 5.0 03/23 Specimen Type: SERUM No comment entered. Ordering Provider: ROBERTO YARBROUGH Report Released Date/Time: Mar 16, 2024 09:18 AM Reporting Lab: [facility] [place] [facility] [address] [facility] [address] Performing Lab: [facility] W[facility]N [facility]ENTER[facility] [address] [facility] [address] [facility] TRN [facility] LIPID PANEL FASTING CHOLESTEROL IN HDL [MASS/VOLUM E] IN SERUM OR PLASMA 35 mg/dL 40 - 60 03/23 L Specimen Type: SERUM No comment entered. Ordering Provider: ROBERTO YARBROUGH Report Released Date/Time: Mar 16, 2024 09:18 AM Reporting Lab: [facility] [place] [facility] [address] [facility] [address] Performing Lab: [facility] W[facility]N [facility]ENTERUS[facility] [address] [facility] [address] [facility] TRN [facility]ENTERUSE [facility] BASIC METABOLIC PANEL (fasting) UREA NITROGEN [MASS/VOLUM E] IN SERUM OR PLASMA 22 mg/dL 7 - 25 03/23 Specimen Type: SERUM No comment entered. Ordering Provider: ROBERTO YARBROUGH Report Released Date/Time: Mar 16, 2024 09:18 AM Reporting Lab: [facility] [address] [facility] [address] Performing Lab: [facility] [place] [facility] [address] [facility] [address] [facility]ENTER[facility] BASIC METABOLIC PANEL (fasting) GLUCOSE [MASS/VOLUM E] IN SERUM OR PLASMA 173 mg/dL 65 - 100 03/23 H Specimen Type: SERUM No comment entered. Ordering Provider: ROBERTO YARBROUGH Report Released Date/Time: Mar 16, 2024 09:18 AM Reporting Lab: [facility]ITALTRN [facility] [address] [facility] [address] Performing Lab: [facility]ITALTRN [facility]ENTERUSE[facility] [address] [facility] [address] [facility] BASIC METABOLIC PANEL (fasting) SODIUM [MOLES/VOLU ME] IN SERUM OR PLASMA 139 mmol/L 135 - 145 03/23 Specimen Type: SERUM No comment entered. Ordering Provider: ROBERTO YARBROUGH Report Released Date/Time: Mar 16, 2024 09:18 AM Reporting Lab: [facility]ITALTRN [facility]ENTERUSE[facility] [address] [facility] [address] Performing Lab: [facility]ITALTRN [facility]ENTERUSE[facility] [address] [facility] [address] [facility] BASIC METABOLIC PANEL (fasting) POTASSIUM [MOLES/VOLU ME] IN SERUM OR PLASMA 5.3 mmol/L 3.5 - 5.0 03/23 H Specimen Type: SERUM No comment entered. Ordering Provider: ROBERTO YARBROUGH Report Released Date/Time: Mar 16, 2024 09:18 AM Reporting Lab: [facility]TR[facility] [place] [facility] [address] [facility] [address] Performing Lab: [facility]ITALTRN [facility]ENTERUSEAM[facility] [address] [facility] [address] [facility] BASIC METABOLIC PANEL (fasting) CHLORIDE [MOLES/VOLU ME] IN SERUM OR PLASMA 102 mmol/L 100 - 110 03/23 Specimen Type: SERUM No comment entered. Ordering Provider: ROBERTO YARBROUGH Report Released Date/Time: Mar 16, 2024 09:18 AM Reporting Lab: [facility] [place] [facility] [address] [facility] [address] Performing Lab: [facility] [place] [facility] [address] [facility] [address] [facility] [place] [facility] BASIC METABOLIC PANEL (fasting) CARBON DIOXIDE, TOTAL [MOLES/VOLU ME] IN SERUM OR PLASMA 29 meq/L 20 - 30 03/23 Specimen Type: SERUM No comment entered. Ordering Provider: ROBERTO YARBROUGH Report Released Date/Time: Mar 16, 2024 09:18 AM Reporting Lab: [facility] [place] [facility] [address] [facility] [address] Performing Lab: [facility] [place] [facility] [address] [facility] [address] [facility] BASIC METABOLIC PANEL (fasting) CREATININE [MASS/VOLUM E] IN SERUM OR PLASMA 1.30 mg/dL 0.50 - 1.40 03/23 Specimen Type: SERUM No comment entered. Ordering Provider: ROBERTO YARBROUGH Report Released Date/Time: Mar 16, 2024 09:18 AM Reporting Lab: [facility] [place] [facility] [address] [facility] [address] Performing Lab: [facility] [place] [address] [address] [facility]ENTERUSE [facility] BASIC METABOLIC PANEL (fasting) GLOMERULAR FILTRATION RATE/1.73 SQ M.PREDICTED [VOLUME RATE/AREA] IN SERUM, PLASMA OR BLOOD BY CREATININE- BASED FORMULA (CKD-EPI 2020) 62 mL/min 60 03/23 Specimen Type: SERUM No comment entered. Ordering Provider: ROBERTO YARBROUGH Report Released Date/Time: Mar 16, 2024 09:18 AM Reporting Lab: [facility] [place] [address] [address] Performing Lab: [facility] [place] [address] [address] [facility] [place] [facility] LIVER FUNCTION PROTEIN [MASS/VOLUM E] IN SERUM OR PLASMA 8.4 g/dL 6.0 - 8.3 03/23 H Specimen Type: SERUM No comment entered. Ordering Provider: ROBERTO YARBROUGH Report Released Date/Time: Mar 16, 2024 09:18 AM Reporting Lab: [facility] [place] [facility] [address] [facility] [address] Performing Lab: [facility] [place] [facility] [address] [facility] [address] [facility] [place] [facility] LIVER FUNCTION ALBUMIN [MASS/VOLUM E] IN SERUM OR PLASMA 4.5 g/dL 3.5 - 5.0 03/23 Specimen Type: SERUM No comment entered. Ordering Provider: ROBERTO YARBROUGH Report Released Date/Time: Mar 16, 2024 09:18 AM Reporting Lab: [facility] [place] [facility] [address] [facility] [address] Performing Lab: [facility] [place] [facility] [address] [facility] [address] [facility] [facility] LIVER FUNCTION ALKALINE PHOSPHATASE [ENZYMATIC ACTIVITY/VO LUME] IN SERUM OR PLASMA 76 U/L 40 - 150 03/23 Specimen Type: SERUM No comment entered. Ordering Provider: ROBERTO YARBROUGH Report Released Date/Time: Mar 16, 2024 09:18 AM Reporting Lab: [facility] [place] [facility] [address] [facility] [address] Performing Lab: [facility] [place] [facility] [address] [facility] [address] [facility] [place] [facility] LIVER FUNCTION ASPARTATE AMINOTRANSF ERASE [ENZYMATIC ACTIVITY/VO LUME] IN SERUM OR PLASMA 32 U/L 5 - 34 03/23 Specimen Type: SERUM No comment entered. Ordering Provider: ROBERTO YARBROUGH Report Released Date/Time: Mar 16, 2024 09:18 AM Reporting Lab: [facility] [place] [facility] [address] [facility] [address] Performing Lab: [facility] [address] [facility] [address] [facility] LIVER FUNCTION ALANINE AMINOTRANSF ERASE [ENZYMATIC ACTIVITY/VO LUME] IN SERUM OR PLASMA 37 U/L 03/23 Specimen Type: SERUM No comment entered. Ordering Provider: ROBERTO YARBROUGH Report Released Date/Time: Mar 16, 2024 09:18 AM Reporting Lab: [facility] [address] [facility] [address] Performing Lab: [facility] TRN [facility] [address] [facility] [address] [facility] LIVER FUNCTION BILIRUBIN.T OTAL [MASS/VOLUM E] IN SERUM OR PLASMA 0.7 mg/dL 0.2 - 1.2 03/23 Specimen Type: SERUM No comment entered. Ordering Provider: ROBERTO YARBROUGH Report Released Date/Time: Mar 16, 2024 09:18 AM Reporting Lab: [facility] [address] [facility] [address] Performing Lab: [facility] [address] [facility] [address] [facility] TSH THYROTROPIN [UNITS/VOLU ME] IN SERUM OR PLASMA 5.38 u[IU]/ mL 0.35 - 5.00 03/23 H Specimen Type: SERUM No comment entered. Ordering Provider: ROBERTO YARBROUGH Report Released Date/Time: Mar 16, 2024 09:18 AM Reporting Lab: [facility] [address] Performing Lab: [facility] [address] [facility] HEMOGLOBI N A1C PANEL HEMOGLOBIN A1C/HEMOGLO [...] AM Reporting Lab: [facility] [place] [facility] [address] [facility] [address] Performing Lab: [facility] [place] [facility] [address] [facility] [address] [facility] [place] [facility] MICROALBU MIN CREATININ E RATIO PANEL MICROALBUMI N/CREATININ E [MASS RATIO] IN URINE 60.2 mg/g 0 - 29.9 03/23 H Specimen Type: URINE No comment entered. Ordering Provider: ROBERTO YARBROUGH Report Released Date/Time: Mar 16, 2024 09:18 AM Reporting Lab: [facility] [place] [facility] [address] [facility] [address] Performing Lab: [facility] [place] [facility] [address] [facility] [address] [facility] [place] [facility] MICROALBU MIN CREATININ E RATIO PANEL MICROALBUMI N [MASS/VOLUM E] IN URINE 6.9 mg/dL 03/23 Specimen Type: URINE No comment entered. Ordering Provider: ROBERTO YARBROUGH Report Released Date/Time: Mar 16, 2024 09:18 AM Reporting Lab: [facility] [place] [facility] [address] [facility] [address] Performing Lab: [facility] [place] [facility] [address] [facility] [address] [facility] [place] [facility] MICROALBU MIN CREATININ E RATIO PANEL CREATININE [MASS/VOLUM E] IN URINE 114.63 mg/dL 03/23 Specimen Type: URINE No comment entered. Ordering Provider: ROBERTO YARBROUGH Report Released Date/Time: Mar 16, 2024 09:18 AM Reporting Lab: [facility] [place] [facility] [address] [facility] [address] Performing Lab: [facility] [place] [facility] [address] [facility] [address] [facility] [place] [facility] Vital Signs Combined list of inpatient and [...] 20 03/29/2024 10:36:03 [facility] [place] [facility] Encounters Combined list of: 1) Encounters from Department of Veterans Affairs facilities going backup to the last 18 months, not all VA inpatient encounters are included; 2) Encounters from the Department of Defense facilities going backup to 280 months. Location Location Details Encounter Type Encounter Number Reason For Visit Attending Provider ADM Date DC Date Status Disposition Source [facility] [place] [facility] EYE EXAM&TX ESTAB PT 1/>VST [id number] Diagnos is: ICD-10- CM E11.9 Type 2 diabete s mellitu s without complic ations ACE RENDON 01/22 [facility] FIT SPECTACLES MULTIFOCAL [id number] Diagnos is: ICD-10- CM Z46.0 Encount er for fit/adj st of spectac les and contact lenses ACE RENDON Rome Tapia 01/22 [facility] [place] Out[facility] Encounter [id number] 01/31 [facility] [place] En[facility] [id number] 01/31 [facility] En[facility] [id number] 01/31 [facility] En[facility] [id number] 02/10 [facility] FIT SPECTACLES MULTIFOCAL [id number] Diagnos is: ICD-10- CM Z46.0 Encount er for fit/adj st of spectac les and contact lenses HANS OSPINA 02/12 [facility] En[facility] [id number] 02/13 [facility] En[facility] [id number] 02/13 [facility] Encounter [id number] 02/25 [facility] En[facility] [id number] 03/17 [facility] En[facility] [id number] 03/24 [facility] [place] En[facility] [id number] 03/24 [facility] [place] [facility] LD OFFICE O/P EST MOD 30 MIN [id number] Diagnos is: ICD-10- CM Z00.01 Encount er for general adult medical exam w capoa Fay Ward 04/01 [facility] [place] [facility] En[facility] [id number] 08/06 [facility] [place] Encounter [id number] 11/02 [facility] [place] COMPRE [place]PH EXAM EST PT 1/ [id number] Diagnos is: ICD-10- CM E11.9 Type 2 diabete s mellitu s without complic ations JUSTICE,ACE H B 01/27 [facility] [place] [place] [facility] FIT SPECTACLES MULTIFOCAL [id number]. Diagnos is: ICD-10- CM Z46.0 Encount er for fit/adj st of spectac les and contact lenses MERJOSE G,ACE H B 01/27 [facility] [place] [facility] LD OFFICE O/P EST MOD 30 MIN [id number] Diagnos is: ICD-10- CM E11.9 Type 2 diabete s mellitu s without complic ations JULYMIRYAM LY P 03/29 [place] [facility] Out[facility] Encounter [id number] [facility] [place] Encounter [id number] [facility] [place] Encounter [id number] [facility] [place] Encounter [id number] 04/08 [facility] [place] (631GE) NQHP OL DIG ASSMT&MGMT 11-20 [id number] Diagnos is: ICD-10- CM I70.90 Unspeci fied atheros clerosi s THEODORE,ALB KEVEN JAM 04/12 [facility]GE[facility] PH1 ASSMT&MGMT NQHP 5-10 [id number] Diagnos is: ICD-10- CM Z76.0 [facility] er for issue of repeat prescri ption AYE FELICIANO 04/13 [facility] En[facility] [id number] [facility] En[facility] [id number] 04/21 [facility] [place] En[facility] [id number] [facility] En[facility] [id number] 06/15 [facility] Social History Combined list of available smoking, tobacco, and other social history from Department of Defense and Veterans Affairs facilities. Social History Type Response Date Comment Sourc e Tobacco smoking status NHIS [facility] NEVER USED 04/01/2023 [place] [facility]/09[facility]2021 [place] [facility] 09[facility]07/2020 [place] [facility] 06/23/2018 [place] History of tobacco use CURRENT SMOKER 05/03/2015 occasional cigar smoker [place] History of tobacco use LIFETIME NON-SMOKER 01/30/2005 [place] History of tobacco use LIFETIME NON-SMOKER 01/16/2004 [place] History of tobacco use LIFETIME NON-SMOKER 04/30/2002 [place] Plan of Care List of future care activities from Department of Veterans Affairs facilities. Additional future care activities may be listed in the Assessment and Plan section. Date/Time Care Activity Care Activity Detail Facili ty 07/26/2024 AMBULATORY - MEDICINE AMBULATORY - [facility]IC[facility]
[2024-06-22 08:31] LABS: Hematocrit 40.6 % (42.0-52.0); Hemoglobin 14.4 g/dl (14.0-18.0); Mean Corpuscular HGB Conc 35.5 g/dl (31.0-36.0); Mean Corpuscular Volume 87.3 fL (80.0-98.0); Mean Platelet Volume 10.6 fL (9.4-12.4); Platelet Count 218 X10*3/uL (160-400); Red Blood Count 4.65 X10*6/uL (4.60-5.80); Red Cell Distribution Width 13.5 % (11.0-16.0); White Blood Count 8.2 X10*3/uL (4.8-10.8)
[2024-06-22 08:37] LABS: Prothrombin Time 11.6 SEC (10.9-12.4)
[2024-06-22 09:18] LABS: Anion Gap 11 (12-20); Blood Urea Nitrogen 19 mg/dL (9-16); Calcium 9.8 mg/dL (8.4-10.2); Carbon Dioxide 25 mmol/L (22-29); Chloride 107 mmol/L (96-108); Estimated Glomerular Filt Rate > 60; Glucose Random 134 mg/dL (60-115); Potassium 3.6 mmol/L (3.3-5.1); Sodium 139 mmol/L (135-145)
== END 2024-06-22 07:36 | disposition home or self-care (01) ==
LOC: HO.LAB 07:35
DX: I25.10 Atherosclerotic heart disease of native coronary artery without angina pectoris (principal)
CPT/HCPCS: 36415; 80048; 85027; 85610

== ENCOUNTER → 2024-06-29 23:59 | Outpatient (BNV) | payer BC, SELFPAY | PROVIDERS: Visit Provider Internal Medicine Cardiovascular Disease | DX: R93.1 Abnormal findings on diagnostic imaging of heart and coronary circulation (principal) | CPT/HCPCS: 93458; 99152 ==

== ENCOUNTER 2024-07-27 10:21 | Outpatient (AMB) | payer BC, SELFPAY ==
[2024-07-27 10:36] VITALS: BMI 41.6
--- NOTE | 2024-07-27 10:36 | A.OFFVIS_ITS ---
VS Expanded 07/27/24 10:36 Height 5 ft 2 in Weight 227 lb 4.745 oz BMI 41.6 Intake Visit Reasons: T2DM Allergies penicillin V Allergy (Unknown, Verified 05/25/24 11:17) swelling Penicillins [PENICILLINS] Allergy (Unknown, Verified 05/25/24 11:17) RASH,SWELLING Nutrition Presentation Details: Pt presents for MNT f/u for T2DM Pt reports doing well, working on diet modifications and portions. Feels good, and energetic Pt participating in cardiac rehab exercises 45 minutes /d reports 14 d average 141 mg/dl , no hypoglycemia BS Monitoring Most Recent Diabetes Results: Creatinine 1.07 mg/dL (0.5-1.4) 06/22/24 Blood Urea Nitrogen 19 mg/dL (9-16) H 06/22/24 Sodium 139 mmol/L (135-145) 06/22/24 Potassium 3.6 mmol/L (3.3-5.1) 06/22/24 Chloride 107 mmol/L (96-108) 06/22/24 Carbon Dioxide 25 mmol/L (22-29) 06/22/24 Calcium 9.8 mg/dL (8.4-10.2) 06/22/24 [facility] Medical History (Updated 05/25/24 @ 11:27 by Betzy Walden PA-C) Obesity due to excess calories Dyslipidemia Vitamin D deficiency CASTELLON (nonalcoholic steatohepatitis) Hypertension, essential Diabetes type 2, controlled Surgical History History of cardiac cath Hx of keloid of skin History of ankle surgery Family History Father Hypertension Mother HX: breast cancer Diabetes Social History Household Members: Spouse and Children Housing: House Alcohol intake: current Alcohol intake frequency: a few times a month Patient Tobacco Use Status: Current someday Tobacco user Tobacco use type: Cigar e-Cigarette/Vaping Use: Never Used Second Hand Smoke Exposure: Yes Substance Use Type: Marijuana service: Yes Current occupational status: retired Current occupation: [employer] Cognitive needs: No Hearing needs: No Vision needs: Yes Assessment & Plan Assessment & Plan (1) Diabetes type 2, controlled: Code(s): E11.9 - Type 2 diabetes mellitus without complications Category: Medical Qualifiers: Diabetes mellitus complication detail: with polyneuropathy Diabetes mellitus complication status: with neurologic complications Diabetes mellitus continuous churn buttermaker insulin use: with [facility] use Qualified Code(s): E11.42 - Type 2 diabetes mellitus with diabetic polyneuropathy; Z79.4 - truck terminal manager (current) use of insulin Plan: Wt: 106 Kg ( 07/09 ), 103 kg (08/08) Est kcal needs as per MSJ: 2100 (40% carb, 30% protein/fat) Est fluid needs as per 25-30 ml/d: 3200 Est prot per day as per 1 g/kg bw: 100 Recommend fiber intake : 8-10 g per day and gradually increase to 25-28 g per day for women and 35-38 g for men or as tolerated Recommend sodium intake per day : less than 2000 mg Educated patient on: ( R = reviewed V = verbalizes understanding N/R = needs review N/A = not applicable * Food sources of carbohydrate, adequate serving sizes and its role in various health conditions: R * Differences between complex carbohydrates a simple carbohydrates, role of fiber in diet: R * Lean protein sources of foods: R V NR * Differences between types of fats and role in diet (mono on saturated fat fatty acids, saturated fatty acids, trans fats): R * Food sources of sodium in salt and healthy modifications for heart health in kidney health: R V R/V * Vitamins and minerals: R V N/R * Healthy plate method concept: R * Physical activity: Benefits a precaution: R * Hypoglycemia protocol (rule of 15): R V N/R * Dietary prevention of Hyperglycemia: R Patient Instructions: Choose foods prepared lower in fat (boiled/baked/airfryed) Continue working on reducing empty calories foods (pastries/cookies and similar) choose fruit/fiber rich food instead Coding Level of Care Code Nutr Indiv Subseq (30420) Diagnoses Controlled type 2 diabetes mellitus with diabetic polyneuropathy, with long-term current use of insulin E11.42; Z79.4 Diabetes mellitus complication detail: with polyneuropathy Diabetes mellitus complication status: with neurologic complications Diabetes mellitus [facility] insulin use: with continuous churn buttermaker use Time Spent (min) 30
--- OUTSIDE RECORDS SUMMARY | 2024-07-27 11:28 | XMS_ITS | Clinical Summary ---
Author Organization [employer] Address [address] [place] [address] [address] [place] [address] Care Team Providers Care Clinical Dietician Name Role Phone Unavailable Primary Care Provider [...] Vaccine: 50+ Years Completed 10/09/2021, 12/05/2015, 08/14/2012 Zoster Vaccines Completed [...] patient's age to complete this topic Insurance [facility]
--- OUTSIDE RECORDS SUMMARY | 2024-07-27 11:28 | XMS_ITS | Continuity of Care Document ---
Author Name [facility] Organization [facility] Care Team Providers Care Bank Cashier Name Role Phone [facility] Unavailable Unavailable Problems Combined list of problems from Department of Defense and Veterans Affairs facilities. It does not include entries that were removed or entered in error. Problem Status Onset Date Problem Type Date of Resolution Comments Source 1988: [place]: Rt Ankle: 2 surgergies Active Condition [place] Acute Anxiety disorder Active Condition [facility] Adjustment Disorder with Mixed Anxiety and Depressed Mood (ICD-9-CM 309.28) Active Condition [facility] ASTHMA Active Condition [facility] Contact dermatitis due to poison cyndee Active Condition [facility] Coronary arteriosclerosis Active Condition [facility] Depressive Disorder NOS * (ICD-9-CM 311./300.4) Active Condition [facility] Disorder of lipid and lipoprotein metabolism (SNOMED CT 85941733) Active Condition [place] Erectile dysfunction Active Condition [facility] [...] OG Comment: per eye exam Jan 2014; [place] Obesity Active Condition [place] Other dyspnea and respiratory abnormality (ICD-9-CM 786.09) Active Condition [facility] Pain in joint involving shoulder region (ICD-9-CM 719.41) Active Condition [facility] Positive Microalbuminuria Test Result Documented and Reviewed (DM) Active Condition [place] Type 2 diabetes mellitus Active Condition [facility] Diagnosis: ICD-10-CM Z76.0 Encounter for issue of repeat prescription Active Diagnosis [place] [facility] [place] ENAGETACHEW [facility] Diagnosis: ICD-10-CM I70.90 Unspecified atherosclerosis Active Diagnosis [facility] (631GE) Diagnosis: ICD-10-CM E11.9 Type 2 diabetes mellitus without complications Active Diagnosis [place] Diagnosis: ICD-10-CM Z46.0 Encounter for fit/adjst of spectacles and contact lenses Active Diagnosis [place] [facility] EN[place] [facility] Diagnosis: ICD-10-CM Z00.01 Encounter for general adult medical exam w abnormal findings Active Diagnosis [facility] Medications Combined list of outpatient medications [...] DAILY ORAL ACTIVE Barry RICKS 2018 [facility] ASPIRIN 81MG TAB,EC TAKE ONE TABLET BY MOUTH DAILY ORAL ACTIVE RHODA GARCIA 2014 [facility] DICLOFENAC NA 1% GEL,TOP APPLY 2 GRAMS TOPICALL Y FOUR TIMES A DAY FOR JOINT PAIN FOR OSTEOART HRITIS - USE DOSING CARD PROVIDED IN BOX RIGHT ANKLE ADONIS Leslie ACTIVE 07/27/2025 [id number] 19 July,WANDY Hoyt 2024 200 [facility] EMPAGLIFLOZ IN 25MG TAB TAKE ONE TABLET BY MOUTH ONCE DAILY ORAL ACTIVE Barry RICKS 2018 [facility] FENOFIBRATE 54MG TAB TAKE ONE TABLET BY MOUTH ONCE DAILY ORAL ACTIVE CHIKA YARBROUGH O 2023 [facility] FISH OIL 1000MG (500MG DHA/EPA) CAP,ORAL TAKE 2 CAPSULES BY MOUTH AT BEDTIME ORAL ACTIVE SEBASTIAN HERNANDEZ 2010 [facility] HYDROCHLORO THIAZIDE 25MG TAB TAKE ONE TABLET BY MOUTH ONCE DAILY ORAL ACTIVE Barry RICKS 2018 [facility] LEVOTHYROXI NE NA 25MCG TAB (SYNTHROID) TAKE ONE TABLET BY MOUTH EVERY MORNING 30 MINUTES BEFORE BREAKFAS T FOR THYROID TAKE ON AN EMPTY STOMACH WITH A FULL GLASS OF WATER ORAL ACTIVE 03/30/2025 [id number] JULYWANDY 2024 90 [facility] LOSARTAN POTASSIUM 100MG TAB TAKE ONE TABLET BY MOUTH ONCE DAILY ORAL ACTIVE Barry RICKS 2018 IELD METFORMIN HCL 500MG TAB TAKE ONE TABLET BY MOUTH ONCE DAILY ORAL ACTIVE Barry RICKS 2018 [place] [facility] METOPROLOL SUCCINATE 25MG TAB,SA TAKE ONE TABLET BY MOUTH ONCE DAILY ORAL ACTIVE RA GREGORY JAUREGUI 2024 [facility] [facility] MULTIVITAMI NS W/MINERALS TAB TAKE ONE TABLET BY MOUTH qd ORAL ACTIVE LAKISHA MORA 2004 [facility] SEMAGLUTIDE 1MG/0.75ML INJ,SOLN,PE N,1.5ML INJECT 1MG SUBCUTAN EOUSLY ONCE A WEEK SUBCUT ANEOUS ACTIVE Barry RICKS 2018 [place] [facility] TICAGRELOR 90MG TAB TAKE ONE TABLET BY MOUTH TWICE DAILY ORAL ACTIVE 07/27/2025 [id number] JULY,WANDY Hoyt 2024 180 [facility] TICAGRELOR 90MG TAB TAKE ONE TABLET BY MOUTH TWICE DAILY ORAL DISCONT INUED 04/12/2025 [id number] RA GREGORY JARUEGUI 2024 180 [facility] Allergies, Adverse Reactions, Alerts Combined [...] Site Reaction Lot Number CVX Code Drug Endocrinology Specialist Status Comments Source INFLUENZA, INJECTABLE, QUADRIVALENT, PRESERVATIVE FREE 2023 AVANI PETERS LEFT DELTO ID [id number] A 150 complet ed [place], [facility] ZOSTER RECOMBINANT 2 2023 LORRAINEAVANI DY LEFT DELTO ID [id number] 187 complet ed ADMINISTE RED AT [facility] INFLUENZA, UNSPECIFIED FORMULATION 2023 88 complet ed HISTORICA L INFORMATI ON - FROM OTHER PROVIDER, [place] [facility] PNEUMOCOCCAL CONJUGATE PCV20, POLYSACCHARID E [id number] CONJUGATE, ADJUVANT, PF 2021 216 complet ed [facility] ZOSTER RECOMBINANT 1 2021 187 complet ed [facility] COVID-19 ([employer]), MRNA, LNP-S, PF, 30 MCG/0.3 ML DOSE 2 2020 208 complet ed [place] [facility] COVID-19 (Original), VECTOR-NR, [id number], PF, 0.5 ML 1 2020 212 complet ed JSN; [id number]; 1 [place] [facility] INFLUENZA, UNSPECIFIED FORMULATION 2019 88 complet ed [facility] INFLUENZA, SEASONAL, INJECTABLE 2017 141 complet ed [facility] FLU,3 YRS (HISTORICAL) 2014 88 complet ed [address] office [facility] FLU,3 YRS (HISTORICAL) 2013 88 complet ed [place] [facility] FLU,3 YRS (HISTORICAL) 2012 88 complet ed Site: Right Deltoid [facility] DTAP, UNSPECIFIED FORMULATION 2012 107 complet ed [facility] PNEUMOCOCCAL, UNSPECIFIED FORMULATION 2012 109 complet ed [facility] FLU,3 YRS (HISTORICAL) 2011 88 complet ed [facility] FLU,3 YRS (HISTORICAL) 2010 88 complet ed [facility] FLU,3 YRS (HISTORICAL) 2009 88 complet ed [facility] Results Combined list of recent chemistry, hematology and other laboratory results from Department of Defense and Veterans Affairs, ranging from 15 months to all on record, depending upon the facility. Order Name Results Value Reference Range Date Interpretation Specimen Comments Source TSH THYROTROPIN [UNITS/VOLU ME] IN SERUM OR PLASMA BY DETECTION LIMIT <= 0.005 MIU/L 3.13 u[IU]/ mL 0.35 - 4.94 07/23 Specimen Type: SERUM No comment entered. Ordering Provider: ROSANGELA LANG Report Released Date/Time: Jun 19, 2024 01:50 PM Reporting [facility]: [facility] [address] [address] Performing Lab: [address] [address] [facility] PSA PROSTATE SPECIFIC AG [MASS/VOLUM E] IN SERUM OR PLASMA BY IMMUNOASSAY 0.3 ng/mL 0.0 - 4.0 07/23 Specimen Type: SERUM No comment entered. Ordering Provider: ROSANGELA LANG Report Released Date/Time: Jun 19, 2024 01:50 PM Reporting Lab: [facility] [address] [address] Performing Lab: [address] [address] [facility] HEMOGLOBI N A1C PANEL HEMOGLOBIN A1C/HEMOGLO BIN.TOTAL IN BLOOD BY IFCC PROTOCOL 6.8 4.0 - 5.6 07/23 H Specimen Type: BLOOD Comment: Values obtained from A1C measurement s can vary. For atypical A1C assays, a reported value of 7.0 could actually be between 6.72 and 7.28 if measured by a reference method. A reported value of 9.0 could actually be between 8.73 and 9.27. Ref: http://[email or web address] ngsp.org/[place] Pdata.asp Ordering Provider: ROSANGELA LANG Report Released Date/Time: Jun 19, 2024 01:50 PM Reporting Lab: [address] [address] Performing Lab: [address] [address] [facility] TRN [facility] LIVER FUNCTION PROTEIN [MASS/VOLUM E] IN SERUM OR PLASMA 7.9 g/dL 6.4 - 8.3 07/23 Specimen Type: SERUM No comment entered. Ordering Provider: ROSANGELA LANG Report Released Date/Time: Jun 19, 2024 01:50 PM Reporting Lab: [facility]ITALRCHOCTAW GENERAL HOSPITALN [facility]ITALUSE[address] [address] Performing Lab: [facility]ITALRL TRN [facility]ITALUSEROC[facility] [address] [facility] [address] [facility]RCHOCT[facility] HOS[facility]ITALN [facility]ITALUSE [facility] LIVER FUNCTION ALBUMIN [MASS/VOLUM E] IN SERUM OR PLASMA BY BROMOCRESOL PURPLE (BCP) DYE BINDING METHOD 4.6 g/dL 3.2 - 4.6 07/23 Specimen Type: SERUM No comment entered. Ordering Provider: ROSANGELA LANG Report Released Date/Time: Jun 19, 2024 01:50 PM Reporting Lab: [facility]ITALRNOR[facility]DW[facility] INFIRMARYTRN [facility]ITALUSE[address] [address] Performing Lab: [facility]ITALRL TRN [facility]ITALUSE[address] [address] [facility]ITALUSE [facility] LIVER FUNCTION ALKALINE PHOSPHATASE [ENZYMATIC ACTIVITY/VO LUME] IN SERUM OR PLASMA 82 U/L 40 - 150 07/23 Specimen Type: SERUM No comment entered. Ordering Provider: ROSANGELA LANG Report Released Date/Time: Jun 19, 2024 01:50 PM Reporting Lab: [facility] TRN MASSUSE[address] [address] Performing Lab: [facility]ITALRL TRN [facility]ITALUSE[address] [address] [facility]PITALRCHOCTAW GENERAL HOSPITALN [facility]USE [facility] LIVER FUNCTION ASPARTATE AMINOTRANSF ERASE [ENZYMATIC ACTIVITY/VO LUME] IN SERUM OR PLASMA BY WITH P-5'-P 42 U/L 5 - 34 07/23 H Specimen Type: SERUM No comment entered. Ordering Provider: ROSANGELA LANG Report Released Date/Time: Jun 19, 2024 01:50 PM Reporting Lab: [facility] [place] [facility] [address] [facility] [address] Performing Lab: [facility] [place] [facility] [address] [facility] [address] [facility] LIVER FUNCTION ALANINE AMINOTRANSF ERASE [ENZYMATIC ACTIVITY/VO LUME] IN SERUM OR PLASMA BY WITH P-5'-P 40 U/L 0 - 55 07/23 Specimen Type: SERUM No comment entered. Ordering Provider: ROSANGELA LANG Report Released Date/Time: Jun 19, 2024 01:50 PM Reporting Lab: [facility] [place] [facility] [address] [facility] [address] Performing Lab: [facility] [place] [facility] [address] [facility] [address] [place] [facility] [facility] LIVER FUNCTION BILIRUBIN.T OTAL [MASS/VOLUM E] IN SERUM OR PLASMA 0.9 mg/dL 0.2 - 1.2 07/23 Specimen Type: SERUM No comment entered. Ordering Provider: ROSANGELA LANG Report Released Date/Time: Jun 19, 2024 01:50 PM Reporting Lab: [facility] [place] [facility] [address] [facility] [address] Performing Lab: [facility] [place] [facility] [address] [facility] [address] [place] [facility] [facility] MICROALBU MIN CREATININ E RATIO PANEL MICROALBUMI N/CREATININ E [MASS RATIO] IN URINE 16.9 mg/g 0 - 29.9 07/23 Specimen Type: URINE No comment entered. Ordering Provider: ROSANGELA LANG Report Released Date/Time: Jun 19, 2024 01:50 PM Reporting Lab: [facility] [place] [facility] [address] [facility] [address] Performing Lab: [facility] [place] [facility] [address] [facility] [address] [facility] MICROALBU MIN CREATININ E RATIO PANEL MICROALBUMI N [MASS/VOLUM E] IN URINE BY DETECTION LIMIT <= 1.0 MG/L 1.3 mg/dL 07/23 Specimen Type: URINE No comment entered. Ordering Provider: ROSANGELA LANG Report Released Date/Time: Jun 19, 2024 01:50 PM Reporting Lab: [facility]PITALRCHOCTAW GENERAL HOSPITALN [facility] [address] [facility] [address] Performing Lab: [facility] [address] [address] [facility]ITALUSE [facility] MICROALBU MIN CREATININ E RATIO PANEL CREATININE [MASS/VOLUM E] IN URINE 76.96 mg/dL 63 - 166 07/23 Specimen Type: URINE No comment entered. Ordering Provider: ROSANGELA LANG Report Released Date/Time: Jun 19, 2024 01:50 PM Reporting Lab: [facility] [address] [address] Performing Lab: [facility] [address] [address] [facility] BASIC METABOLIC PANEL (non-fast ing) UREA NITROGEN [MASS/VOLUM E] IN SERUM OR PLASMA 18 mg/dL 8 - 26 07/23 Specimen Type: SERUM No comment entered. Ordering Provider: ROSANGELA LANG Report Released Date/Time: Jun 19, 2024 01:50 PM Reporting Lab: [facility] [address] [address] Performing Lab: [facility]PITALRCHOCTAW GENERAL HOSPITALN [address] [address] [facility]ITALRCHOCTAW GENERAL HOSPITALN [facility] BASIC METABOLIC PANEL (non-fast ing) GLUCOSE [MASS/VOLUM E] IN SERUM OR PLASMA 105 mg/dL 65 - 100 07/23 H Specimen Type: SERUM No comment entered. Ordering Provider: ROSANGELA LANG Report Released Date/Time: Jun 19, 2024 01:50 PM Reporting Lab: [facility] [address] [address] Performing Lab: [facility] [address] [address] [facility]ITALR WSTRN MASSUSE [facility] BASIC METABOLIC PANEL (non-fast ing) SODIUM [MOLES/VOLU ME] IN SERUM OR PLASMA 138 mmol/L 136 - 145 07/23 Specimen Type: SERUM No comment entered. Ordering Provider: ROSANGELA LANG Report Released Date/Time: Jun 19, 2024 01:50 PM Reporting Lab: [facility]PITALRNORTH BALDWIN INFIRMARYTRN TIM[facility] HOSPITALUSETS [address] [address] Performing Lab: [facility]PITALRL WSTRN [facility] H[facility]PITALUSETS [facility] [address] [facility] [address] [facility]PITALRNORTH BALDWIN INFIRMARYTRN [facility]OS[facility]ITALUSE [facility] BASIC METABOLIC PANEL (non-fast ing) POTASSIUM [MOLES/VOLU ME] IN SERUM OR PLASMA 3.7 mmol/L 3.5 - 5.1 07/23 Specimen Type: SERUM No comment entered. Ordering Provider: ROSANGELA LANG Report Released Date/Time: Jun 19, 2024 01:50 PM Reporting Lab: [facility]ITALRL TRN [place] [address] [address] Performing Lab: [facility]ITALRL WSTRN [facility]OSPITALUSETS [address] [address] [facility]ITALRNORTH BALDWIN INFIRMARYTRN [facility]ITALUSE [facility] BASIC METABOLIC PANEL (non-fast ing) CHLORIDE [MOLES/VOLU ME] IN SERUM OR PLASMA 102 mmol/L 98 - 107 07/23 Specimen Type: SERUM No comment entered. Ordering Provider: ROSANGELA LANG Report Released Date/Time: Jun 19, 2024 01:50 PM Reporting Lab: [facility]ITALRL [facility] [place] [facility] [address] [facility] [address] Performing Lab: [facility]PITALRL TRN [facility] HOSPITALUSETS [address] [address] [facility]ITALRNORTH BALDWIN INFIRMARYTRN [facility]OSPITALUSE [facility] BASIC METABOLIC PANEL (non-fast ing) CARBON DIOXIDE, TOTAL [MOLES/VOLU ME] IN SERUM OR PLASMA 22 meq/L 23 - 31 07/23 L Specimen Type: SERUM No comment entered. Ordering Provider: ROSANGELA LANG Report Released Date/Time: Jun 19, 2024 01:50 PM Reporting Lab: [facility] [address] [facility] [address] Performing Lab: [facility]OSPITALRCHOCTAW GENERAL HOSPITALN [facility] [address] [facility] [address] [facility] BASIC METABOLIC PANEL (non-fast ing) CALCIUM [MASS/VOLUM E] IN SERUM OR PLASMA 10.0 mg/dL 8.8 - 10 07/23 Specimen Type: SERUM No comment entered. Ordering Provider: ROSANGELA LANG Report Released Date/Time: Jun 19, 2024 01:50 PM Reporting Lab: [facility] [address] [address] Performing Lab: [facility] [address] [address] [facility] BASIC METABOLIC PANEL (non-fast ing) CREATININE [MASS/VOLUM E] IN SERUM OR PLASMA 0.93 mg/dL 0.72 - 1.25 07/23 Specimen Type: SERUM No comment entered. Ordering Provider: ROSANGELA LANG Report Released Date/Time: Jun 19, 2024 01:50 PM Reporting Lab: [address] [address] Performing Lab: [facility]PITALRCHOCTAW GENERAL HOSPITALN [address] [address] [facility] BASIC METABOLIC PANEL (non-fast ing) GLOMERULAR FILTRATION RATE/1.73 SQ M.PREDICTED [VOLUME RATE/AREA] IN SERUM, PLASMA OR BLOOD BY CREATININE- BASED FORMULA (CKD-EPI 2020) >90mL/ min 60 07/23 Specimen Type: SERUM No comment entered. Ordering Provider: ROSANGELA LANG Report Released Date/Time: Jun 19, 2024 01:50 PM Reporting Lab: [facility]PITALRNORTH BALDWIN INFIRMARYTRN [address] [address] Performing Lab: [facility] [address] [address] [facility] PSA PROSTATE SPECIFIC AG [MASS/VOLUM E] IN SERUM OR PLASMA BY IMMUNOASSAY 0.23 ng/mL 0.00 - 4.00 06/10 Specimen Type: SERUM No comment entered. Ordering Provider: ROSANGELA LANG Report Released Date/Time: Mar 29, 2024 10:49 AM Reporting Lab: [facility]PITALRNORTH BALDWIN INFIRMARYTRN [facility]ITALUSER[facility] [address] [facility] [address] Performing Lab: [facility]PITALRL TRN [facility]OSPITALUSE[address] [address] [facility]PITALRL [facility] HOSPITALUSE [facility] TSH THYROTROPIN [UNITS/VOLU ME] IN SERUM OR PLASMA BY DETECTION LIMIT <= 0.005 MIU/L 3.28 u[IU]/ mL 0.35 - 5.00 06/10 Specimen Type: SERUM No comment entered. Ordering Provider: ROSANGELA LANG Report Released Date/Time: Mar 29, 2024 10:49 AM Reporting Lab: [facility]PITALRNORTH BALDWIN INFIRMARYTRN [facility]ITALUSE[address] [address] Performing Lab: [facility]PITALRL TRN [facility]ITALUSE[address] [address] [facility]PITALRCHOCTAW GENERAL HOSPITALN [facility]ITALUSE [facility] LIVER FUNCTION PROTEIN [MASS/VOLUM E] IN SERUM OR PLASMA 7.9 g/dL 6.0 - 8.3 06/10 Specimen Type: SERUM No comment entered. Ordering Provider: ROSANGELA LANG Report Released Date/Time: Mar 29, 2024 10:49 AM Reporting Lab: [facility]ITALRL TRN [facility]ITALUSE[address] [address] Performing Lab: [place] [facility] [place]ITALUSE[address] [address] [facility]ITALRCHOCTAW GENERAL HOSPITALN [facility]ITALUSE [facility] LIVER FUNCTION ALBUMIN [MASS/VOLUM E] IN SERUM OR PLASMA BY BROMOCRESOL PURPLE (BCP) DYE BINDING METHOD 4.2 g/dL 3.5 - 5.0 06/10 Specimen Type: SERUM No comment entered. Ordering Provider: ROSANGELA LANG Report Released Date/Time: Mar 29, 2024 10:49 AM Reporting Lab: [facility]ITALRL TRN [facility]ITALUSE[address] [address] Performing Lab: [facility] [place] [facility] [address] [facility] [address] [facility] [place] [facility] LIVER FUNCTION ALKALINE PHOSPHATASE [ENZYMATIC ACTIVITY/VO LUME] IN SERUM OR PLASMA 76 U/L 40 - 150 06/10 Specimen Type: SERUM No comment entered. Ordering Provider: ROSANGELA LANG Report Released Date/Time: Mar 29, 2024 10:49 AM Reporting Lab: [facility] [place] [facility] [address] [facility] [address] Performing Lab: [facility] [place] [facility] [address] [facility] [address] [place] [facility] [place] [facility] LIVER FUNCTION ASPARTATE AMINOTRANSF ERASE [ENZYMATIC ACTIVITY/VO LUME] IN SERUM OR PLASMA BY WITH P-5'-P 32 U/L 5 - 34 06/10 Specimen Type: SERUM No comment entered. Ordering Provider: ROSANGELA LANG Report Released Date/Time: Mar 29, 2024 10:49 AM Reporting Lab: [facility] [place] [facility] [address] [facility] [address] Performing Lab: [facility] [place] [facility] [address] [facility] [address] [place] [facility] [place] [facility] LIVER FUNCTION ALANINE AMINOTRANSF ERASE [ENZYMATIC ACTIVITY/VO LUME] IN SERUM OR PLASMA BY WITH P-5'-P 32 U/L 06/10 Specimen Type: SERUM No comment entered. Ordering Provider: ROSANGELA LANG Report Released Date/Time: Mar 29, 2024 10:49 AM Reporting Lab: [facility] [place] [facility] [address] [facility] [address] Performing Lab: [facility] [place] [facility] [address] [facility] [address] [place] [facility] [place] [facility] LIVER FUNCTION BILIRUBIN.T OTAL [MASS/VOLUM E] IN SERUM OR PLASMA 0.7 mg/dL 0.2 - 1.2 06/10 Specimen Type: SERUM No comment entered. Ordering Provider: ROSANGELA LANG Report Released Date/Time: Mar 29, 2024 10:49 AM Reporting Lab: [facility] [place] [facility] [address] [facility] [address] Performing Lab: [facility] [place] [facility] [address] [facility] [address] [facility] [place] [facility] BASIC METABOLIC PANEL (non-fast ing) UREA NITROGEN [MASS/VOLUM E] IN SERUM OR PLASMA 21 mg/dL 7 - 25 06/10 Specimen Type: SERUM No comment entered. Ordering Provider: ROSANGELA LANG Report Released Date/Time: Mar 29, 2024 10:49 AM Reporting Lab: [facility] [place] [facility] [address] [facility] [address] Performing Lab: [facility] [facility] [address] [facility] [address] [facility] BASIC METABOLIC PANEL (non-fast ing) GLUCOSE [MASS/VOLUM E] IN SERUM OR PLASMA 114 mg/dL 65 - 100 06/10 H Specimen Type: SERUM No comment entered. Ordering Provider: ROSANGELA LANG Report Released Date/Time: Mar 29, 2024 10:49 AM Reporting Lab: [facility] [facility] [address] [facility] [address] Performing Lab: [place] [facility] [place] [facility] [address] [facility] [address] [facility] [place] [facility] BASIC METABOLIC PANEL (non-fast ing) SODIUM [MOLES/VOLU ME] IN SERUM OR PLASMA 139 mmol/L 135 - 145 06/10 Specimen Type: SERUM No comment entered. Ordering Provider: ROSANGELA LANG Report Released Date/Time: Mar 29, 2024 10:49 AM Reporting Lab: [facility] [facility] [address] [facility] [address] Performing Lab: [place] [facility] [place] [facility] [address] [facility] [address] [facility] [place] [facility] BASIC METABOLIC PANEL (non-fast ing) POTASSIUM [MOLES/VOLU ME] IN SERUM OR PLASMA 3.7 mmol/L 3.5 - 5.0 06/10 Specimen Type: SERUM No comment entered. Ordering Provider: ROSANGELA LANG Report Released Date/Time: Mar 29, 2024 10:49 AM Reporting [facility] [address] [address] Performing Lab: [facility] [address] [address] [facility] BASIC METABOLIC PANEL (non-fast ing) CHLORIDE [MOLES/VOLU ME] IN SERUM OR PLASMA 107 mmol/L 100 - 110 06/10 Specimen Type: SERUM No comment entered. Ordering Provider: ROSANGELA LANG Report Released Date/Time: Mar 29, 2024 10:49 AM Reporting [facility]: [facility] [address] [address] Performing Lab: [facility] [address] [address] [facility] BASIC METABOLIC PANEL (non-fast ing) CARBON DIOXIDE, TOTAL [MOLES/VOLU ME] IN SERUM OR PLASMA 22 meq/L 20 - 30 06/10 Specimen Type: SERUM No comment entered. Ordering Provider: ROSANGELA LANG Report Released Date/Time: Mar 29, 2024 10:49 AM Reporting Lab[facility] [address] Performing Lab: [facility] [address] [address] [facility] BASIC METABOLIC PANEL (non-fast ing) CALCIUM [MASS/VOLUM E] IN SERUM OR PLASMA 8.9 mg/dL 8.5 - 10.2 06/10 Specimen Type: SERUM No comment entered. Ordering Provider: ROSANGELA LANG Report Released Date/Time: Mar 29, 2024 10:49 AM Reporting Lab: [facility] [address] Performing Lab: [facility] [place] [facility] [address] [facility] [address] [place] [facility] [place] [facility] BASIC METABOLIC PANEL (non-fast ing) CREATININE [MASS/VOLUM E] IN SERUM OR PLASMA 1.01 mg/dL 0.50 - 1.40 06/10 Specimen Type: SERUM No comment entered. Ordering Provider: ROSANGELA LANG Report Released Date/Time: Mar 29, 2024 10:49 AM Reporting Lab: [facility] [place] [facility] [address] [facility] [address] Performing Lab: [place] [facility] [place] [facility] [address] [facility] [address] [facility] [place] [facility] BASIC METABOLIC PANEL (non-fast ing) GLOMERULAR FILTRATION RATE/1.73 SQ M.PREDICTED [VOLUME RATE/AREA] IN SERUM, PLASMA OR BLOOD BY CREATININE- BASED FORMULA (CKD-EPI 2020) 84 mL/min 60 06/10 Specimen Type: SERUM No comment entered. Ordering Provider: ROSANGELA LANG Report Released Date/Time: Mar 29, 2024 10:49 AM Reporting Lab: [facility] [place] [facility] [address] [facility] [address] Performing Lab: [facility] [place] [facility] [address] [facility] [address] [facility] [place] [facility] Vital Signs Combined list of inpatient and outpatient Vital Signs from Department of Defense and Veterans Affairs, ranging from 12 months to all on record, depending upon the facility. Vital Sign Value Date Comments Source SYSTOLIC BLOOD PRESSURE 128 07/27/19 25 13:40:24 [facility] [place] [facility] DIASTOLIC BLOOD PRESSURE 80 025 13:40:24 [facility] [place] [facility] PULSE OXIMETRY 98 07/26/2024 13:40:24 [facility] [place] [facility] WEIGHT 227.6 07/26/2024 13:40:24 [facility] [place] [facility] BMI 42 kg/m2 07/26/2024 13:40:24 [facility] [place] [facility] PAIN 0 07/26/2024 13:40:24 [facility] [place] [facility] TEMPERATURE 98.2 07/26/2024 13:40:24 [facility] [place] PULSE 84 07/26/2024 13:40:24 [facility] [place] RESPIRATION 20 07/26/2024 13:40:24 [facility] [place] [facility] SYSTOLIC BLOOD PRESSURE 122 03/29/19 25 10:36:03 [...] Source [facility] Encounter [id number] 01/31 [facility] [id number] 01/31 [facility] [place] Encounter [id number] 01/31 [facility] [place] Encounter [id number] 02/10 [facility] FIT SPECTACLES MULTIFOCAL [id number] Diagnos is: ICD-10- CM Z46.0 Encount er for fit/adj st of spectac les and contact lenses HANS OSPINA 02/12 [facility] En[facility] [id number] 02/13 [facility] Encounter [id number] 02/13 [facility] Encounter [id number] 02/25 [facility] [place] Encounter [id number] 03/17 [facility] En[facility] [id number] 03/24 [facility] [place] En[facility] [id number] 03/24 [facility] [place] OFF[place] O/P EST MOD 30 MIN [id number] Diagnos is: ICD-10- CM Z00.01 Encount er for general adult medical exam w abnorma l finding s ZENON,Fay ROBBIE 04/01 [place] [facility] Encounter [id number] 08/06 [facility] En[facility] [id number] 11/02 [facility] [place] PT 1/ [id number] 1. Diagnos is: ICD-10- CM E11.9 Type 2 diabete s mellitu s without complic ations ACE RENDON H B 01/27 [facility] FIT SPECTACLES MULTIFOCAL [id number] 1. Diagnos is: ICD-10- CM Z46.0 Encount er for fit/adj st of spectac les and contact lenses ACE RENDON H B 01/27 [facility] [place] [facility] OFFICE O/P EST MOD 30 MIN [id number] Diagnos is: ICD-10- CM E11.9 Type 2 diabete s mellitu s without complic ations JULYMIRYAM LY P 03/29 [place] [facility] En[facility] [id number] 04/06 [facility] En[facility] [id number] 04/08 [facility] En[facility] [id number] 04/08 [facility] [place] En[facility] [id number] 04/08 [facility] (6[facility]) NQHP OL DIG ASSMT&MGMT 11-20 [id number] Diagnos is: ICD-10- CM I70.90 Unspeci fied atheros clerosi s MATA JAIMES JAM 04/12 [facility]GE) [facility] PH1 ASSMT&MGMT NQHP 5-10 [id number] Diagnos is: ICD-10- CM Z76.0 [facility]ri ptdali AYE FELICIANO 04/13 [facility] En[facility] [id number] 04/21 [facility] En[facility] [id number] 04/21 [facility] Encounter [id number] [facility] Encounter [id number] [facility] En[facility] [id number] [facility] [place] Outpatient Encounter [id number],MIRYAM Hoyt 07/26 [facility] [place] Social History Combined list of available smoking, tobacco, and other social history from Department of Defense and Veterans Affairs facilities. Social History Type Response Date Comment [facility] e Tobacco smoking status [facility]-TOBACCO NEVER USED 04/01/2023 [place] History of tobacco use [place] NEVER USED 10/09/2021 [place] History of tobacco use [facility]TOBACCO NEVER USED 09/07/2020 [place] History of tobacco use [place] NEVER USED 06/23/2018 [place] History of tobacco use CURRENT SMOKER 05/03/2015 occasional cigar smoker [place] History of tobacco use LIFETIME NON-SMOKER 01/30/2005 [place] History of tobacco use LIFETIME NON-SMOKER 01/16/2004 [place] History of tobacco use LIFETIME NON-SMOKER 04/30/2002 [place]
== END 2024-07-27 10:58 | disposition home or self-care (01) ==
LOC: HO.ENCR 10:22
PROVIDERS: Visit Provider Dietitian, Registered
DX: E11.42 Type 2 diabetes mellitus with diabetic polyneuropathy (principal); Z79.4 Long term (current) use of insulin

== ENCOUNTER → 2024-07-27 10:21 | Outpatient (BNVA) | payer BC, SELFPAY | PROVIDERS: Visit Provider Dietitian, Registered | DX: E11.42 Type 2 diabetes mellitus with diabetic polyneuropathy (principal); Z79.4 Long term (current) use of insulin; Z71.3 Dietary counseling and surveillance | CPT/HCPCS: 97803 ==

== ENCOUNTER 2024-07-29 10:09 | Outpatient (AMB) | payer BC, OTHER, SELFPAY ==
--- NOTE | 2024-07-29 10:16 | MHC.OFFVIS ---
Vital Signs 07/29/24 10:17 Height 5 ft 2 in Weight 225 lb 4.999 oz BMI 41.2 BP 120/80 Blood Pressure Location Lt brachial Position Sitting Pulse 72 Pulse Source Pulse Oximeter Intake Visit Reasons: 3m fu/ fu cardiac cath Employment Legal Assistant Required: No Accompanied by: Self / Same As Patient Allergies penicillin V Allergy (Unknown, Verified 05/25/24 11:17) swelling Penicillins [PENICILLINS] Allergy (Unknown, Verified 05/25/24 11:17) RASH,SWELLING Medication List - Last Reconciled 07/29/24 by Wong Hernandez MD amlodipine 5 mg PO DAILY aspirin (Adult Aspirin Regimen) 81 mg PO DAILY atorvastatin 80 mg PO QPM empagliflozin 25 mg PO QAM 30 days fenofibrate 54 mg PO DAILY 30 days hydrochlorothiazide 25 mg PO QAM levothyroxine 25 mcg PO DAILY losartan 25 mg PO DAILY metformin ER 2,000 mg (4 x 500 mg) PO BEDTIME 90 days metoprolol succinate ER 25 mg PO DAILY ezgirfbz-sav-muanl-vit K-lycop 400-20-300 mcg (One-A-Day Men's Multivitamin) tabs PO nitroglycerin 0.4 mg sublingual Q5M PRN omega 2-fzj-yvc-fish oil 1,200 (144-216) mg (Fish Oil) caps PO semaglutide (Ozempic) 1 mg (0.75 mL) subcut QWEEK 30 days ticagrelor (Brilinta) 90 mg PO BID HPI Comments Details: Jesse returns for follow-up. He was recently seen regarding an abnormal echocardiogram that showed a bicuspid aortic valve and soxv-oh-skxlrqph stenosis. However, he was also complaining of chest pains while playing sports. That led to coronary CTA followed by cardiac catheterization/LAD stenting. However, he was still having anginal symptoms and that led to repeat catheterization and PDA stenting. After that, he states he has substantially improved. He has got no symptoms whatsoever. No angina. Feeling good. ON LICENSE OF [facility] Medical History (Updated 05/25/24 @ 11:27 by Betzy Walden PA-C) Obesity due to excess calories Dyslipidemia Vitamin D deficiency [place]STE[place] (nonalcoholic steatohepatitis) Hypertension, essential Diabetes type 2, controlled Surgical History History of cardiac cath Hx of keloid of skin History of ankle surgery Family History Father Hypertension Mother HX: breast cancer Diabetes Social History Household Members: Spouse and Children Housing: House Alcohol intake: current Alcohol intake frequency: a few times a month Patient Tobacco Use Status: Current someday Tobacco user Tobacco use type: Cigar e-Cigarette/Vaping Use: Never Used Second Hand Smoke Exposure: Yes Substance Use Type: Marijuana service: Yes Current occupational status: retired Current occupation: [employer] Cognitive needs: No Hearing needs: No Vision needs: Yes Review of Systems Const Denies chills, Denies fatigue, Denies fever(s), Denies frequent falls, Denies weakness, Denies weight gain and Denies weight loss ENT Denies dizziness Card Denies chest pain, Denies leg edema, Denies lightheadedness, Denies palpitations, Denies dyspnea and Denies dyspnea on exertion Resp Denies cough, Denies dyspnea and Denies dyspnea on exertion GI Denies hematochezia Musc Denies abnormal gait, Denies muscle weakness, Denies numbness, Denies radiating pain into limb and Denies tingling Neuro Denies abnormal gait, Denies dizziness, Denies frequent falls, Denies numbness, Denies tingling and Denies weakness Endo Denies fatigue and Denies palpitations Physical Exam Vital Signs: Last Vital Signs Pulse 72 07/29/24 10:17 BP 120/80 07/29/24 10:17 BMI result Body Mass Index 41.2 Const General: comfortable and no acute distress Orientation/consciousness: patient oriented x3 HEENT Other: Unremarkable Head: Yes normal to inspection Neck Neck: Yes normal visual inspection Chest Chest palpation & inspection: normal inspection of the chest Resp Auscultation: clear to auscultation bilaterally Cardio Palpation: normal PMI Heart sounds: S1 normal heart sound present, S2 normal heart sound present, no gallops, no murmurs and no rubs GI Palpation (GI): Soft to palpation Back/Spine/Pelvis Other: unremarkable Skin General skin exam: no rashes or lesions noted Neuro General: patient oriented x3 Extrem General: Yes normal to inspection Psych Mental Status: mental status grossly normal Assessment & Plan Assessment & Plan (1) Atherosclerotic cardiovascular disease: Code(s): I25.10 - Atherosclerotic heart disease of [place] coronary artery without angina pectoris Category: Medical Plan: Status post mid LAD PCI 03/2024; status post mid PDA PCI-06/2024. Continue long-term aspirin. Brilinta for one year. On high-dose statins. [facility] and [facility]. Cardiac rehabilitation. (2) Bicuspid aortic valve: Code(s): Q23.1 - Congenital insufficiency of aortic valve Category: Medical Plan: In the echocardiogram, preserved LVEF at 61%; bicuspid aortic valve; moderately calcified; yhux-tt-rqkkwcjd stenosis but no significant regurgitation. (3) Hypertension, essential: Code(s): I10 - Essential (primary) hypertension Category: Medical Plan: On amlodipine, losartan. (4) Diabetes type 2, controlled: Code(s): E11.9 - Type 2 diabetes mellitus without complications Category: Medical Qualifiers: Diabetes mellitus complication detail: with polyneuropathy Diabetes mellitus complication status: with neurologic complications Diabetes mellitus custodial insulin use: with custodial use Qualified Code(s): E11.42 - Type 2 diabetes mellitus with diabetic polyneuropathy; Z79.4 - long-term (current) use of insulin Plan: On empagliflozin, metformin, Ozempic. Hemoglobin A1c is 6.9%. Coding Level of Care Code Est Pt Level 4 (79692) Complex EM visit Add On G2211 Diagnoses Atherosclerotic cardiovascular disease I25.10 Bicuspid aortic valve Q23.1 Hypertension, essential I10 Controlled type 2 diabetes mellitus with diabetic polyneuropathy, with long-term current use of insulin E11.42; Z79.4 Diabetes mellitus complication detail: with polyneuropathy Diabetes mellitus complication status: with neurologic complications Diabetes mellitus custodial insulin use: with project administrator use
[2024-07-29 10:17] VITALS: BP 120/80; PULSE 72; BMI 41.2
--- OUTSIDE RECORDS SUMMARY | 2024-07-29 11:05 | XMS_ITS ---
Author Name [facility] [place] [facility] [place] Address [address] [place] [address] Care Team Providers Care Pen Tester Name Role Phone PAOLA LANG Primary Care Provider Unavailabl e Insurance Providers: All historical and current Section [...] Name Patient's Relationship to Policy [facility] FED[facility]AL PREFERRED PROVIDER ORGANIZAT ION (PPO) PSHB BASIC SELF Mar 17, 2024 33A [id number] [phone] COLON,EDW IN PATIENT BCBS [place] F[place] PREFERRED PROVIDER ORGANIZAT ION (PPO) PSHB BASIC SELF Mar 17, 2024 33A [id number] [phone] COLON,EDW IN PATIENT [place] F[place] PREFERRED PROVIDER ORGANIZAT ION (PPO) PSHB BASIC SELF Mar 17, 2024 33A [id number] COLON,EDW IN PATIENT [place] F[place] DENTAL DENTAL INSURANCE BASIC Mar 17, 2024 DENTAL [id number] COLON,EDW IN PATIENT CAREMARK FEP BCBS PRESCRIPT ION CAREM ARK FEPRX PLAN Mar 17, 2024 [id number] COLON,EDW IN PATIENT CAREMARK FEPRX PLAN PRESCRIPT ION CAREM ARK FEPRX Mar 17, 2010 [id number] COLON,EDW IN PATIENT CAREMARK-F EP BCBS PRESCRIPT ION TRAM AL RX Mar 17, 2024 [id number] COLON,EDW IN PATIENT CAREMARK-F EP BCBS PRESCRIPT ION TRAM AL RX Mar 17, 2024 [id number] COLON,EDW IN PATIENT CAREMARK-F EP BCBS PRESCRIPT ION TRAM AL EMPLO YEES Mar 17, 2024 [id number] COLON,EDW IN PATIENT CAREMARK-F EP BCBS PRESCRIPT ION FEP CAREM ARK Nov 15, 2022 [id number] COLON,EDW IN PATIENT EXCELLUS BCBS FEDERAL PREFERRED PROVIDER ORGANIZAT ION (PPO) PSHB BASIC SELF Mar 17, 2024 33A [id number] COLON,EDW IN PATIENT HORIZON FEDERAL PREFERRED PROVIDER ORGANIZAT ION (PPO) PSHB BASIC SELF Mar 17, 2024 33A [id number] 45 COLON,EDW IN PATIENT Selected Encounter This section includes the information on record at CT for the Encounter. Date/Time Encounter Type Encounter Description Reason Provider Source Apr 12, 2024 09:55 AM NQHP OL DIG ASSMT&MGMT 11-20 CLINICAL PHARMACY ICD-10-CM I70.90 Unspecified atherosclerosis TREVOR JAIMES [facility] Encounter Template Text not used by CT Assessments - Encounter Diagnoses This section includes the primary and secondary diagnoses documented for the Encounter. Date/Time Primary/Secondary Diagnosis Diagnosis Name Provider Source Apr 27, 2024 01:26 PM PRIMARY Unspecified atherosclerosis TREVOR JAIMES [facility] ([id number]) Plan of Treatment: Future Appointments (+ 6 months) and Future Tests (+/- 45 days) The Plan of Treatment section includes future care activities for the patient from all [facility]. This section includes future appointments and future orders which are active, pending or scheduled. Future Appointments This section includes appointments that were scheduled to occur 6 months from the date of the Encounter, up to a maximum of 20 appointments. The data comes from all [facility] facilities. Appointment Date/Time Appointment Type Appointme nt Facility Name Apr 29, 2024 09:30 AM AMBULATORY - MEDICINE [facility] July 26, 2024 01:30 PM AMBULATORY MEDICINE [facility] Active, Pending, and Scheduled Orders This section includes a listing of several types of active, pending, and scheduled orders, including clinic medications orders, diagnostic test orders, procedure orders and consult orders; where the start date of the order is 45 days before the date of the Encounter or 45 days after the date of theEncounter. The [facility] comes [facility] Test Date/Time Test Type Test Details Facility Name Apr 22, 2024 10:41 AM Consult Order [facility] Cons Flagsetter's Choice [facility] Lab Results: +/- 30 days of the encounter This section includes the Chemistry and Hematology Lab Results on record with CT for the patient. Radiology Reports and Pathology Reports are provided separately, in subsequent sections. Lab Results This section contains the Chemistry/Hematology Results that were resulted 30 days before or 30 daysafter the date of the Encounter. Date/Time Source Result Type Result - Unit Interpretation Reference Range Specimen Type Comment Mar 23, 2024 07:31 AM [facility] LIPID PANEL FASTING SERUM Specimen Type: SERUM No comment entered. Ordering Provider: TARAS YARBROUGH Report Released Date/Time: Mar 16, 2024 09:18 AM Reporting Lab: [address] [address] Performing Lab: [address] [address] CHOLESTEROL 176 mg/dL TRIGLYCERIDE 196 mg/dL H 0-150 LDL calculated 102 mg/dL 0-129 CHOL/HDL 5.0 HDL CHOLESTEROL 35 mg/dL L 40-60 Mar 23, 2024 07:31 AM [facility] BASIC METABOLIC PANEL (fasting) SERUM Specime n Type: SERUM No comment entered. Ordering Provider: NICHOLAS YARBROUGH Report Released Date/Time: Mar 16, 2024 09:18 AM Reporting Lab: [facility] [address] [facility] [facility] [address] Performing Lab: [address] [address] UREA NITROGEN 22 mg/dL 7-25 GLUCOSE 173 mg/dL H 65-100 SODIUM 139 mmol/L 135-145 POTASSIUM 5.3 mmol/L H 3.5-5.0 CHLORIDE 102 mmol/L 100-110 CO2 29 meq/L 20-30 CREATININE, Serum 1.30 mg/dL 0.50-1.40 eGFR(CKD-EPI 2020) 62 mL/min >60 Mar 23, 2024 07:31 AM [facility] LIVER FUNCTION SERUM Specimen Type: SERUM No comment entered. Ordering Provider: NICHOLAS YARBROUGH Report Released Date/Time: Mar 16, 2024 09:18 AM Reporting Lab: [facility] [address] [facility] [facility] [address] Performing Lab: [address] [address] PROTEIN,TOTAL 8.4 g/dL H 6.0-8.3 ALBUMIN 4.5 g/dL 3.5-5.0 ALKALINE PHOSPHATASE 76 U/L 40-150 AST 32 U/L 5-34 ALT 37 U/L BILIRUBIN, TOTAL 0.7 mg/dL 0.2-1.2 Mar 23, 2024 07:31 AM [facility] HEMOGLOBIN A1C PANEL BLOOD Specimen Type: BLO OD Comment: Values obtained from A1C measurements can vary. For atypical A1C assays, a reported value of 7.0 could actually be between 6.72 and 7.28 if measured by a reference method. A reported value of 9.0 could actually be between 8.73 and 9.27. Ref: [email or web address]/[email or web address] Ordering Provider: NICHOLAS YARBROUGH Report Released Date/Time: Mar 16, 2024 09:18 AM Reporting Lab: [facility] [place] [facility] [address] [facility] [facility] [address] Performing [facility]: [facility] [place] [facility] [address] [facility] [address] HEMOGLOBIN A1C 6.9 H 4.0-5.6 Mar 23, 2024 07:31 AM [facility] TSH SERUM Specimen Type: SERUM No comment entered. Ordering Provider: NICHOLAS YARBROUGH Report Released Date/Time: Mar 16, 2024 09:18 AM Reporting Lab: [facility] [place] [facility] [address] [facility] [address] Performing Lab: [facility] [address] [facility] [address] TSH 5.38 u[IU]/mL H 0.35-5.00 Mar 23, 2024 07:31 AM [facility] MICROALBUMIN CREATININE RATIO PANEL URINE Spe cimen Type: URINE No comment entered. Ordering Provider: NICHOLAS YARBROUGH Report Released Date/Time: Mar 16, 2024 09:18 AM Reporting Lab: [facility] [address] [facility] [address] Performing Lab: [facility] [address] [facility] [address] MICROALBUMIN/CREATININE RATIO 60.2 mg/g H 0-29.9 MICROALBUMIN,QUANTITATIVE 6.9 mg/dL RR U NAVAIL CREATININE URINE 114.63 mg/dL Mar 23, 2024 07:31 AM [facility] CBC AND DIFF (AUTO) BLOOD Specimen Type: BLOO D No comment entered. Ordering Provider: NICHOLAS YARBROUGH Report Released Date/Time: Mar 16, 2024 09:18 AM Reporting Lab: [facility] [address] [facility] [address] Performing Lab: [facility] [address] [facility] [address] WBC 6.73 10*3/uL 4.50-11.00 RBC 5.01 10*6/uL [...] 0.3 0.0-0.7 IMMATURE GRAN, ABS 0.02 10*3/uL 0.00-0.0 6 NRBC % 0.0 0.0-0.0 NRBC, ABS 0.00 10*3/uL 0.00-0.00 Encounter Notes: All associated encounter notes This section contains the clinical notes associated to the Encounter. Date/Time Encounter Note(s) Provider Source Apr 12, 2024 09:55 AM PHARMACY CONSULT: LOCAL TITLE: CONSULT REPORT/PRIOR [facility] STANDARD TITLE: PHARMACY CONSULT DATE OF NOTE: [...] [ ] Reduced clopidogrel response(e.g., any documented EBA2A87 intermediate or poor metabolizer phenotypes or high on?treatment platelet reactivity by P2Y12 reaction units [PRU] testing) and continued indication for P2Y12 inhibitor therapy [x] Confirmed coronary artery disease (CAD) and type 2 diabetes without prior myocardial infarction (SC), at particularly high ischemic risk AND low [...] or true aspirin allergy Coronary angiography with [facility] for chest pain, abnormal coronary CTA and abnormal echo on 04/06/24 at [facility]. was discharged on aspirin 81mg daily and ticagrelor 90mg BID. Of note, also has hx of diabetes. Request approved. Meets continuity of care and dual indication. The request is approved x 12 mo - No formulary-preferred alternative - Continuity of care Time spent: 15 min /ruchi/ Trevor Jaimes, PharmD Clinical Statistical Geneticist Signed: 04/12/2024 10:19 TREVOR JAIMES [facility] ([id number])
--- OUTSIDE RECORDS SUMMARY | 2024-07-29 11:05 | XMS_ITS | Encounter Summary ---
Author Name [facility] [place] Organization [facility] [place] Address [address] [place] [address] Care Team Providers Care Concrete Mason Name Role Phone PAOLA LANG Primary Care [...] Name Patient's Relationship to Policy Hughes ABBE [facility] FEDERAL PREFERRED PROVIDER ORGANIZAT ION (PPO) PSHB BASIC SELF Mar 17, 2024 33A [id number] [phone] COLON,EDW IN PATIENT BCBS [place] FEP PREFERRED PROVIDER ORGANIZAT ION (PPO) PSHB BASIC SELF Mar 17, 2024 33A [id number] [phone] COLON,EDW IN PATIENT [place] F[place] PREFERRED PROVIDER ORGANIZAT ION (PPO) PSHB BASIC SELF Mar 17, 2024 33A [id number] COLON,EDW IN PATIENT [place] F[place] DENTAL DENTAL INSURANCE BASIC Mar 17, 2024 DENTAL [id number] COLON,EDW IN PATIENT CAREMARK FEP BCBS PRESCRIPT ION CAREM ARK FEPRX PLAN Mar 17, 2024 [id number] COLON,EDW IN PATIENT CAREMARK FEPRX PLAN PRESCRIPT ION CAREM ARK FEPRX Mar 17, 2010 [id number] COLON,EDW IN PATIENT CAREMARK-F EP BCBS PRESCRIPT ION TRAM AL RX Mar 17, 2024 [id number] COLON,EDW IN PATIENT CAREMARK-F EP BCBS PRESCRIPT ION TRAM AL RX Mar 17, 2024 [id number] COLON,EDW IN PATIENT CAREMARK-F EP BCBS PRESCRIPT ION TRAM AL EMPLO YEES Mar 17, 2024 [id number] COLON,EDW IN PATIENT CAREMARK-F EP BCBS PRESCRIPT ION FEP CAREM ARK Nov 15, 2022 [id number] COLON,EDW IN PATIENT EXCELLUS BCBS FEDERAL PREFERRED PROVIDER ORGANIZAT ION (PPO) PSHB BASIC SELF Mar 17, 2024 33A [id number] COLON,EDW IN PATIENT HORIZON FEDERAL PREFERRED PROVIDER ORGANIZAT ION (PPO) PSHB BASIC SELF Mar 17, 2024 33A [id number] 45 COLON,EDW IN PATIENT Selected Encounter This section includes the information on record at [place] for the Encounter. Date/Time Encounter Type Encounter Description Reason Provider Source Jan 28, 2024 11:30 AM COMPRE OPH EXAM EST PT 1/> OPTOMETRY ICD-10-CM E11.9 Type 2 diabetes mellitus without complications MONIK RENDON IHE Encounter Template Text not used by [facility] Assessments - Encounter Diagnoses This section includes the primary and secondary diagnoses documented for the Encounter. Date/Time Primary/Secondary Diagnosis Diagnosis Name Provider Source Feb 07, 2024 06:32 AM PRIMARY Type 2 diabetes mellitus without complications MONIK RENDON [facility] [place] [facility] Feb 07, 2024 06:32 AM SECONDARY Combined forms of age-related cataract, bilateral MONIK RENDON [facility] [place] [facility] Feb 07, 2024 06:32 AM SECONDARY Hypermetropia, bilateral MERJOSE G,MONIK Tapia [facility] Plan of Treatment: Future Appointments (+ 6 months) and Future Tests (+/- 45 days) The Plan of Treatment section includes future care activities for the patient from all [place] treatmentfacilities. This section includes future appointments and future orders which are active, pending or scheduled. Future Appointments This section includes appointments that were scheduled to occur 6 months from the date of the Encounter, up to a maximum of 20 appointments. The data comes from all [place] treatment facilities. Appointment Date/Time Appointment Type Appointme nt Facility Name Mar 29, 2024 10:30 AM AMBULATORY - MEDICINE [facility] Apr 29, 2024 09:30 AM AMBULATORY MEDICINE [facility] July 26, 2024 01:30 PM AMBULATORY - MEDICINE [facility] Lab Results: +/- 30 days of the encounter This section includes the Chemistry and Hematology Lab Results on record with [place] for the patient. Radiology Reports and Pathology Reports are provided separately, in subsequent sections. Lab Results This section contains the Chemistry/Hematology Results that were resulted 30 days before or 30 daysafter the date of the Encounter. Date/Time Source Result Type Result - Unit Interpretation Reference Range Specimen Type Comment Feb 11, 2024 12:00 AM [facility] OCCULT BLOOD FIT X1 SCREEN (MFP ONLY) FECES S pecimen Type: FECES No comment entered. Ordering Provider: TARAS YARBROUGH Report Released Date/Time: Jan 06, 2024 03:08 PM Reporting Lab: [facility] [address] [facility] [address] Performing Lab: [facility] [address] [address] OCCULT BLOOD (FIT)#1 OF 1 Negative NEG [...] FOHx: MHx: Code Description N52.9 Erectile dysfunction ([facility] [id number]) 692.6 Contact dermatitis due to poison cyndee ([facility] [id number]) 250.50 Nonproliferative diabetic retinopathy ([facility] [id number]) 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 Dilation drops instilled by copier field service technician after angle assessment and dilation warning [...] of active outpatient prescriptions dispensed from this [place] (local) and dispensed from another [place] or DoD facility (remote) as well as [...] list may not be complete. Please check JLElevate. Allergies/ADRs (Tool #5) FACILITY ALLERGY/ADR -------- No Remote Allergy/ADR Data available for this patient [facility] Med Recon NoGlossary (Tool #1) INCLUDED IN THIS LIST: Alphabetical list of active outpatient prescriptions dispensed from this VA (local) and dispensed from another [place] or DoD facility (remote) as well as inpatient orders (local pending and active), local clinic medications, locally documented non-VA medications, and local prescriptions that have or been discontinued in the past 90 days. Non-VA Meds Last Documented On: Apr 01, 2023 NOTE The display of VA prescriptions dispensed from another ME or DoD facility (remote) is limited to active outpatient prescription entries matched to National Drug File at the originating site and may not include some items such as investigational drugs, compounds, etc. NOT INCLUDED IN THIS LIST: Medications self-entered by the patient into personal health records (i.e. ice) are NOT included in this list. Non-VA medications documented outside this ME, remote inpatient orders (regardless of status) and [...] 1 HOUR PRIOR TO SEXUAL ACTIVITY Rx# [id number] Last Released: 04/03/23 Qty/Days Supply: 09/13 Rx Expiration Date: 04/01/24 Refills Remainin Indication: FOR ERECTILE DYSFUNCTION SUPPLIES /ruchi/ MONIK RENDON OD Vessel Builder Signed: 01/28/2024 13:52 MONIK RENDON [facility] Jan 28, 2024 09:50 AM OPTOMETRY GAMING PIT BOSS NOTE: LOCAL TITLE: OPTOMETRY GAMING PIT BOSS NOTE STANDARD TITLE: OPTOMETRY GAMING PIT BOSS NOTE DATE OF NOTE: JAN 28, 2024@09:50 ENTRY DATE: JAN 28, 2024@09:50:27 AUTHOR: PATSY OSPINA EXP COSIGNER: URGENCY: STATUS: COMPLETED Active problems - Computerized Problem List is the source for the followin. Erectile dysfunction 2. Contact dermatitis due to poison cyndee 3. Nonproliferative diabetic retinopathy 4. Disorder of lipid and lipoprotein metabolism (SNOMED CT [id number]) 5. opiate use chronic 6. Other dyspnea and respiratory abnormality 7. Positive Microalbuminuria Test Result Documented and Reviewed (DM) 8. Type II diabetes mellitus uncontrolled (SNOMED CT 872269156) 9. Knee: arthralgia 10. Heel: arthralgia 11. Obesity 12. 1987: SC: Rt Ankle: 2 surgergies 1311: EKG:NSR 64bpm [place]:178 QRS:86 QT: 392 NSTW 14. Depressive Disorder NOS * 15. Adjustment Disorder with Mixed Anxiety and Depressed Mood 16. Pain in joint involving shoulder region 17. 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 (SNOMED CT [id number]) Active Outpatient Medications (including Supplies): Active Outpatient [...] of last eye exam:Jan 22 2023 Location: [facility] Chief Complaint:Patient here today for a [...] HEMOGLOBIN A1C PANEL BLOOD (LAV-BLOOD) JORGE MAYNARD #[id number] Collection time: Jan 22, 2023@08:09 HEMOGLOBIN A1C [...] outside work. will duplicate frames. /ruchi/ PATSY WELCH COMMUNITY HOSPITALIAN Signed: 01/28/2024 11:41 PATSY OSPINA CNTRL [facility]
--- OUTSIDE RECORDS SUMMARY | 2024-07-29 11:06 | XMS_ITS | Continuity of Care Document ---
Author Name [facility] Organization [facility] Care Team Providers Care Corporate Intern Name Role Phone [facility] Unavailable Unavailable Problems Combined list of problems from Department of Defense and Veterans Affairs facilities. It does not include entries that were removed or entered in error. Problem Status Onset Date Problem Type Date of Resolution Comments Source 1988: [place]: Rt Ankle: 2 surgergies Active Condition [place] Acute Anxiety disorder Active Condition [facility] Adjustment Disorder with Mixed Anxiety and Depressed Mood (ICD-9-CM 309.28) Active Condition [facility] ASTHMA Active Condition [facility] Contact dermatitis due to poison cyndee Active Condition [facility] Coronary arteriosclerosis Active Condition [facility] Depressive Disorder NOS * (ICD-9-CM 311./300.4) Active Condition [facility] Disorder of lipid and lipoprotein metabolism (SNOMED CT 91681941) Active Condition [place] Erectile dysfunction Active Condition [facility] [...] OG Comment: per eye exam Jan 2014; [place] Obesity Active Condition [place] Other dyspnea and respiratory abnormality (ICD-9-CM 786.09) Active Condition [facility] Pain in joint involving shoulder region (ICD-9-CM 719.41) Active Condition [facility] Positive Microalbuminuria Test Result Documented and Reviewed (DM) Active Condition [place] Type 2 diabetes mellitus Active Condition [facility] Diagnosis: ICD-10-CM Z76.0 Encounter for issue of repeat prescription Active Diagnosis [place] [facility] WST RN ENAGETACHEW [facility] Diagnosis: ICD-10-CM I70.90 Unspecified atherosclerosis Active Diagnosis [facility] (6[facility]) Diagnosis: ICD-10-CM E11.9 Type 2 diabetes mellitus without complications Active Diagnosis [place] Diagnosis: ICD-10-CM Z46.0 Encounter for fit/adjst of spectacles and contact lenses Active Diagnosis [place] [facility] ENATAYLOR [facility] Diagnosis: ICD-10-CM Z00.01 Encounter for general adult medical exam w abnormal findings Active Diagnosis [facility] Medications Combined list of outpatient medications [...] ONCE DAILY ORAL ACTIVE Barry RICKS 2018 [facility] ASPIRIN 81MG TAB,EC TAKE ONE TABLET BY MOUTH DAILY ORAL ACTIVE RHODA GARCIA 2014 [facility]ELD DICLOFENAC NA 1% GEL,TOP APPLY 2 GRAMS TOPICALL Y FOUR TIMES A DAY FOR JOINT PAIN FOR OSTEOART HRITIS - USE DOSING CARD PROVIDED IN BOX RIGHT ANKLE ADONIS Leslie ACTIVE 07/27/2025 [id number] 19 July,WANDY Hoyt 2024 200 [facility] [facility] EMPAGLIFLOZ IN 25MG TAB TAKE ONE TABLET BY MOUTH ONCE DAILY ORAL ACTIVE Barry RICKS 2018 [facility] IELD FENOFIBRATE 54MG TAB TAKE ONE TABLET BY MOUTH ONCE DAILY ORAL ACTIVE CHIKA YARBROUGH O 2023 [facility] FISH OIL 1000MG (500MG DHA/EPA) CAP,ORAL TAKE 2 CAPSULES BY MOUTH AT BEDTIME ORAL ACTIVE SEBASTIAN HERNANDEZ 2010 [facility] IELD HYDROCHLORO THIAZIDE 25MG TAB TAKE ONE TABLET BY MOUTH ONCE DAILY ORAL ACTIVE Barry RICKS 2018 [facility] IELD LEVOTHYROXI NE NA 25MCG TAB (SYNTHROID) TAKE ONE TABLET BY MOUTH EVERY MORNING 30 MINUTES BEFORE BREAKFAS T FOR THYROID TAKE ON AN EMPTY STOMACH WITH A FULL GLASS OF WATER ORAL ACTIVE 03/30/2025 [id number] JULYWANDY 2024 90 [facility] IELD LOSARTAN POTASSIUM 100MG TAB TAKE ONE TABLET BY MOUTH ONCE DAILY ORAL ACTIVE Barry RICKS 2018 IELD METFORMIN HCL 500MG TAB TAKE ONE TABLET BY MOUTH ONCE DAILY ORAL ACTIVE Barry RICKS 2018 [facility] [facility] METOPROLOL SUCCINATE 25MG TAB,SA TAKE ONE TABLET BY MOUTH ONCE DAILY ORAL ACTIVE RA GREGORY JAUREGUI 2024 [place] [facility] MULTIVITAMI NS W/MINERALS TAB TAKE ONE TABLET BY MOUTH qd ORAL ACTIVE LAKISHA MORA 2004 [facility] [facility] SEMAGLUTIDE 1MG/0.75ML INJ,SOLN,PE N,1.5ML INJECT 1MG SUBCUTAN EOUSLY ONCE A WEEK SUBCUT ANEOUS ACTIVE Barry RICKS 2018 [place] [facility] TICAGRELOR 90MG TAB TAKE ONE TABLET BY MOUTH TWICE DAILY ORAL ACTIVE 07/27/2025 [id number] JULY,WANDY Hoyt 2024 180 [facility] IELD TICAGRELOR 90MG TAB TAKE ONE TABLET BY MOUTH TWICE DAILY ORAL DISCONT INUED 04/12/2025 [id number] RA GREGORY JAUREGUI 2024 180 [facility] Allergies, Adverse Reactions, Alerts Combined [...] Site Reaction Lot Number CVX Code Drug Aircraft Pilot Status Comments Source INFLUENZA, INJECTABLE, QUADRIVALENT, PRESERVATIVE FREE 2023 AVANI PETERS LEFT DELTO ID [id number] A 150 complet ed ADMINISTE [place], [facility] IELD ZOSTER RECOMBINANT 2 2023 LORRAINEAVANI DY LEFT DELTO ID [id number] 187 complet [facility] INFLUENZA, UNSPECIFIED FORMULATION 2023 88 complet ed HISTORICA L INFORMATI ON - FROM OTHER PROVIDER, [place] [facility] PNEUMOCOCCAL CONJUGATE PCV20, POLYSACCHARID E [id number] CONJUGATE, ADJUVANT, PF 2021 216 complet ed [facility]ELD ZOSTER RECOMBINANT 1 2021 187 complet ed [facility] COVID-19 ([employer]), MRNA, LNP-S, PF, 30 MCG/0.3 ML DOSE 2 2020 208 complet ed [place] [facility] COVID-19 ([employer]), VECTOR-NR, [id number], PF, 0.5 ML 1 2020 212 complet ed JSN; [id number]; 1 [place] [facility] INFLUENZA, UNSPECIFIED FORMULATION 2019 88 complet ed [place] [facility] [place] INFLUENZA, SEASONAL, INJECTABLE 2017 141 complet ed [facility] FLU,3 YRS (HISTORICAL) 2014 [address] complet ed [place] office [place] [facility] [place] FLU,3 YRS (HISTORICAL) 2013 88 complet ed [place] work [facility] [place] FLU,3 YRS (HISTORICAL) 2012 88 complet ed Site: Right Deltoid [facility] DTAP, UNSPECIFIED FORMULATION 2012 107 complet ed [facility] PNEUMOCOCCAL, UNSPECIFIED FORMULATION 2012 109 complet ed [facility] FLU,3 YRS (HISTORICAL) 2011 88 complet ed [facility] [place] FLU,3 YRS (HISTORICAL) 2010 88 complet ed [facility] [place] FLU,3 YRS (HISTORICAL) 2009 88 complet ed [facility] Results Combined [...] Jun 19, 2024 01:50 PM Reporting Lab: [facility] [address] [address] Performing Lab: [address] [address] [facility] PSA PROSTATE SPECIFIC AG [MASS/VOLUM E] IN SERUM OR PLASMA BY IMMUNOASSAY 0.3 ng/mL 0.0 - 4.0 07/23 Specimen Type: SERUM No comment entered. Ordering Provider: ROSANGELA LANG Report Released Date/Time: Jun 19, 2024 01:50 PM Reporting Lab: [facility] [address] [address] Performing Lab: [address] [address] [facility] HEMOGLOBI N A1C PANEL HEMOGLOBIN A1C/HEMOGLO [...] Jun 19, 2024 01:50 PM Reporting Lab: [address] [address] Performing Lab: [address] [address] [facility] LIVER FUNCTION PROTEIN [MASS/VOLUM E] IN SERUM OR PLASMA 7.9 g/dL 6.4 - 8.3 07/23 Specimen Type: SERUM No comment entered. Ordering Provider: ROSANGELA LANG Report Released Date/Time: Jun 19, 2024 01:50 PM Reporting Lab: [facility]PITALN [facility]ITALUSE[address] [address] Performing Lab: [facility] TRN [facility]PITALUSEA.[facility] [address] [address] [facility]OSPITALN [facility]ITALUSE [facility] LIVER FUNCTION ALBUMIN [MASS/VOLUM E] IN SERUM OR PLASMA BY BROMOCRESOL PURPLE (BCP) DYE BINDING METHOD 4.6 g/dL 3.2 - 4.6 07/23 Specimen Type: SERUM No comment entered. Ordering Provider: ROSANGELA LANG Report Released Date/Time: Jun 19, 2024 01:50 PM Reporting Lab: [facility]ANRENCOM[facility] H[facility] MONTGOMERYTRN [facility]PITALUSE[address] [address] Performing Lab: [facility]N [facility]ITALUSE[address] [address] [facility]ITALUSE [facility] LIVER FUNCTION ALKALINE PHOSPHATASE [ENZYMATIC ACTIVITY/VO LUME] IN SERUM OR PLASMA 82 U/L 40 - 150 07/23 Specimen Type: SERUM No comment entered. Ordering Provider: ROSANGELA LANG Report Released Date/Time: Jun 19, 2024 01:50 PM Reporting Lab: [facility] TRN MASSUSE[address] [address] Performing Lab: [facility]N [facility]ITALUSE[address] [address] [facility]ANRD.[facility]OSPITALN [facility]USE [facility] LIVER FUNCTION ASPARTATE AMINOTRANSF ERASE [ENZYMATIC ACTIVITY/VO LUME] IN SERUM OR PLASMA BY WITH P-5'-P 42 U/L 5 - 34 07/23 H Specimen Type: SERUM No comment entered. Ordering Provider: ROSANGELA LANG Report Released Date/Time: Jun 19, 2024 01:50 PM Reporting Lab: [facility] [place] [facility] [address] [address] Performing Lab: [facility] [place] [facility] [address] [address] [facility] [place] [facility] LIVER FUNCTION ALANINE AMINOTRANSF ERASE [ENZYMATIC ACTIVITY/VO LUME] IN SERUM OR PLASMA BY WITH P-5'-P 40 U/L 0 - 55 07/23 Specimen Type: SERUM No comment entered. Ordering Provider: ROSANGELA LANG Report Released Date/Time: Jun 19, 2024 01:50 PM Reporting Lab: [facility] [place] [facility] [address] [address] Performing Lab: [facility] [place] [facility] [address] [address] [place] [facility] [facility] LIVER FUNCTION BILIRUBIN.T OTAL [MASS/VOLUM E] IN SERUM OR PLASMA 0.9 mg/dL 0.2 - 1.2 07/23 Specimen Type: SERUM No comment entered. Ordering Provider: ROSANGELA LANG Report Released Date/Time: Jun 19, 2024 01:50 PM Reporting Lab: [facility] [place] [facility] [address] [facility] [address] Performing Lab: [facility] [place] [facility] [address] [address] [place] [facility] [facility] [facility] MICROALBU MIN CREATININ E RATIO PANEL MICROALBUMI N/CREATININ E [MASS RATIO] IN URINE 16.9 mg/g 0 - 29.9 07/23 Specimen Type: URINE No comment entered. Ordering Provider: ROSANGELA LANG Report Released Date/Time: Jun 19, 2024 01:50 PM Reporting Lab: [facility] [place] [facility] [address] [address] Performing Lab: [facility] [place] [facility] [address] [address] [facility] [place] [facility] MICROALBU MIN CREATININ E RATIO PANEL MICROALBUMI N [MASS/VOLUM E] IN URINE BY DETECTION LIMIT <= 1.0 MG/L 1.3 mg/dL 07/23 Specimen Type: URINE No comment entered. Ordering Provider: ROSANGELA LANG Report Released Date/Time: Jun 19, 2024 01:50 PM Reporting Lab: [facility]ANRD.[facility]. MCMILL[facility] HOSPITALN [facility] [address] [facility] [address] Performing Lab: [facility] [address] [address] [facility]N [facility]ITALUSE [facility] MICROALBU MIN CREATININ E RATIO PANEL CREATININE [MASS/VOLUM E] IN URINE 76.96 mg/dL 63 - 166 07/23 Specimen Type: URINE No comment entered. Ordering Provider: ROSANGELA LANG Report Released Date/Time: Jun 19, 2024 01:50 PM Reporting Lab: [facility] [address] [address] Performing Lab: [facility] [address] [address] [facility] BASIC METABOLIC PANEL (non-fast ing) UREA NITROGEN [MASS/VOLUM E] IN SERUM OR PLASMA 18 mg/dL 8 - 26 07/23 Specimen Type: SERUM No comment entered. Ordering Provider: ROSANGELA LANG Report Released Date/Time: Jun 19, 2024 01:50 PM Reporting Lab: [facility] [address] [address] Performing Lab: [facility]OSPITALN [address] [address] [facility]ANRD.[facility]OSPITALN [facility] BASIC METABOLIC PANEL (non-fast ing) GLUCOSE [MASS/VOLUM E] IN SERUM OR PLASMA 105 mg/dL 65 - 100 07/23 H Specimen Type: SERUM No comment entered. Ordering Provider: ROSANGELA LANG Report Released Date/Time: Jun 19, 2024 01:50 PM Reporting Lab: [facility] [address] [address] Performing Lab: [facility] [address] [address] [facility] WSTRN MASSUSE [facility] BASIC METABOLIC PANEL (non-fast ing) SODIUM [MOLES/VOLU ME] IN SERUM OR PLASMA 138 mmol/L 136 - 145 07/23 Specimen Type: SERUM No comment entered. Ordering Provider: ROSANGELA LANG Report Released Date/Time: Jun 19, 2024 01:50 PM Reporting Lab: [facility]ANRENCOM[facility]IL[facility] HOSP[facility] OF MONTGOMERYTRN [facility]OSPITALUSETS [address] [address] Performing Lab: [facility]ANRL WSTRN [facility] HOSPITALUSETS [facility] [address] [address] [facility]OS[facility] MON[facility]OMERYTRN [facility]PITALUSE [facility] BASIC METABOLIC PANEL (non-fast ing) POTASSIUM [MOLES/VOLU ME] IN SERUM OR PLASMA 3.7 mmol/L 3.5 - 5.1 07/23 Specimen Type: SERUM No comment entered. Ordering Provider: ROSANGELA LANG Report Released Date/Time: Jun 19, 2024 01:50 PM Reporting Lab: [facility]N [place] [address] [address] Performing Lab: [facility]ANRL WSTRN [facility]PITALUSETS [address] [address] [facility]ANRENCOM[facility] HOSP[facility] MONTGOMERYTRN [facility]OSPITALUSE [facility] BASIC METABOLIC PANEL (non-fast ing) CHLORIDE [MOLES/VOLU ME] IN SERUM OR PLASMA 102 mmol/L 98 - 107 07/23 Specimen Type: SERUM No comment entered. Ordering Provider: ROSANGELA LANG Report Released Date/Time: Jun 19, 2024 01:50 PM Reporting Lab: [facility] [place] [facility] [address] [facility] [address] Performing Lab: [facility]RL TRN [facility]OSPITALUSETS [address] [address] [facility]ANRENCOM[facility] HOS[facility] MONTGOMERYTRN [facility]OSPITALUSE [facility] BASIC METABOLIC PANEL (non-fast ing) CARBON DIOXIDE, TOTAL [MOLES/VOLU ME] IN SERUM OR PLASMA 22 meq/L 23 - 31 07/23 L Specimen Type: SERUM No comment entered. Ordering Provider: ROSANGELA LANG Report Released Date/Time: Jun 19, 2024 01:50 PM Reporting Lab: [facility] [address] [facility] [address] Performing Lab: [facility]ANRD.[facility] HOSPITALN [facility] [address] [address] [facility] BASIC METABOLIC PANEL (non-fast ing) CALCIUM [MASS/VOLUM E] IN SERUM OR PLASMA 10.0 mg/dL 8.8 - 10 07/23 Specimen Type: SERUM No comment entered. Ordering Provider: ROSANGELA LANG Report Released Date/Time: Jun 19, 2024 01:50 PM Reporting Lab: [facility] [address] [address] Performing Lab: [facility] [address] [address] [facility] BASIC METABOLIC PANEL (non-fast ing) CREATININE [MASS/VOLUM E] IN SERUM OR PLASMA 0.93 mg/dL 0.72 - 1.25 07/23 Specimen Type: SERUM No comment entered. Ordering Provider: ROSANGELA LANG Report Released Date/Time: Jun 19, 2024 01:50 PM Reporting Lab: [address] [address] Performing Lab: [facility]OSPITALN [address] [address] [facility] BASIC METABOLIC PANEL (non-fast ing) GLOMERULAR FILTRATION RATE/1.73 SQ M.PREDICTED [VOLUME RATE/AREA] IN SERUM, PLASMA OR BLOOD BY CREATININE- BASED FORMULA (CKD-EPI 2020) >90mL/ min 60 07/23 Specimen Type: SERUM No comment entered. Ordering Provider: ROSANGELA LANG Report Released Date/Time: Jun 19, 2024 01:50 PM Reporting Lab: [facility]RENCOM[facility] H[facility] OF MONTGOMERYTRN [address] [address] Performing Lab: [facility] [address] [address] [facility] PSA PROSTATE SPECIFIC AG [MASS/VOLUM E] IN SERUM OR PLASMA BY IMMUNOASSAY 0.23 ng/mL 0.00 - 4.00 06/10 Specimen Type: SERUM No comment entered. Ordering Provider: ROSANGELA LANG Report Released Date/Time: Mar 29, 2024 10:49 AM Reporting Lab: [facility]RENCOM[facility] HOS[facility] OF MONTGOMERYTRN [facility]OSPITALUSEA.[facility] [address] [address] Performing Lab: [facility]RL TRN [facility]OSPITALUSE[address] [address] [facility]ANRL [facility]ERN [facility]OS[facility]ITALUSE [facility] TSH THYROTROPIN [UNITS/VOLU ME] IN SERUM OR PLASMA BY DETECTION LIMIT <= 0.005 MIU/L 3.28 u[IU]/ mL 0.35 - 5.00 06/10 Specimen Type: SERUM No comment entered. Ordering Provider: ROSANGELA LANG Report Released Date/Time: Mar 29, 2024 10:49 AM Reporting Lab: [facility]RENCOM[facility] HOS[facility] OF MONTGOMERYTRN [facility]ITALUSE[address] [address] Performing Lab: [facility]RL TRN [facility]ITALUSE[address] [address] [facility]ANRD.[facility]OSPITALN [facility]USE [facility] LIVER FUNCTION PROTEIN [MASS/VOLUM E] IN SERUM OR PLASMA 7.9 g/dL 6.0 - 8.3 06/10 Specimen Type: SERUM No comment entered. Ordering Provider: ROSANGELA LANG Report Released Date/Time: Mar 29, 2024 10:49 AM Reporting Lab: [facility] TRN [facility]ITALUSE[address] [address] Performing Lab: [place] [facility] TRN [facility]ITALUSE[address] [address] [facility]ANRD.[facility]OSPITALN [facility]ITALUSE [facility] LIVER FUNCTION ALBUMIN [MASS/VOLUM E] IN SERUM OR PLASMA BY BROMOCRESOL PURPLE (BCP) DYE BINDING METHOD 4.2 g/dL 3.5 - 5.0 06/10 Specimen Type: SERUM No comment entered. Ordering Provider: ROSANGELA LANG Report Released Date/Time: Mar 29, 2024 10:49 AM Reporting Lab: [facility]N [facility]ITALUSE[address] [address] Performing Lab: [facility] [place] [facility] [address] [address] [facility] [place] [facility] LIVER FUNCTION ALKALINE PHOSPHATASE [ENZYMATIC ACTIVITY/VO LUME] IN SERUM OR PLASMA 76 U/L 40 - 150 06/10 Specimen Type: SERUM No comment entered. Ordering Provider: ROSANGELA LANG Report Released Date/Time: Mar 29, 2024 10:49 AM Reporting Lab: [facility] [place] [facility] [address] [facility] [address] Performing Lab: [place] [facility] [facility] [address] [address] [place] [facility] [facility] [facility] LIVER FUNCTION ASPARTATE AMINOTRANSF ERASE [ENZYMATIC ACTIVITY/VO LUME] IN SERUM OR PLASMA BY WITH P-5'-P 32 U/L 5 - 34 06/10 Specimen Type: SERUM No comment entered. Ordering Provider: ROSANGELA LANG Report Released Date/Time: Mar 29, 2024 10:49 AM Reporting Lab: [facility] [place] [facility] [address] [facility] [address] Performing Lab: [facility] [place] [facility] [address] [address] [place] [facility] [place] [facility] LIVER FUNCTION ALANINE AMINOTRANSF ERASE [ENZYMATIC ACTIVITY/VO LUME] IN SERUM OR PLASMA BY WITH P-5'-P 32 U/L 06/10 Specimen Type: SERUM No comment entered. Ordering Provider: ROSANGELA LANG Report Released Date/Time: Mar 29, 2024 10:49 AM Reporting Lab: [facility] [place] [facility] [address] [facility] [address] Performing Lab: [facility] [place] [facility] [address] [address] [place] [facility] [facility] [facility] LIVER FUNCTION BILIRUBIN.T OTAL [MASS/VOLUM E] IN SERUM OR PLASMA 0.7 mg/dL 0.2 - 1.2 06/10 Specimen Type: SERUM No comment entered. Ordering Provider: ROSANGELA LANG Report Released Date/Time: Mar 29, 2024 10:49 AM Reporting Lab: [place] [facility] [facility] [address] [facility] [address] Performing Lab: [place] [facility] [place] [facility] [address] [address] [place] [facility] [place] [facility] BASIC METABOLIC PANEL (non-fast ing) UREA NITROGEN [MASS/VOLUM E] IN SERUM OR PLASMA 21 mg/dL 7 - 25 06/10 Specimen Type: SERUM No comment entered. Ordering Provider: ROSANGELA LANG Report Released Date/Time: Mar 29, 2024 10:49 AM Reporting Lab: [place] [facility] [place] [facility] [address] [facility] [address] Performing Lab: [place] [facility] [facility] [address] [facility] [address] [facility]RL WSTRN [facility]ITALUSE [facility] BASIC METABOLIC PANEL (non-fast ing) GLUCOSE [MASS/VOLUM E] IN SERUM OR PLASMA 114 mg/dL 65 - 100 06/10 H Specimen Type: SERUM No comment entered. Ordering Provider: ROSANGELA LANG Report Released Date/Time: Mar 29, 2024 10:49 AM Reporting Lab: [place] [facility] [place] [facility] [address] [facility] [address] Performing Lab: [place] [facility] [place] [facility] [address] [facility] [address] [facility] [place] [facility] BASIC METABOLIC PANEL (non-fast ing) SODIUM [MOLES/VOLU ME] IN SERUM OR PLASMA 139 mmol/L 135 - 145 06/10 Specimen Type: SERUM No comment entered. Ordering Provider: ROSANGELA LANG Report Released Date/Time: Mar 29, 2024 10:49 AM Reporting Lab: [place] [facility] [place] [facility] [address] [facility] [address] Performing Lab: [place] [facility] [place] [facility] [address] [facility] [address] [facility] [place] [facility] BASIC METABOLIC PANEL (non-fast ing) POTASSIUM [MOLES/VOLU ME] IN SERUM OR PLASMA 3.7 mmol/L 3.5 - 5.0 06/10 Specimen Type: SERUM No comment entered. Ordering Provider: ROSANGELA LANG Report Released Date/Time: Mar 29, 2024 10:49 AM Reporting [facility] [address] [address] [facility]forming [facility]: [facility] [address] [address] [facility] BASIC METABOLIC PANEL (non-fast ing) CHLORIDE [MOLES/VOLU ME] IN SERUM OR PLASMA 107 mmol/L 100 - 110 06/10 Specimen Type: SERUM No comment entered. Ordering Provider: ROSANGELA LANG Report Released Date/Time: Mar 29, 2024 10:49 AM Reporting [facility] [address] [address] Performing Lab: [facility] [address] [address] [facility] BASIC METABOLIC PANEL (non-fast ing) CARBON DIOXIDE, TOTAL [MOLES/VOLU ME] IN SERUM OR PLASMA 22 meq/L 20 - 30 06/10 Specimen Type: SERUM No comment entered. Ordering Provider: ROSANGELA LANG Report Released Date/Time: Mar 29, 2024 10:49 AM Reporting Lab: [facility] [address] Performing Lab[facility] [address] [address] [facility] BASIC METABOLIC PANEL (non-fast ing) CALCIUM [MASS/VOLUM E] IN SERUM OR PLASMA 8.9 mg/dL 8.5 - 10.2 06/10 Specimen Type: SERUM No comment entered. Ordering Provider: ROSANGELA LANG Report Released Date/Time: Mar 29, 2024 10:49 AM Reporting Lab: [facility] [address] Performing Lab: [facility] [place] [facility] [address] [facility] [address] [place] [facility] [facility] BASIC METABOLIC PANEL (non-fast ing) CREATININE [MASS/VOLUM E] IN SERUM OR PLASMA 1.01 mg/dL 0.50 - 1.40 06/10 Specimen Type: SERUM No comment entered. Ordering Provider: ROSANGELA LANG Report Released Date/Time: Mar 29, 2024 10:49 AM Reporting Lab: [facility] [place] [facility] [address] [address] Performing Lab: [place] [facility] [place] [facility] [address] [address] [facility] [place] [facility] BASIC METABOLIC PANEL (non-fast ing) GLOMERULAR FILTRATION RATE/1.73 SQ M.PREDICTED [VOLUME RATE/AREA] IN SERUM, PLASMA OR BLOOD BY CREATININE- BASED FORMULA (CKD-EPI 2020) 84 mL/min 60 06/10 Specimen Type: SERUM No comment entered. Ordering Provider: ROSANGELA LANG Report Released Date/Time: Mar 29, 2024 10:49 AM Reporting Lab: [facility] [place] [facility] [address] [address] Performing Lab: [place] [facility] [facility] [address] [address] [facility] [place] [facility] Vital Signs Combined list of inpatient and outpatient Vital Signs from Department of Defense and Veterans Affairs, ranging from 12 months to all on record, depending upon the facility. Vital Sign Value Date Comments Source SYSTOLIC BLOOD PRESSURE 128 07/27/19 25 13:40:24 [place] [facility] [place] [facility] DIASTOLIC BLOOD PRESSURE 80 025 13:40:24 [facility] [place] [facility] PULSE OXIMETRY 98 07/26/2024 13:40:24 [facility] [place] [facility] WEIGHT 227.6 07/26/2024 13:40:24 [facility] [place] [facility] BMI 42 kg/m2 07/26/2024 13:40:24 [place] [facility] [place] [facility] PAIN 0 07/26/2024 13:40:24 [facility] [place] [facility] [id number] 01/31 [facility] [place] En[facility] [id number] 01/31 [facility] [place] [place] En[facility] [id number] 01/31 [facility] [place] [place] En[facility] [id number] 02/10 [facility] [place] [place] FIT SPECTACLES MULTIFOCAL [id number] Diagnos is: ICD-10- CM Z46.0 Encount er for fit/adj st of spectac les and contact lenses HANS OSPINA 02/12 [facility] [place] En[facility] [id number] 02/13 [facility] [place] [place] En[facility] [id number] 02/13 [facility] [place] [place] En[facility] [id number] 02/25 [facility] [place] [place] En[facility] [id number] 03/17 [facility] [place] En[facility] [id number] 03/24 [facility] [place] En[facility] [id number] 03/24 [facility] [place] [place] O/P EST MOD 30 MIN [id number] Diagnos is: ICD-10- CM Z00.01 Encount er for general adult medical exam w abnorma l finding s ZENON,Fay ROBBIE 04/01 [place] [facility] En[facility] [id number] 08/06 [facility] [place] En[facility] [id number] 11/02 [facility] [place] COMPRE [place]PH EXAM EST PT 1/ [id number] 1. Diagnos is: ICD-10- CM E11.9 Type 2 diabete s mellitu s without complic ations ACE RENDON H B 01/27 [facility] FIT SPECTACLES MULTIFOCAL [id number] 1. Diagnos is: ICD-10- CM Z46.0 Encount er for fit/adj st of spectac les and contact lenses ACE RENDON H B 01/27 [facility] [place] [facility] OFFICE O/P EST MOD 30 MIN [id number] Diagnos is: ICD-10- CM E11.9 Type 2 diabete s mellitu s without complic ations JULYMIRYAM LY P 03/29 [place] [facility] En[facility] [id number] 04/06 [facility] [place] En[facility] [id number] 04/08 [facility] [place] [place] En[facility] [id number] 04/08 [facility] [place] [place] En[facility] [id number] 04/08 [facility] [place] (631GE) NQHP OL DIG ASSMT&MGMT 11-20 [id number] Diagnos is: ICD-10- CM I70.90 Unspeci fied atheros clerosi s MATA JAIMES JAM 04/12 [facility]GE[facility] PH1 ASSMT&MGMT NQHP 5-10 [id number] Diagnos is: ICD-10- CM Z76.0 [facility] pres[facility]ri [facility]tdali AYE FELICIANO 04/13 [facility] [place] En[facility] [id number] 04/21 [facility] [place] En[facility] [id number] 04/21 [facility] [place] En[facility] [id number]/29 [facility] [place] En[facility] [id number] [facility] [place] En[facility] [id number] [facility] [place] Outpatient Encounter [id number],MIRYAM Hoyt 07/26 [facility] [place] Social History Combined list of available smoking, tobacco, and other social history from Department of Defense and Veterans Affairs facilities. Social History Type Response Date Comment [facility] e Tobacco smoking status [facility]-TOBAC[facility] NEVER USED 04/01/2023 [place] History of tobacco use [place]-TOBACCO NEVER USED 10/09/2021 [place] [facility]2020 [place] History of tobacco use [place]-TOBACCO NEVER USED 06/23/2018 [place] History of tobacco use CURRENT SMOKER 05/03/2015 occasional cigar smoker [place] History of tobacco use LIFETIME NON-SMOKER 01/30/2005 [place] History of tobacco use LIFETIME NON-SMOKER 01/16/2004 [place] History of tobacco use LIFETIME NON-SMOKER 04/30/2002 [place]"
--- OUTSIDE RECORDS SUMMARY | 2024-07-29 11:06 | XMS_ITS | Encounter Summary ---
Author Name [facility] [place] [facility] [place] Address [address] [place] [address] Care Team Providers Care Dry Chain Operator Name Role Phone PAOLA LANG Primary Care [...] Name Patient's Relationship to Policy [employer] [place] FEDERAL PREFERRED PROVIDER ORGANIZAT ION (PPO) PSHB BASIC SELF Mar 17, 2024 33A [id number] [phone] COLON,EDW IN PATIENT BCBS [place] FEP PREFERRED PROVIDER ORGANIZAT ION (PPO) PSHB BASIC SELF Mar 17, 2024 33A [id number] COLON,EDW IN PATIENT [place] F[place] PREFERRED PROVIDER ORGANIZAT ION (PPO) PSHB BASIC SELF Mar 17, 2024 33A [id number] [phone] COLON,EDW IN PATIENT [place] FEP DENTAL DENTAL INSURANCE BASIC Mar 17, 2024 DENTAL [id number] COLON,EDW IN PATIENT [place] FEP BCBS PRESCRIPT ION CAREM ARK FEPRX PLAN Mar 17, 2024 [id number] COLON,EDW IN PATIENT [place] FEPRX PLAN PRESCRIPT ION CAR[place] ARK FEPRX Mar 17, 2010 [id number] COLON,EDW IN PATIENT [place]-F EP BCBS PRESCRIPT ION TRAM AL RX Mar 17, 2024 [id number] COLON,EDW IN PATIENT [place]-F EP BCBS PRESCRIPT ION TRAM AL RX Mar 17, 2024 [id number] COLON,EDW IN PATIENT [place]-F EP BCBS PRESCRIPT ION TRAM AL EMPLO YEES Mar 17, 2024 [id number] COLON,EDW IN PATIENT [place]-F EP BCBS PRESCRIPT ION FEP CAREM ARK Nov 15, 2022 [id number] COLON,EDW IN PATIENT EXCELLUS BCBS FEDERAL PREFERRED PROVIDER ORGANIZAT ION (PPO) PSHB BASIC SELF Mar 17, 2024 33A [id number] COLON,EDW IN PATIENT HORIZON FEDERAL PREFERRED PROVIDER ORGANIZAT ION (PPO) PSHB BASIC SELF Mar 17, 2024 33A [id number] COLON,EDW IN PATIENT Selected Encounter This section includes the information on record at [place] for the Encounter. Date/Time Encounter Type Encounter Description Reason Provider Source July 26, 2024 01:30 PM Outpatient Encounter PRIMARY CARE/MEDICINE PAOLA LANG IHE Encounter Template Text not used by [place] Lab Results: +/- 30 days of the encounter This section includes the Chemistry and Hematology Lab Results on record with [place] for the patient. Radiology Reports and Pathology Reports are provided separately, in subsequent sections. Lab Results This section contains the Chemistry/Hematology Results that were resulted 30 days before or 30 daysafter the date of the Encounter. Date/Time Source Result Type Result - Unit Interpretation Reference Range Specimen Type Comment July 23, 2024 09:47 AM [place] [facility] [place] [facility] TSH SERUM Specimen Type: SERUM No comment entered. Ordering Provider: PAOLA LANG Report Released Date/Time: Jun 19, 2024 01:50 PM Reporting Lab: [place] [facility] [place] [facility] [address] [address] Performing Lab: [place] [facility] [place] [facility] [address] [address] TSH 3.13 u[IU]/mL 0.35-4.94 July 23, 2024 09:47 AM [facility] PSA SERUM Specimen Type: SERUM No comment entered. Ordering Provider: PAOLA LANG Report Released Date/Time: Jun 19, 2024 01:50 PM Reporting Lab: [place] [facility] [place] [facility] [address] [address] Performing Lab: [facility] [place] [address] [address] PSA 0.3 ng/mL 0.0-4.0 July 23, 2024 09:47 AM [facility] HEMOGLOBIN A1C PANEL BLOOD Specimen Type: BLO OD Comment: Values obtained from A1C measurements can vary. For atypical A1C assays, a reported value of 7.0 could actually be between 6.72 and 7.28 if measured by a reference method. A reported value of 9.0 could actually be between 8.73 and 9.27. Ref: http://www.ngsp.org/CAPdata.asp Ordering Provider: PAOLA LANG Report Released Date/Time: Jun 19, 2024 01:50 PM Reporting Lab: [facility] [place] [place] [facility] [address] [address] Performing Lab: [facility] [place] [place] [address] [address] HEMOGLOBIN A1C 6.8 H 4.0-5.6 July 23, 2024 09:47 AM [facility] [place] [facility] LIVER FUNCTION SERUM Specimen Type: SERUM No comment entered. Ordering Provider: PAOLA LANG Report Released Date/Time: Jun 19, 2024 01:50 PM Reporting Lab: [facility] [place] [place] [address] [address] Performing Lab: [facility] [address] [address] PROTEIN,TOTAL 7.9 g/dL 6.4-8.3 ALBUMIN 4.6 g/dL 3.2-4.6 ALKALINE PHOSPHATASE 82 U/L 40-150 AST 42 U/L H 5-34 ALT 40 U/L 0-55 BILIRUBIN, TOTAL 0.9 mg/dL 0.2-1.2 July 23, 2024 09:47 AM [facility] BASIC METABOLIC PANEL (non-fasting) SERUM Spe cimen Type: SERUM No comment entered. Ordering Provider: PAOLA LANG Report Released Date/Time: Jun 19, 2024 01:50 PM Reporting Lab: [address] [address] Performing Lab: [address] [address] UREA NITROGEN 18 mg/dL 8-26 GLUCOSE 105 mg/dL H 65-100 SODIUM 138 mmol/L 136-145 POTASSIUM 3.7 mmol/L 3.5-5.1 CHLORIDE 102 mmol/L 98-107 CO2 22 meq/L L 23-31 CALCIUM 10.0 mg/dL 8.8-10 CREATININE, Serum 0.93 mg/dL 0.72-1.25 eGFR(CKD-EPI 2020) >90 mL/min >60 July 23, 2024 09:47 AM [facility] MICROALBUMIN CREATININE RATIO PANEL URINE Spe cimen Type: URINE No comment entered. Ordering Provider: PAOLA LANG Report Released Date/Time: Jun 19, 2024 01:50 PM Reporting Lab: [address] [address] Performing Lab: [address] [address] MICROALBUMIN/CREATININE RATIO 16.9 mg/g 0-29.9 MICROALBUMIN,QUANTITATIVE 1.3 mg/dL RR U NAVAIL CREATININE URINE 76.96 mg/dL 63-166 Social History: Smoking Status (Most current) and Tobacco Use (All prior to encounter date) This section includes the most current, and the historical, smoking and tobacco- related health factors from the [facility] facility where the Encounter took place. Current Smoking Status This section includes the most current smoking, or tobacco-related health factor, from the [facility] where the Encounter took place. Date/Time Current Smoking Status Comment Niyah santillan Apr 01, 2023 11:30 AM [facility]-TOBACCO NEVER USED [place] Tobacco Use History This section includes a history of the smoking, or tobacco-related health factors, that were collected on or before the date of the Encounter. The data comes from the [facility] where the Encounter took place. Date/Time Smoking Status/Tobacco Use Comment Saadia acility Oct 09, 2021 10:30 AM VA-TOBACCO NEVER USED [place] Sep 07, 2020 03:00 PM VA-TOBACCO NEVER USED [place] Jun 23, 2018 02:03 PM VA-TOBACCO NEVER USED [place] May 03, 2015 12:58 PM CURRENT SMOKER occasional cigar smoker [place] May 03, 2015 12:58 PM QUIT TOBACCO USE > 7 YEARS AGO Pt does not smoke- last time smoked May 2014 [place] Jan 30, 2005 09:29 AM LIFETIME NON-SMOKER [place] Jan 16, 2004 01:51 PM LIFETIME NON-SMOKER [place] Apr 30, 2002 01:52 PM LIFETIME NON-SMOKER [place] Apr 30, 2002 01:52 PM LIFETIME NON-TOBACCO USER [place] Encounter Notes: All associated encounter notes This section contains the clinical notes associated to the Encounter. Date/Time Encounter Note(s) Provider Source July 26, 2024 01:41 PM PREVENTIVE MEDICIN E NURSING NOTE: LOCAL TITLE: CLINICAL REMINDERS/NURSING STANDARD TITLE: PREVENTIVE MEDICINE NURSING NOTE DATE OF NOTE: JULY 26, 2024@13:41 ENTRY DATE: JULY 26, 2024@13:41:20 AUTHOR: GAVINO PETERS: URGENCY: STATUS: COMPLETED Homelessness/Food Insecurity Screen: In the past 2 [...] Not worried about housing near future The reports the following: Within the past 12 months, you worried whether your food would run out before you got money to buy more. Never true Within the past 12 months, the food you bought just didn't last and you didn't have money to get more. Never true Influenza Immunization: Deferral / Refusal Deferred due to a precaution (i.e., acute illness, etc.) Td/Tdap Immunization: Defer due to a PRECAUTION COVID-19 Immunization: Defer due to a PRECAUTION Reason: DEF RSV Immunization: Defer due to a PRECAUTION Reason: DEF PAVE Foot Check: Patient declined limb care [...] specialist. /ruchi/ GAVINO PETERS LPN LPN Signed: 07/26/2024 13:42 GAVINO PETERS [place]
--- OUTSIDE RECORDS SUMMARY | 2024-07-29 11:06 | XMS_ITS | Clinical Summary ---
Author Organization [employer] Address [address] [place] [address] [address] [place] [address] Care Team Providers Care Aviation Neuropsychologist Name Role Phone Unavailable Primary Care Provider Unavailabl e Immunizations Immunization Administration Dates Next Due Influenza, seasonal, injectable, [...] patient's age to complete this topic Meningococcal B Vaccine Aged Out No l onger eligible based on patient's age to complete this topic Meningococcal Vaccine Aged Out No deborah sonu eligible based on patient's age to complete this topic RSV under 20 months Aged Out No longe r eligible based on patient's age to complete this topic Rotavirus Vaccines Aged Out No longer eligible based on patient's age to complete this topic Insurance [facility] FED[facility]AL
--- OUTSIDE RECORDS SUMMARY | 2024-07-29 11:06 | XMS_ITS | Encounter Summary ---
Author Name [facility] [facility] [place] Address [address] [place] [id number] Care Team Providers Care Chair Lift Operator Name Role Phone PAOLA LANG Primary [...] Name Patient's Relationship to Policy [facility] FEDERAL PREFERRED PROVIDER ORGANIZAT ION (PPO) PSHB BASIC SELF Mar 17, 2024 33A [id number] [phone] COLON,EDW IN PATIENT BCBS [place] FEP PREFERRED PROVIDER ORGANIZAT ION (PPO) PSHB BASIC SELF Mar 17, 2024 33A [id number] COLON,EDW IN PATIENT [place] FEP PREFERRED PROVIDER ORGANIZAT ION (PPO) PSHB BASIC SELF Mar 17, 2024 33A [id number] COLON,EDW IN PATIENT [place] FEP DENTAL DENTAL INSURANCE BASIC Mar 17, 2024 DENTAL [id number] COLON,EDW IN PATIENT CAREMARK FEP BCBS PRESCRIPT ION CAREM ARK FEPRX PLAN Mar 17, 2024 [id number] COLON,EDW IN PATIENT CAREMARK FEPRX PLAN PRESCRIPT ION CAREM ARK FEPRX Mar 17, 2010 [id number] COLON,EDW IN PATIENT CAREMARK-F EP BCBS PRESCRIPT ION TRAM AL RX Mar 17, 2024 [id number] COLON,EDW IN PATIENT CAREMARK-F EP BCBS PRESCRIPT ION TRAM AL RX Mar 17, 2024 [id number] COLON,EDW IN PATIENT CAREMARK-F EP BCBS PRESCRIPT ION TRAM AL EMPLO YEES Mar 17, 2024 [id number] COLON,EDW IN PATIENT CAREMARK-F EP BCBS PRESCRIPT ION FEP CAREM ARK Nov 15, 2022 [id number] COLON,EDW IN PATIENT EXCELLUS BCBS FEDERAL PREFERRED PROVIDER ORGANIZAT ION (PPO) PSHB BASIC SELF Mar 17, 2024 33A [id number] [phone] COLON,EDW IN PATIENT HORIZON FEDERAL PREFERRED PROVIDER ORGANIZAT ION (PPO) PSHB BASIC SELF Mar 17, 2024 33A [id number] 45 COLON,EDW IN PATIENT Selected Encounter This section includes the information on record at [place] for the Encounter. Date/Time Encounter Type Encounter Description Reason Provider Source Mar 29, 2024 10:30 AM OFFICE O/P EST MOD 30 MIN PRIMARY CARE/MEDICINE ICD-10-CM E11.9 Type 2 diabetes mellitus without complications PAOLA LANG Tammy Encounter Template Text not used by [place] Assessments - Encounter Diagnoses This section includes the primary and secondary diagnoses documented for the Encounter. 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 This section includes future appointments and [...] 29, 2024 09:30 AM AMBULATORY - MEDICINE [facility] July 26, 2024 01:30 PM AMBULATORY MEDICINE [facility] Active, Pending, and Scheduled Orders This section includes a listing of several types of active, pending, and scheduled orders, including clinic medications orders, diagnostic test orders, procedure orders and consult orders; where the start date of the order is 45 days before the date of the Encounter or 45 days after the date of theEncounter. The data comes from all [facility] facilities. Test Date/Time Test Type Test Details Facility Name Apr 22, 2024 10:41 AM Consult Order [facility] Cons [employer] [place] [facility] Lab Results: +/- 30 days of [...] Type Comment Mar 23, 2024 07:31 AM [facility] LIPID PANEL FASTING SERUM Specimen Type: SERUM No comment entered. Ordering Provider: TARAS YARBROUGH Report Released Date/Time: Mar 16, 2024 09:18 AM Reporting Lab: [address] [address] Performing Lab: [address] [address] CHOLESTEROL 176 mg/dL TRIGLYCERIDE 196 mg/dL H 0-150 LDL calculated 102 mg/dL 0-129 CHOL/HDL 5.0 HDL CHOLESTEROL 35 mg/dL L 40-60 Mar 23, 2024 07:31 AM [facility] LIVER FUNCTION SERUM Specimen Type: SERUM No comment entered. Ordering Provider: NICHOLAS YARBROUGH Report Released Date/Time: Mar 16, 2024 09:18 AM Reporting Lab: [facility] [address] [facility] [address] Performing Lab: [address] [address] PROTEIN,TOTAL 8.4 g/dL H 6.0-8.3 ALBUMIN 4.5 g/dL 3.5-5.0 ALKALINE PHOSPHATASE 76 U/L 40-150 AST 32 U/L 5-34 ALT 37 U/L BILIRUBIN, TOTAL 0.7 mg/dL 0.2-1.2 Mar 23, 2024 07:31 AM [facility] BASIC METABOLIC PANEL (fasting) SERUM Specime n Type: SERUM No comment entered. Ordering Provider: NICHOLAS YARBROUGH Report Released Date/Time: Mar 16, 2024 09:18 AM Reporting Lab: [facility] [address] [facility] [address] Performing Lab: [address] [address] UREA NITROGEN 22 mg/dL 7-25 GLUCOSE 173 mg/dL H 65-100 SODIUM 139 mmol/L 135-145 POTASSIUM 5.3 mmol/L H 3.5-5.0 CHLORIDE 102 mmol/L 100-110 CO2 29 meq/L 20-30 CREATININE, Serum 1.30 mg/dL 0.50-1.40 eGFR(CKD-EPI 2020) 62 mL/min >60 Mar 23, 2024 07:31 AM [facility] HEMOGLOBIN A1C PANEL BLOOD Specimen Type: [...] Mar 16, 2024 09:18 AM Reporting Lab: [facility] [place] [facility] [address] [facility] [address] Performing Lab: [facility] [address] [address] HEMOGLOBIN A1C 6.9 H 4.0-5.6 Mar 23, 2024 07:31 AM [facility] TSH SERUM Specimen Type: SERUM No comment entered. Ordering Provider: NICHOLAS YARBROUGH Report Released Date/Time: Mar 16, 2024 09:18 AM Reporting Lab: [facility] [address] [address] Performing Lab: [facility] [address] [address] TSH 5.38 u[IU]/mL H 0.35-5.00 Mar 23, 2024 07:31 AM [facility] MICROALBUMIN CREATININE RATIO PANEL URINE Spe cimen Type: URINE No comment entered. Ordering Provider: NICHOLAS YARBROUGH Report Released Date/Time: Mar 16, 2024 09:18 AM Reporting Lab: [facility] [address] [address] Performing Lab: [facility] [address] [address] MICROALBUMIN/CREATININE RATIO 60.2 mg/g H 0-29.9 MICROALBUMIN,QUANTITATIVE 6.9 mg/dL RR U NAVAIL CREATININE URINE 114.63 mg/dL Mar 23, 2024 07:31 AM [facility] CBC AND DIFF (AUTO) BLOOD Specimen Type: BLOO D No comment entered. Ordering Provider: NICHOLAS YARBROUGH Report Released Date/Time: Mar 16, 2024 09:18 AM Reporting Lab: [facility] [address] [address] Performing Lab: [place] [facility] [address] [facility] [address] WBC 6.73 10*3/uL 4.50-11.00 RBC 5.01 10*6/uL [...] and tobacco- related health factors from the [place] facility where the Encounter took place. Current Smoking Status This section includes the most current smoking, or tobacco-related health factor, from the [place] facility where the Encounter took place. Date/Time Current Smoking Status Comment Niyah ity Apr 01, 2023 11:30 AM CO-TOBACCO NEVER USED [place] Tobacco Use History This section includes a history of the smoking, or tobacco-related health factors, that were collected on or before the date of the Encounter. The data comes from the [place] facility where the Encounter took place. Date/Time Smoking Status/Tobacco Use Comment F acility Oct 09, 2021 10:30 AM VA-TOBACCO NEVER USED [place] Sep 07, 2020 03:00 PM VA-TOBACCO NEVER USED [place] Jun 23, 2018 02:03 PM VA-TOBACCO NEVER USED [place] May 03, 2015 12:58 PM CURRENT SMOKER occasional cigar smoker [place] May 03, 2015 12:58 PM QUIT TOBACCO USE > 7 YEARS AGO Pt does not smoke- last time smoked May 2014 [place] Jan 30, 2005 09:29 AM LIFETIME NON-SMOKER [place] Jan 16, 2004 01:51 PM LIFETIME NON-SMOKER [place] Apr 30, 2002 01:52 PM LIFETIME NON-SMOKER [place] Apr 30, 2002 01:52 PM LIFETIME NON-TOBACCO USER [place] Encounter Notes: All associated encounter notes This section contains the clinical notes associated to the Encounter. Date/Time Encounter Note(s) Provider Source Mar 29, 2024 10:41 AM ADDENDUM: LOCAL TITLE: Addendum STANDARD TITLE: ADDENDUM DATE OF NOTE: MAR 29, 2024@10:41:26 ENTRY DATE: MAR 29, 2024@10:41:26 AUTHOR: GAVINO PETERS EXP COSIGNER: URGENCY: STATUS: COMPLETED Please request last Cardilogy notes from: [facility] Thanks! /ruchi/ GAVINO PETERS LPN LPN Signed: 03/29/2024 10:42 Receipt Acknowledged By: 03/29/2024 13:25 /ruchi/ NEETU SKAGGS ======== --- Original Document --- 03/29/24 CLINICAL REMINDERS/NURSING: Advance Directive Screen MH AD: Patient does not have a completed advance directive on file at any facility, [place] or outside. S/he is not interested in completing one at this time. The patient received education about Advance Directives and written notification of his/her rights. Suicide Screen: C-SSRS Screening [place] Suicide Severity Rating Scale (C-SSRS) screener 1. [...] this can be accurately recorded in their [facility]. RSV Immunization: Defer due to [...] full rights to use it throughout the [place] system. PRIMARY SCREEN RESULT: The Primary Screen [...] care exam. The patient was advised the [place] mandates all patients with diabetes mellitus, end [...] Signed: 03/29/2024 10:39 03/29/2024 ADDENDUM STATUS: COMPLETED Professor [employer] requested records. /es/ NEETU BOATENGRIVAS SKAGGS Signed: 03/29/2024 13:25 GAVINO PETERS [place] Mar 29, 2024 10:36 AM PREVENTIVE MEDICIN [...] of his/her rights. Suicide Screen: C-SSRS Screening [place] Suicide Severity Rating Scale (C-SSRS) screener 1. [...] this can be accurately recorded in their [place] medical record. RSV Immunization: Defer due to [...] full rights to use it throughout the [place] system. PRIMARY SCREEN RESULT: The Primary Screen [...] care exam. The patient was advised the [place] mandates all patients with diabetes mellitus, end [...] COMPLETED Please request last Cardilogy notes from: [facility] Thanks! /becky PETERS LPN LPN Signed: 03/29/2024 10:42 Receipt Acknowledged By: 03/29/2024 13:25 /becky SKAGGS 03/29/2024 ADDENDUM STATUS: COMPLETED Professor [employer] requested records. /becky SKAGGS Signed: 03/29/2024 13:25 GAVINO PETERS Mar 29, 2024 07:30 AM PHYSICIAN NOTE: LOCAL TITLE: NOTE STANDARD TITLE: PHYSICIAN NOTE DATE OF NOTE: MAR 29, 2024@07:30 ENTRY DATE: MAR 29, 2024@07:30:36 AUTHOR: PAOLA LANG COSIGNER: URGENCY: STATUS: COMPLETED Primary Care Progress Note CC: is here to follow up the problems listed below HPI: He sees cardiology in [place], and is in discussion with them about [...] has DMII and RAD, she is in [place]; 1 son alive and well SHx: tob--an [...] of lipid and lipoprotein metabolism (SNOMED CT 10656967) 5. 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 Other dyspnea and respiratory abnormality 7. Positive Microalbuminuria Test Result Documented and Reviewed (DM) 8. Type II diabetes mellitus 9. Knee: arthralgia 10. Heel: arthralgia 11. Obesity 1987: SC: Rt Ankle: 2 surgergies 07-13-10: EKG:NSR 64bpm MO:178 QRS:86 QT: 392 NSTW 14. Depressive Disorder NOS * 15. Adjustment Disorder with Mixed Anxiety and Depressed Mood 16. Pain in joint involving shoulder region 17. 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 (SNOMED CT [id number]) PCP- Radha Zamora MD Meds:Active Outpatient Medications [...] available test results were reviewed with the [facility] SERUM Mar 23 Reference 2024 07:31 Units [...] 6.9 H % 4 - 5.6 SERUM Mar 23 Reference 2024 07:31 Units Ranges -------- - T-U % 32 - 48 T4 ug/dL 4.5 - 12 TSH 5.38 H uIU/mL .35 - 5 BLOOD Mar 23 Reference 2024 07:31 Units [...] 75.8 Lymph% 31.6 % 14 - 42.3 [place]% 9.5 % 5.1 - 13.7 Eos% 1.5 [...] a PSA with next routine labs COVID-19 ([facility]), VECTOR-NR, R* 1 05/30/2020 [place] [facility] * <C> COVID-19 ([facility]), MRNA, LNP-S, * 2 02/23/2021 Outside H* [...] (local) and dispensed from another [place] or [facility] facility (remote) as well as inpatient orders [...]
== END 2024-07-29 10:30 | disposition home or self-care (01) ==
PROVIDERS: Visit Provider Internal Medicine
DX: I25.10 Atherosclerotic heart disease of native coronary artery without angina pectoris (principal); Q23.1 Congenital insufficiency of aortic valve; I10 Essential (primary) hypertension; E11.42 Type 2 diabetes mellitus with diabetic polyneuropathy; Z79.4 Long term (current) use of insulin
CPT/HCPCS: 99214

== ENCOUNTER 2024-08-20 07:00 | Outpatient (RCR) | payer OTHER, SELFPAY ==
[2024-05-05 07:45] LABS: Glucose, Whole Blood 190 mg/dL (60-115)
[2024-05-05 14:19] LABS: Glucose, Whole Blood 88 mg/dL (60-115)
[2024-05-05 14:49] LABS: Glucose, Whole Blood 91 mg/dL (60-115)
[2024-05-07 07:16] LABS: Glucose, Whole Blood 162 mg/dL (60-115)
[2024-05-07 08:08] LABS: Glucose, Whole Blood 156 mg/dL (60-115)
[2024-05-10 08:07] LABS: Glucose, Whole Blood 178 mg/dL (60-115)
[2024-05-10 13:35] LABS: Glucose, Whole Blood 127 mg/dL (60-115)
[2024-05-12 14:35] LABS: Glucose, Whole Blood 98 mg/dL (60-115)
[2024-05-14 14:44] LABS: Glucose, Whole Blood 94 mg/dL (60-115)
[2024-05-24 08:14] LABS: Glucose, Whole Blood 153 mg/dL (60-115)
[2024-06-02 08:11] LABS: Glucose, Whole Blood 137 mg/dL (60-115)
== END 2024-08-23 06:19 | disposition home or self-care (01) ==
LOC: HO.CR 07:00
PROVIDERS: PCP Nurse Practitioner Gerontology; Visit Provider Nurse Practitioner Gerontology
DX: Z95.5 Presence of coronary angioplasty implant and graft (principal)
CPT/HCPCS: 82947; 93798

== ENCOUNTER 2024-08-25 11:03 | Outpatient (AMB) | payer BC, SELFPAY ==
--- NOTE | 2024-08-25 11:04 | A.OFFPC_ITS ---
Vital Signs 08/25/24 11:06 Height 5 ft 2 in Weight 223 lb 2 oz BMI 40.8 BP 138/74 Blood Pressure Location Lt brachial Position Sitting Respiration 20 Pulse 81 Pulse Source Pulse Oximeter Temp 97.2 F Temp Source Temporal Artery Scan Pulse Oximetry (%) 96 Oxygen Delivery Method Room Air Intake Visit Reasons: f/u DM Bible Reader Required: No Solar Thermal Technician: Present Accompanied by: Self / Same As Patient Allergies penicillin V Allergy (Unknown, Verified 08/25/24 11:16) swelling Penicillins [PENICILLINS] Allergy (Unknown, Verified 08/25/24 11:16) RASH,SWELLING Medication List - Last Reconciled 08/25/24 by Betzy Walden PA-C amlodipine 5 mg PO DAILY aspirin (Adult Aspirin Regimen) 81 mg PO DAILY atorvastatin 80 mg PO QPM empagliflozin 25 mg PO QAM 30 days fenofibrate 54 mg PO DAILY hydrochlorothiazide 25 mg PO QAM levothyroxine 25 mcg PO DAILY losartan 25 mg PO DAILY metformin ER 2,000 mg (4 x 500 mg) PO BEDTIME 90 days metoprolol succinate ER 25 mg PO DAILY ubdxenbp-oaa-fsrhb-vit K-lycop 400-20-300 mcg (One-A-Day Men's Multivitamin) tabs PO nitroglycerin 0.4 mg sublingual Q5M PRN omega 7-hcc-kxd-fish oil 1,200 (144-216) mg (Fish Oil) caps PO semaglutide (Ozempic) 1 mg (0.75 mL) subcut QWEEK 30 days ticagrelor (Brilinta) 90 mg PO BID Tobacco use date assessed: 05/25/24 Dental Screening Dental Screen Date: 05/25/24 HPI f/u DM HPI Details 63-year-old male with past medical histo ry diabetes, hypertension, dyslipidemia last seen 05/2024 coming in for follow up. Patient was seen by cardiology 07/2024 [facility] continue on current drug regimen. He recently had PCI mid PDA PCI-06/2024. Advised Continue long-term aspirin and Brilinta for one year. Recently completed cardiac rehab. Presenting with follow-up concerns for multiple chronic conditions. Coronary artery disease has been managed with multiple stent placements; rehabilitative therapy has shown positive outcomes. Persistent ankle swelling, with pain exacerbated under certain positions, correlating with back discomfort. Type 2 diabetes mellitus management has resulted in improved glycemic control. Effective weight loss strategies are contributing to the better A1C levels. [facility] Medical History Obesity due to excess calories Dyslipidemia Vitamin D deficiency CASTELLON (nonalcoholic steatohepatitis) Hypertension, essential Diabetes type 2, controlled Surgical History History of cardiac cath Hx of keloid of skin History of ankle surgery Family History Father Hypertension Mother HX: breast cancer Diabetes Social History Household Members: Spouse and Children Housing: House Alcohol intake: current Alcohol intake frequency: a few times a month Patient Tobacco Use Status: Current someday Tobacco user Tobacco use type: Cigar e-Cigarette/Vaping Use: Never Used Second Hand Smoke Exposure: Yes Substance Use Type: Marijuana service: Yes Current occupational status: retired Current occupation: [employer] service Cognitive needs: No Hearing needs: No Vision needs: Yes Questionnaire PHQ-9 Over the last 2 weeks, how often have you been bothered by any of the following problems? 1. Little interest or pleasure in doing things: not at all 2. Feeling down, depressed, or hopeless: not at all 3. Trouble falling or staying asleep, or sleeping too much: several days 4. Feeling tired or having little energy: not at all 5. Poor appetite or overeating: not at all 6. Feeling bad about yourself - or that you are a failure or have let yourself or your family down: not at all 7. Trouble concentrating on things, such as reading the newspaper or watching television: not at all 8. Moving or speaking so slowly that other people could have noticed. Or the opposite - being so fidgety or restless that you have been moving around a lot more than usual: not at all 9. Thoughts that you would be better off or of hurting yourself in some way: not at all Total score: 1 Depression Screening Interpretation: Negative Depression Screening Done: Yes Source: Developed by Drs. Ruddy LSary Ayala Kurt Kroenke and colleagues, with an educational mariella from [employer]. Thrive Questionnaire Date Thrive assessed: 05/25/24 I am a: Patient What is your living situation today?: I have a steady place to live Within the past 12 months, did the food you bought not last and you didn't have the money to get more?: Never true Within the past 12 months, did you worry whether your food would run out before you got money to buy more?: Never true Do you have trouble paying for medicines?: No Do you have trouble getting transportation to medical appointments?: No Do you have trouble paying your heating and electricity bill?: No Do you have trouble taking care of your child, family member or friend?: No Do you have trouble with day-to-day activities such as bathing, preparing meals, shopping, managing finances, etc.?: No Are you currently unemployed and looking for a job?: No Are you interested in more education?: No Please select the resources that you would like help with: None Currently or been in a relationship where the following occur: No concerns reported THRIVE Score: 0 AUDIT C Alcohol Use Questionnaire (AUDIT-C) 1. How often do you have a drink containing alcohol?: Monthly or less Total Score: 1 CYDNEY-7 AMB Questionnaire CYDNEY-7 Date CYDNEY - 7 assessed: 05/25/24 Feeling nervous, anxious, or on edge: 0 = Not at all Not being able to stop or control worryin = Not at all Worrying too much about different things: 0 = Not at all Trouble relaxin = Not at all Being so restless that it is hard to sit still: 0 = Not at all Becoming easily annoyed or irritable: 0 = Not at all Feeling afraid as if something awful might happen: 0 = Not at all Total CYDNEY-7 score (0-4 normal; 5-9 mild; 10-14 moderate; 15-21 severe): 0 Source: Developed by Drs. Ruddy Yao, Tru Neely and colleagues, with an educational mariella from [employer]. Review of Systems Const Denies body aches, Denies chills, Denies fever(s), Denies headache(s) and Denies poor appetite Eyes Reports no additional complaints ENT Denies dizziness and Denies headache(s) Card Denies chest pain, Denies lightheadedness and Denies dyspnea Resp Denies cough and Denies dyspnea GI Denies nausea and Denies vomiting Reports no additional complaints Musc Reports no additional complaints and Denies abnormal gait Skin/Breast Reports system reviewed and no additional complaints, except as documented Neuro Denies abnormal gait, Denies dizziness and Denies headache(s) Psych Reports no additional complaints Physical exam (Primary Care) Vital Signs: Last Vital Signs Temp 97.2 F 08/25/24 11:06 Pulse 81 08/25/24 11:06 Resp 20 08/25/24 11:06 BP 138/74 08/25/24 11:06 Pulse Ox 96 08/25/24 11:06 Oxygen Delivery Method Room Air 08/25/24 11:06 BMI result Body Mass Index 40.8 Tobacco/Smoking Status: Tobacco use Status Tobacco use date assessed 05/25/24 08/25/24 11:05 Patient Tobacco Use Status Current someday Tobacco 08/25/24 11:05 Tobacco use type Cigar 08/25/24 11:05 e-Cigarette/Vaping Use Never Used 08/25/24 11:05 PHQ-9: PHQ-9 Score PHQ-9: Total score 1 08/25/24 11:20 Depression Screening Interpretation: Negative Thrive Assessment: Date of Thrive Assessment Date Thrive assessed 05/25/24 08/25/24 11:05 Currently or been in a relationship where the following occur: No concerns reported Const General: cooperative, healthy appearing, comfortable and no acute distress Orientation/consciousness: patient oriented x3 [facility] Head: Yes normocephalic Ears: hearing grossly normal bilaterally General nose exam: Normal external nose present Eyes General: appearance normal, both eyes and all related structures Conjunctivae: conjunctivae normal Neck Neck: Yes full ROM and Yes no lymphadenopathy Resp Effort & Inspection: normal respiratory effort Auscultation: clear to auscultation bilaterally, no crackles, no rales, no rhonchi and no wheezes Cardio Rate: regular rate Rhythm: regular rhythm Skin General skin exam: no rashes or lesions noted Neuro General: patient oriented x3 Gait exam (Neuro): Normal gait present Extrem Other: No Tenderness to palpation over right heel. No swelling, redness, warmth of right lower extremity, pulses intact General: Yes normal to inspection, Yes full ROM and No edema Psych Affect: normal affect Attitude: cooperative Insight: Good insight present (Psych) Judgement: Good judgement present (Psych) Results AMB Hemoglobin A1c AMB Hemoglobin A1c 6.6 % Last Edit by RUDY Hernandez on 08/25/24 11:27 Coding Level of Care Code Est Pt Level 3 (54313) Diagnoses CAD (coronary artery disease) I25.10 Morbid obesity with BMI of 40.0-44.9, adult E66.01; Z68.41 Controlled type 2 diabetes mellitus with diabetic polyneuropathy, with long-term current use of insulin E11.42; Z79.4 Diabetes mellitus jail insulin use: with jail use Diabetes mellitus complication status: with neurologic complications Diabetes mellitus complication detail: with polyneuropathy CASTELLON (nonalcoholic steatohepatitis) K75.81 Hypertension, essential I10 Dyslipidemia E78.5 Back pain M54.9 Pain of right heel M79.671 Assessment & Plan Assessment & Plan (1) CAD (coronary artery disease): Code(s): I25.10 - Atherosclerotic heart disease of [place] coronary artery without angina pectoris Category: Medical Plan: Advised patient good control of blood pressure, cholesterol and diabetes. Currently on ASA 81mg and Atorvastatin 80 mg. (2) Morbid obesity with BMI of 40.0-44.9, adult: Code(s): E66.01 - Morbid (severe) obesity due to excess calories; Z68.41 - Body mass index [BMI] 40.0-44.9, adult Category: Medical Plan: Healthy diet and regular exercise is encouraged. On Ozempic 1mg. Noted 12 lb weight loss since last visit. Plan to increase Ozempic to 2 mg at this time and follow up in 3 months (3) Diabetes type 2, controlled: Code(s): E11.9 - Type 2 diabetes mellitus without complications Category: Medical Qualifiers: Diabetes mellitus extermination inspector insulin use: with jail use Diabetes mellitus complication status: with neurologic complications Diabetes mellitus complication detail: with polyneuropathy Qualified Code(s): E11.42 - Type 2 diabetes mellitus with diabetic polyneuropathy; Z79.4 - [facility] (current) use of insulin Plan: Decrease the amount of carbohydrates such as pasta, bread, rice, and potatoes and limit the amount of sweets. Although fruits are generally healthy they should be eaten in moderation as they are still high in sugar. Hemoglobin A1c goal of less than 7%. Continue on current medication of Ozempic, Jardiance and Metformin. A1c 6.6% in the clinic today. (4) CASTELLON (nonalcoholic steatohepatitis): Code(s): K75.81 - Nonalcoholic steatohepatitis (CASTELLON) Category: Medical Plan: Healthy diet and regular exercise is encouraged. (5) Hypertension, essential: Code(s): I10 - Essential (primary) hypertension Category: Medical Plan: Continue on current blood pressure medication. Avoid salt intake and encourage healthy diet and regular exercise. (6) Dyslipidemia: Code(s): E78.5 - Hyperlipidemia, unspecified Category: Medical Plan: Avoid foods that are high in cholesterol such as red meat, fried foods, eggs and baked goods. Triglyceride goal of less than 150 and LDL goal of less than 70. Continue on Atorvastatin 80 mg. Updated date on blood work and reminded patient. (7) Back pain: Code(s): M54.9 - Dorsalgia, unspecified Category: Medical Plan: Patient having chronic low back pain has previously had injections in the back. The pain does occasionally keep him up at night plan to give prescription for methocarbamol to use for nighttime pain. (8) Pain of right heel: Code(s): M79.671 - Pain in right foot Category: Medical Plan: [facility] he did have x-ray obtained. On exam today there was no swelling, redness, tenderness to palpation of the heel or right calf. Advised patient Tylenol as needed and [facility]. Plan I will continue to manage the patient's Coronary Artery Disease with current medications and encourage lifestyle changes which are evidently fruitful given current weights loss and stable health metrics. His ankle and back pain will be monitored, with a new prescription for a low-dose muscle relaxant to help with sleep due to discomfort. Increasing his Ozempic dose could further improve his diabetes management and not add unnecessary complexities at this stage. I will target checking his cholesterol levels to assess the adequacy of atorvastatin therapy given the beneficial track already noted in A1C results. This note was constructed using voice recognition software. While every effort has been made to ensure accuracy and tube former operator, still areas may have been included sometimes these areas may affect the content or meeting of the given symptoms. Total time spent caring for the patient today was 20 minutes. This includes time spent before the visit reviewing the chart, time spent during the visit, and time spent after the visit and documentation. Patient was informed and verbally consented to the use of an ambient scribe for clinic note documentation during this visit. Orders: Orders AMB Hemoglobin A1c Today E11.42 - Type 2 diabetes mellitus with diabetic polyneuropathy, Z79.4 - [facility] (current) use of insulin Medications: New methocarbamol 500 mg PO BEDTIME 30 tabs 0RF semaglutide (Ozempic) 2 mg (0.75 mL) subcut QWEEK 3 mL 0RF Discontinued semaglutide (Ozempic) Discontinued Reason: Patient Completed Course 1 mg (0.75 mL) subcut QWEEK 30 days 3 mL 6RF
[2024-08-25 11:06] VITALS: BP 138/74; PULSE 81; RESP 20; TEMP 36.2; O2SAT 96; BMI 40.8
== END 2024-08-25 11:39 | disposition home or self-care (01) ==
LOC: HO.HMCH 11:03
DX: I25.10 Atherosclerotic heart disease of native coronary artery without angina pectoris (principal); E66.01 Morbid (severe) obesity due to excess calories; Z68.41 Body mass index [BMI] 40.0-44.9, adult; E11.42 Type 2 diabetes mellitus with diabetic polyneuropathy; Z79.4 Long term (current) use of insulin; K75.81 Nonalcoholic steatohepatitis (NASH); I10 Essential (primary) hypertension; E78.5 Hyperlipidemia, unspecified; M54.9 Dorsalgia, unspecified; M79.671 Pain in right foot

== ENCOUNTER → 2024-08-25 11:03 | Outpatient (BNVA) | payer BC, OTHER, SELFPAY | DX: E11.9 Type 2 diabetes mellitus without complications (principal); I25.10 Atherosclerotic heart disease of native coronary artery without angina pectoris; E66.01 Morbid (severe) obesity due to excess calories; I10 Essential (primary) hypertension; E78.5 Hyperlipidemia, unspecified; E11.42 Type 2 diabetes mellitus with diabetic polyneuropathy; K75.81 Nonalcoholic steatohepatitis (NASH); M54.9 Dorsalgia, unspecified; M79.671 Pain in right foot; Z79.4 Long term (current) use of insulin; Z68.41 Body mass index [BMI] 40.0-44.9, adult | CPT/HCPCS: 83036; 96127 ==

== ENCOUNTER 2024-08-26 07:52 | Outpatient (REF) | payer BC, SELFPAY ==
[2024-08-26 08:41] LABS: Cholesterol 117 mg/dL (<200); HDL Cholesterol 32 mg/dL (>40); LDL Cholesterol Calculated 65 mg/dL (<100); Triglycerides 100 mg/dL (<150)
== END 2024-08-26 07:53 | disposition home or self-care (01) ==
LOC: HO.LAB 07:52
DX: E78.00 Pure hypercholesterolemia, unspecified (principal)
CPT/HCPCS: 36415; 80061

== ENCOUNTER 2024-11-25 10:49 | Outpatient (AMB) | payer BC, SELFPAY ==
--- NOTE | 2024-11-25 11:00 | A.OFFPC_ITS ---
Vital Signs 11/25/24 11:03 Height 5 ft 2 in Weight 218 lb 8 oz BMI 40.0 BP 124/76 Blood Pressure Location Lt brachial Position Sitting Pulse 76 Pulse Oximetry (%) 95 Oxygen Delivery Method Room Air Intake Visit Reasons: f/u DM and obesity Licensed Psychologist Required: No Accompanied by: Self / Same As Patient Allergies penicillin V Allergy (Unknown, Verified 11/25/24 11:02) swelling Penicillins (PENICILLINS) Allergy (Unknown, Verified 11/25/24 11:02) RASH,SWELLING Medication List - Last Reconciled 11/25/24 by Betzy Walden PA-C amlodipine 5 mg PO DAILY aspirin (Adult Aspirin Regimen) 81 mg PO DAILY atorvastatin 80 mg PO QPM empagliflozin 25 mg PO QAM 30 days fenofibrate 54 mg PO DAILY hydrochlorothiazide 25 mg PO QAM levothyroxine 25 mcg PO DAILY losartan 25 mg PO DAILY metformin ER 2,000 mg (4 x 500 mg) PO BEDTIME 90 days methocarbamol 500 mg PO BEDTIME metoprolol succinate ER 25 mg PO DAILY vgorfvmp-xsv-ohwiy-vit K-lycop 400-20-300 mcg (One-A-Day Men's Multivitamin) tabs PO nitroglycerin 0.4 mg sublingual Q5M PRN omega 9-ikq-bue-fish oil 1,200 (144-216) mg (Fish Oil) caps PO semaglutide (Ozempic) 2 mg (0.75 mL) subcut QWEEK ticagrelor (Brilinta) 90 mg PO BID Tobacco use date assessed: 11/25/24 Dental Screening Dental Screen Date: 11/25/24 Did you have a dental visit in the last 12 months?: Yes Did you have a dental problem in the last 6 months where you did not have access to dental care?: No Was dental information given to patient?: Patient has dentist HPI f/u DM and obesity HPI Details 63-year-old male with past medical histo ry diabetes, hypertension, dyslipidemia last seen 08/2024 coming in for follow up. Presenting with diabetes mellitus management. The patient reports a history of diabetes mellitus, currently managed with Ozempic at a dose of 2 mg. Blood glucose levels have been monitored, with recent readings of 97 mg/dL in the evening and 112 mg/dL in the morning. The patient has experienced a weight loss of 5 pounds, attributed to medication and dietary changes. The patient reports a history of hyperlipidemia, with recent improvements in cholesterol levels. The patient has arthritis, with recent MRI findings indicating arthritis in the ankle, causing swelling and discomfort. The patient experiences ankle swelling, particularly after physical activity, and reports stiffness in the morning. The patient is physically active, engaging in activities such as walking and kayaking, which sometimes exacerbate ankle symptoms. [facility] Medical History Obesity due to excess calories Dyslipidemia Vitamin D deficiency CASTELLON (nonalcoholic steatohepatitis) Hypertension, essential Diabetes type 2, controlled Surgical History History of cardiac cath Hx of keloid of skin History of ankle surgery Family History Father Hypertension Mother HX: breast cancer Diabetes Social History Household Members: Spouse and Children Housing: House Alcohol intake: current Alcohol intake frequency: a few times a month Patient Tobacco Use Status: Current someday Tobacco user Tobacco use type: Cigar e-Cigarette/Vaping Use: Never Used Second Hand Smoke Exposure: Yes Substance Use Type: Marijuana service: Yes Current occupational status: retired 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 1. Little interest or pleasure in doing things: not at all 2. Feeling down, depressed, or hopeless: not at all 3. Trouble falling or staying asleep, or sleeping too much: several days 4. Feeling tired or having little energy: not at all 5. Poor appetite or overeating: not at all 6. Feeling bad about yourself - or that you are a failure or have let yourself or your family down: not at all 7. Trouble concentrating on things, such as reading the newspaper or watching television: not at all 8. Moving or speaking so slowly that other people could have noticed. Or the opposite - being so fidgety or restless that you have been moving around a lot more than usual: not at all 9. Thoughts that you would be better off or of hurting yourself in some way: not at all Total score: 1 Depression Screening Interpretation: Negative Depression Screening Done: Yes Source: Developed by Drs. Ruddy Yao, Sary Blount, Tru Palma and colleagues, with an educational mariella from [employer]. Thrive Questionnaire Date Thrive assessed: 11/25/24 I am a: Patient What is your living situation today?: I have a steady place to live Within the past 12 months, did the food you bought not last and you didn't have the money to get more?: Never true Within the past 12 months, did you worry whether your food would run out before you got money to buy more?: Never true Do you have trouble paying for medicines?: No Do you have trouble getting transportation to medical appointments?: No Do you have trouble paying your heating and electricity bill?: No Do you have trouble taking care of your child, family member or friend?: No Do you have trouble with day-to-day activities such as bathing, preparing meals, shopping, managing finances, etc.?: No Are you currently unemployed and looking for a job?: No Are you interested in more education?: No Please select the resources that you would like help with: None Currently or been in a relationship where the following occur: No concerns reported THRIVE Score: 0 AUDIT C Alcohol Use Questionnaire (AUDIT-C) 1. How often do you have a drink containing alcohol?: Monthly or less Total Score: 1 CYDNEY-7 AMB Questionnaire CYDNEY-7 Date CYDNEY - 7 assessed: 11/25/24 Feeling nervous, anxious, or on edge: 0 = Not at all Not being able to stop or control worryin = Not at all Worrying too much about different things: 0 = Not at all Trouble relaxin = Not at all Being so restless that it is hard to sit still: 0 = Not at all Becoming easily annoyed or irritable: 0 = Not at all Feeling afraid as if something awful might happen: 0 = Not at all Total CYDNEY-7 score (0-4 normal; 5-9 mild; 10-14 moderate; 15-21 severe): 0 Source: Developed by Horacio Piperet B.W. Jose Alejandro, Tru Palma and colleagues, with an educational mariella from [employer]. Review of Systems Const Denies body aches, Denies chills, Denies fever(s), Denies headache(s) and Denies poor appetite Eyes Reports no additional complaints ENT Denies dysphagia, Denies dizziness, Denies headache(s) and Denies odynophagia Card Denies chest pain, Denies syncope, Denies edema, Denies irregular heart rhythm, Denies lightheadedness and Denies dyspnea Resp Denies cough and Denies dyspnea GI Denies abdominal pain, Denies constipation, Denies dysphagia, Denies diarrhea, Denies nausea, Denies odynophagia and Denies vomiting Reports no additional complaints Musc Reports no additional complaints and Denies abnormal gait Skin/Breast Reports system reviewed and no additional complaints, except as documented Neuro Denies abnormal gait, Denies dizziness, Denies syncope and Denies headache(s) Psych Reports no additional complaints Physical exam (Primary Care) Vital Signs: Last Vital Signs Pulse 76 11/25/24 11:03 BP 124/76 11/25/24 11:03 Pulse Ox 95 11/25/24 11:03 Oxygen Delivery Method Room Air 11/25/24 11:03 BMI result Body Mass Index 40.0 Tobacco/Smoking Status: Tobacco use Status Tobacco use date assessed 11/25/24 11/25/24 11:08 Patient Tobacco Use Status Current someday Tobacco 11/25/24 11:08 Tobacco use type Cigar 11/25/24 11:08 e-Cigarette/Vaping Use Never Used 11/25/24 11:08 PHQ-9: PHQ-9 Score PHQ-9: Total score 1 11/25/24 11:15 Depression Screening Interpretation: Negative Thrive Assessment: Date of Thrive Assessment Date Thrive assessed 11/25/24 11/25/24 11:08 Currently or been in a relationship where the following occur: No concerns reported Const General: cooperative, healthy appearing, comfortable and no acute distress Orientation/consciousness: patient oriented x3 HENMT Head: Yes normocephalic Ears: hearing grossly normal bilaterally General nose exam: Normal external nose present Eyes General: appearance normal, both eyes and all related structures Conjunctivae: conjunctivae normal Neck Neck: Yes full ROM and Yes no lymphadenopathy Resp Effort & Inspection: normal respiratory effort Auscultation: clear to auscultation bilaterally, no crackles, no rales, no rhonchi and no wheezes Cardio Rate: regular rate Rhythm: regular rhythm Skin General skin exam: no rashes or lesions noted Neuro General: patient oriented x3 Gait exam (Neuro): Normal gait present Extrem General: Yes normal to inspection, Yes full ROM and No edema Psych Affect: normal affect Attitude: cooperative Insight: Good insight present (Psych) Judgement: Good judgement present (Psych) Coding Level of Care Code Est Pt Level 3 (69288) Diagnoses CAD (coronary artery disease) I25.10 Morbid obesity with BMI of 40.0-44.9, adult E66.01; Z68.41 Diabetes type 2, controlled E11.9 Hypertension, essential I10 Dyslipidemia E78.5 Pain of right heel M79.671 Assessment & Plan Assessment & Plan (1) CAD (coronary artery disease): Code(s): I25.10 - Atherosclerotic heart disease of [place] coronary artery without angina pectoris Category: Medical Plan: Advised patient good control of blood pressure, cholesterol and diabetes. Currently on ASA 81mg and Atorvastatin 80 mg. (2) Morbid obesity with BMI of 40.0-44.9, adult: Code(s): E66.01 - Morbid (severe) obesity due to excess calories; Z68.41 - Body mass index [BMI] 40.0-44.9, adult Category: Medical Plan: Healthy diet and regular exercise is encouraged. On Ozempic 1mg. Noted 5 lb weight loss since last visit. Plan to increase Ozempic to 2 mg at this time and follow up in 3 months (3) Diabetes type 2, controlled: Code(s): E11.9 - Type 2 diabetes mellitus without complications Category: Medical Plan: Decrease the amount of carbohydrates such as pasta, bread, rice, and potatoes and limit the amount of sweets. Although fruits are generally healthy they should be eaten in moderation as they are still high in sugar. Hemoglobin A1c goal of less than 7%. Continue on current medication of Ozempic, Jardiance and Metformin. A1c 6.5% in the clinic today. (4) Hypertension, essential: Code(s): I10 - Essential (primary) hypertension Category: Medical Plan: Continue on current blood pressure medication. Avoid salt intake and encourage healthy diet and regular exercise. (5) Dyslipidemia: Code(s): E78.5 - Hyperlipidemia, unspecified Category: Medical Plan: Avoid foods that are high in cholesterol such as red meat, fried foods, eggs and baked goods. Triglyceride goal of less than 150 and LDL goal of less than 70. Continue on Atorvastatin 80 mg. Cholesterol at goal on last labs. (6) Pain of right heel: Code(s): M79.671 - Pain in right foot Category: Medical Plan: Patient recently had MRI of the right foot and ankle which did reveal positive findings however he is uncertain of the findings. This is obtained through the DC and he agrees to bring the reading to the office. He is looking for referral to Orthopedics which will be placed after read has been reviewed. Plan During the visit, we discussed the management of diabetes mellitus with continued use of Ozempic and regular monitoring of blood glucose levels. The patient was informed about the need to bring MRI results for further evaluation of arthritis and potential orthopedic referral. We also reviewed the improvement in cholesterol levels and the continuation of current management for hyperlipidemia. Plan to follow up in 6 months or sooner as needed. This note was constructed using voice recognition software. While every effort has been made to ensure accuracy and digital marketing apprentice, still areas may have been included sometimes these areas may affect the content or meeting of the given symptoms. Total time spent caring for the patient today was 20 minutes. This includes time spent before the visit reviewing the chart, time spent during the visit, and time spent after the visit and documentation. Patient was informed and verbally consented to the use of an ambient scribe for clinic note documentation during this visit. Orders: Orders AMB Hemoglobin A1c Today E11.42 - Type 2 diabetes mellitus with diabetic polyneuropathy, Z79.4 - [facility] (current) use of insulin Comprehensive Met. Panel Today I25.10 - Atherosclerotic heart disease of [place] coronary artery without angina pectoris, Z00.00 - Encounter for general adult medical examination without abnormal findings TSH reflex Free T4 Today I25.10 - Atherosclerotic heart disease of [place] coronary artery without angina pectoris, Z13.29 - Encounter for screening for other suspected endocrine disorder Hemoglobin A1c 6 Months E11.65 - Type 2 diabetes mellitus with hyperglycemia, I25.10 - Atherosclerotic heart disease of [place] coronary artery without angina pectoris Lipid Panel 6 Months E78.00 - Pure hypercholesterolemia, unspecified Complete Blood Count Auto Diff Today I25.10 - Atherosclerotic heart disease of [place] coronary artery without angina pectoris, Z00.00 - Encounter for general adult medical examination without abnormal findings Vitamin B12 and Folate Today I25.10 - Atherosclerotic heart disease of [place] coronary artery without angina pectoris, Z13.21 - Encounter for screening for nutritional disorder Vitamin D 25-OH Total Today I25.10 - Atherosclerotic heart disease of [place] coronary artery without angina pectoris, Z13.21 - Encounter for screening for nutritional disorder
[2024-11-25 11:03] VITALS: BP 124/76; PULSE 76; O2SAT 95; BMI 40.0
--- OUTSIDE RECORDS SUMMARY | 2024-11-25 14:43 | XMS_ITS | Clinical Summary ---
Author Organization [employer] Address [address] [place] [address] [address] [place] [address] Care Team Providers Care Permanent Mold Supervisor Name Role Phone Unavailable Primary Care Provider [...] Panel 1962 SDOH Screening 1962 Sigmoidoscopy 1962 Disability Screening 1962 Alcohol/Substance Use Screening 1974 Tobacco Screening 1974 Hepatitis C Screening 1980 DTaP/Tdap/Td Vaccines (2 - Tdap) 08/14/2022 08/14/2012 RSV Patients and Patients Aged 60 years or older (1 - Risk 60-74 years 1-dose series) 2022 Influenza Vaccine (#1) 2024 4, 04/01/2023, 01/16/2020, Additional history exists Pneumococcal Vaccine: 50+ Years Completed 10/09/2021, 12/05/2015, 08/14/2012 Zoster Vaccines Completed 04/01/2023, 10/09/2021 COVID-19 Vaccine Completed 12/03/2023, 12/2020, 05/30/2020 HIB Vaccines Aged Out No longer eligi [...] to complete this topic Insurance [facility]
--- OUTSIDE RECORDS SUMMARY | 2024-11-25 14:43 | XMS_ITS | Patient Health Record ---
Author Organization [facility] Address [address] [place] [address] Care Team Providers Care Refrigeration Engine Operator Name Role Phone Shadi (RETIRED) Chacho ADAMS Primary Care Provide r Unavailable Ruddy Barreto Unavailable [phone] Reason For Referral No Information Medications Medication SIG (Take, Route, Frequency, Duration) Notes Start Date End Date Status Losartan Potassium-HCTZ 100-25 MG 1 tablet Orally Once a day Active Vitamin D Active Fish Oil Active Invokamet 50-1000 MG 1 tablet with meals Orally Twice a day Active Suprep Bowel Prep 1 kit as directed Oral ly as directed for 1 dose 04/09/2015 Active Atorvastatin Calcium 20 MG 1 tablet Oral ly Once a day Active amLODIPine Besylate 2.5 MG 1 tablet Oral ly Once a day Active Problems Problem Type SNOMED Code ICD Code Onset Dates Problem Status W/U Status Risk Notes Problem [id number] Encounter for screening for malignant neoplasm of colon (Z12.11) Active confirmed Problem Screening for malignant neoplasm of rectum ([id number]) Encounter for screening for malignant neoplasm of rectum (Z12.12) Active confirmed Problem [id number] Preprocedural examination (Z01.818) Active confirmed Plan Of Treatment Pending Test Test Name Order Date GI BIOPSY 06/12/2015 Future Test Test Name Order Date COLONOSCOPY 04/04/2015 Insurance Providers Payer Name Payer Address Payer Phone Subscriber Number Group Number Insured Name Patient Relationship to Insured Coverage Start Date Coverage End Date [facility] [address] [place], [place] [id number] ROJELIO LOCKHART Self - patient is the insured Medical (General) History Medical History History ICD Code Hypertension Kidney stones Denies AR,CVA, lung disease,renal diseas e Hyperlipdiemia Describes a sleep study and having been recommend to have a CPAP, but has never tried it--- he reports that he has been told that he snores NIDDM Surgical History Surgery Date(Month/Year) right ankle/broken
== END 2024-11-25 11:54 | disposition home or self-care (01) ==
LOC: HO.HMCH 10:50
DX: I25.10 Atherosclerotic heart disease of native coronary artery without angina pectoris (principal); E66.01 Morbid (severe) obesity due to excess calories; Z68.41 Body mass index [BMI] 40.0-44.9, adult; E11.9 Type 2 diabetes mellitus without complications; I10 Essential (primary) hypertension; E78.5 Hyperlipidemia, unspecified; M79.671 Pain in right foot

== ENCOUNTER 2025-02-02 12:40 | Outpatient (AMB) | payer BC, OTHER, SELFPAY ==
[2025-02-02 13:05] VITALS: BP 118/62; PULSE 70; BMI 39.9
--- NOTE | 2025-02-02 13:05 | MHC.OFFVIS ---
Vital Signs 02/02/25 13:05 Height 5 ft 2 in Weight 218 lb 4.122 oz BMI 39.9 BP 118/62 Blood Pressure Location Lt brachial Position Sitting Pulse 70 Pulse Source Monitor Intake Visit Reasons: 6m follow up Allergies penicillin V Allergy (Unknown, Verified 11/25/24 11:02) swelling Penicillins (PENICILLINS) Allergy (Unknown, Verified 11/25/24 11:02) RASH,SWELLING Medication List - Last Reconciled 02/02/25 by Wong Hernandez MD amlodipine 5 mg PO DAILY aspirin (Adult Aspirin Regimen) 81 mg PO DAILY atorvastatin 80 mg PO QPM empagliflozin 25 mg PO QAM 30 days fenofibrate 54 mg PO DAILY hydrochlorothiazide 25 mg PO QAM levothyroxine 25 mcg PO DAILY losartan 25 mg PO DAILY metformin ER 2,000 mg (4 x 500 mg) PO BEDTIME 90 days methocarbamol 500 mg PO BEDTIME metoprolol succinate ER 25 mg PO DAILY qwpfzjxm-rti-yarwj-vit K-lycop 400-20-300 mcg (One-A-Day Men's Multivitamin) tabs PO nitroglycerin 0.4 mg sublingual Q5M PRN omega 0-oui-tkf-fish oil 1,200 (144-216) mg (Fish Oil) caps PO semaglutide (Ozempic) 2 mg (0.75 mL) subcut QWEEK ticagrelor (Brilinta) 90 mg PO BID HPI Comments Details: Jesse returns for follow-up. He was originally seen regarding an abnormal echocardiogram that showed a bicuspid aortic valve and bnym-ju-yxaqdocw stenosis. However, he was also complaining of chest pains while playing sports. That led to coronary CTA followed by cardiac catheterization/LAD stenting. However, he was still having anginal symptoms and that led to repeat catheterization and PDA stenting. Since that time, he states he is feeling much better. He does not have any chest pains or in fact any cardiac symptoms. He is getting along fine. [facility] Medical History Obesity due to excess calories Dyslipidemia Vitamin D deficiency CASTELLON (nonalcoholic steatohepatitis) Hypertension, essential Diabetes type 2, controlled Surgical History History of cardiac cath Hx of keloid of skin History of ankle surgery Family History Father Hypertension Mother HX: breast cancer Diabetes Social History Household Members: Spouse and Children Housing: House Alcohol intake: current Alcohol intake frequency: a few times a month Patient Tobacco Use Status: Current someday Tobacco user Tobacco use type: Cigar e-Cigarette/Vaping Use: Never Used Second Hand Smoke Exposure: Yes Substance Use Type: Marijuana service: Yes Current occupational status: retired Current occupation: [employer] service Cognitive needs: No Hearing needs: No Vision needs: Yes Review of Systems Const Denies weakness ENT Denies dizziness Card Denies chest pain, Denies chest pain with activity, Denies syncope, Denies rapid heart rate, Denies pedal edema, Denies edema, Denies leg edema, Denies lightheadedness, Denies palpitations, Denies dyspnea, Denies dyspnea on exertion and Denies orthopnea Resp Denies cough, Denies dyspnea and Denies dyspnea on exertion GI Denies hematochezia and Denies change in stool character Musc Denies abnormal gait, Denies muscle cramps, Denies muscle weakness, Denies numbness, Denies radiating pain into limb and Denies tingling Neuro Denies abnormal gait, Denies dizziness, Denies syncope, Denies numbness, Denies tingling and Denies weakness Endo Denies palpitations Physical Exam Vital Signs: Last Vital Signs Pulse 70 02/02/25 13:05 BP 118/62 02/02/25 13:05 BMI result Body Mass Index 39.9 Const General: comfortable and no acute distress Orientation/consciousness: patient oriented x3 HEENT Other: Unremarkable Head: Yes normal to inspection Neck Neck: Yes normal visual inspection Chest Chest palpation & inspection: normal inspection of the chest Resp Auscultation: clear to auscultation bilaterally Cardio Palpation: normal PMI Heart sounds: S1 normal heart sound present, S2 normal heart sound present, no gallops, no murmurs and no rubs GI Palpation (GI): Soft to palpation Back/Spine/Pelvis Other: unremarkable Skin General skin exam: no rashes or lesions noted Neuro General: patient oriented x3 Extrem General: Yes normal to inspection Psych Mental Status: mental status grossly normal Office Procedures EKG Details: EKG with underlying sinus rhythm at 70/Min; inferior/inferolateral ST/T-wave changes; [place] [id number], Complete Assessment & Plan Assessment & Plan (1) Atherosclerotic cardiovascular disease: Code(s): I25.10 - Atherosclerotic heart disease of [place] coronary artery without angina pectoris Category: Medical Plan: Status post mid LAD PCI 03/2024; status post mid PDA PCI-06/2024. Continue long-term aspirin. Brilinta for one year. On high-dose statins. Last LDL 65 mg/dL and triglycerides 100 mg/dL. (2) Bicuspid aortic valve: Code(s): Q23.1 - Congenital insufficiency of aortic valve Category: Medical Plan: In the echocardiogram, preserved LVEF at 61%; bicuspid aortic valve; moderately calcified; vlvt-fz-iuizsbiu stenosis but no significant regurgitation. May recheck before next visit. (3) Hypertension, essential: Code(s): I10 - Essential (primary) hypertension Category: Medical Plan: On amlodipine, losartan. (4) Diabetes type 2, controlled: Code(s): E11.9 - Type 2 diabetes mellitus without complications Category: Medical Plan: On empagliflozin, metformin, Ozempic. Hemoglobin A1c is 6.6%. Plan Discussion Notes I reviewed the patient's progress since his second coronary stent placement. He is doing very well, is asymptomatic with no chest pain, and has excellent functional capacity. We discussed the plan to continue his aspirin and statin therapy and to follow up in six months for a visit and a heart ultrasound. I also discussed his weight and encouraged him to resume his exercise routine. Patient was informed and verbally consented to the use of an ambient scribe for clinic note documentation during this visit. Orders: Orders CA echo transthoracic complete 6 Months I35.0 - Nonrheumatic aortic (valve) stenosis Patient Instructions: - You are recovering very well from your heart stent procedure and are not having any chest pain. - Continue to take your aspirin and statin (cholesterol) medications as prescribed. - It is important to get back to your exercise routine to help manage your weight. - Please schedule a follow-up appointment in six months. - We will perform a heart ultrasound at your next visit. Coding Level of Care Code Est Pt Level 4 (45116) Complex EM visit Add On G2211 Diagnoses Atherosclerotic cardiovascular disease I25.10 Bicuspid aortic valve Q23.1 Hypertension, essential I10 Diabetes type 2, controlled E11.9 CPT Codes EKG - CPT: 80190-Lhykhiuivilvjiqwn, Complete ([id number])
--- OUTSIDE RECORDS SUMMARY | 2025-02-03 00:01 | XMS_ITS | Clinical Summary ---
Author Organization [employer] Address [address] [place] [address] [address] [place] [address] Care Team Providers Care Sales Representative Jewelry Name Role Phone Unavailable Primary Care Provider [...] Tobacco Screening 1974 Hepatitis C Screening 1980 RSV Patients and Patients Aged 60 years or older (1 - Risk 50-74 years 1-dose series) 2012 DTaP/Tdap/Td Vaccines (2 - Tdap) 08/14/2022 08/14/2012 COVID-19 Vaccine ( season) 2024 12/03/2023, 02/23/2021, 05/30/2020 Influenza Vaccine (#1) 2024 4, 04/01/2023, 01/16/2020, Additional history exists Pneumococcal Vaccine: 50+ Years Completed 10/09/2021, 12/05/2015, 08/14/2012 Zoster Vaccines Completed 04/01/2023, 10/09/2021 HIB Vaccines Aged Out No longer eligi [...] patient's age to complete this topic Insurance [facility]
--- OUTSIDE RECORDS SUMMARY | 2025-02-03 00:01 | XMS_ITS | Patient Health Record ---
Author Organization [facility] Address [address] [place] [address] Care Team Providers Care Head Inspector And Center Marker Name Role Phone Shadi (RETIRED) Chacho ADAMS Primary Care Provide r Unavailable Ruddy Barreto Unavailable [phone] Reason For Referral No Information Medications Medication SIG (Take, Route, Frequency, Duration) Notes Start Date End Date Status Losartan Potassium-HCTZ 100-25 MG Tablet 1 tablet Orally Once a day Active Vitamin D Active Fish Oil Active Invokamet 50-1000 MG Tablet 1 tablet wit h meals Orally Twice a day Active Suprep Bowel Prep 1 kit Solution as directed Orally as directed; Duration: 1 dose 04/09/2015 Active Atorvastatin Calcium 20 MG Tablet 1 tablet Orally Once a day Active amLODIPine Besylate 2.5 MG Tablet 1 tablet Orally Once a day Active Social History Social History Additional Details Category Social Info Options Details Miscellaneous: Marital status: 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 Section Notes: Very occasional Ibrahima cigar; no sig alcohol Problems Problem Type SNOMED Code ICD Code Onset Dates Problem Status W/U Status Risk Notes Problem Screening for malignant neoplasm of colon (615745824) Encounter for screening for malignant neoplasm of colon (Z12.11) Active confirmed Problem Screening for malignant neoplasm of rectum (937402416) Encounter for screening for malignant neoplasm of rectum (Z12.12) Active confirmed Problem Preprocedural examination (317390694939710) Preprocedural examination (Z01.818) Active confirmed Plan Of Treatment Pending Test Test Name Order Date GI BIOPSY 06/12/2015 Future Test Test Name Order Date COLONOSCOPY 04/04/2015 Insurance Providers Payer Name Payer Address Payer Phone Subscriber Number Group Number Insured Name Patient Relationship to Insured Coverage Start Date Coverage End Date [facility] [id number] [place], [place] [id number] ROJELIO LOCKHART Self - patient is the insured Medical (General) History Medical History History ICD Code Hypertension Kidney stones Denies HI,CVA, lung disease,renal diseas e Hyperlipdiemia Describes a sleep study and having been recommend to have a CPAP, but has never tried it--- he reports that he has been told that he snores NIDDM Surgical History Surgery Date(Month/Year) right ankle/broken
== END 2025-02-02 13:38 | disposition home or self-care (01) ==
LOC: HO.HCS 12:41
PROVIDERS: Visit Provider Internal Medicine
DX: I25.10 Atherosclerotic heart disease of native coronary artery without angina pectoris (principal); Q23.1 Congenital insufficiency of aortic valve; I10 Essential (primary) hypertension; E11.9 Type 2 diabetes mellitus without complications
CPT/HCPCS: 93010; 99214

== ENCOUNTER → 2025-02-02 12:40 | Outpatient (BNVA) | payer BC, OTHER, SELFPAY | PROVIDERS: Visit Provider Internal Medicine | DX: I25.10 Atherosclerotic heart disease of native coronary artery without angina pectoris (principal) | CPT/HCPCS: 93005 ==